=== PATIENT | male | born 1995 | race Caucasian/White ===

== ENCOUNTER 2020-06-20 12:56 | Emergency (ER) | payer OTHER, SELFPAY | END 2020-06-20 13:40 | disposition left against medical advice (07) | PROVIDERS: Emergency Provider Emergency Medicine; PCP Internal Medicine | DX: Z04.9 Encounter for examination and observation for unspecified reason (principal) ==

== ENCOUNTER 2020-06-21 06:55 | Emergency (ER) | payer OTHER, SELFPAY ==
[2020-06-21 07:13] VITALS: BP 142/89; PULSE 89; RESP 18; TEMP 36.7; O2SAT 99; BMI 29.1
--- NOTE | 2020-06-21 08:21 | ED_ITS ---
HPI - Nausea/Vomiting/Diarrhea General Chief complaint: Nausea/Vomiting/Diarrhea Stated complaint: Headache,vomiting Time Seen by Provider: 06/21/20 07:55 Source: patient Mode of arrival: ambulatory Limitations: no limitations History of Present Illness HPI Narrative: patient comes to emergency room complaining of nausea and vomiting for 3 days, no abdominal pain, no diarrhea. Patient states he has had occasional body aches, chills, no fever. Patient was seen yesterday at [facility], [place], labs were ordered but patient was never seen, patient states he was feeling too sick to be sitting on a chair and left home. Patient states he has been vomiting approximately 9 times per day Related Data Home Medications Medication Instructions Recorded Confirmed insulin glargine [Basaglar KwikPen 8 unit SUBCUT QAM 06/21/20 06/21/20 U-100 Insulin] insulin lispro [Admelog SoloStar unit SUBCUT 06/21/20 U-100 Insulin] lisinopril 1 tab PO DAILY 06/21/20 06/21/20 trazodone 1 tab PO BEDTIME PRN 06/21/20 06/21/20 Previous Rx's Medication Instructions Recorded ondansetron HCl [Zofran] 4 mg PO Q8H PRN #14 tab 06/21/20 Allergies Allergy/AdvReac Type Severity Reaction Status Date / Time clonazepam Allergy Unknown agitation Verified 04/25/20 00:00 shrimp [SHRIMP] Allergy Unknown ANAPHYLAXIS Unverified 05/12/20 18:55 sea food Allergy Unknown Uncoded 11/13/19 00:00 shrimp Allergy Unknown Uncoded 04/25/20 00:00 Review of Systems Review of Systems: Constitutional : No Weight loss, No Fever, complaining of chills, malaise ENT/Mouth : No Hearing loss, No Ear Pain, No Nasal Congestion, No Sinus Pain, No Hoarseness, No sore throat, No Rhinorrhea, No Swallowing Difficulty Eyes: No Eye Pain, No Swelling, No Redness, No Foreign Body, No Discharge, No Vision Changes Cardiovascular : No Chest Pain, No SOB, No Dyspnea on Exertion, No Orthopnea, No Edema, No Palpitations Respiratory : No Cough, No Sputum, No Wheezing, No Smoke Exposure, No Dyspnea Gastrointestinal : complaining of vomiting and nausea, No Diarrhea, No Constipation, No abdominal Pain, No Hematochezia, No Melena Genitourinary : no irregular bleeding, No Dysuria, No Urinary Frequency, No Hematuria, No Urinary Incontinence, No Urgency, No Flank Pain, No Urinary Flow Changes, No Hesitancy Musculoskeletal : No joint pain, No Myalgias, No Joint Swelling Skin : No Skin Lesions, No rash Neuro : No Weakness, No Numbness, No Paresthesias, No Loss of Consciousness, No Dizziness, No Headache Psych : No Anxiety/Panic, No Depression, No SI/HI/AH/VH, No Social Issues, Heme/Lymph: No Bruising, No Bleeding,No Lymphadenopathy Endocrine : No Polyuria, No Polydipsia, No Temperature Intolerance Yes all other systems are reviewed and are negative [facility] Past Medical History Medical History Diabetes mellitus type 1 Social History Social History Smoked in Last 30 Days: No Use of substances other than those prescribed or required for medical reasons: No Advance Directives: No Advance Directives Information Provided: No Physical Exam Vital Signs: Vital Signs: Vital Signs Temp Pulse Resp BP Pulse Ox 06/21/20 10:02 98.5 F 89 18 97 06/21/20 09:48 88 16 97 06/21/20 07:13 98.1 F 89 18 142/89 H 99 Body Mass Index 29.1 Appearance: Alert. Oriented X3. No acute distress. Eyes: Pupils equal, round and reactive to light. ENT: Pharynx normal. Neck: Normal inspection. Neck supple. No lymph nodes noted. No crepitus CVS: Normal heart rate and rhythm. Pulses normal. Normal S1 and S2 Respiratory: No respiratory distress. Breath sounds normal. No Wheezing. No rales Abdomen: Soft and nontender. No rigidity. No distention. good BS x4 Skin: Skin warm and dry. Normal skin color. Normal skin turgor. Extremities: No lower extremity edema. No lower extremity edema. No Lacerations . No Rash Neuro: Oriented X 3. No motor deficit. No sensory deficit. Moving all extermities. No slurred speech. Course Course Course Narrative: patient feeling better, no longer vomiting. I discussed the labs with the patient, tested negative for COVID. Likely a viral infection. MDM - Nausea/Vomiting/Diarrhea Lab Data Result diagrams: 06/21/20 08:38 06/21/20 08:38 Labs: Lab Results 06/21/20 06/21/20 06/21/20 Range/Units 08:38 08:38 08:38 WBC 9.4 (4.8-10.8) X10*3/uL RBC 4.52 L (4.60-5.80) X10*6/uL Hgb 13.4 L (14.0-18.0) g/dl Hct 37.8 L (42-52) % MCV 83.6 (80-98) fL MCH 29.6 (27.0-33.0) pg MCHC 35.4 (31.0-36.0) g/dl RDW 11.9 (11.0-16.0) % Plt Count 206 (160-400) X10*3/uL MPV 12.2 (9.4-12.4) fL Immature Gran % (Auto) 0.2 (0.0-0.4) % Neut % (Auto) 73.2 H (45-73) % Lymph % (Auto) 17.0 L (20-40) % [place] % (Auto) 9.2 (2-11) % Eos % (Auto) 0.3 (0-4) % Baso % (Auto) 0.1 (0-2) % Lymph # (Auto) 1.6 (1.2-4.9) X10*3/uL [place] # (Auto) 0.9 (0.1-1.2) X10*3/uL Eos # (Auto) 0.0 (0.0-0.4) X10*3/uL Baso # (Auto) 0.0 (0.0-0.2) X10*3/uL Abs Immat Gran (auto) 0.02 (0.00-0.03) X10*3/uL Absolute Neuts (auto) 6.9 (2.0-8.3) X10*3/uL Absolute Nucleated RBC 0.000 (0.0-0.012) X10*3/uL Nucleated RBC % (auto) 0.0 (0.0-0.2) /100WBC Sodium 134 L (135-145) mmol/L Potassium 4.3 (3.3-5.1) mmol/l Chloride 96 (96-108) mmol/L Carbon Dioxide 28 (22-29) mmol/L Anion Gap 14 (12-20) BUN 22 H (9-16) mg/dL Creatinine 1.00 (0.5-1.4) mg/dL Estim Creat Clear Calc 130.3 Estimated GFR > 60 Random Glucose 305 H (60-115) mg/dL Calcium 8.9 (8.4-10.2) mg/dL Total Bilirubin 1.0 (0.0-1.0) mg/dL Direct Bilirubin 0.3 (0.0-0.5) mg/dL AST 20 (5-37) U/L ALT 15 (0-40) U/L Alkaline Phosphatase 93 (39-117) U/L Total Protein 7.2 (6.5-8.0) g/dL Albumin 4.1 (3.5-5.0) g/dL Lipase Cancelled 9 Urine Color Urine Appearance Urine pH (5.0-8.0) Ur Specific [place] (1.005-1.025) Urine Protein (NEG-TRACE) MG/DL Urine Glucose (UA) (NEG) MG/DL Urine Ketones (NEG) MG/DL Urine Blood (NEG) Urine Nitrite (NEG) Ur Leukocyte Esterase (NEG) Urine RBC (0) /HPF Urine WBC (0-4) /HPF Ur Squamous Epith Cells /LPF Urine Bacteria /LPF Hyaline Casts /LPF Coronavirus (PCR) (Negative) 06/21/20 06/21/20 Range/Units 09:48 10:00 WBC (4.8-10.8) X10*3/uL RBC (4.60-5.80) X10*6/uL Hgb (14.0-18.0) g/dl Hct (42-52) % MCV (80-98) fL MCH (27.0-33.0) pg MCHC (31.0-36.0) g/dl RDW (11.0-16.0) % Plt Count (160-400) X10*3/uL MPV (9.4-12.4) fL Immature Gran % (Auto) (0.0-0.4) % Neut % (Auto) (45-73) % Lymph % (Auto) (20-40) % [place] % (Auto) (2-11) % Eos % (Auto) (0-4) % Baso % (Auto) (0-2) % Lymph # (Auto) (1.2-4.9) X10*3/uL [place] # (Auto) (0.1-1.2) X10*3/uL Eos # (Auto) (0.0-0.4) X10*3/uL Baso # (Auto) (0.0-0.2) X10*3/uL Abs Immat Gran (auto) (0.00-0.03) X10*3/uL Absolute Neuts (auto) (2.0-8.3) X10*3/uL Absolute Nucleated RBC (0.0-0.012) X10*3/uL Nucleated RBC % (auto) (0.0-0.2) /100WBC Sodium (135-145) mmol/L Potassium (3.3-5.1) mmol/l Chloride (96-108) mmol/L Carbon Dioxide (22-29) mmol/L Anion Gap (12-20) BUN (9-16) mg/dL Creatinine (0.5-1.4) mg/dL Estim Creat Clear Calc Estimated GFR Random Glucose (60-115) mg/dL Calcium (8.4-10.2) mg/dL Total Bilirubin (0.0-1.0) mg/dL Direct Bilirubin (0.0-0.5) mg/dL AST (5-37) U/L ALT (0-40) U/L Alkaline Phosphatase (39-117) U/L Total Protein (6.5-8.0) g/dL Albumin (3.5-5.0) g/dL Lipase Urine Color YELLOW Urine Appearance CLEAR Urine pH 6.0 (5.0-8.0) Ur Specific [place] 1.020 (1.005-1.025) Urine Protein 2+ H (NEG-TRACE) MG/DL Urine Glucose (UA) 500 H (NEG) MG/DL Urine Ketones 40 (NEG) MG/DL Urine Blood TRACE (NEG) Urine Nitrite NEG (NEG) Ur Leukocyte Esterase NEG (NEG) Urine RBC 0-2 (0) /HPF Urine WBC 0-2 (0-4) /HPF Ur Squamous Epith Cells NONE /LPF Urine Bacteria NONE /LPF Hyaline Casts 0-2 /LPF Coronavirus (PCR) NEGATIVE (Negative) Discharge Plan Discharge Clinical Impression: Acute viral syndrome, Vomiting, Headache Patient Disposition: Home, Self-Care Instructions: Acute Nausea and Vomiting (ED) Additional Instructions: Please follow-up with your primary care physician tomorrow. If you have any worsening or new symptoms, please return to the emergency room or call 911 Prescriptions: New ondansetron HCl [Zofran] 4 mg tablet 4 mg PO Q8H PRN (Reason: nausea and vomiting) Qty: 14 RF: 0 No Action insulin lispro [Admelog SoloStar U-100 Insulin] 100 unit/mL insulin pen subcut RF: 0 trazodone 50 mg tablet 1 tab PO BEDTIME PRN (Reason: Anxiety) RF: 0 lisinopril 5 mg tablet 1 tab PO DAILY RF: 0 Basaglar KwikPen U-100 Insulin 100 unit/mL (3 mL) insulin pen 8 unit subcut QAM RF: 0
[2020-06-21] MEDS: 0.9 % Sodium Chloride 1,000 ML 999 ML IVCONT (08:43)
[2020-06-21] MEDS: ondansetron HCL 4 MG/2 ML VIAL IVPUSH (08:43)
[2020-06-21 08:56] LABS: MANUAL DIFF FLAG NO
[2020-06-21 09:01] LABS: Basophils Percent Auto 0.1 % (0-2); Eosinophils Percent Auto 0.3 % (0-4); Hematocrit 37.8 % (42-52); Hemoglobin 13.4 g/dl (14.0-18.0); Imm Gran Abs Auto 0.02 X10*3/uL (0.00-0.03); Imm Gran Pct Auto 0.2 % (0.0-0.4); Lymphocytes Absolute Auto 1.6 X10*3/uL (1.2-4.9); Mean Corpuscular HGB Conc 35.4 g/dl (31.0-36.0); Mean Corpuscular Hemoglobin 29.6 pg (27.0-33.0); Mean Corpuscular Volume 83.6 fL (80-98); Mean Platelet Volume 12.2 fL (9.4-12.4); Monocytes Absolute Auto 0.9 X10*3/uL (0.1-1.2); Monocytes Percent Auto 9.2 % (2-11); Neutrophils Absolute Auto 6.9 X10*3/uL (2.0-8.3); Neutrophils Percent Auto 73.2 % (45-73); Platelet Count 206 X10*3/uL (160-400); Red Blood Count 4.52 X10*6/uL (4.60-5.80); Red Cell Distribution Width 11.9 % (11.0-16.0); White Blood Count 9.4 X10*3/uL (4.8-10.8)
[2020-06-21 09:27] LABS: Alanine Aminotransferase 15 U/L (0-40); Albumin Level 4.1 g/dL (3.5-5.0); Alkaline Phosphatase 93 U/L (39-117); Anion Gap 14 (12-20); Aspartate Amino Transferase 20 U/L (5-37); Bilirubin Direct 0.3 mg/dL (0.0-0.5); Blood Urea Nitrogen 22 mg/dL (9-16); Calcium 8.9 mg/dL (8.4-10.2); Carbon Dioxide 28 mmol/L (22-29); Chloride 96 mmol/L (96-108); Creatinine Clr Calc Pharmacy 130.3; Estimated Glomerular Filt Rate > 60; Glucose Random 305 mg/dL (60-115); Lipase 9 U/L (8-78); Potassium 4.3 mmol/l (3.3-5.1); Sodium 134 mmol/L (135-145); Total Protein 7.2 g/dL (6.5-8.0)
[2020-06-21 09:48] VITALS: PULSE 88; RESP 16; O2SAT 97
[2020-06-21 10:02] VITALS: PULSE 89; RESP 18; TEMP 36.9; O2SAT 97
[2020-06-21 10:11] LABS: Glucose Urine UA 500 MG/DL (NEG); Leukocyte Esterase Urine NEG (NEG); Nitrite Urine NEG (NEG); Urine Blood TRACE (NEG); Urine Ketones 40 MG/DL (NEG); Urine Protein 2+ MG/DL (NEG-TRACE)
[2020-06-21 10:12] LABS: Appearance Urine CLEAR; Color Urine YELLOW
[2020-06-21 10:24] LABS: RBC Urine 0-2 /HPF (0); WBC Urine 0-2 /HPF (0-4)
[2020-06-21 10:25] LABS: Hyaline Casts Urine 0-2 /LPF
[2020-06-21 11:19] LABS: SARS COV2 PCR INHOUSE NEGATIVE (Negative)
[2020-06-21] MEDS: Insulin Regular, Human 100 UNIT/ML 3 ML VIAL IVPUSH (12:39)
[2020-06-21] MEDS: Acetaminophen 325 MG TABLET 650 MG PO (12:40)
[2020-06-21 12:44] VITALS: BP 149/80; PULSE 96; RESP 18; TEMP 36.7; O2SAT 99
== END 2020-06-21 12:58 | disposition home or self-care (01) ==
PROVIDERS: Emergency Provider Emergency Medicine; PCP Internal Medicine
DX: R51.9 Headache, unspecified (principal); B34.9 Viral infection, unspecified; R11.10 Vomiting, unspecified; Z79.4 Long term (current) use of insulin; Z79.899 Other long term (current) drug therapy; Z20.828 Contact with and (suspected) exposure to other viral communicable diseases
CPT/HCPCS: 36415; 80048; 80076; 81001; 83690; 85025; 87635; 96361; 96374; 96375; 99284; J2405

== ENCOUNTER 2020-06-22 09:59 | Outpatient (REF) | payer OTHER, SELFPAY ==
--- NOTE | 2020-06-22 10:10 | US_ITS ---
EXAMINATION: US RETROPERITONEAL LIMITED (RENAL ONLY) CLINICAL INFORMATION: Hypertension. Proteinuria. COMPARISON: CT abdomen and pelvis 01/19/2018, KUB 01/18/2018 TECHNIQUE: Real-time imaging of the kidneys. FINDINGS: RIGHT KIDNEY: 12.0 x 6.2 x 6.7 cm (SAG x AP x TRV). The kidney is normal in size, contour, and echogenicity. Renal cortical thickness is normal. No calculi or focal parenchymal lesions. No hydronephrosis. LEFT KIDNEY: 12.0 x 7.8 x 4.9 cm (SAG x AP x TRV). The kidney is normal in size, contour, and echogenicity. Renal cortical thickness is normal. No renal calculi or hydronephrosis. There is an anechoic cyst midpole measuring 7.8 x 7.7 x 8.5 cm. US/US renal BI IMPRESSION: Small cyst midpole left kidney measuring 8.5 cm. Unremarkable right kidney.
== END 2020-06-22 10:00 | disposition home or self-care (01) ==
LOC: HO.US 09:59
PROVIDERS: Visit Provider Internal Medicine Hypertension Specialist
DX: E10.9 Type 1 diabetes mellitus without complications (principal); I10 Essential (primary) hypertension; R80.9 Proteinuria, unspecified
CPT/HCPCS: 76775

== ENCOUNTER → 2020-07-08 08:54 | Outpatient (BNVA) | payer OTHER, SELFPAY | PROVIDERS: PCP Internal Medicine; Referring Provider Internal Medicine; Visit Provider Internal Medicine Endocrinology, Diabetes & Metabolism | DX: Z76.89 Persons encountering health services in other specified circumstances (principal) ==

== ENCOUNTER 2020-11-03 04:31 | Emergency (ER) | payer OTHER, SELFPAY ==
[2020-11-03 04:46] VITALS: BP 143/93; PULSE 84; RESP 16; TEMP 36.7; O2SAT 100; BMI 29.9
--- NOTE | 2020-11-03 05:27 | ED.HA ---
HPI - Headache General Chief Complaint: Headache Stated Complaint: HEAD PAIN NO INJURY Time Seen by Provider: 11/03/20 05:26 Source: patient Mode of arrival: ambulatory History of Present Illness HPI Narrative: This is a 25-year-old male with history of hypertension and type 1 diabetes who presents with 1 week of left base of skull, sharp, pinpoint pain that worsens with head movement. He denies any associated fevers, chills, nausea, vomiting, decrease in appetite, abdominal discomfort. In addition, he states his sugar levels have remained consistent and under control. He has inconsistently tried [id number] Tylenol and ibuprofen and denies any photosensitivity or visual disturbances. Related Data Home Medications Medication Instructions Recorded Confirmed trazodone 1 tab PO BEDTIME PRN 06/21/20 10/04/20 Previous Rx's Medication Instructions Recorded ondansetron HCl [Zofran] 4 mg PO Q8H PRN #14 tab 06/21/20 lancets 33 gauge #200 ea 06/24/20 cholecalciferol (vitamin D3) 125 125 mcg PO DAILY 30 Days #30 cap 07/08/20 mcg (5,000 unit) capsule flash glucose scanning reader #1 ea 07/08/20 flash glucose sensor #2 ea 07/08/20 insulin glargine 100 unit/mL (3 8 unit SUBCUT QAM 30 Days #15 ml 07/08/20 mL) subcutaneous pen insulin lispro 100 unit/mL See Rx Instructions SUBCUT .5 07/08/20 subcutaneous pen times a day 30 Days #15 ml lisinopril 5 mg tablet 5 mg PO DAILY 30 Days #30 tab 07/08/20 pen needle, diabetic 32 gauge x #150 ea 07/08/20 Allergies Allergy/AdvReac Type Severity Reaction Status Date / Time clonazepam Allergy Unknown agitation Verified 10/04/20 15:39 shrimp [SHRIMP] Allergy Unknown ANAPHYLAXIS Verified 10/04/20 15:39 Review of Systems Review of Systems: Pertinent positives and negatives as stated in HPI 10 point review systems is otherwise negative. PMFSH Past Medical History Source: nursing notes reviewed Medical History Anxiety Asthma Diabetes mellitus type 1 Diabetes type 1, uncontrolled Diabetic nephropathy associated with type 1 diabetes mellitus Diabetic polyneuropathy associated with type 1 diabetes mellitus Non-proliferative diabetic retinopathy, mild, both eyes Overweight (BMI 25.0-29.9) Vitamin D deficiency Surgical History History of surgery Family History Family History Father No problems noted. Mother Hypertension Maternal Grandmother Hypertension Diabetes Maternal Uncle Chronic mental illness Social History Social History Smoking Status: Former smoker Tobacco Type: Cigarette Advance Directives: No Advance Directives Information Provided: No Physical Exam Vital Signs: Vital Signs: Last Vital Signs Temp 98.4 F 11/03/20 05:53 Pulse 84 11/03/20 05:53 Resp 16 11/03/20 05:53 BP 120/70 11/03/20 05:53 Pulse Ox 99 11/03/20 05:53 Body Mass Index 29.9 VITAL SIGNS: Reviewed. GENERAL: Well developed, well nourished, in no acute distress. HEAD: Normocephalic/atraumatic, pinpoint pain located at the insertion site of trapezius into left skull base, no erythema/induration/swelling noted EYES: PERRLA, EOMI intact without pain, no nystagmus EARS: Ext canals without abnormality, TMs non-bulging and non-erythematous NOSE: Nares patent bilateral OROPHARYNX: no oral lesions noted, posterior pharynx clear NECK: Supple, no adenopathy LUNGS: Normal breath sounds. No adventitious sounds or accessory muscle use. SpO2<100> CARDIOVASCULAR: Regular rate and rhythm without noted murmurs ABDOMEN: Soft, non-tender, non-distended with bowel sounds. NEUROLOGIC: Alert and oriented x 4. Strength and sensation to light touch were grossly intact x 4. Course Course Course Narrative: This is a 25-year-old male with history and clinical presentation most consistent with mild strain (patient states he has been sitting at his computer for long hours playing video games) of the trapezius insertion into left skull base. Low clinical suspicion for a meningitis, neurologic deficit or diabetes so she ate etiology. Patient was provided with combination analgesics and will be reassessed. [id number]: On re-evaluation patient has had complete resolution of his symptoms and is feeling much better. He is stable for discharge to home. Discharge Plan Discharge Clinical Impression: Muscle strain Patient Disposition: Home, Self-Care Instructions: Muscle Strain (ED) Additional Instructions: 1. Tylenol 1000 mg, orally, every 6 hours as needed for pain control. Do not exceed 4000 mg within 24 hours. 2. Ibuprofen 400 mg, orally with milk or food, every 6 hours as needed for pain control. Take this medication with Tylenol for increased symptom control. 3. Please follow-up with your primary care provider for re-evaluation and further outpatient management. Do not hesitate to return to this emergency department should you develop any worsening of your symptoms. Prescriptions: No Action (DME) lancets [TRUEplus Lancets] 33 gauge misc See Rx Instructions .ROUTE .MEDSUPPLY Qty: 200 RF: 1 trazodone 50 mg tablet 1 tab PO BEDTIME PRN (Reason: Anxiety) RF: 0 ondansetron HCl [Zofran] 4 mg tablet 4 mg PO Q8H PRN (Reason: nausea and vomiting) Qty: 14 RF: 0 Basaglar KwikPen U-100 Insulin 100 unit/mL (3 mL) insulin pen 8 unit subcut QAM 30 Days Qty: 15 RF: 4 insulin lispro [Admelog SoloStar U-100 Insulin] 100 unit/mL insulin pen See Rx Instructions subcut .5 times a day 30 Days Qty: 15 RF: 4 (DME) pen needle, diabetic [BD Yi 2nd Gen Pen Needle] 32 gauge x 5/32 needle See Rx Instructions .MEDSUPPLY Qty: 150 RF: 5 (DME) FreeStyle Shelli 2 [place] Misc See Rx Instructions .ROUTE .MEDSUPPLY Qty: 1 RF: 0 (DME) FreeStyle Shelli 2 Sensor Kit See Rx Instructions .ROUTE .MEDSUPPLY Qty: 2 RF: 11 cholecalciferol (vitamin D3) 125 mcg (5,000 unit) capsule 125 mcg PO DAILY 30 Days Qty: 30 RF: 6 lisinopril 5 mg tablet 5 mg PO DAILY 30 Days Qty: 30 RF: 5 Referrals: Tiffani Carson MD [Primary Care Provider] - 2 days (Re-evaluation and further outpatient management for left trapezius muscle strain.)
[2020-11-03 05:53] VITALS: BP 120/70; PULSE 84; RESP 16; TEMP 36.9; O2SAT 99
[2020-11-03] MEDS: Ketorolac Tromethamine 15 MG/ML VIAL IM (06:08)
[2020-11-03] MEDS: Acetaminophen 325 MG TABLET 975 MG PO (06:08)
== END 2020-11-03 07:04 | disposition home or self-care (01) ==
PROVIDERS: Emergency Provider Student in an Organized Health Care Education/Training Program; PCP Internal Medicine
DX: S16.1XXA Strain of muscle, fascia and tendon at neck level, initial encounter (principal); X50.1XXA Overexertion from prolonged static or awkward postures, initial encounter; E10.9 Type 1 diabetes mellitus without complications; I10 Essential (primary) hypertension; Y93.C1 Activity, computer keyboarding; Y92.019 Unspecified place in single-family (private) house as the place of occurrence of the external cause; Y99.8 Other external cause status; Z79.4 Long term (current) use of insulin
CPT/HCPCS: 96372; 99283; 99284; J1885

== ENCOUNTER 2020-11-10 16:37 | Outpatient (REF) | payer OTHER, SELFPAY | END 2020-11-10 16:38 | disposition home or self-care (01) | LOC: HO.LNP 16:37 | PROVIDERS: Visit Provider Physician Assistant | DX: J01.90 Acute sinusitis, unspecified (principal); Z20.822 Contact with and (suspected) exposure to COVID-19 | CPT/HCPCS: U0003; U0005 ==

== ENCOUNTER → 2020-11-11 13:00 | Outpatient (BNVA) | payer OTHER, SELFPAY | PROVIDERS: PCP Internal Medicine; Visit Provider Internal Medicine Endocrinology, Diabetes & Metabolism ==

== ENCOUNTER 2020-12-12 13:52 | Inpatient (IN) | payer OTHER, SELFPAY ==
--- NOTE | ~2020-12-12 | CT_ITS ---
EXAMINATION: CT ABDOMEN AND PELVIS WITH CONTRAST CLINICAL INFORMATION: Right lower quadrant pain. COMPARISON: CT 01/19/2018. TECHNIQUE: Multidetector volumetric images were obtained from the superior aspect of the liver through the pubic symphysis following administration 85 mL of Omnipaque 350 intravenous contrast. Sagittal and coronal reformatted images were obtained on the technologist's workstation. Oral Contrast: No. This CT examination was performed using dose optimization techniques as appropriate, variously including the following: *Automated exposure control. *Adjustment of mA and/or kV according to patient size (this includes techniques or standardized protocols for targeted exams where dose is matched to indication/reason for exam; i.e. extremities or head). *Use of iterative reconstruction technique. DLP: 638 mGy-cm FINDINGS: LUNG BASES: The visualized lung bases are unremarkable. LIVER, GALLBLADDER, AND BILIARY TREE: No focal liver lesion. No biliary duct dilatation. The gallbladder is unremarkable with no evidence of radiopaque gallstones, gallbladder wall thickening, or obvious pericholecystic inflammatory changes. PANCREAS: Unremarkable. SPLEEN: Unremarkable. ADRENAL GLANDS: Unremarkable. KIDNEYS AND URETERS: A 8.2 cm cyst in the upper pole of the left kidney, similar to previous. No suspicious lesions. No calculi. No hydronephrosis. BLADDER: Unremarkable. GASTROINTESTINAL TRACT: The appendix is thickened measuring 1 cm in diameter, with intraluminal high density material possibly appendicoliths, and air. Associated surrounding inflammatory changes. Findings are highly suspicious for acute appendicitis. There are multiple prominent mesenteric lymph nodes in the right lower quadrant. Stomach is partially distended. No dilated small bowel loops. There is mild wall prominence of the large colon, probably related to lack of distention. ABDOMINAL WALL: Small fat-containing inguinal hernia. LYMPH NODES: Multiple prominent retroperitoneal lymph nodes. This includes a 1.4 cm para-aortic lymph node image 5:33. Mildly prominent mesenteric lymph nodes. VASCULAR: Normal caliber aorta. PELVIC VISCERA: Within normal limits. 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 CT/CT abdomen pelvis w con IMPRESSION: 1. Thickened appendix, with intraluminal high density material probable phleboliths, periappendiceal inflammatory changes. Findings are highly suspicious for acute appendicitis. There are multiple prominent mesenteric lymph nodes in the right lower quadrant. 2. Prominent retroperitoneal lymph nodes, larger measuring 1.4 cm. 3. Additional findings and details as above. This critical result was discussed with Dr. Vinson at 10:55 PM on 12/12/2020 and it was ascertained that the content and urgency of the report was understood at the time of direct communication.
[2020-12-12 13:54] VITALS: BP 142/91; PULSE 84; RESP 18; TEMP 36.6; O2SAT 99; BMI 30.4
[2020-12-12 16:33] LABS: MANUAL DIFF FLAG NO
[2020-12-12 16:37] LABS: Basophils Percent Auto 0.1 % (0-2); Eosinophils Absolute Auto 0.1 X10*3/uL (0.0-0.4); Hematocrit 38.4 % (42-52); Hemoglobin 13.3 g/dl (14.0-18.0); Imm Gran Abs Auto 0.04 X10*3/uL (0.00-0.03); Imm Gran Pct Auto 0.4 % (0.0-0.4); Lymphocytes Absolute Auto 1.8 X10*3/uL (1.2-4.9); Lymphocytes Percent Auto 19.1 % (20-40); Mean Corpuscular HGB Conc 34.6 g/dl (31.0-36.0); Mean Corpuscular Volume 83.8 fL (80-98); Mean Platelet Volume 11.9 fL (9.4-12.4); Monocytes Absolute Auto 0.9 X10*3/uL (0.1-1.2); Monocytes Percent Auto 9.5 % (2-11); Neutrophils Absolute Auto 6.5 X10*3/uL (2.0-8.3); Neutrophils Percent Auto 69.9 % (45-73); Platelet Count 194 X10*3/uL (160-400); Red Blood Count 4.58 X10*6/uL (4.60-5.80); Red Cell Distribution Width 12.3 % (11.0-16.0); White Blood Count 9.3 X10*3/uL (4.8-10.8)
[2020-12-12 17:03] LABS: Anion Gap 11 (12-20); Blood Urea Nitrogen 11 mg/dL (9-16); Calcium 8.8 mg/dL (8.4-10.2); Carbon Dioxide 28 mmol/L (22-29); Chloride 105 mmol/L (96-108); Creatinine Clr Calc Pharmacy 162.2; Estimated Glomerular Filt Rate > 60; Glucose Random 103 mg/dL (60-115); Potassium 4.1 mmol/L (3.3-5.1); Sodium 140 mmol/L (135-145)
--- NOTE | 2020-12-12 17:43 | ED_ITS ---
HPI - Abdominal Pain General Chief Complaint: Abdominal Pain Stated Complaint: rt lower abd pain Time Seen by Provider: 12/12/20 17:34 Source: patient Mode of arrival: ambulatory Limitations: no limitations History of Present Illness HPI narrative: 25 yo male with IDDM here with RLQ pain started today associated diarrhea yesterday and lack of appetite, no prior episodes of this in the past MD elicited complaint: abdominal pain Pertinent past history: none Onset (ago): day(s) (today this AM on waking) Pain Consistency: constant Location: RLQ Severity: moderate Quality: cramping and aching Radiation: none Migration to: no migration Exacerbating factors: movement Relieving factors: nothing Associated symptoms: diarrhea Related Data Home Medications Medication Instructions Recorded Confirmed trazodone 1 tab PO BEDTIME PRN 06/21/20 12/12/20 blood sugar diagnostic #10 ea 11/11/20 12/12/20 Previous Rx's Medication Instructions Recorded ondansetron HCl [Zofran] 4 mg PO Q8H PRN #14 tab 06/21/20 lancets 33 gauge #200 ea 06/24/20 flash glucose scanning reader #1 ea 07/08/20 amoxicillin 875 mg-potassium 1 tab PO Q12H #14 tab 11/10/20 clavulanate 125 mg tablet levocetirizine 5 mg tablet 5 mg PO DAILY #30 tab 11/10/20 Humalog KwikPen Insulin 100 See Rx Instructions SUBCUT .5 11/11/20 unit/mL subcutaneous times a day 30 Days #15 ml NS Lantus Solostar U-100 Insulin 100 8 unit SUBCUT QAM 30 Days #15 ml NS 11/11/20 unit/mL (3 mL) subcutaneous pen cholecalciferol (vitamin D3) 125 125 mcg PO DAILY 30 Days #30 cap 11/11/20 mcg (5,000 unit) capsule flash glucose sensor #2 ea 11/11/20 lisinopril 5 mg tablet 5 mg PO DAILY 30 Days #30 tab 11/11/20 pen needle, diabetic 32 gauge x #150 ea 11/11/20 Allergies Allergy/AdvReac Type Severity Reaction Status Date / Time clonazepam Allergy Unknown agitation Verified 12/12/20 13:08 shrimp [SHRIMP] Allergy Unknown ANAPHYLAXIS Verified 12/12/20 13:08 Review of Systems Review of Systems Constitutional : No Weight loss, No Fever, No Chills ENT/Mouth : No sore throat, No Rhinorrhea Eyes: No Swelling, No Redness Cardiovascular : No Chest Pain, No SOB, NoEdema Respiratory : No Cough, No Sputum, No Wheezing Gastrointestinal : no Nausea, no Vomiting, positive Diarrhea, positive abdominal Pain, No Hematochezia, No Melena Genitourinary : No Dysuria, No Urinary Frequency, No Hematuria, No Urgency Musculoskeletal : No joint pain, No Myalgias, No Joint Swelling Skin : No Skin Lesions, No rash Neuro : No Weakness, No Numbness, No Dizziness, No Headache Psych : No Anxiety/Panic, No Depression Heme/Lymph: No Bruising, No Lymphadenopathy Endocrine : No Polyuria, No Polydipsia All other systems reviewed and are negative. Physical Exam Vital Signs: Vital Signs: Last Vital Signs Temp 98.2 F 12/12/20 21:57 Pulse 84 12/12/20 21:57 Resp 18 12/12/20 21:57 BP 151/98 H 12/12/20 21:57 Pulse Ox 99 12/12/20 21:57 Body Mass Index 30.4 Appearance: Alert. Oriented X3. No acute distress. Eyes: Pupils equal, round and reactive to light. ENT: Pharynx normal. Neck: Normal inspection. Neck supple. CVS: Normal heart rate and rhythm. Pulses normal. Respiratory: No respiratory distress. Breath sounds normal. Abdomen: Soft and moderate RLQ pain with mild vol guarding but no rebound Skin: Skin warm and dry. Normal skin color. Normal skin turgor. Extremities: No lower extremity edema. No calf ttp Neuro: Oriented X 3. No motor deficit. No sensory deficit. Course Course Course Narrative: significant delay in CT read called 1056pm by Radiology + appendicitis, will start larisa Dobson aware 11pm will admit MDM - Abdominal Pain MDM Narrative Medical decision making narrative: 25 yo male with IDDM here with diarrhea yesterday now with RLQ pain at this time will need labs, CT scan for appendicitis, IV morphine for pain Lab Data Result diagrams: 12/12/20 16:21 12/12/20 16:21 Labs: Lab Results 12/12/20 12/12/20 12/12/20 Range/Units 16:21 16:21 16:21 WBC 9.3 (4.8-10.8) X10*3/uL RBC 4.58 L (4.60-5.80) X10*6/uL Hgb 13.3 L (14.0-18.0) g/dl Hct 38.4 L (42-52) % MCV 83.8 (80-98) fL MCH 29.0 (27.0-33.0) pg MCHC 34.6 (31.0-36.0) g/dl RDW 12.3 (11.0-16.0) % Plt Count 194 (160-400) X10*3/uL MPV 11.9 (9.4-12.4) fL Immature Gran % (Auto) 0.4 (0.0-0.4) % Neut % (Auto) 69.9 (45-73) % Lymph % (Auto) 19.1 L (20-40) % [place] % (Auto) 9.5 (2-11) % Eos % (Auto) 1.0 (0-4) % Baso % (Auto) 0.1 (0-2) % Lymph # (Auto) 1.8 (1.2-4.9) X10*3/uL [place] # (Auto) 0.9 (0.1-1.2) X10*3/uL Eos # (Auto) 0.1 (0.0-0.4) X10*3/uL Baso # (Auto) 0.0 (0.0-0.2) X10*3/uL Abs Immat Gran (auto) 0.04 H (0.00-0.03) X10*3/uL Absolute Neuts (auto) 6.5 (2.0-8.3) X10*3/uL Absolute Nucleated RBC 0.000 (0.0-0.012) X10*3/uL Nucleated RBC % (auto) 0.0 (0.0-0.2) /100WBC Hold Blue Top SEE NOTE Sodium 140 (135-145) mmol/L Potassium 4.1 (3.3-5.1) mmol/L Chloride 105 (96-108) mmol/L Carbon Dioxide 28 (22-29) mmol/L Anion Gap 11 L (12-20) BUN 11 (9-16) mg/dL Creatinine 0.82 (0.5-1.4) mg/dL Estim Creat Clear Calc 162.2 Estimated GFR > 60 Random Glucose 103 D (60-115) mg/dL Calcium 8.8 (8.4-10.2) mg/dL Urine Color Urine Appearance Urine pH (5.0-8.0) Ur Specific [place] (1.005-1.025) Urine Protein (NEG-TRACE) MG/DL Urine Glucose (UA) (NEG) MG/DL Urine Ketones (NEG) MG/DL Urine Blood (NEG) Urine Nitrite (NEG) Ur Leukocyte Esterase (NEG) Urine RBC (0) /HPF Urine WBC (0-4) /HPF Ur Squamous Epith Cells /LPF Urine Bacteria /LPF COVID-19 (HAL) (Negative) COVID-19 Clin Com 12/12/20 12/12/20 Range/Units 18:09 22:00 WBC (4.8-10.8) X10*3/uL RBC (4.60-5.80) X10*6/uL Hgb (14.0-18.0) g/dl Hct (42-52) % MCV (80-98) fL MCH (27.0-33.0) pg MCHC (31.0-36.0) g/dl RDW (11.0-16.0) % Plt Count (160-400) X10*3/uL MPV (9.4-12.4) fL Immature Gran % (Auto) (0.0-0.4) % Neut % (Auto) (45-73) % Lymph % (Auto) (20-40) % [place] % (Auto) (2-11) % Eos % (Auto) (0-4) % Baso % (Auto) (0-2) % Lymph # (Auto) (1.2-4.9) X10*3/uL [place] # (Auto) (0.1-1.2) X10*3/uL Eos # (Auto) (0.0-0.4) X10*3/uL Baso # (Auto) (0.0-0.2) X10*3/uL Abs Immat Gran (auto) (0.00-0.03) X10*3/uL Absolute Neuts (auto) (2.0-8.3) X10*3/uL Absolute Nucleated RBC (0.0-0.012) X10*3/uL Nucleated RBC % (auto) (0.0-0.2) /100WBC Hold Blue Top Sodium (135-145) mmol/L Potassium (3.3-5.1) mmol/L Chloride (96-108) mmol/L Carbon Dioxide (22-29) mmol/L Anion Gap (12-20) BUN (9-16) mg/dL Creatinine (0.5-1.4) mg/dL Estim Creat Clear Calc Estimated GFR Random Glucose (60-115) mg/dL Calcium (8.4-10.2) mg/dL Urine Color YELLOW Urine Appearance CLEAR Urine pH 6.0 (5.0-8.0) Ur Specific [place] >= 1.030 H (1.005-1.025) Urine Protein 2+ H (NEG-TRACE) MG/DL Urine Glucose (UA) NEG (NEG) MG/DL Urine Ketones 5 (NEG) MG/DL Urine Blood 1+ H (NEG) Urine Nitrite NEG (NEG) Ur Leukocyte Esterase NEG (NEG) Urine RBC 5-9 H (0) /HPF Urine WBC 0 (0-4) /HPF Ur Squamous Epith Cells NONE /LPF Urine Bacteria NONE /LPF COVID-19 (HAL) Negative (Negative) COVID-19 Clin Com See Note Discharge Plan Discharge Clinical Impression: Abdominal pain, Acute appendicitis Prescriptions: No Action (DME) lancets [TRUEplus Lancets] 33 gauge misc See Rx Instructions .ROUTE .MEDSUPPLY Qty: 200 RF: 1 Lantus Solostar U-100 Insulin 100 unit/mL (3 mL) insulin pen 8 unit subcut QAM 30 Days Qty: 15 RF: 4 insulin lispro [Humalog KwikPen Insulin] 100 unit/mL insulin pen See Rx Instructions subcut .5 times a day 30 Days Qty: 15 RF: 4 trazodone 50 mg tablet 1 tab PO BEDTIME PRN (Reason: Anxiety) RF: 0 ondansetron HCl [Zofran] 4 mg tablet 4 mg PO Q8H PRN (Reason: nausea and vomiting) Qty: 14 RF: 0 levocetirizine [Xyzal] 5 mg tablet 5 mg PO DAILY Qty: 30 RF: 0 amoxicillin-pot clavulanate [Augmentin] 875-125 mg tablet 1 tab PO Q12H Qty: 14 RF: 0 (DME) FreeStyle Lite Strips Strip See Rx Instructions ea Not Applicable .MEDSUPPLY Qty: 10 RF: 0 (DME) FreeStyle [place] 2 Sensor Kit See Rx Instructions .ROUTE .MEDSUPPLY Qty: 2 RF: 11 lisinopril 5 mg tablet 5 mg PO DAILY 30 Days Qty: 30 RF: 5 (DME) pen needle, diabetic [BD Yi 2nd Gen Pen Needle] 32 gauge x 5/32 needle See Rx Instructions .MEDSUPPLY Qty: 150 RF: 5 cholecalciferol (vitamin D3) 125 mcg (5,000 unit) capsule 125 mcg PO DAILY 30 Days Qty: 30 RF: 1 (DME) FreeStyle [place] 2 [place] Misc See Rx Instructions .ROUTE .MEDSUPPLY Qty: 1 RF: 0 PMFSH Past Medical History Attestation statement: The following information was validated with the patient. Medical History Anxiety Asthma Diabetes mellitus type 1 Diabetes type 1, uncontrolled Diabetic nephropathy associated with type 1 diabetes mellitus Diabetic polyneuropathy associated with type 1 diabetes mellitus Non-proliferative diabetic retinopathy, mild, both eyes Overweight (BMI 25.0-29.9) Vitamin D deficiency Surgical History History of surgery Family History Family History Father No problems noted. Mother Hypertension Maternal Grandmother Hypertension Diabetes Maternal Uncle Chronic mental illness Social History Social History Alcohol intake: never Smoking Status: Former smoker Tobacco Type: Cigarette Smoked in Last 30 Days: No Use of substances other than those prescribed or required for medical reasons: No Advance Directives: No Advance Directives Information Provided: No
[2020-12-12 17:47] VITALS: BP 142/88; PULSE 80; RESP 16; TEMP 36.6; O2SAT 99
[2020-12-12 18:05] VITALS: RESP 18
[2020-12-12] MEDS: Morphine Sulfate 4 MG/ML CARTRIDGE IVPUSH (18:05)
[2020-12-12] MEDS: 0.9 % Sodium Chloride 1,000 ML 999 ML IVCONT (18:05)
[2020-12-12 18:41] LABS: COVID-19 Test Negative (Negative); IDNOW Serial# 08D9AD1C
[2020-12-12 19:21] VITALS: BP 135/93; PULSE 78; RESP 18; TEMP 36.6; O2SAT 98
[2020-12-12] MEDS: iohexoL 350 MG/ML 100 ML INFUS..BTL IV (20:59)
[2020-12-12 21:57] VITALS: BP 151/98; PULSE 84; RESP 18; TEMP 36.8; O2SAT 99
[2020-12-12 22:07] LABS: Glucose Urine UA NEG (NEG); Leukocyte Esterase Urine NEG (NEG); Nitrite Urine NEG (NEG); Specific Gravity - Urine >= 1.030 (1.005-1.025); Urine Blood 1+ (NEG); Urine Ketones 5 MG/DL (NEG); Urine Protein 2+ MG/DL (NEG-TRACE)
[2020-12-12 22:10] LABS: Appearance Urine CLEAR; Color Urine YELLOW
[2020-12-12 22:16] LABS: WBC Urine 0 /HPF (0-4)
[2020-12-12] MEDS: Piperacillin Sodium/Tazobactam 3.375 GM in 0.9 % Sodium Chloride 50 ML IV (23:32)
[2020-12-12 23:51] VITALS: BP 161/92; PULSE 91; RESP 18; TEMP 36.7; O2SAT 100
[2020-12-13] VITALS (15 sets, daily range): BP systolic 109–154; BP diastolic 67–101; PULSE 79–87; RESP 15–20; TEMP 36.1–37.2; O2SAT 94–100
--- NOTE | 2020-12-13 02:48 | PC.NURSE ---
Patient is resting comfortably in bed was able to tolerate po intake is now npo vitals are stable completed first dose of iv atbs aware of plan of care to be admitted for appendicitis no c/o pain at this time
[2020-12-13 03:38] LABS: Glucose, Whole Blood 206 mg/dL (60-115)
[2020-12-13] MEDS: Lactated Ringers 1,000 ML 100 ML IV (03:56)
[2020-12-13] MEDS: Piperacillin Sodium/Tazobactam 3.375 GM in 0.9 % Sodium Chloride 50 ML IV ×3 (06:28→17:09)
--- NOTE | 2020-12-13 07:03 | PM.HPGS ---
History of Present Illness History of Present Illness Date of Service: 12/13/20 Chief complaint: Acute appendicitis Narrative: Riley Rodriguez is a 25 year old male who presented to the emergency department late yesterday for evaluation of right lower quadrant abdominal pain. The pain began around mid day and was persistent and aggravated by movement. It was not associated with fever, chills, nausea or vomiting. He had no history of similar pain in the past. The pain has improved significantly through the night. In the emergency room, workup revealed a normal white blood count. CT scan of the abdomen and pelvis was consistent with acute appendicitis, and demonstrated a somewhat enlarged appearing appendix with periappendiceal inflammation. Review of Systems Constitutional: Constitutional: Denies chills and Denies fever(s) Eyes: Eyes: Reports no additional eye complaints Cardiovascular: Cardiovascular: Denies chest pain, Denies palpitations and Denies dyspnea Respiratory: Respiratory: Denies cough and Denies dyspnea Gastrointestinal: Gastrointestinal: Reports as per HPI Genitourinary: Genitourinary: Reports no additional male genitourinary complaints Musculoskeletal: Musculoskeletal: Reports no additional musculoskeletal complaints Integumentary/Breasts: Skin/Breast: Denies rash Endocrine: Endocrine: Denies palpitations Hematologic/Lymphatic: Hematologic/Lymphatic: Denies easy bruising PMFSH Past Medical History Medical History Anxiety Asthma Diabetes mellitus type 1 Diabetes type 1, uncontrolled Diabetic nephropathy associated with type 1 diabetes mellitus Diabetic polyneuropathy associated with type 1 diabetes mellitus Non-proliferative diabetic retinopathy, mild, both eyes Overweight (BMI 25.0-29.9) Vitamin D deficiency Family History Family History Father No problems noted. Mother Hypertension Maternal Grandmother Hypertension Diabetes Maternal Uncle Chronic mental illness Surgical History Surgical History History of surgery Social History Social History Alcohol intake: never Smoking Status: Former smoker Tobacco Type: Cigarette Smoked in Last 30 Days: No Use of substances other than those prescribed or required for medical reasons: No Advance Directives: No Advance Directives Information Provided: No Meds Allergies Allergy/AdvReac Type Severity Reaction Status Date / Time clonazepam Allergy Unknown agitation Verified 12/12/20 13:08 shrimp [SHRIMP] Allergy Unknown ANAPHYLAXIS Verified 12/12/20 13:08 Active Medications: Current Medications Generic Name Dose Route Start Last Admin Trade Name Freq PRN Reason Stop Dose Admin Lactated Ringer's 1,000 mls @ 100 mls/hr 12/13/20 03:10 12/13/20 03:56 Lr IV 12/13/20 13:09 100 mls/hr .Q10H ENEDINA Administration Piperacillin Sod/Tazobactam 50 mls @ 100 mls/hr 12/13/20 06:00 12/13/20 06:28 Sod 3.375 gm/ Sodium Chloride IV 100 mls/hr Q6H ENEDINA Administration Insulin Human Lispro 0 unit 12/13/20 03:10 12/13/20 03:47 Insulin Lispro 100 Unit/Ml 3 Ml Vial SUBCUT Not Given Q6H ENEDINA Protocol Morphine Sulfate 4 mg 12/13/20 03:10 Morphine Sulfate 4 Mg/Ml Cartridge IVPUSH Q3H PRN pain, severe Ondansetron HCl 4 mg 12/13/20 03:10 Ondansetron Hcl 4 Mg/2 Ml Vial IVPUSH Q8H PRN nausea Pharmacy Consult 1 each 12/12/20 23:04 Consult Rx Perform Med Rec MISCELLANE ONCE PRN Consult order Home Medications Medication Instructions Recorded Confirmed Last Taken Type trazodone 1 tab PO BEDTIME PRN 06/21/20 12/12/20 Unknown History blood sugar diagnostic #10 ea 11/11/20 12/12/20 Unknown History insulin degludec [Tresiba U-100 10 unit SUBCUT BEDTIME 12/12/20 12/12/20 12/11/20 20:00 History Insulin] cholecalciferol (vitamin D3) 1 cap PO DAILY 12/13/20 Unknown History levocetirizine 1 tab PO DAILY 12/13/20 Unknown History Physical Exam Vital Signs: Vital Signs: Last Vital Signs Temp 98.0 F 12/13/20 04:01 Pulse 80 12/13/20 04:01 Resp 18 12/13/20 04:01 BP 134/87 12/13/20 04:01 Pulse Ox 100 12/13/20 04:01 Body Mass Index 30.4 Const: General: cooperative, healthy appearing and no acute distress HENMT: Head: Yes normocephalic and Yes atraumatic Eyes: Sclerae: sclerae normal EOM: EOMs intact bilaterally Resp: Auscultation: clear to auscultation bilaterally Percussion: percussion normal Cardio: Rate: regular rate Rhythm: regular rhythm GI: Other: Round, soft, no palpable masses, no obvious organomegaly. Moderate right lower quadrant tenderness with mild rebound. No guarding. Skin: Other: Normal color, warm and dry Extrem: General: Yes normal to inspection Psych: Affect: normal affect Thought process: Normal thought process present Insight: Good insight present (Psych) Results Results Labs: Short CBC 12/12/20 Range/Units 16:21 WBC 9.3 (4.8-10.8) X10*3/uL Hgb 13.3 L (14.0-18.0) g/dl Hct 38.4 L (42-52) % Plt Count 194 (160-400) X10*3/uL BMP 12/12/20 16:21 Sodium 140 Potassium 4.1 Chloride 105 Carbon Dioxide 28 BUN 11 Creatinine 0.82 Calcium 8.8 Urine 12/12/20 Range/Units 22:00 Urine Color YELLOW Urine Appearance CLEAR Urine pH 6.0 (5.0-8.0) Ur Specific [place] >= 1.030 H (1.005-1.025) Urine Protein 2+ H (NEG-TRACE) MG/DL Urine Glucose (UA) NEG (NEG) MG/DL Assessment and Plan (1) Acute appendicitis: Qualifiers: Acute appendicitis type: with localized peritonitis Appendicitis abscess presence: without abscess Appendicitis gangrene presence: without gangrene Appendicitis perforation presence: without perforation Qualified Code(s): K35.30 - Acute appendicitis with localized peritonitis, without perforation or gangrene Status: Acute This is a 25-year-old male presenting with history, exam and imaging findings consistent with acute appendicitis. His symptoms have improved somewhat during the night. We discussed treatment options including antibiotic therapy and surgical treatment with laparoscopic appendectomy and potential need to convert to open. We discussed the potential risks and benefits to both approaches. He has elected to proceed with surgery. We discussed the anticipated course of recovery and risks including but not limited to infection, bleeding, error in diagnosis, DVT and PE, and appendiceal stump leak. Surgery is planned for later today. He is aware that I will not be performing the surgery. (2) Diabetes type 1, uncontrolled: Qualifiers: Glycemic state: with hyperglycemia Qualified Code(s): E10.65 - Type 1 diabetes mellitus with hyperglycemia Status: Acute Type 1 diabetes mellitus. He is followed by Dr. Gandhi. He reports that his blood sugars have improved since he began treatment with her but says that his sugars typically run in the 150-200 range. Currently on sliding scale. Depending upon postoperative course, consultation with hospitalist may be needed for assistance with management.
--- NOTE | 2020-12-13 07:26 | PM.EVENT ---
Event Note Date of Service: 12/13/20 Event Note: 25M with DM,, with RLQ starting yesterday morning abd soft, some tenderness on RLQ CT reviewed - thickened appendix, with inflammatory changes cw acute appendicitis explained to pt technique of lap,sonya, poss. open reviewed risks, including but not limited to bleeding, infections, injury to bowel, urinary tract staple line leak, abscesses, as well as the benefits and alternatives he has given consent lap appy planned for today as add on r
--- NOTE | 2020-12-13 08:06 | PC.NURSE ---
report to pre-op area for surgery, pt is aox3. denies abd pain. states last ate last night before midnight. no nausea/vomiting. pt undressed, pre-op okay to leave sugar sensor to left upper arm.
[2020-12-13 08:25] LABS: Glucose, Whole Blood 334 mg/dL (60-115)
--- NOTE | 2020-12-13 08:33 | P.CONAN_ITS ---
[facility] Active Problems Active Problems: All Active Problems (Updated 12/12/20 @ 23:06 by Loyda garrison DO) Abdominal pain (Acute) Acute appendicitis (Acute) Intermittent right lower quadrant abdominal pain (Acute) Sinusitis, acute (Acute) Non-proliferative diabetic retinopathy, mild, both eyes (Acute) Anxiety (Acute) Asthma (Acute) Overweight (BMI 25.0-29.9) (Acute) Diabetic polyneuropathy associated with type 1 diabetes mellitus (Acute) Diabetic nephropathy associated with type 1 diabetes mellitus (Acute) Vitamin D deficiency (Acute) Diabetes type 1, uncontrolled (Acute) Past Medical History Medical History Anxiety Asthma Diabetes mellitus type 1 Diabetes type 1, uncontrolled Diabetic nephropathy associated with type 1 diabetes mellitus Diabetic polyneuropathy associated with type 1 diabetes mellitus Non-proliferative diabetic retinopathy, mild, both eyes Overweight (BMI 25.0-29.9) Vitamin D deficiency Family History Family History Father No problems noted. Mother Hypertension Maternal Grandmother Hypertension Diabetes Maternal Uncle Chronic mental illness Surgical History Surgical History History of surgery Social History Social History Alcohol intake: never Smoking Status: Former smoker Tobacco Type: Cigarette Meds Allergies Allergy/AdvReac Type Severity Reaction Status Date / Time clonazepam Allergy Unknown agitation Verified 12/12/20 13:08 shrimp [SHRIMP] Allergy Unknown ANAPHYLAXIS Verified 12/12/20 13:08 Active Medications: Current Medications Generic Name Dose Route Start Last Admin Trade Name Freq PRN Reason Stop Dose Admin Lactated Ringer's 1,000 mls @ 100 mls/hr 12/13/20 03:10 12/13/20 03:56 Lr IV 12/13/20 13:09 100 mls/hr .Q10H ENEDINA Administration Piperacillin Sod/Tazobactam 50 mls @ 100 mls/hr 12/13/20 06:00 12/13/20 06:28 Sod 3.375 gm/ Sodium Chloride IV 100 mls/hr Q6H ENEDINA Administration Lactated Ringer's 1,000 mls @ 50 mls/hr 12/13/20 08:30 Lr IV .Q20H [facility] Insulin Human Lispro 0 unit 12/13/20 03:10 12/13/20 03:47 Insulin Lispro 100 Unit/Ml 3 Ml Vial SUBCUT Not Given Q6H [facility] Protocol Lisinopril 5 mg 12/13/20 09:00 Lisinopril 5 Mg Tablet PO DAILY [facility] Protocol Morphine Sulfate 4 mg 12/13/20 03:10 Morphine Sulfate 4 Mg/Ml Cartridge IVPUSH Q3H PRN pain, severe Ondansetron HCl 4 mg 12/13/20 03:10 Ondansetron Hcl 4 Mg/2 Ml Vial IVPUSH Q8H PRN nausea Pharmacy Consult 1 each 12/12/20 23:04 Consult Rx Perform Med Rec MISCELLANE ONCE PRN Consult order Home Medications Medication Instructions Recorded Confirmed Last Taken Type trazodone 1 tab PO BEDTIME PRN 06/21/20 12/12/20 Unknown History blood sugar diagnostic #10 ea 11/11/20 12/12/20 Unknown History insulin degludec [Tresiba U-100 10 unit SUBCUT BEDTIME 12/12/20 12/12/20 12/11/20 20:00 History Insulin] cholecalciferol (vitamin D3) 1 cap PO DAILY 12/13/20 Unknown History levocetirizine 1 tab PO DAILY 12/13/20 Unknown History Exam Exam Date and Time: December 13, 2020 0833 Height,Weight and Vital Signs: Height 5 ft 11 in Weight 99 kg Last Vital Signs Temp 98.0 F 12/13/20 04:01 Pulse 80 12/13/20 04:01 Resp 18 12/13/20 04:01 BP 134/87 12/13/20 04:01 Pulse Ox 100 12/13/20 04:01 Pertinent Lab Results Pertinent Lab Results: Laboratory Tests 12/12/20 12/12/20 12/12/20 16:21 16:21 16:21 WBC 9.3 RBC 4.58 L Hgb 13.3 L Hct 38.4 L MCV 83.8 MCH 29.0 MCHC 34.6 RDW 12.3 Plt Count 194 MPV 11.9 Immature Gran % (Auto) 0.4 Neut % (Auto) 69.9 Lymph % (Auto) 19.1 L [place] % (Auto) 9.5 Eos % (Auto) 1.0 Baso % (Auto) 0.1 Lymph # (Auto) 1.8 [place] # (Auto) 0.9 Eos # (Auto) 0.1 Baso # (Auto) 0.0 Abs Immat Gran (auto) 0.04 H Absolute Neuts (auto) 6.5 Absolute Nucleated RBC 0.000 Nucleated RBC % (auto) 0.0 Hold Blue Top SEE NOTE Sodium 140 Potassium 4.1 Chloride 105 Carbon Dioxide 28 Anion Gap 11 L BUN 11 Creatinine 0.82 Estim Creat Clear Calc 162.2 Estimated GFR > 60 POC Glucose Random Glucose 103 D Calcium 8.8 Urine Color Urine Appearance Urine pH Ur Specific [place] Urine Protein Urine Glucose (UA) Urine Ketones Urine Blood Urine Nitrite Ur Leukocyte Esterase Urine RBC Urine WBC Ur Squamous Epith Cells Urine Bacteria COVID-19 (HAL) COVID-Pharmaca 12/12/20 12/12/20 12/13/20 18:09 22:00 03:33 WBC RBC Hgb Hct MCV MCH MCHC RDW Plt Count MPV Immature Gran % (Auto) Neut % (Auto) Lymph % (Auto) [place] % (Auto) Eos % (Auto) Baso % (Auto) Lymph # (Auto) [place] # (Auto) Eos # (Auto) Baso # (Auto) Abs Immat Gran (auto) Absolute Neuts (auto) Absolute Nucleated RBC Nucleated RBC % (auto) Hold Blue Top Sodium Potassium Chloride Carbon Dioxide Anion Gap BUN Creatinine Estim Creat Clear Calc Estimated GFR POC Glucose 206 H Random Glucose Calcium Urine Color YELLOW Urine Appearance CLEAR Urine pH 6.0 Ur Specific [place] >= 1.030 H Urine Protein 2+ H Urine Glucose (UA) NEG Urine Ketones 5 Urine Blood 1+ H Urine Nitrite NEG Ur Leukocyte Esterase NEG Urine RBC 5-9 H Urine WBC 0 Ur Squamous Epith Cells NONE Urine Bacteria NONE COVID-19 (HAL) Negative COVID-Pharmaca See Note 12/13/20 08:21 WBC RBC Hgb Hct MCV MCH MCHC RDW Plt Count MPV Immature Gran % (Auto) Neut % (Auto) Lymph % (Auto) [place] % (Auto) Eos % (Auto) Baso % (Auto) Lymph # (Auto) [place] # (Auto) Eos # (Auto) Baso # (Auto) Abs Immat Gran (auto) Absolute Neuts (auto) Absolute Nucleated RBC Nucleated RBC % (auto) Hold Blue Top Sodium Potassium Chloride Carbon Dioxide Anion Gap BUN Creatinine Estim Creat Clear Calc Estimated GFR POC Glucose 334 H Random Glucose Calcium Urine Color Urine Appearance Urine pH Ur Specific [place] Urine Protein Urine Glucose (UA) Urine Ketones Urine Blood Urine Nitrite Ur Leukocyte Esterase Urine RBC Urine WBC Ur Squamous Epith Cells Urine Bacteria COVID-19 (HAL) COVID-19 Clin Com Airway Mallampati Class: I TM Dist: >3cm Neck ROM: Full Loose/Missing/Broken Teeth: No Heart: RRR Lungs: NL Assessment and Plan Assessment Anesthesia Assessment: Anesthesia Plan Discussed and Chart Reviewed Final Anesthetic Review NPO: Yes ASA Class: III and Emergency Final Preanesthetic Review: No Changes in Pt Med Stat, Meds/Allgs Chart Reviewed, Consent Obtained/Reviewed and Anes Risks/Benef Reviewed Patient Risk: Intermediate Procedure Risk: Low Anesthetic Plan Anesthetic Plan: GA Disposition: Standard PACU
--- NOTE | 2020-12-13 08:33 | MHC.CM.PN ---
Attempted to meet with patient in regards to discharge planning. Patient was already taken to the OR. Will attempt to meet again. Continue to monitor for d/c needs.
--- NOTE | 2020-12-13 08:40 | MHC.SHP ---
Pre-Procedural Eval Section B Chief Complaint: Acute appendicitis Allergies: Allergies Allergy/AdvReac Type Severity Reaction Status Date / Time clonazepam Allergy Unknown agitation Verified 12/13/20 08:35 shrimp [SHRIMP] Allergy Unknown ANAPHYLAXIS Verified 12/13/20 08:35 Plan I have reviewed the history and physical and performed a pertinent physical examination on my patient. No changes have occurred unless specified.
[2020-12-13] MEDS: Lactated Ringers 1,000 ML 50 ML IV (08:53)
[2020-12-13] MEDS: Insulin Lispro 100 UNIT/ML 3 ML VIAL 8 UNIT SUBCUT (08:54)
--- NOTE | 2020-12-13 10:12 | P.OP_ITS ---
Operative Note Operative Note Date of Service: 12/13/20 Narrative: Preop diagnosis: Acute appendicitis Postop diagnosis: Acute appendicitis Procedure: Laparoscopic appendectomy Surgeon: Herman Conner MD Employment Training Specialist: None The patient is a 25-year-old male who came to the emergency room last night because of right lower quadrant pain and tenderness. His CAT scan was consistent with acute appendicitis and the images have been reviewed with the radiologist. He understood the technique of laparoscopic appendectomy with possible conversion to open. He was aware of the risks, benefits, and alternatives. He was brought to the operating room and placed supine on the table under general anesthesia via endotracheal tube. The abdomen was prepped and draped in the usual sterile fashion. A Benson catheter was inserted. A surgical time-out was done. The patient had received Cefotan 2 g IV preoperatively A short infraumbilical incision was made using blade 15. And this was carried down through the full-thickness of the skin and subcutaneous fat down to the fascia.. The fascia was incised. The peritoneum was entered. Through this incision a Goran port was introduced. Pneumoperitoneum was introduced to a pressure of 15 mm hg and from here on the rest of the procedure as was done under vision with the laparoscope. With laparoscopic visualization, I proceeded to insert a 5/12 mm port through a small incision in the left lower quadrant. A 5 mm port was introduced through a small incision in the suprapubic margin. Graspers were applied 0 these working ports. The patient was placed in head-down and [id number] position. We used a grasper to reflect the small bowel loops away from the right lower quadrant. The cecum was seen and the appendix was immediately noted. The appendix was markedly inflamed, edematous and erythematous. I applied a grasper at the mid part of the appendix gently and this was used to retract the appendix anteriorly towards abdominal wall. By doing so I was putting the appendix on stretch. I was able to visualize the base clearly. I proceeded to gently dissect the base by stripping off some of the peritoneal and fatty areolar tissue that was attached. By doing so we were able to clearly define the base. I created a mesenteric window with blunt dissection using the [place] dissector.. I used an Endo-MADHU 30 mm stapler and the appendix was transected at the bas.e using this. I completed the separation of the appendix from the rest of the cecum by dividing the at mesentery using the LigaSure. The appendix was then retrieved through an endobag through the umbilical incision. I reinserted all ports and insufflated. I examined all 4 quadrants. There was no other pathology. There was no evidence of any bowel injury. I examined the area of dissection. The staple line was intact. There was no signs of any bleeding or bowel injury. I then proceeded to desufflate thorough the port sites. I removed all ports under vision with laparoscope and the umbilical port was removed last. The fascia of the umbilical incision was closed with [id number] Dexon 0 stitch. Skin closure was achieved on all incisions using Dexon 4-0 subcuticular running sutures. Steri-Strips and dressings were applied All incisions were infiltrated with Marcaine 0.5% for postop analgesia. The procedures was then completed The patient tolerated the procedure well. There were no complicationsnoted. Initial and final counts of sponge and instruments were correct Estimated blood loss about 20 cc The patient was extubated without difficulty and transferred to the recovery with stable vital signs.
--- NOTE | 2020-12-13 10:17 | PM.OP ---
Brief Operative Note Date of Service: 12/13/20 Pre-op diagnosis: Acute appendicitis Post-op diagnosis: same Procedure: Laparoscopic appendectomy Surgeon: Herman Conner MD Anesthesia: GETA Estimated blood loss (mL): 20 Pathology: other (Appendix) Condition: stable Disposition: PACU
[2020-12-13 10:27] LABS: Glucose, Whole Blood 292 mg/dL (60-115)
[2020-12-13] MEDS: Insulin Lispro 100 UNIT/ML 3 ML VIAL SUBCUT ×3 (10:38→21:31)
[2020-12-13] MEDS: oxyCODONE HCl Immed Release 5 MG TABLET PO (10:46)
[2020-12-13] MEDS: ondansetron HCL 4 MG/2 ML VIAL IVPUSH ×2 (10:47→17:04)
[2020-12-13] MEDS: Morphine Sulfate 4 MG/ML CARTRIDGE IVPUSH ×2 (12:31→17:03)
--- NOTE | 2020-12-13 13:38 | PC.NURSE ---
pt got off of the stretcher and went into bed, he began vomiting. He was given Zofran twenty minutes before he came to the floor in PACU. Unable to given him more. Pt stated he felt better.
--- NOTE | 2020-12-13 16:13 | PM.EVENT ---
Event Note Date of Service: 12/13/20 Event Note: seen postop underwent uneventful lap appy earlier comfortable looks well good pain control stable VS abd soft doing well plan dc home tomorrow
[2020-12-13 16:23] LABS: Glucose, Whole Blood 252 mg/dL (60-115)
--- NOTE | 2020-12-13 17:37 | PM.IMCN ---
History of Present Illness Data of Consult Service Date: 12/13/20 Primary Care Provider: Tiffani Arzate MD HPI Reason for consult: management of blood glucose This is a 25-year-old male with a past medical history type 1 diabetes insulin who is admitted under the surgical services and is now post-op from lap appendectomy. Medical services are consulted to help manage his insulin and blood glucose. Patient himself denies any current issues. He had his dinner and so far has tolerated it. Has some minimal abd pain. Review of Systems Review of Systems: General - denies fevers or chills, denies weakness or fatigue HEENT -denies blurred vision, denies headache, denies sore throat Cardiovascular - denies chest pain or palpitations, denies edema Respiratory - denies shortness of breath, coughing, wheezing Gastrointestinal - +abd. pain, minimal - denies flank pain, denies dysuria, denies frequency or urgency Musculoskeletal - denies back pain, denies hip pain, denies knee pain, denies shoulder pain Neurological - denies any focal weakness or numbness Skin, denies any bruising or redness Psychiatric - denies any suicidal ideation, hallucinations, homicidal ideation Endocrinology - denies intolerance to hot / cold temperatures [facility] Medical History Anxiety Asthma Diabetes mellitus type 1 Diabetes type 1, uncontrolled Diabetic nephropathy associated with type 1 diabetes mellitus Diabetic polyneuropathy associated with type 1 diabetes mellitus Non-proliferative diabetic retinopathy, mild, both eyes Overweight (BMI 25.0-29.9) Vitamin D deficiency Family History Father No problems noted. Mother Hypertension Maternal Grandmother Hypertension Diabetes Maternal Uncle Chronic mental illness Surgical History History of surgery Social History Alcohol intake: never Smoking Status: Former smoker Tobacco Type: Cigarette Meds Allergies Allergy/AdvReac Type Severity Reaction Status Date / Time clonazepam Allergy Unknown agitation Verified 12/13/20 08:35 shrimp [SHRIMP] Allergy Unknown ANAPHYLAXIS Verified 12/13/20 08:35 Active Medications: Current Medications Generic Name Dose Route Start Last Admin Trade Name Freq PRN Reason Stop Dose Admin Hydromorphone HCl 0.25 mg 12/13/20 08:34 Hydromorphone Hcl 0.5 Mg/0.5 Ml Syringe IVPUSH Q5M PRN Pain, Severe (Pain Scale 7-10) Lactated Ringer's 1,000 mls @ 60 mls/hr 12/13/20 03:10 12/13/20 14:29 Lr IV 12/13/20 19:49 Infused .[id number] ENEDINA Infusion Piperacillin Sod/Tazobactam 50 mls @ 100 mls/hr 12/13/20 06:00 12/13/20 17:09 Sod 3.375 gm/ Sodium Chloride IV 100 mls/hr Q6H ENEDINA Administration Promethazine HCl 12.5 mg/ 50.5 mls @ 202 mls/hr 12/13/20 08:34 Sodium Chloride IV ONCE PRN Nausea and Vomiting Insulin Glargine 7 unit 12/13/20 21:00 Insulin Glargine,Hum.Rec.Anlog 100 Unit/Ml 10 Ml Vial SUBCUT BEDTIME [facility] Insulin Human Lispro 0 unit 12/13/20 03:10 12/13/20 16:09 Insulin Lispro 100 Unit/Ml 3 Ml Vial SUBCUT 6 unit Q6H [facility] Administration Protocol Lisinopril 5 mg 12/13/20 09:00 12/13/20 12:05 Lisinopril 5 Mg Tablet PO Not Given DAILY [facility] Protocol Morphine Sulfate 4 mg 12/13/20 03:10 12/13/20 17:03 Morphine Sulfate 4 Mg/Ml Cartridge IVPUSH 4 mg Q3H PRN Administration pain, severe Ondansetron HCl 4 mg 12/13/20 03:10 12/13/20 17:04 Ondansetron Hcl 4 Mg/2 Ml Vial IVPUSH 4 mg Q8H PRN Administration nausea Ondansetron HCl 4 mg 12/13/20 08:34 Ondansetron Hcl 4 Mg/2 Ml Vial IVPUSH ONCE PRN Nausea and Vomiting Pharmacy Consult 1 each 12/12/20 23:04 Consult Rx Perform Med Rec MISCELLANE ONCE PRN Consult order Home Medications Medication Instructions Recorded Confirmed Last Taken Type blood sugar diagnostic #10 ea 11/11/20 12/12/20 Unknown History insulin degludec [Tresiba U-100 10 unit SUBCUT BEDTIME 12/12/20 12/12/20 12/11/20 20:00 History Insulin] cholecalciferol (vitamin D3) 1 cap PO DAILY 12/13/20 12/13/20 Unknown History levocetirizine 1 tab PO DAILY 12/13/20 12/13/20 Unknown History Physical Exam Vital Signs and Narrative: Vital Signs: Last Vital Signs Temp 97.2 F 12/13/20 15:25 Pulse 82 12/13/20 15:25 Resp 15 12/13/20 15:25 BP 109/67 12/13/20 15:25 Pulse Ox 95 12/13/20 15:25 Body Mass Index 30.4 Const: Other: Constitutional - Awake and Alert, No apparent distress Eyes - PERRLA, EOMI Cardiovascular - S1S2, RRR, No edema Respiratory - Normal lung expansion, Normal respiratory effort, No respiratory distress, CTA bilaterally Gastrointestinal - mild tenderness, no rebound - No CVA tenderness Extremities - no calf tenderness bilaterally, no swelling Musculoskeletal - Normal inspection, normal ROM Skin - Warm/Dry Neurological - Alert & oriented x3, No focal deficit Psychological - Appropriate affect Results Labs CBC and Chem 7: 12/12/20 16:21 12/12/20 16:21 Labs: Laboratory Results - last 24 hr 12/12/20 12/12/20 12/13/20 18:09 22:00 03:33 POC Glucose 206 H Urine Color YELLOW Urine Appearance CLEAR Urine pH 6.0 Ur Specific [place] >= 1.030 H Urine Protein 2+ H Urine Glucose (UA) NEG Urine Ketones 5 Urine Blood 1+ H Urine Nitrite NEG Ur Leukocyte Esterase NEG Urine RBC 5-9 H Urine WBC 0 Ur Squamous Epith Cells NONE Urine Bacteria NONE COVID-19 (HAL) Negative COVID-19 Clin Com See Note 12/13/20 12/13/20 12/13/20 08:21 10:21 16:01 POC Glucose 334 H 292 H 252 H Urine Color Urine Appearance Urine pH Ur Specific [place] Urine Protein Urine Glucose (UA) Urine Ketones Urine Blood Urine Nitrite Ur Leukocyte Esterase Urine RBC Urine WBC Ur Squamous Epith Cells Urine Bacteria COVID-19 (HAL) COVID-19 Clin Com Imaging Radiologist's Impressions: Impressions Abdomen/Pelvis CT 12/12/20 17:43 IMPRESSION: 1. Thickened appendix, with intraluminal high density material probable phleboliths, periappendiceal inflammatory changes. Findings are highly suspicious for acute appendicitis. There are multiple prominent mesenteric lymph nodes in the right lower quadrant. 2. Prominent retroperitoneal lymph nodes, larger measuring 1.4 cm. 3. Additional findings and details as above. This critical result was discussed with Dr. Vinson at 10:55 PM on 12/12/2020 and it was ascertained that the content and urgency of the report was understood at the time of direct communication. Assessment and Plan (1) Type 1 diabetes: Status: Acute This is a 25 yo M admitted under surgical services for appendicitis. He is s/p lap akua. Medical services consulted to help manage his DM 1. DM, reportedly type 1 continue sliding scale + lantus POC QIDAC will uptitrate insulin as needed 2. S/P appendecomty mgmt per surgical services will follow with you
[2020-12-13 20:33] LABS: Glucose, Whole Blood 177 mg/dL (60-115)
[2020-12-13] MEDS: Insulin Glargine,Hum.rec.anlog 100 UNIT/ML 10 ML VIAL 7 UNIT SUBCUT (21:16)
[2020-12-14] MEDS: Piperacillin Sodium/Tazobactam 3.375 GM in 0.9 % Sodium Chloride 50 ML IV ×2 (01:41→06:33)
[2020-12-14 03:44] VITALS: BP 144/82; PULSE 79; RESP 18; TEMP 37.3; O2SAT 97
[2020-12-14 03:55] LABS: Glucose, Whole Blood 137 mg/dL (60-115)
[2020-12-14 07:28] VITALS: BP 153/84; PULSE 85; RESP 16; TEMP 36.1; O2SAT 96
[2020-12-14 07:42] LABS: Glucose, Whole Blood 167 mg/dL (60-115)
[2020-12-14] MEDS: Insulin Lispro 100 UNIT/ML 3 ML VIAL SUBCUT (08:04)
[2020-12-14 08:05] VITALS: BP 153/84; PULSE 85
[2020-12-14] MEDS: lisinopriL 5 MG TABLET PO (08:05)
--- NOTE | 2020-12-14 08:22 | PM.PNGS ---
Subjective Subjective Date of Service: 12/14/20 Interval history: feels better good pain control tolerating diet says he has been ambulating Physical Exam Vital Signs: Vital Signs: Last Vital Signs Temp 97.0 F 12/14/20 07:28 Pulse 85 12/14/20 08:05 Resp 16 12/14/20 07:28 BP 153/84 H 12/14/20 08:05 Pulse Ox 96 12/14/20 07:28 Body Mass Index 30.4 Laboratory Results - last 24 hr 12/13/20 12/13/20 12/13/20 08:21 10:21 16:01 POC Glucose 334 H 292 H 252 H 12/13/20 12/14/20 12/14/20 20:11 03:49 07:30 POC Glucose 177 H 137 H 167 H Const: General: comfortable and no acute distress Resp: Effort & Inspection: normal respiratory effort Cardio: Rhythm: regular rhythm GI: Other: soft, nondistended, no guarding or rebound, dressings with some staining, Progress Note: A&P Assessment and plan (1) Acute appendicitis: Problem details: s/p lap appy doing well good GI function blood sugars good he says he is ready to go home dc isntructions given same meds- dw Hospitalist ffup in office Status: Acute Fall Risk Details Current Medications: Current Medications Generic Name Dose Route Start Last Admin Trade Name Freq PRN Reason Stop Dose Admin Hydromorphone HCl 0.25 mg 12/13/20 08:34 Hydromorphone Hcl 0.5 Mg/0.5 Ml Syringe IVPUSH Q5M PRN Pain, Severe (Pain Scale 7-10) Piperacillin Sod/Tazobactam 50 mls @ 100 mls/hr 12/13/20 06:00 12/14/20 07:15 Sod 3.375 gm/ Sodium Chloride IV Infused Q6H ENEDINA Infusion Promethazine HCl 12.5 mg/ 50.5 mls @ 202 mls/hr 12/13/20 08:34 Sodium Chloride IV ONCE PRN Nausea and Vomiting Insulin Glargine 7 unit 12/13/20 21:00 12/13/20 21:16 Insulin Glargine,Hum.Rec.Anlog 100 Unit/Ml 10 Ml Vial SUBCUT 7 unit BEDTIME ENEDINA Administration Insulin Human Lispro 0 unit 12/13/20 03:10 12/14/20 08:04 Insulin Lispro 100 Unit/Ml 3 Ml Vial SUBCUT 2 unit Q6H ENEDINA Administration Protocol Lisinopril 5 mg 12/13/20 09:00 12/14/20 08:05 Lisinopril 5 Mg Tablet PO 5 mg DAILY ENEDINA Administration Protocol Morphine Sulfate 4 mg 12/13/20 03:10 12/13/20 17:03 Morphine Sulfate 4 Mg/Ml Cartridge IVPUSH 4 mg Q3H PRN Administration pain, severe Ondansetron HCl 4 mg 12/13/20 03:10 12/13/20 17:04 Ondansetron Hcl 4 Mg/2 Ml Vial IVPUSH 4 mg Q8H PRN Administration nausea Ondansetron HCl 4 mg 12/13/20 08:34 Ondansetron Hcl 4 Mg/2 Ml Vial IVPUSH ONCE PRN Nausea and Vomiting Pharmacy Consult 1 each 12/12/20 23:04 Consult Rx Perform Med Rec MISCELLANE ONCE PRN Consult order Time Spent With Patient Time: Total time spent is greater than 50% in coordination of care (as documented) at patient's floor/unit and/or counseling patient: Time with patient: 15 - 24 minutes
[2020-12-14 08:34] VITALS: O2SAT 97
--- NOTE | 2020-12-14 08:35 | MHC.CM.PN ---
PATIENT IS FULLY INDEPENDENT WITH HER ADLS. PLAN IS HOME TODAY WITH NO SERVICES. RN AWARE.
--- NOTE | 2020-12-14 08:36 | MHC.CM.PN ---
PATIENT IS DISCHARGED HOME WITH NO NEED FOR SERVICES. FULLY INDEPENDENT WITH ADLS. NO DME OR [facility] SERVICES. RN AWARE OF PLAN.
--- NOTE | 2020-12-19 08:42 | PM.DS ---
DS: Providers Provider Date of Service: 12/19/20 Date of admission: 12/12/20 23:26 Primary care physician: Tiffani Arzate MD Consults: 12/13/20 16:12 Consult to Hospitalist Routine Consulting Provider: Hospitalist Reason For Exam: diabetes, s/p lap appy DS: Diagnosis Discharge Diagnosis (1) Acute appendicitis: Status: Acute Problem details: 25-year-old male who came to the emergency room on the night of December 12, 2020 because of right lower quadrant pain. His CAT scan was consistent with acute appendicitis. He therefore underwent laparoscopic appendectomy on 12/13/2020. He tolerated procedure well. His appendix was indurated and erythematous. He did not have any significant perioperative limbs. He was started on regular diet postoperatively. He continued to do well and was discharged on postop day 1. At that time of his discharge, he was tolerating regular diet and did not have any fever. DS: Medications Discharge Medications Home Medications: Home Medications Medication Instructions Recorded Confirmed blood sugar diagnostic #10 ea 11/11/20 12/12/20 Tresiba U-100 Insulin 10 unit SUBCUT BEDTIME 12/12/20 12/12/20 cholecalciferol (vitamin D3) 1 cap PO DAILY 12/13/20 12/13/20 levocetirizine 1 tab PO DAILY 12/13/20 12/13/20 Previous Rx's Medication Instructions Recorded lancets 33 gauge #200 ea 06/24/20 flash glucose scanning reader #1 ea 07/08/20 Humalog KwikPen Insulin 100 See Rx Instructions SUBCUT .5 11/11/20 unit/mL subcutaneous times a day 30 Days #15 ml NS flash glucose sensor #2 ea 11/11/20 lisinopril 5 mg tablet 5 mg PO DAILY 30 Days #30 tab 11/11/20 pen needle, diabetic 32 gauge x #150 ea 11/11/20 ibuprofen 600 mg PO Q6H PRN #30 tab 12/13/20 oxycodone-acetaminophen [Percocet] 1 - 2 tab PO Q4-6H PRN #30 tab 12/13/20 DS: Summary Time Spent with Patient Time attestation: Total time spent providing and/or coordinating discharge services: Discharge coordination time: Less than 30 minutes Physical Exam Vital Signs: Vital Signs: Last Vital Signs Temp 97.0 F 12/14/20 07:28 Pulse 85 12/14/20 08:05 Resp 16 12/14/20 07:28 BP 153/84 H 12/14/20 08:05 Pulse Ox 97 12/14/20 08:34 Body Mass Index 30.4 Const: General: comfortable and no acute distress Orientation/consciousness: patient oriented x3 Neck: Neck: Yes no lymphadenopathy Resp: Auscultation: clear to auscultation bilaterally Cardio: Rhythm: regular rhythm GI: Other: Incisions all clean and dry and not infected Palpation (GI): Soft to palpation, nontender and no guarding Neuro: General: patient oriented x3 DS: Data Data Completed and Pending Completed studies during hospitalization [Text1]: Pending at discharge 12/13/20 09:44 Surgical [PTH] Routine Procedures Resection of Appendix, Percutaneous Endoscopic Approach (12/12/20) Discharge Plan Discharge Patient Disposition: Home, Self-Care Discharge Diagnosis: acute appendicitis Referrals: Herman Conner MD [Physician] - 2 Weeks Tiffani Carson MD [Primary Care Provider] - 1 Week Discharge Medications: New oxycodone-acetaminophen [Percocet] 5-325 mg tablet 1 - 2 tab PO Q4-6H PRN (Reason: pain) Qty: 30 RF: 0 ibuprofen 600 mg tablet 600 mg PO Q6H PRN (Reason: pain) Qty: 30 RF: 0 Continued (DME) lancets [TRUEplus Lancets] 33 gauge misc See Rx Instructions .ROUTE .MEDSUPPLY Qty: 200 RF: 1 insulin lispro [Humalog KwikPen Insulin] 100 unit/mL insulin pen See Rx Instructions subcut .5 times a day 30 Days Qty: 15 RF: 4 Tresiba U-100 Insulin 100 unit/mL Solution 10 unit SUBCUT BEDTIME RF: 0 cholecalciferol (vitamin D3) 125 mcg (5,000 unit) capsule 1 cap PO DAILY RF: 0 levocetirizine 5 mg tablet 1 tab PO DAILY RF: 0 (DME) blood sugar diagnostic Strip See Rx Instructions ea Not Applicable .MEDSUPPLY Qty: 10 RF: 0 (DME) FreeStyle Shelli 2 Sensor Kit See Rx Instructions .ROUTE .MEDSUPPLY Qty: 2 RF: 11 lisinopril 5 mg tablet 5 mg PO DAILY 30 Days Qty: 30 RF: 5 (DME) pen needle, diabetic [BD Yi 2nd Gen Pen Needle] 32 gauge x 5/32 needle See Rx Instructions .MEDSUPPLY Qty: 150 RF: 5 (DME) FreeStyle Shelli 2 [facility] [place] See Rx Instructions .ROUTE .MEDSUPPLY Qty: 1 RF: 0 Discharge Orders: Discharge Order (Routine); Ordered 12/14/20 Ordered By: Herman Conner Activity on Discharge: No heavy lifting Stand Alone Forms: Patient Portal Discharge page Activity Restrictions/Additional Instructions: If the incision area is tender, you may apply an ice pack for short intervals (No more than 20 minutes on, followed by at least 20 minutes off). Do not apply heat. Do not use creams, lotions, or topical antibiotics unless instructed to do so by your surgeon. These can cause infection or allergic reaction. Keep dressings on for at least 24 hours. You have Steri-Strips that will fall off on their own. Ok to shower after 24 hours. No lifting more than 20 lb Call the office for follow-up in 2-3 weeks Call Your Doctor If: -Your temperature exceeds 101.5? F -You experience excessive pain or swelling -You have an unexpected reaction to medication -You have excessive bleeding -You experience continued vomiting/nausea -Your incision begins to separate -Your incision shows signs of infection such as increased redness, swelling, excessive pain, drainage (light blood or clear fluid is normal) or heat Care Plan Goals: Good blood sugar control Pain control postop Health Concerns: Blood sugar control because of diabetes Plan of Treatment: Control blood sugar Pain management Follow-up in the office Assessment: Acute appendicitis, doing well status post laparoscopic appendectomy Discharge Date/Time: 12/14/20 10:00
== END 2020-12-14 10:00 | disposition home or self-care (01) | DRG 234 ==
LOC: HO.ED 17:34 → HO.EDOVER 23:35 → HO.S3 12-13 08:41 → HO.EDOVER 12-13 08:51 → HO.S3 12-13 11:04
PROVIDERS: Surgery; Admitting Provider Surgery; Emergency Provider Emergency Medicine; PCP Internal Medicine; Visit Provider Surgery
PROC: 0DTJ4ZZ Resection of Appendix, Percutaneous Endoscopic Approach (ICD-10-PCS; CPT 44970; principal; 2020-12-13 09:00)
DX: K35.30 Acute appendicitis with localized peritonitis, without perforation or gangrene (principal); E10.42 Type 1 diabetes mellitus with diabetic polyneuropathy; E10.65 Type 1 diabetes mellitus with hyperglycemia; Z20.822 Contact with and (suspected) exposure to COVID-19; Z87.891 Personal history of nicotine dependence; Z79.1 Long term (current) use of non-steroidal anti-inflammatories (NSAID); Z79.899 Other long term (current) drug therapy
CPT/HCPCS: 44970; 36415; 74177; 80048; 81001; 82947; 85025; 87635; 88304; 96365; 96375; 99024; 99285; J0131; J1100; J1170; J1885; J2250; J2270; J2405; J2543; J3010; Q9967

== ENCOUNTER 2020-12-30 12:59 | Emergency (ER) | payer OTHER, SELFPAY ==
--- NOTE | ~2020-12-30 | CT_ITS ---
EXAMINATION: CT HEAD WITHOUT CONTRAST CLINICAL INFORMATION: Headache, hypertension and vision changes COMPARISON: Previous head CT June 2018 TECHNIQUE: Contiguous axial imaging was performed from the skull base to vertex without intravenous administration of contrast. This CT examination was performed using dose optimization techniques as appropriate, variously including the following: *Automated exposure control *Adjustment of mA and/or kV according to patient size (this includes techniques or standardized protocols for targeted exams where dose is matched to indication/reason for exam; i.e. extremities or head) *Use of iterative reconstruction technique DLP: 763 mGy-cm FINDINGS: There is no evidence of acute intracranial hemorrhage or territorial infarction. No abnormal mass effect or midline shift is seen. Nuñez to white matter differentiation is well preserved. No extra-axial fluid collections are identified. The ventricles are normal in size. There is no abnormal attenuation within the brain parenchyma. The osseous structures and soft tissues are normal. The mastoid air cells and visualized portions of the paranasal sinuses are well aerated. CT/CT head/brain wo con IMPRESSION: Unremarkable exam.
--- NOTE | ~2020-12-30 | XR_ITS ---
EXAMINATION: XR CHEST CLINICAL INFORMATION: High blood pressure, vision changes. COMPARISON: Chest radiographs 09/09/2019, 08/21/2019 TECHNIQUE: 2 views of the chest were obtained. FINDINGS: The lungs are clear. The vascularity is normal. There is no airspace consolidation, vascular congestion, or effusion. The heart is normal in size. The hilar and mediastinal contours are unremarkable. No acute bony abnormality. XR/XR chest 2V IMPRESSION: Unremarkable examination.
[2020-12-30 13:12] VITALS: BP 153/83; PULSE 87; RESP 18; TEMP 36.8; O2SAT 98; BMI 29.7
[2020-12-30 13:30] LABS: Glucose, Whole Blood 212 mg/dL (60-115)
--- NOTE | 2020-12-30 13:37 | ECG_ITS ---
Test Reason : HYPERTENSION Blood Pressure : / mmHG Vent. Rate : 074 BPM Atrial Rate : 074 BPM P-R Int : 148 ms QRS Dur : 094 ms QT Int : 372 ms P-R-T Axes : 058 061 002 degrees QTc Int : 412 ms Normal sinus rhythm Nonspecific ST and T wave abnormality Abnormal ECG When compared with ECG of 21-APR-2020 02:25, No significant change was found Referred By: Mackenzie Villaseñor Electronically Signed By:LAUREN MCKEON
--- NOTE | 2020-12-30 13:57 | ED.HA ---
HPI - Headache General Chief Complaint: Eye Problems Stated Complaint: lt eye problem, hbp, headache Time Seen by Provider: 12/30/20 13:23 Source: patient Mode of arrival: ambulatory Limitations: language barrier History of Present Illness MD elicited complaint: headache Pertinent past history: other (History of insulin-dependent diabetes) Related Data Home Medications Medication Instructions Recorded Confirmed blood sugar diagnostic #10 ea 11/11/20 12/30/20 Tresiba U-100 Insulin 10 unit SUBCUT BEDTIME 12/12/20 12/30/20 cholecalciferol (vitamin D3) 1 cap PO DAILY 12/13/20 12/30/20 levocetirizine 1 tab PO DAILY 12/13/20 12/30/20 insulin glargine 100 unit/mL (3 8 unit SUBCUT QAM 12/30/20 12/30/20 mL) subcutaneous pen Previous Rx's Medication Instructions Recorded lancets 33 gauge #200 ea 06/24/20 flash glucose scanning reader #1 ea 07/08/20 Humalog KwikPen Insulin 100 See Rx Instructions SUBCUT .5 11/11/20 unit/mL subcutaneous times a day 30 Days #15 ml NS flash glucose sensor #2 ea 11/11/20 lisinopril 5 mg tablet 5 mg PO DAILY 30 Days #30 tab 11/11/20 pen needle, diabetic 32 gauge x #150 ea 11/11/20 ibuprofen 600 mg PO Q6H PRN #30 tab 12/13/20 oxycodone-acetaminophen [Percocet] 1 - 2 tab PO Q4-6H PRN #30 tab 12/13/20 Allergies Allergy/AdvReac Type Severity Reaction Status Date / Time clonazepam Allergy Unknown agitation Verified 12/30/20 12:34 shrimp [SHRIMP] Allergy Unknown ANAPHYLAXIS Verified 12/30/20 12:34 [facility] Past Medical History Medical History Anxiety Asthma Diabetes mellitus type 1 Diabetes type 1, uncontrolled Diabetic nephropathy associated with type 1 diabetes mellitus Diabetic polyneuropathy associated with type 1 diabetes mellitus Non-proliferative diabetic retinopathy, mild, both eyes Overweight (BMI 25.0-29.9) Vitamin D deficiency Surgical History History of surgery Family History Family History Father No problems noted. Mother Hypertension Maternal Grandmother Hypertension Diabetes Maternal Uncle Chronic mental illness Social History Social History Alcohol intake: never Smoking Status: Former smoker Tobacco Type: Cigarette Advance Directives: No Advance Directives Information Provided: Yes service: No Physical Exam Vital Signs: Vital Signs: Last Vital Signs Temp 98.2 F 12/30/20 13:12 Pulse 87 12/30/20 13:12 Resp 18 12/30/20 13:12 BP 153/83 H 12/30/20 13:12 Pulse Ox 98 12/30/20 13:12 Body Mass Index 29.7 MDM - Headache Lab Data Labs: Lab Results 12/30/20 Range/Units 13:25 POC Glucose 212 H (60-115) mg/dL Discharge Plan Discharge Prescriptions: No Action (DME) lancets [TRUEplus Lancets] 33 gauge misc See Rx Instructions .ROUTE .MEDSUPPLY Qty: 200 RF: 1 insulin lispro [Humalog KwikPen Insulin] 100 unit/mL insulin pen See Rx Instructions subcut .5 times a day 30 Days Qty: 15 RF: 4 Tresiba U-100 Insulin 100 unit/mL Solution 10 unit SUBCUT BEDTIME RF: 0 cholecalciferol (vitamin D3) 125 mcg (5,000 unit) capsule 1 cap PO DAILY RF: 0 levocetirizine 5 mg tablet 1 tab PO DAILY RF: 0 oxycodone-acetaminophen [Percocet] 5-325 mg tablet 1 - 2 tab PO Q4-6H PRN (Reason: pain) Qty: 30 RF: 0 ibuprofen 600 mg tablet 600 mg PO Q6H PRN (Reason: pain) Qty: 30 RF: 0 Lantus Solostar U-100 Insulin 100 unit/mL (3 mL) insulin pen 8 unit subcut QAM RF: 0 (DME) blood sugar diagnostic Strip See Rx Instructions ea Not Applicable .MEDSUPPLY Qty: 10 RF: 0 (DME) FreeStyle Shelli 2 Sensor Kit See Rx Instructions .ROUTE .MEDSUPPLY Qty: 2 RF: 11 lisinopril 5 mg tablet 5 mg PO DAILY 30 Days Qty: 30 RF: 5 (DME) pen needle, diabetic [BD Yi 2nd Gen Pen Needle] 32 gauge x 5/32 needle See Rx Instructions .MEDSUPPLY Qty: 150 RF: 5 (DME) [employer] Shelli 2 [facility] [place] [facility] [place] Rx Instructions .ROUTE .MEDSUSkeleton TechnologiesLY Qty: 1 RF: 0
[2020-12-30 14:10] LABS: MANUAL DIFF FLAG NO
[2020-12-30 14:12] LABS: Basophils Percent Auto 0.2 % (0-2); Eosinophils Absolute Auto 0.1 X10*3/uL (0.0-0.4); Eosinophils Percent Auto 1.5 % (0-4); Hematocrit 38.5 % (42-52); Imm Gran Abs Auto 0.01 X10*3/uL (0.00-0.03); Imm Gran Pct Auto 0.2 % (0.0-0.4); Lymphocytes Absolute Auto 1.6 X10*3/uL (1.2-4.9); Lymphocytes Percent Auto 28.3 % (20-40); Mean Corpuscular HGB Conc 33.8 g/dl (31.0-36.0); Mean Corpuscular Hemoglobin 28.6 pg (27.0-33.0); Mean Corpuscular Volume 84.8 fL (80-98); Mean Platelet Volume 11.8 fL (9.4-12.4); Monocytes Absolute Auto 0.6 X10*3/uL (0.1-1.2); Monocytes Percent Auto 10.2 % (2-11); Neutrophils Absolute Auto 3.3 X10*3/uL (2.0-8.3); Neutrophils Percent Auto 59.6 % (45-73); Platelet Count 213 X10*3/uL (160-400); Red Blood Count 4.54 X10*6/uL (4.60-5.80); Red Cell Distribution Width 12.2 % (11.0-16.0); White Blood Count 5.5 X10*3/uL (4.8-10.8)
[2020-12-30 14:19] LABS: Prothrombin Time 11.7 SEC (10.8-13.0)
[2020-12-30 14:22] LABS: Partial Thromboplastin Time 39.3 SEC (24.1-38.0)
[2020-12-30 14:29] VITALS: BP 159/92; PULSE 76; RESP 18; TEMP 36.7; O2SAT 98
[2020-12-30 14:33] LABS: C Reactive Protein 0.18 mg/dL (< or = 0.50)
[2020-12-30 14:34] LABS: Magnesium 1.9 mg/dL (1.6-2.6)
[2020-12-30 14:35] LABS: Alanine Aminotransferase 17 U/L (0-40); Albumin Level 3.6 g/dL (3.5-5.0); Alkaline Phosphatase 110 U/L (39-117); Anion Gap 12 (12-20); Aspartate Amino Transferase 17 U/L (5-37); Bilirubin Total 0.3 mg/dL (0.0-1.0); Blood Urea Nitrogen 17 mg/dL (9-16); Carbon Dioxide 28 mmol/L (22-29); Chloride 101 mmol/L (96-108); Creatinine Clr Calc Pharmacy 147.8; Estimated Glomerular Filt Rate > 60; Glucose Random 228 mg/dL (60-115); Potassium 4.6 mmol/L (3.3-5.1); Sodium 136 mmol/L (135-145); Total Protein 6.3 g/dL (6.5-8.0)
[2020-12-30 14:57] LABS: Influenza A PCR NEGATIVE (Negative); Influenza B PCR NEGATIVE (Negative); Resp Syncy Virus RNA Qual PCR NEGATIVE (Negative); SARS COV2 PCR INHOUSE NEGATIVE (Negative)
[2020-12-30 15:15] LABS: Erythrocyte Sedimentation Rate 28 MM/HR (0-15)
--- NOTE | 2020-12-30 15:16 | ED_ITS ---
HPI - Eye Problem General Chief complaint: Eye Problems Stated complaint: lt eye problem, hbp, headache Time Seen by Provider: 12/30/20 13:23 Source: patient Mode of arrival: ambulatory Limitations: language barrier (Bruneian-speaking) History of Present Illness HPI Narrative: 25-year-old male with a past medical history of type 1 insulin- dependent diabetes, diabetic retinopathy, asthma and anxiety disorder presenting to the ED with complaints of a headache to the bilateral temporal aspects over the past 3 days with associated left eye blurry vision where he feels like there is a tree or curtain covering the superior aspect of his left eye. He reports this started after he was in a verbal argument with his [id number]. He denies any actual trauma. Denies being on any blood thinners. chief complaint: vision change Onset (ago): day(s) (3 days ) Onset description: gradual Duration: constant Location: left eye Eye Symptoms: decreased vision and blurry vision Place: home Mechanism: none Severity: moderate Associated symptoms: headache Treatments Prior to Arrival: none Related Data Home Medications Medication Instructions Recorded Confirmed blood sugar diagnostic #10 ea 11/11/20 12/30/20 Tresiba U-100 Insulin 10 unit SUBCUT BEDTIME 12/12/20 12/30/20 cholecalciferol (vitamin D3) 1 cap PO DAILY 12/13/20 12/30/20 levocetirizine 1 tab PO DAILY 12/13/20 12/30/20 insulin glargine 100 unit/mL (3 8 unit SUBCUT QAM 12/30/20 12/30/20 mL) subcutaneous pen Previous Rx's Medication Instructions Recorded lancets 33 gauge #200 ea 06/24/20 flash glucose scanning reader #1 ea 07/08/20 Humalog KwikPen Insulin 100 See Rx Instructions SUBCUT .5 11/11/20 unit/mL subcutaneous times a day 30 Days #15 ml NS flash glucose sensor #2 ea 11/11/20 lisinopril 5 mg tablet 5 mg PO DAILY 30 Days #30 tab 11/11/20 pen needle, diabetic 32 gauge x #150 ea 11/11/20 ibuprofen 600 mg PO Q6H PRN #30 tab 12/13/20 oxycodone-acetaminophen [Percocet] 1 - 2 tab PO Q4-6H PRN #30 tab 12/13/20 Allergies Allergy/AdvReac Type Severity Reaction Status Date / Time clonazepam Allergy Unknown agitation Verified 12/30/20 12:34 shrimp [SHRIMP] Allergy Unknown ANAPHYLAXIS Verified 12/30/20 12:34 Review of Systems Review of Systems: Constitutional : No fevers, no chills, No changes in activity, No lethargy, No recent prior head injury, No agitation, No increased fussiness ENT/Mouth : No Ear Pain, No Nasal discharge/drainage Eyes: Positive Vision changes/blurry/decreased vision, No Eye Pain, No Sw elling, No Redness, No Foreign Body, No Photophobia, no discharge, no drainage, no itching, no eyelid edema, no contact lens uses, no recent welding, no bleeding Cardiovascular : No Chest Pain, No SOB Respiratory : No Cough Gastrointestinal : No Nausea, No Vomiting, No abdominal Pain Genitourinary : No Dysuria, No Urinary Frequency, No Urinary Incontinence, No Urgency, No Flank Pain Musculoskeletal : No joint pain, No neck stiffness, No back pain/injury Skin : No lacerations Neuro : Positive headache, No unsteady gait, No Paresthesias, No Loss of Consciousness, No altered mental status, No dizziness Denies past medical history of HIV, recent trauma, coagulopathy, recent spinal/ epidural procedure, new medication, URI symptoms, close contacts with similar symptoms, tick bite, or known CO2 exposure. Yes all other systems are reviewed and are negative [facility] Past Medical History Attestation statement: The following information was validated with the patient. Medical History Anxiety Asthma Diabetes mellitus type 1 Diabetes type 1, uncontrolled Diabetic nephropathy associated with type 1 diabetes mellitus Diabetic polyneuropathy associated with type 1 diabetes mellitus Non-proliferative diabetic retinopathy, mild, both eyes Overweight (BMI 25.0-29.9) Vitamin D deficiency Surgical History History of surgery Family History Family History Father No problems noted. Mother Hypertension Maternal Grandmother Hypertension Diabetes Maternal Uncle Chronic mental illness Social History Social History Alcohol intake: never Smoking Status: Former smoker Tobacco Type: Cigarette Advance Directives: No Advance Directives Information Provided: Yes service: No Physical Exam Vital Signs: Vital Signs: Last Vital Signs Temp 98.1 F 12/30/20 14:29 Pulse 76 12/30/20 14:29 Resp 18 12/30/20 14:29 BP 159/92 H 12/30/20 14:29 Pulse Ox 98 12/30/20 14:29 Body Mass Index 29.7 vital signs have been reviewed as normal and appeared to be correct. Blood pressure hypertensive at 153/83. Heart rate normal. Respiration rate normal. Temperature normal. Oxygen saturation normal. Appearance: Alert. Oriented X3. No acute distress. Head: Normal external exam. Normocephalic. Atraumatic. Able to rotate head bilaterally. Eyes: PERRLA. EOMI. Conjunctiva are normal. Cornea are normal. Funduscopic exam to right eye within normal limits. On funduscopic exam to left eye at the superior/lateral aspect questioning retinal detachment or floaters although intermittently. Sclera normal. Eyelids normal. No papilledema noted. Anterior chamber normal. No photophobia noted. Pressure to right eye is 15. Pressure to left eye is 15. Visual acuity to right eye 20/20. Visual acuity to left eye 20/200. ENT: EAC normal. TM's Normal. Hearing normal. Pharynx normal. Uvula midline. tongue midline. Moist mucous membranes. No trismus noted. No drooling noted. No muffled voice noted. Neck: Normal inspection. Neck supple. FROM. No adenopathy. Thyroid Normal. No meningeal signs. No neck mass noted. CVS: Normal heart rate and rhythm. Heart sound normal. No murmurs noted. Pulses normal throughout. Respiratory: No respiratory distress. Painless inspiration. Breath sounds normal. No wheezes/rales/rhonchi noted. Chest nontender. No accessory muscle usage noted or decreased air movement noted. Back: Full range of motion noted. Skin: Skin warm and dry. Normal skin color. Normal skin turgor. No rashes/lesions/lacerations noted. Extremities: Extremities exhibit normal range of motion. Extremities nontender. Able to shrug shoulders bilaterally and keep up against resistance. Neuro: Oriented X 3. No motor deficit. No sensory deficit. Reflexes normal. Moving all extremities. No focal motor deficits. Cranial nerves II-XI intact bilaterally. Facial strength normal. Normal cognition. Speech normal. Gait normal. Strength 5/5 throughout. No pronator drift. No tremor noted. No fasciculations noted. Muscle tone normal throughout. No asterixis noted. Course Course Course Narrative: A 25-year-old male with a past medical history of diabetes type 1 insulin-dependent and diabetic retinopathy presenting to the ED with complaints of changes in vision over the past 3 days after an argument verbally with his [id number] with associated headache. - on funduscopic exam and to the left eye questioning floaters versus retinal detachment. Ultrasound obtained questioning vitreous hemorrhage. Pressures to bilateral eyes 15. Visual acuity to left eye 2200. Visual acuity to right eye 2020. - labs obtained and mild elevation in ESR at 28. BUN 17. Glucose 228. Otherwise all other labs are within normal limits. CT scan of brain within normal limits no acute processes are noted. Chest x-ray within normal limits no acute processes are noted. EKG is normal sinus rhythm with ventricular rate of [address] and T-wave abnormalities no acute ischemic changes are noted. - I consulted with Dr. Youssef and he reported to discharge the patient he would see the patient in the office prior to 330 therefore patient was discharged and medially sent there. Patient understands return if any new or worsening symptoms and to follow up with primary care provider. MDM - Eye Problem Medical Records Attestation: I reviewed the patient's medical records. Lab Data Attestation: I reviewed the patient's lab results. Result diagrams: 12/30/20 14:03 12/30/20 14:03 Labs: Lab Results 12/30/20 12/30/20 12/30/20 Range/Units 13:25 14:03 14:03 WBC 5.5 (4.8-10.8) X10*3/uL RBC 4.54 L (4.60-5.80) X10*6/uL Hgb 13.0 L (14.0-18.0) g/dl Hct 38.5 L (42-52) % MCV 84.8 (80-98) fL MCH 28.6 (27.0-33.0) pg MCHC 33.8 (31.0-36.0) g/dl RDW 12.2 (11.0-16.0) % Plt Count 213 (160-400) X10*3/uL MPV 11.8 (9.4-12.4) fL Immature Gran % (Auto) 0.2 (0.0-0.4) % Neut % (Auto) 59.6 (45-73) % Lymph % (Auto) 28.3 (20-40) % [place] % (Auto) 10.2 (2-11) % Eos % (Auto) 1.5 (0-4) % Baso % (Auto) 0.2 (0-2) % Lymph # (Auto) 1.6 (1.2-4.9) X10*3/uL [place] # (Auto) 0.6 (0.1-1.2) X10*3/uL Eos # (Auto) 0.1 (0.0-0.4) X10*3/uL Baso # (Auto) 0.0 (0.0-0.2) X10*3/uL Abs Immat Gran (auto) 0.01 (0.00-0.03) X10*3/uL Absolute Neuts (auto) 3.3 (2.0-8.3) X10*3/uL Absolute Nucleated RBC 0.000 (0.0-0.012) X10*3/uL Nucleated RBC % (auto) 0.0 (0.0-0.2) /100WBC ESR (0-15) MM/HR Hold Purple Top PT 11.7 (10.8-13.0) SEC INR 1.0 (0.9-1.1) APTT (24.1-38.0) SEC Sodium (135-145) mmol/L Potassium (3.3-5.1) mmol/L Chloride (96-108) mmol/L Carbon Dioxide (22-29) mmol/L Anion Gap (12-20) BUN (9-16) mg/dL Creatinine (0.5-1.4) mg/dL Estim Creat Clear Calc Estimated GFR POC Glucose 212 H (60-115) mg/dL Random Glucose (60-115) mg/dL Calcium (8.4-10.2) mg/dL Magnesium (1.6-2.6) mg/dL Total Bilirubin (0.0-1.0) mg/dL AST (5-37) U/L ALT (0-40) U/L Alkaline Phosphatase (39-117) U/L C-Reactive Protein (< or = 0.50) mg/dL Total Protein (6.5-8.0) g/dL Albumin (3.5-5.0) g/dL Coronavirus (PCR) (Negative) Influenza Type A (PCR) (Negative) Influenza Type B (PCR) (Negative) RSV RNA Qual (PCR) (Negative) 12/30/20 12/30/20 12/30/20 Range/Units 14:03 14:03 14:03 WBC (4.8-10.8) X10*3/uL RBC (4.60-5.80) X10*6/uL Hgb (14.0-18.0) g/dl Hct (42-52) % MCV (80-98) fL MCH (27.0-33.0) pg MCHC (31.0-36.0) g/dl RDW (11.0-16.0) % Plt Count (160-400) X10*3/uL MPV (9.4-12.4) fL Immature Gran % (Auto) (0.0-0.4) % Neut % (Auto) (45-73) % Lymph % (Auto) (20-40) % [place] % (Auto) (2-11) % Eos % (Auto) (0-4) % Baso % (Auto) (0-2) % Lymph # (Auto) (1.2-4.9) X10*3/uL [place] # (Auto) (0.1-1.2) X10*3/uL Eos # (Auto) (0.0-0.4) X10*3/uL Baso # (Auto) (0.0-0.2) X10*3/uL Abs Immat Gran (auto) (0.00-0.03) X10*3/uL Absolute Neuts (auto) (2.0-8.3) X10*3/uL Absolute Nucleated RBC (0.0-0.012) X10*3/uL Nucleated RBC % (auto) (0.0-0.2) /100WBC ESR (0-15) MM/HR Hold Purple Top SEE NOTE PT (10.8-13.0) SEC INR (0.9-1.1) APTT 39.3 H (24.1-38.0) SEC Sodium 136 (135-145) mmol/L Potassium 4.6 (3.3-5.1) mmol/L Chloride 101 (96-108) mmol/L Carbon Dioxide 28 (22-29) mmol/L Anion Gap 12 (12-20) BUN 17 H D (9-16) mg/dL Creatinine 0.89 (0.5-1.4) mg/dL Estim Creat Clear Calc 147.8 Estimated GFR > 60 POC Glucose (60-115) mg/dL Random Glucose 228 H D (60-115) mg/dL Calcium 9.0 (8.4-10.2) mg/dL Magnesium (1.6-2.6) mg/dL Total Bilirubin 0.3 (0.0-1.0) mg/dL AST 17 (5-37) U/L ALT 17 (0-40) U/L Alkaline Phosphatase 110 (39-117) U/L C-Reactive Protein (< or = 0.50) mg/dL Total Protein 6.3 L (6.5-8.0) g/dL Albumin 3.6 (3.5-5.0) g/dL Coronavirus (PCR) (Negative) Influenza Type A (PCR) (Negative) Influenza Type B (PCR) (Negative) RSV RNA Qual (PCR) (Negative) 12/30/20 12/30/20 12/30/20 Range/Units 14:03 14:03 14:03 WBC (4.8-10.8) X10*3/uL RBC (4.60-5.80) X10*6/uL Hgb (14.0-18.0) g/dl Hct (42-52) % MCV (80-98) fL MCH (27.0-33.0) pg MCHC (31.0-36.0) g/dl RDW (11.0-16.0) % Plt Count (160-400) X10*3/uL MPV (9.4-12.4) fL Immature Gran % (Auto) (0.0-0.4) % Neut % (Auto) (45-73) % Lymph % (Auto) (20-40) % [place] % (Auto) (2-11) % Eos % (Auto) (0-4) % Baso % (Auto) (0-2) % Lymph # (Auto) (1.2-4.9) X10*3/uL [place] # (Auto) (0.1-1.2) X10*3/uL Eos # (Auto) (0.0-0.4) X10*3/uL Baso # (Auto) (0.0-0.2) X10*3/uL Abs Immat Gran (auto) (0.00-0.03) X10*3/uL Absolute Neuts (auto) (2.0-8.3) X10*3/uL Absolute Nucleated RBC (0.0-0.012) X10*3/uL Nucleated RBC % (auto) (0.0-0.2) /100WBC ESR 28 H (0-15) MM/HR Hold Purple Top PT (10.8-13.0) SEC INR (0.9-1.1) APTT (24.1-38.0) SEC Sodium (135-145) mmol/L Potassium (3.3-5.1) mmol/L Chloride (96-108) mmol/L Carbon Dioxide (22-29) mmol/L Anion Gap (12-20) BUN (9-16) mg/dL Creatinine (0.5-1.4) mg/dL Estim Creat Clear Calc Estimated GFR POC Glucose (60-115) mg/dL Random Glucose (60-115) mg/dL Calcium (8.4-10.2) mg/dL Magnesium (1.6-2.6) mg/dL Total Bilirubin (0.0-1.0) mg/dL AST (5-37) U/L ALT (0-40) U/L Alkaline Phosphatase (39-117) U/L C-Reactive Protein 0.18 (< or = 0.50) mg/dL Total Protein (6.5-8.0) g/dL Albumin (3.5-5.0) g/dL Coronavirus (PCR) NEGATIVE (Negative) Influenza Type A (PCR) NEGATIVE (Negative) Influenza Type B (PCR) NEGATIVE (Negative) RSV RNA Qual (PCR) NEGATIVE (Negative) 12/30/20 Range/Units 14:04 WBC (4.8-10.8) X10*3/uL RBC (4.60-5.80) X10*6/uL Hgb (14.0-18.0) g/dl Hct (42-52) % MCV (80-98) fL MCH (27.0-33.0) pg MCHC (31.0-36.0) g/dl RDW (11.0-16.0) % Plt Count (160-400) X10*3/uL MPV (9.4-12.4) fL Immature Gran % (Auto) (0.0-0.4) % Neut % (Auto) (45-73) % Lymph % (Auto) (20-40) % [place] % (Auto) (2-11) % Eos % (Auto) (0-4) % Baso % (Auto) (0-2) % Lymph # (Auto) (1.2-4.9) X10*3/uL [place] # (Auto) (0.1-1.2) X10*3/uL Eos # (Auto) (0.0-0.4) X10*3/uL Baso # (Auto) (0.0-0.2) X10*3/uL Abs Immat Gran (auto) (0.00-0.03) X10*3/uL Absolute Neuts (auto) (2.0-8.3) X10*3/uL Absolute Nucleated RBC (0.0-0.012) X10*3/uL Nucleated RBC % (auto) (0.0-0.2) /100WBC ESR (0-15) MM/HR Hold Purple Top PT (10.8-13.0) SEC INR (0.9-1.1) APTT (24.1-38.0) SEC Sodium (135-145) mmol/L Potassium (3.3-5.1) mmol/L Chloride (96-108) mmol/L Carbon Dioxide (22-29) mmol/L Anion Gap (12-20) BUN (9-16) mg/dL Creatinine (0.5-1.4) mg/dL Estim Creat Clear Calc Estimated GFR POC Glucose (60-115) mg/dL Random Glucose (60-115) mg/dL Calcium (8.4-10.2) mg/dL Magnesium 1.9 (1.6-2.6) mg/dL Total Bilirubin (0.0-1.0) mg/dL AST (5-37) U/L ALT (0-40) U/L Alkaline Phosphatase (39-117) U/L C-Reactive Protein (< or = 0.50) mg/dL Total Protein (6.5-8.0) g/dL Albumin (3.5-5.0) g/dL Coronavirus (PCR) (Negative) Influenza Type A (PCR) (Negative) Influenza Type B (PCR) (Negative) RSV RNA Qual (PCR) (Negative) Imaging Data Chest x-ray: Attestation: I personally reviewed and interpreted this imaging study as follows: Radiologist's impression: FINDINGS: The lungs are clear. The vascularity is normal. There is no airspace consolidation, vascular congestion, or effusion. The heart is normal in size. The hilar and mediastinal contours are unremarkable. No acute bony abnormality. XR/XR chest 2V IMPRESSION: Unremarkable examination. CT scan of brain without contrast: Attestation: I personally reviewed and interpreted this imaging study as follows: Radiologist's impression: FINDINGS: There is no evidence of acute intracranial hemorrhage or territorial infarction. No abnormal mass effect or midline shift is seen. Nuñez to white matter differentiation is well preserved. No extra-axial fluid collections are identified. The ventricles are normal in size. There is no abnormal attenuation within the brain parenchyma. The osseous structures and soft tissues are normal. The mastoid air cells and visualized portions of the paranasal sinuses are well aerated. CT/CT head/brain wo con IMPRESSION: Unremarkable exam. ECG Data Attestation: I personally reviewed and interpreted this ECG as follows: ECG interpretation date: 12/30/20 ECG interpretation time: 14:18 Interpretation: Normal sinus rhythm intricate a [address] and T- wave abnormalities no acute ischemic changes are noted. Similar when compared to prior EKG 04/21/2020. Critical Care Time Critical Care Time Critical Care Time: Yes Total Critical Care Time: 60 Attestation: I personally attest to this time spent taking care of the patient Discharge Plan Discharge Clinical Impression: Vitreous hemorrhage Patient Disposition: Home, Self-Care Instructions: Visual Floaters (ED) Prescriptions: No Action (DME) lancets [TRUEplus Lancets] 33 gauge misc See Rx Instructions .ROUTE .MEDSUPPLY Qty: 200 RF: 1 insulin lispro [Humalog KwikPen Insulin] 100 unit/mL insulin pen See Rx Instructions subcut .5 times a day 30 Days Qty: 15 RF: 4 Tresiba U-100 Insulin 100 unit/mL Solution 10 unit SUBCUT BEDTIME RF: 0 cholecalciferol (vitamin D3) 125 mcg (5,000 unit) capsule 1 cap PO DAILY RF: 0 levocetirizine 5 mg tablet 1 tab PO DAILY RF: 0 oxycodone-acetaminophen [Percocet] 5-325 mg tablet 1 - 2 tab PO Q4-6H PRN (Reason: pain) Qty: 30 RF: 0 ibuprofen 600 mg tablet 600 mg PO Q6H PRN (Reason: pain) Qty: 30 RF: 0 Lantus Solostar U-100 Insulin 100 unit/mL (3 mL) insulin pen 8 unit subcut QAM RF: 0 (DME) blood sugar diagnostic Strip See Rx Instructions ea Not Applicable .MEDSUPPLY Qty: 10 RF: 0 (DME) FreeStyle Shelli 2 Sensor Kit See Rx Instructions .ROUTE .MEDSUPPLY Qty: 2 RF: 11 lisinopril 5 mg tablet 5 mg PO DAILY 30 Days Qty: 30 RF: 5 (DME) pen needle, diabetic [BD Yi 2nd Gen Pen Needle] 32 gauge x 5/32 needle See Rx Instructions .MEDSUPPLY Qty: 150 RF: 5 (DME) FreeStyle Shelli 2 Gerald Misc See Rx Instructions .ROUTE .MEDSUPPLY Qty: 1 RF: 0 Referrals: Manas Youssef [Physician] - 12/30/20 (Go there right now) Discharge Date/Time: 12/30/20 15:20 Print Language: Bruneian
== END 2020-12-30 15:20 | disposition home or self-care (01) ==
PROVIDERS: Physician Assistant Medical; Emergency Provider Emergency Medicine; PCP Internal Medicine
DX: H43.12 Vitreous hemorrhage, left eye (principal); R51.9 Headache, unspecified; E10.9 Type 1 diabetes mellitus without complications; R03.0 Elevated blood-pressure reading, without diagnosis of hypertension; Z20.822 Contact with and (suspected) exposure to COVID-19; Z79.4 Long term (current) use of insulin; Z79.899 Other long term (current) drug therapy; Z87.891 Personal history of nicotine dependence
CPT/HCPCS: 0241U; 36415; 70450; 71046; 80053; 82947; 83735; 85025; 85610; 85652; 85730; 86140; 93005; 99284

== ENCOUNTER → 2021-01-24 09:39 | Outpatient (BNVA) | payer OTHER, SELFPAY | PROVIDERS: PCP Internal Medicine; Visit Provider Urology | DX: Z13.89 Encounter for screening for other disorder (principal) | CPT/HCPCS: 99202 ==

== ENCOUNTER → 2021-02-17 12:54 | Outpatient (BNVA) | payer OTHER, SELFPAY | PROVIDERS: PCP Internal Medicine; Visit Provider Internal Medicine Endocrinology, Diabetes & Metabolism ==

== ENCOUNTER 2021-03-26 11:37 | Emergency (ER) | payer OTHER, SELFPAY | END 2021-03-26 12:17 | disposition left against medical advice (07) | PROVIDERS: Emergency Provider Emergency Medicine; PCP Internal Medicine | DX: I10 Essential (primary) hypertension (principal); R11.2 Nausea with vomiting, unspecified | CPT/HCPCS: 99281 ==

== ENCOUNTER → 2021-06-15 13:40 | Outpatient (BNVA) | payer OTHER, SELFPAY | PROVIDERS: PCP Internal Medicine; Visit Provider Nurse Practitioner Gerontology | DX: E10.65 Type 1 diabetes mellitus with hyperglycemia (principal); E10.42 Type 1 diabetes mellitus with diabetic polyneuropathy; E10.21 Type 1 diabetes mellitus with diabetic nephropathy; E10.3592 Type 1 diabetes mellitus with proliferative diabetic retinopathy without macular edema, left eye; E10.3291 Type 1 diabetes mellitus with mild nonproliferative diabetic retinopathy without macular edema, right eye; E55.9 Vitamin D deficiency, unspecified; E66.09 Other obesity due to excess calories; Z68.31 Body mass index [BMI] 31.0-31.9, adult; Z88.8 Allergy status to other drugs, medicaments and biological substances; Z91.013 Allergy to seafood; Z79.4 Long term (current) use of insulin; Z79.899 Other long term (current) drug therapy | CPT/HCPCS: 82947; 83036; 99212 ==

== ENCOUNTER → 2021-09-04 08:06 | Outpatient (BNVA) | payer OTHER, SELFPAY | PROVIDERS: PCP Internal Medicine; Visit Provider Nurse Practitioner Gerontology | DX: E10.65 Type 1 diabetes mellitus with hyperglycemia (principal); E10.21 Type 1 diabetes mellitus with diabetic nephropathy; E10.42 Type 1 diabetes mellitus with diabetic polyneuropathy; E11.3293 Type 2 diabetes mellitus with mild nonproliferative diabetic retinopathy without macular edema, bilateral; E66.09 Other obesity due to excess calories; E55.9 Vitamin D deficiency, unspecified; I10 Essential (primary) hypertension; Z68.30 Body mass index [BMI] 30.0-30.9, adult | CPT/HCPCS: 82947; 83036; 99212 ==

== ENCOUNTER → 2021-09-06 10:48 | Outpatient (BNVA) | payer OTHER, SELFPAY | PROVIDERS: PCP Internal Medicine; Visit Provider Dietitian, Registered | DX: E10.65 Type 1 diabetes mellitus with hyperglycemia (principal) | CPT/HCPCS: 97802 ==

== ENCOUNTER 2021-10-29 10:13 | Emergency (ER) | payer OTHER, SELFPAY ==
[2021-10-29 10:17] VITALS: BP 145/89; PULSE 86; RESP 18; TEMP 36.6; O2SAT 99; BMI 31.4
--- NOTE | 2021-10-29 10:26 | ED_ITS ---
HPI - General Adult General Chief complaint: Allergic Reaction Stated complaint: diff breathing swelling in throat Time Seen by Provider: 10/29/21 10:25 Source: patient Mode of arrival: ambulatory Limitations: no limitations History of Present Illness HPI narrative: This is a 26 years old patient presented to the emergency room with a chief complaint of Uvula swelling, he states that he woke up about 1 h ago with this problem, he denies any rashes, hives. He does take lisinopril for hypertension Onset (ago): hour(s) (1) Location: mouth Radiation: non-radiation Severity: moderate Quality: aching Pain Consistency: constant Exacerbating factors: none Associated symptoms: denies other symptoms Related Data Home Medications Medication Instructions Recorded Confirmed atropine 1 % eye drops 1 drp OPHTHALMIC (EYE) BID 02/17/21 10/11/21 Previous Rx's Medication Instructions Recorded lancets 33 gauge (TRUEplus Lancets) #200 ea 06/24/20 flash glucose scanning reader #1 ea 07/08/20 (FreeStyle Shelli 2 [place]) ibuprofen 600 mg tablet 600 mg PO Q6H PRN #30 tab 12/13/20 Lantus Solostar U-100 Insulin 100 10 unit (0.1 mL) SUBCUT QAM 30 06/15/21 unit/mL (3 mL) subcutaneous pen Days #15 ml NS (insulin glargine) blood sugar diagnostic (FreeStyle #300 ea 06/15/21 Lite Strips) blood-glucose meter (FreeStyle #1 ea 06/15/21 Lite Meter) flash glucose sensor (FreeStyle #2 ea 06/15/21 Shelli 2 Sensor) insulin lispro 100 unit/mL See Rx Instructions SUBCUT .5 06/15/21 subcutaneous pen (Humalog KwikPen times a day #30 ml (U-100) Insulin) lancets 28 gauge (FreeStyle #300 ea 06/15/21 Lancets) cholecalciferol (vitamin D3) 125 125 mcg PO DAILY #30 cap 07/26/21 mcg (5,000 unit) capsule pen needle, diabetic 32 gauge x #150 ea 10/02/21 (BD Yi 2nd Gen Pen Needle) amlodipine 10 mg tablet 10 mg PO DAILY #30 tab 10/11/21 lisinopril 30 mg tablet 30 mg PO DAILY #30 tab 10/11/21 trazodone 50 mg tablet 50 mg PO BEDTIME PRN 90 Days #90 10/12/21 tab Allergies Allergy/AdvReac Type Severity Reaction Status Date / Time clonazepam Allergy Intermediate agitation Verified 10/29/21 10:21 shrimp [SHRIMP] Allergy Intermediate ANAPHYLAXIS Verified 10/29/21 10:21 Review of Systems Review of Systems: Yes all other systems are reviewed and are negative Constitutional: Constitutional: Reports no additional constitutional complaints ENT: Reports other (throat pain) Cardiovascular: Cardiovascular: Reports no additional cardiovascular complaints Respiratory: Respiratory: Reports no additional respiratory complaints Gastrointestinal: Gastrointestinal: Reports no additional gastrointestinal complaints [facility] Past Medical History Medical History Anxiety Asthma Diabetes mellitus type 1 Diabetes type 1, uncontrolled Diabetic nephropathy associated with type 1 diabetes mellitus Diabetic polyneuropathy associated with type 1 diabetes mellitus Insomnia Non-proliferative diabetic retinopathy, mild, both eyes Obesity due to excess calories Obesity, Class I, BMI 30-34.9 Overweight (BMI 25.0-29.9) Pre-op evaluation Vitamin D deficiency Surgical History History of surgery Hx of appendectomy Family History Family History Father No problems noted. 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 Current occupational exposures/hazards: No Physical Exam ED Vital Signs: Vital Signs - 24 hr 10/29/21 10:17 10/29/21 12:33 10/29/21 13:08 Temperature 98 F Pulse Rate 86 77 101 H Respiratory Rate 18 12 18 Blood Pressure 145/89 H 144/95 H Pulse Oximetry 99 97 95 10/29/21 15:04 Temperature Pulse Rate 90 Respiratory Rate 16 Blood Pressure 133/80 Pulse Oximetry 97 BMI result Body Mass Index 31.4 Const General: cooperative and comfortable Nutritional Appearance: well nourished Orientation/consciousness: oriented to person and patient oriented x3 HENMT Head: Yes normal to inspection Face and sinus: Yes normal facial exam Mouth: no drooling and Abnormal oral and palatal mucosa present Throat: Yes uvular edema Neck Neck: Yes normal visual inspection and Yes full ROM Lymphatic: no lymphadenopathy noted Chest Chest palpation & inspection: normal inspection of the chest Resp Effort & Inspection: normal respiratory effort and able to speak in complete sentences Auscultation: clear to auscultation bilaterally Cardio Jugular venous distension: no JVD Rate: regular rate Rhythm: regular rhythm GI Inspection: Yes normal to inspection Palpation (GI): Soft to palpation, not firm, nontender, no guarding and not rigid Percussion: Yes normal to percussion Auscultation: normal bowel sounds General: Yes no CVA tenderness Back/Spine/Pelvis Back: no CVA tenderness Skin General skin exam: no rashes or lesions noted, elasticity normal and turgor normal Lesions: no lesions Rashes: no rashes Neuro General: oriented to person and patient oriented x3 Cranial nerves: Yes CN's II-XII intact bilaterally Course Reevaluation(s) Reevaluation #1: I feel much better swelling of uvula down. I adviced the pt to stop lisinopril,I will d/c pt on prednisone Time: 15:11 Medical Decision Making Lab Data Result diagrams: 10/29/21 10:35 10/29/21 11:01 Labs: Lab Results 10/29/21 10/29/21 10/29/21 Range/Units 10:35 10:54 11:01 WBC 5.8 (4.8-10.8) X10*3/uL RBC 4.12 L (4.60-5.80) X10*6/uL Hgb 11.8 L (14.0-18.0) g/dl Hct 34.5 L (42.0-52.0) % MCV 83.7 (80.0-98.0) fL MCH 28.6 (27.0-33.0) pg MCHC 34.2 (31.0-36.0) g/dl RDW 12.3 (11.0-16.0) % Plt Count 207 (160-400) X10*3/uL MPV 11.6 (9.4-12.4) fL Immature Gran % (Auto) 0.2 (0.0-0.4) % Neut % (Auto) 59.2 (45-73) % Lymph % (Auto) 26.5 (20-40) % Divide % (Auto) 12.2 H (2-11) % Eos % (Auto) 1.7 (0-4) % Baso % (Auto) 0.2 (0-2) % Lymph # (Auto) 1.6 (1.2-4.9) X10*3/uL Divide # (Auto) 0.7 (0.1-1.2) X10*3/uL Eos # (Auto) 0.1 (0.0-0.4) X10*3/uL Baso # (Auto) 0.0 (0.0-0.2) X10*3/uL Abs Immat Gran (auto) 0.01 (0.00-0.03) X10*3/uL Absolute Neuts (auto) 3.5 (2.0-8.3) x10*3/uL Absolute Nucleated RBC 0.000 (0.0-0.012) X10*3/uL Nucleated RBC % (auto) 0.0 (0.0-0.2) /100WBC Sodium 139 (135-145) mmol/L Potassium 4.4 (3.3-5.1) mmol/L Chloride 105 (96-108) mmol/L Carbon Dioxide 29 (22-29) mmol/L Anion Gap 9 L (12-20) BUN 22 H (9-16) mg/dL Creatinine 1.01 (0.5-1.4) mg/dL Estim Creat Clear Calc 132.4 Estimated GFR > 60 POC Glucose 98 (60-115) mg/dL Random Glucose 103 D (60-115) mg/dL Calcium 9.6 D (8.4-10.2) mg/dL Total Bilirubin 0.4 (0.0-1.0) mg/dL AST 21 (5-37) U/L ALT 16 (0-40) U/L Alkaline Phosphatase 91 (39-117) U/L Total Protein 6.2 L (6.5-8.0) g/dL Albumin 3.6 (3.5-5.0) g/dL 10/29/21 Range/Units 13:19 WBC (4.8-10.8) X10*3/uL RBC (4.60-5.80) X10*6/uL Hgb (14.0-18.0) g/dl Hct (42.0-52.0) % MCV (80.0-98.0) fL MCH (27.0-33.0) pg MCHC (31.0-36.0) g/dl RDW (11.0-16.0) % Plt Count (160-400) X10*3/uL MPV (9.4-12.4) fL Immature Gran % (Auto) (0.0-0.4) % Neut % (Auto) (45-73) % Lymph % (Auto) (20-40) % Divide % (Auto) (2-11) % Eos % (Auto) (0-4) % Baso % (Auto) (0-2) % Lymph # (Auto) (1.2-4.9) X10*3/uL Divide # (Auto) (0.1-1.2) X10*3/uL Eos # (Auto) (0.0-0.4) X10*3/uL Baso # (Auto) (0.0-0.2) X10*3/uL Abs Immat Gran (auto) (0.00-0.03) X10*3/uL Absolute Neuts (auto) (2.0-8.3) x10*3/uL Absolute Nucleated RBC (0.0-0.012) X10*3/uL Nucleated RBC % (auto) (0.0-0.2) /100WBC Sodium (135-145) mmol/L Potassium (3.3-5.1) mmol/L Chloride (96-108) mmol/L Carbon Dioxide (22-29) mmol/L Anion Gap (12-20) BUN (9-16) mg/dL Creatinine (0.5-1.4) mg/dL Estim Creat Clear Calc Estimated GFR POC Glucose 153 H (60-115) mg/dL Random Glucose (60-115) mg/dL Calcium (8.4-10.2) mg/dL Total Bilirubin (0.0-1.0) mg/dL AST (5-37) U/L ALT (0-40) U/L Alkaline Phosphatase (39-117) U/L Total Protein (6.5-8.0) g/dL Albumin (3.5-5.0) g/dL Discharge Plan Discharge Clinical Impression: Uvulitis Instructions: Uvulitis (ED) Prescriptions: No Action (DME) lancets [TRUEplus Lancets] 33 gauge misc See Rx Instructions .ROUTE .MEDSUPPLY Qty: 200 1RF Rx Instructions: 6 times a day cholecalciferol (vitamin D3) 125 mcg (5,000 unit) capsule 125 mcg PO DAILY Qty: 30 1RF trazodone 50 mg tablet 50 mg PO BEDTIME PRN (Reason: sleep) 90 Days Qty: 90 1RF ibuprofen 600 mg tablet 600 mg PO Q6H PRN (Reason: pain) Qty: 30 0RF amlodipine 10 mg tablet 10 mg PO DAILY Qty: 30 0RF lisinopril 30 mg tablet 30 mg PO DAILY Qty: 30 0RF (DME) FreeStyle Shelli 2 [place] Misc See Rx Instructions .ROUTE .MEDSUPPLY Qty: 1 0RF Rx Instructions: As directed atropine 1 % drops 1 drp ophthalmic (eye) BID 0RF insulin lispro [Humalog KwikPen Insulin] 100 unit/mL insulin pen See Rx Instructions subcut .5 times a day Qty: 30 5RF Rx Instructions: 2 to 12 units before meals and snacks subcut .5 times a day; (DME) FreeStyle Shelli 2 Sensor Kit See Rx Instructions .ROUTE .MEDSUPPLY Qty: 2 11RF Rx Instructions: Every 14 days (DME) FreeStyle Lite Strips Strip See Rx Instructions .ROUTE .MEDSUPPLY Qty: 300 11RF Rx Instructions: six times a day (DME) blood-glucose meter [FreeStyle Lite Meter] Kit See Rx Instructions .ROUTE .MEDSUPPLY Qty: 1 0RF Rx Instructions: 6 x/day (DME) lancets [FreeStyle Lancets] 28 gauge misc See Rx Instructions .ROUTE .MEDSUPPLY Qty: 300 11RF Rx Instructions: six times a day Lantus Solostar U-100 Insulin 100 unit/mL (3 mL) insulin pen 10 unit subcut QAM 30 Days Qty: 15 6RF (DME) pen needle, diabetic [BD Yi 2nd Gen Pen Needle] 32 gauge x 5/32 needle See Rx Instructions .MEDSUPPLY Qty: 150 5RF Rx Instructions: 5 times a day
[2021-10-29 10:39] LABS: Basophils Percent Auto 0.2 % (0-2); Eosinophils Absolute Auto 0.1 X10*3/uL (0.0-0.4); Eosinophils Percent Auto 1.7 % (0-4); Hematocrit 34.5 % (42.0-52.0); Hemoglobin 11.8 g/dl (14.0-18.0); Imm Gran Abs Auto 0.01 X10*3/uL (0.00-0.03); Imm Gran Pct Auto 0.2 % (0.0-0.4); Lymphocytes Absolute Auto 1.6 X10*3/uL (1.2-4.9); Lymphocytes Percent Auto 26.5 % (20-40); MANUAL DIFF FLAG NO; Mean Corpuscular HGB Conc 34.2 g/dl (31.0-36.0); Mean Corpuscular Hemoglobin 28.6 pg (27.0-33.0); Mean Corpuscular Volume 83.7 fL (80.0-98.0); Mean Platelet Volume 11.6 fL (9.4-12.4); Monocytes Absolute Auto 0.7 X10*3/uL (0.1-1.2); Monocytes Percent Auto 12.2 % (2-11); Neutrophils Absolute Auto 3.5 x10*3/uL (2.0-8.3); Neutrophils Percent Auto 59.2 % (45-73); Platelet Count 207 X10*3/uL (160-400); Red Blood Count 4.12 X10*6/uL (4.60-5.80); Red Cell Distribution Width 12.3 % (11.0-16.0); White Blood Count 5.8 X10*3/uL (4.8-10.8)
[2021-10-29] MEDS: 0.9 % Sodium Chloride 1,000 ML 999 ML IVCONT (10:50)
[2021-10-29] MEDS: dexAMETHasone sod phosphate 10 MG/ML VIAL IVPUSH (10:50)
[2021-10-29 10:57] LABS: Glucose, Whole Blood 98 mg/dL (60-115)
--- NOTE | 2021-10-29 11:05 | PC.NURSE ---
Pt received: Pt AOX4 and offers back of throat swelling to uvula, hoarse voice noted Heart sounds normal and lungs clear. Pt abd soft and non-tender
[2021-10-29 11:33] LABS: Alanine Aminotransferase 16 U/L (0-40); Albumin Level 3.6 g/dL (3.5-5.0); Alkaline Phosphatase 91 U/L (39-117); Anion Gap 9 (12-20); Aspartate Amino Transferase 21 U/L (5-37); Bilirubin Total 0.4 mg/dL (0.0-1.0); Blood Urea Nitrogen 22 mg/dL (9-16); Calcium 9.6 mg/dL (8.4-10.2); Carbon Dioxide 29 mmol/L (22-29); Chloride 105 mmol/L (96-108); Creatinine Clr Calc Pharmacy 132.4; Estimated Glomerular Filt Rate > 60; Glucose Random 103 mg/dL (60-115); Potassium 4.4 mmol/L (3.3-5.1); Sodium 139 mmol/L (135-145); Total Protein 6.2 g/dL (6.5-8.0)
[2021-10-29] MEDS: EPINEPHrine 1 MG/ML VIAL 0.3 MG IM (12:29)
[2021-10-29] MEDS: Famotidine/PF 20 MG/2 ML VIAL IVPUSH (12:29)
[2021-10-29 12:33] VITALS: BP 144/95; PULSE 77; RESP 12; O2SAT 97
[2021-10-29 13:08] VITALS: PULSE 101; RESP 18; O2SAT 95
[2021-10-29 13:23] LABS: Glucose, Whole Blood 153 mg/dL (60-115)
[2021-10-29 15:04] VITALS: BP 133/80; PULSE 90; RESP 16; O2SAT 97
== END 2021-10-29 15:44 | disposition home or self-care (01) ==
PROVIDERS: Emergency Provider Emergency Medicine; PCP Internal Medicine
DX: K12.2 Cellulitis and abscess of mouth (principal); R06.02 Shortness of breath; Z79.899 Other long term (current) drug therapy
CPT/HCPCS: 36415; 80053; 82947; 85025; 96360; 96361; 96372; 99283; 99284; J0171; J1100; J1200

== ENCOUNTER 2022-01-04 14:01 | Outpatient (REF) | payer OTHER, SELFPAY ==
[2022-01-04 14:56] LABS: Influenza A PCR NEGATIVE (Negative); Influenza B PCR NEGATIVE (Negative); Resp Syncy Virus RNA Qual PCR NEGATIVE (Negative); SARS COV2 PCR INHOUSE NEGATIVE (Negative)
== END 2022-01-04 14:02 | disposition home or self-care (01) ==
LOC: HO.LNP 14:01
PROVIDERS: Visit Provider Internal Medicine
DX: Z20.822 Contact with and (suspected) exposure to COVID-19 (principal); R23.2 Flushing; R51.9 Headache, unspecified; R53.83 Other fatigue; R68.89 Other general symptoms and signs
CPT/HCPCS: 0241U

== ENCOUNTER 2022-01-10 15:22 | Emergency (ER) | payer OTHER, SELFPAY ==
--- NOTE | ~2022-01-10 | XR_ITS ---
Indication: Fracture, pain EXAMINATION: Right wrist. Comparison previous study from 12/23/2018. 4 views There is a mild step-off involving the navicular. Overall the appearance is comparable to study of 12/02/2018 however the appearance is appears new from 05/04/2016. Correlation recommended here. Otherwise there is old fracture injury involving the proximal phalanx of the fifth digit and also fifth metacarpal. There is a bony density along the distal carpal row. I suspect a fracture here dorsally. This may be occurring off the hamate. XR/XR hand wrist RT IMPRESSION: Abnormal appearing wrist. Bony density is seen dorsally along the distal carpal row. Findings suggest an acute fracture. This may be coming off the dorsal aspect of the hamate Otherwise old fracture injury involving the fifth finger Step-off involving the navicular may indicate sequela of previous injury. Acute fracture here cannot be excluded. Recommend point palpation.
[2022-01-10 15:24] VITALS: BP 129/90; PULSE 100; RESP 18; TEMP 35.8; O2SAT 100; BMI 31.4
--- NOTE | 2022-01-10 17:32 | ED_ITS ---
HPI - Extremity Problem General Chief complaint: Extremity Injury, Upper Stated complaint: hand INJ Time Seen by Provider: 01/10/22 16:38 Source: patient Mode of arrival: ambulatory Limitations: no limitations History of Present Illness HPI Narrative: 26-year-old male presents for right hand pain after punching a wall earlier in the day MD Complaint: extremity pain Onset (ago): hour(s) (4) Pain Consistency: constant Severity scale (1-10): 6 Quality: aching Radiation: none Relieving factors: nothing Exacerbating factors: range of motion Associated symptoms: denies other symptoms Related Data Home Medications Medication Instructions Recorded Confirmed atropine 1 % eye drops 1 drp OPHTHALMIC (EYE) BID 02/17/21 01/04/22 Previous Rx's Medication Instructions Recorded lancets 33 gauge (TRUEplus Lancets) #200 ea 06/24/20 flash glucose scanning reader #1 ea 07/08/20 (FreeStyle Shelli 2 [place]) ibuprofen 600 mg tablet 600 mg PO Q6H PRN #30 tab 12/13/20 Lantus Solostar U-100 Insulin 100 10 unit (0.1 mL) SUBCUT QAM 30 06/15/21 unit/mL (3 mL) subcutaneous pen Days #15 ml NS (insulin glargine) blood sugar diagnostic (FreeStyle #300 ea 06/15/21 Lite Strips) blood-glucose meter (FreeStyle #1 ea 06/15/21 Lite Meter) flash glucose sensor (FreeStyle #2 ea 06/15/21 Shelli 2 Sensor) insulin lispro 100 unit/mL See Rx Instructions SUBCUT .5 06/15/21 subcutaneous pen (Humalog KwikPen times a day #30 ml (U-100) Insulin) lancets 28 gauge (FreeStyle #300 ea 06/15/21 Lancets) cholecalciferol (vitamin D3) 125 125 mcg PO DAILY #30 cap 07/26/21 mcg (5,000 unit) capsule pen needle, diabetic 32 gauge x #150 ea 10/02/21 (BD Yi 2nd Gen Pen Needle) trazodone 50 mg tablet 50 mg PO BEDTIME PRN 90 Days #90 10/12/21 tab loratadine 10 mg tablet (Claritin) 10 mg PO DAILY #7 tab 10/29/21 prednisone 20 mg tablet 60 mg PO DAILY #12 tab 10/29/21 lisinopril 30 mg tablet 30 mg PO DAILY #30 tab 10/31/21 amlodipine 10 mg tablet 10 mg PO DAILY #30 tab 12/28/21 Allergies Allergy/AdvReac Type Severity Reaction Status Date / Time clonazepam Allergy Intermediate agitation Verified 01/04/22 12:44 shrimp [SHRIMP] Allergy Intermediate ANAPHYLAXIS Verified 01/04/22 12:44 Review of Systems Constitutional: Constitutional: Denies body ache(s), Denies chills, Denies fatigue, Denies fever(s), Denies headache(s), Denies malaise and Denies weakness Eyes: Eyes: Denies diplopia ENT: Denies vertigo, Denies dizziness, Denies headache(s) and Denies throat swelling Cardiovascular: Cardiovascular: Denies chest pain, Denies syncope, Denies leg edema, Denies lightheadedness, Denies Loss of Consciousness, Denies palpitations and Denies dyspnea Respiratory: Respiratory: Denies chest congestion, Denies cough and Denies dyspnea Musculoskeletal: Musculoskeletal: Denies deformity, Denies muscle weakness, Denies numbness and Denies tingling Comments: Right hand pain Neurologic: Denies confusion, Denies vertigo, Denies dizziness, Denies syncope, Denies headache(s), Denies numbness, Denies tingling and Denies weakness Psychiatric: Psychiatric: Denies anxiety, Denies confusion and Denies depression Endocrine: Endocrine: Denies fatigue and Denies palpitations Allergic/Immunologic: Allergic/Immunologic: Denies throat swelling PMFSH Past Medical History Medical History Anxiety Asthma Diabetes mellitus type 1 Diabetes type 1, uncontrolled Diabetic nephropathy associated with type 1 diabetes mellitus Diabetic polyneuropathy associated with type 1 diabetes mellitus Insomnia Non-proliferative diabetic retinopathy, mild, both eyes Obesity due to excess calories Obesity, Class I, BMI 30-34.9 Overweight (BMI 25.0-29.9) Pre-op evaluation Vitamin D deficiency Surgical History History of surgery Hx of appendectomy Family History Family History Father No problems noted. 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 Current occupational exposures/hazards: No Physical Exam Vital Signs: Vital Signs: Last Vital Signs Temp 96.5 F L 01/10/22 15:24 Pulse 100 01/10/22 15:24 Resp 18 01/10/22 15:24 BP 129/90 H 01/10/22 15:24 Pulse Ox 100 01/10/22 15:24 BMI result Body Mass Index 31.4 Const: General: comfortable, no acute distress, alert and awake; No confusion Nutritional Appearance: well nourished Orientation/consciousness: patient oriented x3 and No confusion Limitations: no limitations Eyes: Conjunctivae: conjunctivae normal Pupils: Equal, round and reactive pupils present EOM: EOMs intact bilaterally Neck: Neck: Yes full ROM, Yes no lymphadenopathy and Yes supple Resp: Effort & Inspection: normal respiratory effort and able to speak in complete sentences Auscultation: clear to auscultation bilaterally, no crackles, no rales, no rhonchi and no wheezes Cardio: Rate: regular rate Rhythm: regular rhythm Heart sounds: S1 normal heart sound present and S2 normal heart sound present Skin: General skin exam: no rashes or lesions noted Neuro: General: patient oriented x3 and No confusion Cranial nerves: Yes Equal, round and reactive pupils present Extrem: Right upper extremity: normal capillary refill, no joint enlargement and Extremity exam: right hand Details: normal capillary refill, neuromotor exam normal, neurosensory exam normal, tenderness Location: of the dorsal hand Location: proximally and normal ROM of fingers; No no cyanosis and no edema Psych: Appearance: grossly normal Affect: normal affect Attitude: cooperative Thought process: Normal thought process present Course Course Course Narrative: Patient has intact right upper extremity pulses, sensation, range of motion, reduced recovery auditor strength of fingers X-ray shows acute fracture of dorsal aspect of hamate, patient is point tender there Splinted patient in ulnar gutter splint, discussed correct type of splint with PAcal Cruz Patient cannot take NSAIDs, counseled keep up with Tylenol, 1000 mg every 8 hours, not to exceed 3 g in 24 hours, counseled rest, elevation, keep splint on until seen by Orthopedics Referred patient to Orthopedics XR/XR hand wrist RT IMPRESSION: Abnormal appearing wrist. Bony density is seen dorsally along the distal carpal row. Findings suggest an acute fracture. This may be coming off the dorsal aspect of the hamate ? Otherwise old fracture injury involving the fifth finger ? Step-off involving the navicular may indicate sequela of previous injury. Acute fracture here cannot be excluded. Recommend point palpation. Discharge Plan Discharge Clinical Impression: Fracture of hand, Closed hamate fracture Patient Disposition: Home, Self-Care Additional Instructions: Rest, ice, elevate, keep splint on until you are seen by orthopedics, take Tylenol for pain Prescriptions: No Action (DME) lancets [TRUEplus Lancets] 33 gauge misc See Rx Instructions .ROUTE .MEDSUPPLY Qty: 200 1RF Rx Instructions: 6 times a day cholecalciferol (vitamin D3) 125 mcg (5,000 unit) capsule 125 mcg PO DAILY Qty: 30 1RF trazodone 50 mg tablet 50 mg PO BEDTIME PRN (Reason: sleep) 90 Days Qty: 90 1RF lisinopril 30 mg tablet 30 mg PO DAILY Qty: 30 6RF amlodipine 10 mg tablet 10 mg PO DAILY Qty: 30 0RF ibuprofen 600 mg tablet 600 mg PO Q6H PRN (Reason: pain) Qty: 30 0RF prednisone 20 mg tablet 60 mg PO DAILY Qty: 12 0RF loratadine [Claritin] 10 mg tablet 10 mg PO DAILY Qty: 7 0RF (DME) FreeStyle [place]lli 2 [place] Misc See Rx Instructions .ROUTE .MEDSUPPLY Qty: 1 0RF Rx Instructions: As directed atropine 1 % drops 1 drp ophthalmic (eye) BID 0RF insulin lispro [Humalog KwikPen Insulin] 100 unit/mL insulin pen See Rx Instructions subcut .5 times a day Qty: 30 5RF Rx Instructions: 2 to 12 units before meals and snacks subcut .5 times a day; (DME) FreeStyle [place] 2 Sensor Kit See Rx Instructions .ROUTE .MEDSUPPLY Qty: 2 11RF Rx Instructions: Every 14 days (DME) FreeStyle Lite Strips Strip See Rx Instructions .ROUTE .MEDSUPPLY Qty: 300 11RF Rx Instructions: six times a day (DME) blood-glucose meter [FreeStyle Lite Meter] Kit See Rx Instructions .ROUTE .MEDSUPPLY Qty: 1 0RF Rx Instructions: 6 x/day (DME) lancets [FreeStyle Lancets] 28 gauge misc See Rx Instructions .ROUTE .MEDSUPPLY Qty: 300 11RF Rx Instructions: six times a day Lantus Solostar U-100 Insulin 100 unit/mL (3 mL) insulin pen 10 unit subcut QAM 30 Days Qty: 15 6RF (DME) pen needle, diabetic [BD Yi 2nd Gen Pen Needle] 32 gauge x 5/32 needle See Rx Instructions .MEDSUPPLY Qty: 150 5RF Rx Instructions: 5 times a day Referrals: Laura Tavarez MD [Physician] - Interventions: ED Discharge Assessment Last Done: 01/10/22 18:29 Discharge Date/Time: 01/10/22 18:34
--- NOTE | 2022-01-10 18:27 | PC.NURSE ---
ulnar gutter splint in place on right hand well tolerated by pt
== END 2022-01-10 18:34 | disposition home or self-care (01) ==
PROVIDERS: Emergency Provider Internal Medicine; PCP Internal Medicine
DX: S62.144A Nondisplaced fracture of body of hamate [unciform] bone, right wrist, initial encounter for closed fracture (principal); W22.09XA Striking against other stationary object, initial encounter; Y93.9 Activity, unspecified; Y92.9 Unspecified place or not applicable; Y99.9 Unspecified external cause status
CPT/HCPCS: 29125; 73110; 73130; 99283

== ENCOUNTER 2022-01-16 09:15 | Outpatient (REF) | payer OTHER, SELFPAY ==
--- NOTE | ~2022-01-16 | XR_ITS ---
EXAMINATION: XR WRIST, RIGHT WITH SCAPHOID CLINICAL INFORMATION: Right wrist pain. COMPARISON: Most recent right hand and wrist radiographs dated 01/10/2022. TECHNIQUE: AP, oblique, lateral, and scaphoid views of the right wrist. FINDINGS: Redemonstration of a mildly displaced posterosuperior hamate fracture with a resultant fracture fragment measuring up to 1.0 cm. Anatomic alignment is unchanged when compared to the prior radiographs. No additional fracture or dislocation. Evaluation of the scaphoid is somewhat limited due to positioning. Remote, healed fracture of the 5th metacarpal and proximal phalanx, unchanged. No osseous erosion. No abnormal soft tissue calcification. XR/XR wrist RT w scaphoid IMPRESSION: Posterosuperior hamate fracture in unchanged anatomic alignment. Additional chronic findings are unchanged.
== END 2022-01-16 09:16 | disposition home or self-care (01) ==
LOC: HO.HOSX 09:15
PROVIDERS: Visit Provider Orthopaedic Surgery
DX: S62.141A Displaced fracture of body of hamate [unciform] bone, right wrist, initial encounter for closed fracture (principal)
CPT/HCPCS: 73110; 99202

== ENCOUNTER 2022-01-23 08:49 | Outpatient (REF) | payer OTHER, SELFPAY ==
--- NOTE | ~2022-01-23 | XR_ITS ---
EXAMINATION: XR HAND, RIGHT CLINICAL INFORMATION: Right hand pain. COMPARISON: 01/10/2022 and 12/23/2018. TECHNIQUE: PA, lateral, and oblique views of the right hand. FINDINGS: Old healed fracture is seen involving the head of the 5th metacarpal and 5th proximal phalangeal head. No acute fracture or dislocation of the right hand is seen. There is a bony density about the ulnar aspect of the hamate which may represent a fracture. There is some soft tissue edema about the 5th metacarpal and distal wrist in this location. No wrist dislocation is appreciated. XR/XR hand RT min 3V IMPRESSION: No acute fracture or dislocation of the right hand identified. Old healed fractures involving the 5th metacarpal head and 5th proximal phalangeal head. Question acute/nonunion fracture about the hamate.
== END 2022-01-23 08:50 | disposition home or self-care (01) ==
LOC: HO.HOSX 08:49
PROVIDERS: PCP Internal Medicine; Visit Provider Orthopaedic Surgery
DX: S62.141A Displaced fracture of body of hamate [unciform] bone, right wrist, initial encounter for closed fracture (principal)
CPT/HCPCS: 73130; 73200; 99212

== ENCOUNTER 2022-01-23 13:21 | Outpatient (REF) | payer OTHER, SELFPAY ==
--- NOTE | ~2022-01-23 | CT_ITS ---
EXAMINATION: CT WRIST WITHOUT CONTRAST, RIGHT CLINICAL INFORMATION: Pain. COMPARISON: Right hand radiographs done earlier the same day and right wrist radiographs dated 01/16/2022. TECHNIQUE: Contiguous axial CT images of the right wrist were obtained without contrast. Multiplanar reformats were provided and reviewed. This CT examination was performed using dose optimization techniques as appropriate, variously including the following: *Automated exposure control *Adjustment of mA and/or kV according to patient size (this includes techniques or standardized protocols for targeted exams where dose is matched to indication/reason for exam; i.e. extremities or head) *Use of iterative reconstruction technique DLP: 91 mGy-cm FINDINGS: There is a comminuted, displaced fracture through the distal/posterior aspect of the hamate with a dominant posterosuperior fracture fragment measuring up to 1.7 cm in ML dimension. There are multiple small fracture fragments adjacent to the dominant fracture line. The fracture contacts the 4th and 5th carpometacarpal articular surfaces with the fracture gap measuring up to 0.8 cm in AP dimension. There is approximately 0.3 cm of cortical step-off. Additionally, there are thin cortical fracture fragments which are slightly displaced along the anterior and radial aspect of the 4th metacarpal base. The largest fracture fragment measures up to 0.6 cm. Radiocarpal joint space narrowing with subchondral cystic change and small marginal osteophytes. No concerning lytic or blastic osseous lesion. The visualized flexor and extensor tendons are grossly intact. No abnormal soft tissue mass or fluid collection. CT/CT wrist RT wo con IMPRESSION: 1. Comminuted, displaced fracture through the distal/posterior aspect of the hamate with a dominant oblique fracture line and a resultant fracture fragment measuring up to 1.7 cm in ML dimension. Multiple adjacent tiny fracture fragments. The fracture gap contacting the 4th and 5th carpometacarpal articular surfaces measures up to 0.8 cm. 2. Additional, thin comminuted fracture fragments along the anterior and radial aspect of the 4th metacarpal base. 3. [id number] radiocarpal osteoarthritis.
== END 2022-01-23 13:22 | disposition home or self-care (01) ==
LOC: HO.CT 13:21
PROVIDERS: Visit Provider Orthopaedic Surgery
DX: Z13.89 Encounter for screening for other disorder (principal)
CPT/HCPCS: 73200

== ENCOUNTER → 2022-02-06 15:34 | Outpatient (BNVA) | payer OTHER, SELFPAY | PROVIDERS: PCP Internal Medicine; Visit Provider Orthopaedic Surgery | DX: S62.141A Displaced fracture of body of hamate [unciform] bone, right wrist, initial encounter for closed fracture (principal) | CPT/HCPCS: 99212 ==

== ENCOUNTER 2022-03-06 10:53 | Outpatient (REF) | payer OTHER, SELFPAY | END 2022-03-06 10:54 | disposition home or self-care (01) | LOC: HO.HOSX 10:53 | PROVIDERS: Visit Provider Orthopaedic Surgery | DX: Z13.89 Encounter for screening for other disorder (principal) ==

== ENCOUNTER 2022-03-09 22:57 | Emergency (ER) | payer OTHER, SELFPAY ==
--- NOTE | 2022-03-09 | ECG_ITS ---
Test Reason : chest pain Blood Pressure : / mmHG Vent. Rate : 084 BPM Atrial Rate : 084 BPM P-R Int : 128 ms QRS Dur : 086 ms QT Int : 364 ms P-R-T Axes : 066 065 027 degrees QTc Int : 430 ms Normal sinus rhythm Nonspecific T wave abnormality Abnormal ECG When compared with ECG of 30-DEC-2020 14:18, No significant change was found Referred By: Generic ED Physician Electronically Signed By:MARINA CAMPBELL MD
--- NOTE | ~2022-03-09 | XR_ITS ---
EXAMINATION: XR CHEST CLINICAL INFORMATION: Cough COMPARISON: 12/30/2020 TECHNIQUE: Frontal view of the chest was obtained. FINDINGS: The lungs are clear with no focal consolidation. No evidence of pneumothorax, pulmonary edema, or pleural effusions. The cardiomediastinal silhouette is unremarkable. No acute osseous findings. XR/XR chest 1V IMPRESSION: No acute cardiopulmonary findings.
[2022-03-09 23:01] VITALS: BP 172/87; PULSE 83; RESP 18; TEMP 36.8; O2SAT 98; BMI 30.9
[2022-03-10 00:37] LABS: Strep A Nucleic Acid Negative (Negative)
[2022-03-10 00:55] LABS: COVID-19 Test Negative (Negative); IDNOW Serial# 16C4AD1C; Influenza A Negative (Negative); Influenza B2 Negative (Negative)
--- NOTE | 2022-03-10 02:31 | ED_ITS ---
HPI - URI/Sore Throat General Chief Complaint: Upper Respiratory Symptoms Stated Complaint: fever, sob, chest pain Time Seen by Provider: 03/10/22 02:26 Source: patient Mode of arrival: ambulatory Limitations: no limitations History of Present Illness HPI Narrative: Patient comes to the emergency room complaining of subjective fever, cough, generalized malaise for 3 days. 8 hours ago, patient took 1 dose of Tylenol. Related Data Home Medications Medication Instructions Recorded Confirmed atropine 1 % eye drops 1 drp ophthalmic (eye) BID 02/17/21 01/04/22 Previous Rx's Medication Instructions Recorded lancets 33 gauge (TRUEplus Lancets) #200 ea 06/24/20 flash glucose scanning reader #1 ea 07/08/20 (FreeStyle Shelli 2 [place]) ibuprofen 600 mg tablet 600 mg PO Q6H PRN pain #30 tabs 12/13/20 Lantus Solostar U-100 Insulin 100 10 unit (0.1 mL) subcut QAM 30 06/15/21 unit/mL (3 mL) subcutaneous pen days #15 mL (insulin glargine) blood sugar diagnostic (FreeStyle #300 ea 06/15/21 Lite Strips) blood-glucose meter (FreeStyle #1 ea 06/15/21 Lite Meter) flash glucose sensor (FreeStyle #2 ea 06/15/21 Shelli 2 Sensor) insulin lispro 100 unit/mL See Rx Instructions subcut .5 06/15/21 subcutaneous pen (Humalog KwikPen times a day #30 mL (U-100) Insulin) lancets 28 gauge (FreeStyle #300 ea 06/15/21 Lancets) cholecalciferol (vitamin D3) 125 125 mcg PO DAILY #30 caps 07/26/21 mcg (5,000 unit) capsule pen needle, diabetic 32 gauge x #150 ea 10/02/2132 (BD Yi 2nd Gen Pen Needle) trazodone 50 mg tablet 50 mg PO BEDTIME PRN sleep 90 days 10/12/21 #90 tabs loratadine 10 mg tablet (Claritin) 10 mg PO DAILY #7 tabs 10/29/21 prednisone 20 mg tablet 60 mg PO DAILY #12 tabs 10/29/21 lisinopril 30 mg tablet 30 mg PO DAILY #30 tabs 10/31/21 hydrocodone 5 mg-acetaminophen 325 1 tab PO Q4-6H PRN pain #7 tabs 01/16/22 mg tablet amlodipine 10 mg tablet 10 mg PO DAILY #90 tabs 02/06/22 acetaminophen 500 mg capsule 500 mg PO Q6H PRN fever or pain 03/10/22 #20 caps Allergies Allergy/AdvReac Type Severity Reaction Status Date / Time clonazepam Allergy Intermediate agitation Verified 02/06/22 16:12 shrimp [SHRIMP] Allergy Intermediate ANAPHYLAXIS Verified 02/06/22 16:12 Review of Systems Review of Systems: Constitutional : No Weight loss, complaining of subjective fever, No Chills, No Night Sweats, No Fatigue, No Malaise ENT/Mouth : No Hearing loss, No Ear Pain, No Nasal Congestion, No Sinus Pain, No Hoarseness, No sore throat, No Rhinorrhea, No Swallowing Difficulty Eyes: No Eye Pain, No Swelling, No Redness, No Foreign Body, No Discharge, No Vision Changes Cardiovascular : No Chest Pain, No SOB, No Dyspnea on Exertion, No Orthopnea, No Edema, No Palpitations Respiratory : Complaining of occasional dry Cough, No Sputum, No Wheezing, No Smoke Exposure, No Dyspnea Gastrointestinal : No Nausea, No Vomiting, No Diarrhea, No Constipation, No abdominal Pain, No Hematochezia, No Melena Genitourinary : no irregular bleeding, No Dysuria, No Urinary Frequency, No Hematuria, No Urinary Incontinence, No Urgency, No Flank Pain, No Urinary Flow Changes, No Hesitancy Musculoskeletal : No joint pain, No Myalgias, No Joint Swelling Skin : No Skin Lesions, No rash Neuro : No Weakness, No Numbness, No Paresthesias, No Loss of Consciousness, No Dizziness, No Headache Psych : No Anxiety/Panic, No Depression, No SI/HI/AH/VH, No Social Issues, Heme/Lymph: No Bruising, No Bleeding,No Lymphadenopathy Endocrine : No Polyuria, No Polydipsia, No Temperature Intolerance PMFSH Past Medical History Medical History Anxiety Asthma Diabetes mellitus type 1 Diabetes type 1, uncontrolled Diabetic nephropathy associated with type 1 diabetes mellitus Diabetic polyneuropathy associated with type 1 diabetes mellitus Insomnia Non-proliferative diabetic retinopathy, mild, both eyes Obesity due to excess calories Obesity, Class I, BMI 30-34.9 Overweight (BMI 25.0-29.9) Pre-op evaluation Vitamin D deficiency Surgical History History of surgery Hx of appendectomy Family History Family History Father No problems noted. 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 Oriented X3. No acute distress. Eyes: Pupils equal, round and reactive to light. ENT: Pharynx normal. Neck: Normal inspection. Neck supple. No lymph nodes noted. No crepitus CVS: Normal heart rate and rhythm. Pulses normal. Normal S1 and S2 Respiratory: No respiratory distress. Breath sounds normal. No Wheezing. No rales Abdomen: Soft and nontender. No rigidity. No distention. Skin: Skin warm and dry. Normal skin color. Normal skin turgor. Extremities: No lower extremity edema. No Lacerations. No Rash Neuro: Oriented X 3. No motor deficit. No sensory deficit. Moving all extremities. No slurred speech. CN 2 through 12 grossly intact Psych: calm, cooperative, normal affect Course Course Course Narrative: Patient tested negative for COVID, influenza, chest x-ray negative. Patient likely has a viral infection MDM - URI/Sore Throat Lab Data Labs: Lab Results 07/16/22 07/16/22 07/16/22 Range/Units 00:02 00:02 00:02 COVID-19 (HAL) Negative (Negative) COVID-19 Clin Com See Note Influenza Type A (SIRENA) Negative (Negative) Influenza Type B (SIRENA) Negative (Negative) Influenza A & B Note See Note S. pyogenes GrpA SIRENA Negative (Negative) Imaging Data Chest x-ray: Radiologist's impression: FINDINGS: The lungs are clear with no focal consolidation. No evidence of pneumothorax, pulmonary edema, or pleural effusions. The cardiomediastinal silhouette is unremarkable. No acute osseous findings. XR/XR chest 1V IMPRESSION: No acute cardiopulmonary findings. Discharge Plan Discharge Clinical Impression: Acute viral syndrome Patient Disposition: Home, Self-Care Instructions: Viral Syndrome (ED) Additional Instructions: Please follow-up with your primary care physician tomorrow. If you have any worsening or new symptoms, please return to the emergency room or call 911 Prescriptions: New acetaminophen 500 mg capsule 500 mg PO Q6H PRN (Reason: fever or pain) Qty: 20 0RF No Action (DME) lancets [TRUEplus Lancets] 33 gauge misc See Rx Instructions .ROUTE .MEDSUPPLY Qty: 200 1RF Rx Instructions: 6 times a day cholecalciferol (vitamin D3) 125 mcg (5,000 unit) capsule 125 mcg PO DAILY Qty: 30 1RF trazodone 50 mg tablet 50 mg PO BEDTIME PRN (Reason: sleep) 90 Days Qty: 90 1RF lisinopril 30 mg tablet 30 mg PO DAILY Qty: 30 6RF amlodipine 10 mg tablet 10 mg PO DAILY Qty: 90 1RF ibuprofen 600 mg tablet 600 mg PO Q6H PRN (Reason: pain) Qty: 30 0RF prednisone 20 mg tablet 60 mg PO DAILY Qty: 12 0RF loratadine [Claritin] 10 mg tablet 10 mg PO DAILY Qty: 7 0RF (DME) FreeStyle Shelli 2 [place] Misc See Rx Instructions .ROUTE .MEDSUPPLY Qty: 1 0RF Rx Instructions: As directed atropine 1 % drops 1 drp ophthalmic (eye) BID insulin lispro [Humalog KwikPen Insulin] 100 unit/mL insulin pen See Rx Instructions subcut .5 times a day Qty: 30 5RF Rx Instructions: 2 to 12 units before meals and snacks subcut .5 times a day; (DME) FreeStyle Shelli 2 Sensor Kit See Rx Instructions .ROUTE .MEDSUPPLY Qty: 2 11RF Rx Instructions: Every 14 days (DME) FreeStyle Lite Strips Strip See Rx Instructions .ROUTE .MEDSUPPLY Qty: 300 11RF Rx Instructions: six times a day (DME) blood-glucose meter [FreeStyle Lite Meter] Kit See Rx Instructions .ROUTE .MEDSUPPLY Qty: 1 0RF Rx Instructions: 6 x/day (DME) lancets [FreeStyle Lancets] 28 gauge misc See Rx Instructions .ROUTE .MEDSUPPLY Qty: 300 11RF Rx Instructions: six times a day Lantus Solostar U-100 Insulin 100 unit/mL (3 mL) insulin pen 10 unit subcut QAM 30 Days Qty: 15 6RF (DME) pen needle, diabetic [BD Yi 2nd Gen Pen Needle] 32 gauge x 5/32 needle See Rx Instructions .MEDSUPPLY Qty: 150 5RF Rx Instructions: 5 times a day hydrocodone-acetaminophen 5-325 mg tablet 1 tab PO Q4-6H PRN (Reason: pain) Qty: 7 0RF
[2022-03-10] MEDS: Acetaminophen 325 MG TABLET 975 MG PO (02:41)
== END 2022-03-10 02:59 | disposition home or self-care (01) ==
PROVIDERS: Emergency Provider Emergency Medicine; PCP Internal Medicine
DX: B34.9 Viral infection, unspecified (principal); Z20.822 Contact with and (suspected) exposure to COVID-19; R53.81 Other malaise; E10.9 Type 1 diabetes mellitus without complications; E66.9 Obesity, unspecified; Z68.30 Body mass index [BMI] 30.0-30.9, adult; Z79.4 Long term (current) use of insulin; Z79.899 Other long term (current) drug therapy
CPT/HCPCS: 71045; 87502; 87635; 87651; 93005; 99283

== ENCOUNTER 2022-04-17 12:51 | Outpatient (REF) | payer OTHER, SELFPAY | END 2022-04-17 12:52 | disposition home or self-care (01) | LOC: HO.HOSX 12:51 | PROVIDERS: Visit Provider Orthopaedic Surgery | DX: Z13.89 Encounter for screening for other disorder (principal) ==

== ENCOUNTER 2022-05-25 09:47 | Emergency (ER) | payer OTHER, SELFPAY ==
[2022-05-25 09:49] VITALS: BP 158/97; PULSE 78; RESP 16; TEMP 36.6; O2SAT 100; BMI 29.9
[2022-05-25 10:20] VITALS: BP 155/96; PULSE 76; RESP 16; O2SAT 99
--- NOTE | 2022-05-25 10:26 | ED_ITS ---
HPI - General Adult General Chief complaint: General Medical Stated complaint: HBP Time Seen by Provider: 05/25/22 10:09 Source: patient Mode of arrival: ambulatory Limitations: no limitations History of Present Illness HPI narrative: 27 yo male with history of HTN on lisinopril, DM on insulin presents to the ER for evaluation of elevated blood pressure. Patient reports his blood pressure was elevated at 05:00 this morning when he woke up, 160/100. He had a headache which is why he took it. He usually does not take his blood pressure very often. He took his prescribed lisinopril and went back to sleep. Few hours later he woke up and hit a still had a headache and his blood pressure was 180/106. He took another dose of lisinopril and came to the ER for further evaluation. He reports since taking the 2nd dose of lisinopril his headache is improved. He denies any chest pain or vision changes. He does not know his baseline blood pressure but states it is usually a little bit high. He has been compliant with his medications. He denies any significant salt intake or waking. No significant caffeine intake. He does admit to increased stress at home. MD complaint: Elevated blood pressure and headache Onset (ago): hour(s) Location: head Radiation: non-radiation Severity: mild Quality: aching and dull Pain Consistency: now resolved Relieving factors: none Exacerbating factors: none Associated symptoms: denies other symptoms Treatments prior to arrival: none Related Data Home Medications Medication Instructions Recorded Confirmed atropine 1 % eye drops 1 drp ophthalmic (eye) BID 02/17/21 01/04/22 Previous Rx's Medication Instructions Recorded lancets 33 gauge (TRUEplus Lancets) #200 ea 06/24/20 flash glucose scanning reader #1 ea 07/08/20 (FreeStyle Shelli 2 [place]) ibuprofen 600 mg tablet 600 mg PO Q6H PRN pain #30 tabs 12/13/20 Lantus Solostar U-100 Insulin 100 10 unit (0.1 mL) subcut QAM 30 06/15/21 unit/mL (3 mL) subcutaneous pen days #15 mL (insulin glargine) blood sugar diagnostic (FreeStyle #300 ea 06/15/21 Lite Strips) blood-glucose meter (FreeStyle #1 ea 06/15/21 Lite Meter kit) flash glucose sensor (FreeStyle #2 ea 06/15/21 Shelli 2 Sensor kit) lancets 28 gauge (FreeStyle #300 ea 06/15/21 Lancets) cholecalciferol (vitamin D3) 125 125 mcg PO DAILY #30 caps 07/26/21 mcg (5,000 unit) capsule pen needle, diabetic 32 gauge x #150 ea 10/02/21 (BD Yi 2nd Gen Pen Needle) trazodone 50 mg tablet 50 mg PO BEDTIME PRN sleep 90 days 10/12/21 #90 tabs loratadine 10 mg tablet (Claritin) 10 mg PO DAILY #7 tabs 10/29/21 prednisone 20 mg tablet 60 mg PO DAILY #12 tabs 10/29/21 hydrocodone 5 mg-acetaminophen 325 1 tab PO Q4-6H PRN pain #7 tabs 01/16/22 mg tablet amlodipine 10 mg tablet 10 mg PO DAILY #90 tabs 02/06/22 acetaminophen 500 mg capsule 500 mg PO Q6H PRN fever or pain 03/10/22 #20 caps insulin lispro 100 unit/mL See Rx Instructions subcut .5 03/13/22 subcutaneous pen (Humalog KwikPen times a day #30 mL (U-100) Insulin) lisinopril 30 mg tablet 30 mg PO DAILY #30 tabs 04/29/22 Allergies Allergy/AdvReac Type Severity Reaction Status Date / Time clonazepam Allergy Intermediate agitation Verified 05/04/22 10:59 shrimp [SHRIMP] Allergy Intermediate ANAPHYLAXIS Verified 05/04/22 10:59 Review of Systems Review of Systems: Constitutional: No Fever, No Chills ENT/Mouth: No sore throat Eyes: No vision changes Cardiovascular: No Chest Pain, No SOB, No Orthopnea, No Edema Respiratory: No Cough, No Sputum Gastrointestinal: No Nausea, No Vomiting, No Diarrhea, No abdominal Pain Musculoskeletal: No joint pain, No Myalgias Skin: No Skin Lesions, No rash Neuro: No Weakness, No Numbness, No Dizziness, + Headache Psych: + Anxiety/Panic, No Depression Heme/Lymph: No Bruising, No Lymphadenopathy Endocrine: No Polyuria, No Polydipsia PMFSH Past Medical History Medical History Anxiety Asthma Diabetes mellitus type 1 Diabetes type 1, uncontrolled Diabetic nephropathy associated with type 1 diabetes mellitus Diabetic polyneuropathy associated with type 1 diabetes mellitus Insomnia Non-proliferative diabetic retinopathy, mild, both eyes Obesity due to excess calories Obesity, Class I, BMI 30-34.9 Overweight (BMI 25.0-29.9) Pre-op evaluation Vitamin D deficiency Surgical History History of surgery Hx of appendectomy Family History Family History Father No problems noted. 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 Oriented X3. No acute distress. Eyes: Pupils equal, round and reactive to light. ENT: Pharynx normal. Neck: Normal inspection. Neck supple. CVS: Normal heart rate and rhythm. Pulses normal. Respiratory: No respiratory distress. Breath sounds normal. Abdomen: Soft and nontender. +BS x4 Skin: Skin warm and dry. Normal skin color. Normal skin turgor. No rashes. Extremities: No lower extremity edema. Neuro: Oriented X 3. No motor deficit. No sensory deficit. Course Course Course Narrative: 27-year-old diabetic male with history of hypertension on lisinopril presents to the ER for evaluation of elevated blood pressure 180/106 at home associated with a throbbing headache. He arrived to the emergency room department today with blood pressure 155/196 and improvement of his headache. He appears well. His urinalysis reveals chronic proteinuria. He is management and a Arzola who has been seen in the last couple of months. Will monitor in the emergency department. No evidence of hypertensive emergency at this time Reevaluation(s) Reevaluation #1: BP stable 150/90. We discussed management of hypertension and diabetes. He will follow-up with Dr. Calle. He is stable for discharge home. Medical Decision Making Lab Data Labs: Lab Results 05/25/22 05/25/22 Range/Units 10:25 10:40 POC Glucose 179 H (60-115) mg/dL Urine Color Yellow Urine Appearance Clear Urine pH 5.5 (5.0-9.0) Ur Specific [place] 1.010 (1.005-1.025) Urine Protein 300 (3+) H (Neg-Trace) mg/dL Urine Glucose (UA) 250 H (Negative) mg/dL Urine Ketones Negative (Negative) mg/dL Urine Blood Trace H (Negative) Urine Nitrite Negative (Negative) Ur Leukocyte Esterase Negative (Negative) Urine RBC 0-2 (0-2) /HPF Urine WBC 0-5 (0-5) /HPF Ur Squamous Epith Cells 0-2 (0-2) /HPF Urine Bacteria None Seen (None Seen) Hyaline Casts 0-2 (0-2) /LPF Critical Care Time Critical Care Time Critical Care Time: No Discharge Plan Discharge Clinical Impression: Hypertension Patient Disposition: Home, Self-Care Instructions: Low-Sodium Diet (ED), Hypertension and Diabetes (ED) Additional Instructions: No medication changes need to be made today. Your blood pressure was stable in the 150s/90s. Follow-up with your doctor next week. Recommend taking her blood pressure 1 to 2 times per day, at least 2 hours after you take lisinopril. Keep a record for your doctor. Recommend decreasing your salt intake, increase aerobic activity and limit carbo hydrates. If you develop new or worsening symptoms call 911 or come back to the ER for further evaluation. Prescriptions: No Action (DME) lancets [TRUEplus Lancets] 33 gauge misc See Rx Instructions .ROUTE .MEDSUPPLY Qty: 200 1RF Rx Instructions: 6 times a day cholecalciferol (vitamin D3) 125 mcg (5,000 unit) capsule 125 mcg PO DAILY Qty: 30 1RF trazodone 50 mg tablet 50 mg PO BEDTIME PRN (Reason: sleep) 90 Days Qty: 90 1RF amlodipine 10 mg tablet 10 mg PO DAILY Qty: 90 1RF insulin lispro [Humalog KwikPen Insulin] 100 unit/mL insulin pen See Rx Instructions subcut .5 times a day Qty: 30 5RF Rx Instructions: 2 to 12 units before meals and snacks subcut .5 times a day; lisinopril 30 mg tablet 30 mg PO DAILY Qty: 30 6RF ibuprofen 600 mg tablet 600 mg PO Q6H PRN (Reason: pain) Qty: 30 0RF prednisone 20 mg tablet 60 mg PO DAILY Qty: 12 0RF loratadine [Claritin] 10 mg tablet 10 mg PO DAILY Qty: 7 0RF acetaminophen 500 mg capsule 500 mg PO Q6H PRN (Reason: fever or pain) Qty: 20 0RF (DME) FreeStyle Shelli 2 [place] Misc See Rx Instructions .ROUTE .MEDSUPPLY Qty: 1 0RF Rx Instructions: As directed atropine 1 % drops 1 drp ophthalmic (eye) BID (DME) FreeStyle Shelli 2 Sensor Kit See Rx Instructions .ROUTE .MEDSUPPLY Qty: 2 11RF Rx Instructions: Every 14 days (DME) FreeStyle Lite Strips Strip See Rx Instructions .ROUTE .MEDSUPPLY Qty: 300 11RF Rx Instructions: six times a day (DME) blood-glucose meter [FreeStyle Lite Meter] Kit See Rx Instructions .ROUTE .MEDSUPPLY Qty: 1 0RF Rx Instructions: 6 x/day (DME) lancets [FreeStyle Lancets] 28 gauge misc See Rx Instructions .ROUTE .MEDSUPPLY Qty: 300 11RF Rx Instructions: six times a day Lantus Solostar U-100 Insulin 100 unit/mL (3 mL) insulin pen 10 unit subcut QAM 30 Days Qty: 15 6RF (DME) pen needle, diabetic [BD Yi 2nd Gen Pen Needle] 32 gauge x 5/32 n [place]le See Rx Instructions .MEDSUPPLY Qty: 150 5RF Rx Instructions: 5 times a day hydrocodone-acetaminophen 5-325 mg tablet 1 tab PO Q4-6H PRN (Reason: pain) Qty: 7 0RF Referrals: Tiffani Carson MD [Primary Care Provider] - Stand Alone Forms: Work/School Release
[2022-05-25 10:31] LABS: Glucose, Whole Blood 179 mg/dL (60-115)
[2022-05-25] MEDS: Acetaminophen 325 MG TABLET 975 MG PO (10:38)
[2022-05-25 10:52] LABS: Appearance Urine Clear; Color Urine Yellow; Glucose Urine UA 250 mg/dL (Negative); Leukocyte Esterase Urine Negative (Negative); Nitrite Urine Negative (Negative); PH 5.5 (5.0-9.0); UMIC TRIGGER UACC YES; Urine Blood Trace (Negative); Urine Ketones Negative (Negative); Urine Protein 300 (3+) mg/dL (Neg-Trace)
[2022-05-25 10:57] LABS: Bacteria Urine None Seen (None Seen); Hyaline Casts Urine 0-2 /LPF (0-2); RBC Urine 0-2 /HPF (0-2); Squamous Epithelial Cell Urine 0-2 /HPF (0-2); WBC Urine 0-5 /HPF (0-5)
[2022-05-25 11:33] VITALS: BP 155/92
== END 2022-05-25 11:55 | disposition home or self-care (01) ==
PROVIDERS: Physician Assistant; Emergency Provider Emergency Medicine; PCP Internal Medicine
DX: I10 Essential (primary) hypertension (principal); E11.9 Type 2 diabetes mellitus without complications; Z79.4 Long term (current) use of insulin; Z79.899 Other long term (current) drug therapy
CPT/HCPCS: 81001; 82947; 99283; 99284

== ENCOUNTER 2022-06-23 04:44 | Emergency (ER) | payer OTHER, SELFPAY ==
[2022-06-23 04:50] VITALS: PULSE 93; RESP 16; TEMP 36.9; O2SAT 99; BMI 31.2
[2022-06-23 05:10] LABS: Strep A Nucleic Acid Negative (Negative)
[2022-06-23 05:16] LABS: COVID-19 Test Negative (Negative)
[2022-06-23 05:27] VITALS: O2SAT 97
== END 2022-06-23 07:40 | disposition left against medical advice (07) ==
PROVIDERS: Emergency Provider Emergency Medicine; PCP Internal Medicine
DX: J02.9 Acute pharyngitis, unspecified (principal); Z20.822 Contact with and (suspected) exposure to COVID-19
CPT/HCPCS: 87635; 87651; 99283; 99284

== ENCOUNTER 2022-09-29 20:44 | Emergency (ER) | payer OTHER, SELFPAY ==
[2022-09-29 21:04] VITALS: BP 123/82; PULSE 90; RESP 16; TEMP 36.2; O2SAT 99; BMI 30.7
[2022-09-29 21:30] LABS: IDNOW Serial# 08D9AD1C; Strep A Nucleic Acid Negative (Negative)
--- NOTE | 2022-09-29 22:09 | ED.GENADULT ---
HPI - General Adult General Chief complaint: General Medical Stated complaint: neck pain, throat hurts to swallow. Multi Comp. Time Seen by Provider: 09/29/22 21:51 Source: patient Mode of arrival: ambulatory History of Present Illness HPI narrative: 27-year-old male, diabetic, comes in complaining of left-sided throat discomfort without associated fever, chills, difficulty breathing or swallowing. He also denies any ear pain. Related Data Home Medications Medication Instructions Recorded Confirmed atropine 1 % eye drops 1 drp ophthalmic (eye) BID 02/17/21 08/05/22 Previous Rx's Medication Instructions Recorded flash glucose scanning reader #1 ea 07/08/20 (FreeStyle Shelli 2 Tracy) ibuprofen 600 mg tablet 600 mg PO Q6H PRN pain #30 tabs 12/13/20 lancets 28 gauge (FreeStyle #300 ea 06/15/21 Lancets) cholecalciferol (vitamin D3) 125 125 mcg PO DAILY #30 caps 07/26/21 mcg (5,000 unit) capsule trazodone 50 mg tablet 50 mg PO BEDTIME PRN sleep 90 days 10/12/21 #90 tabs loratadine 10 mg tablet (Claritin) 10 mg PO DAILY #7 tabs 10/29/21 hydrocodone 5 mg-acetaminophen 325 1 tab PO Q4-6H PRN pain #7 tabs 01/16/22 mg tablet insulin lispro 100 unit/mL See Rx Instructions subcut .5 03/13/22 subcutaneous pen (Humalog KwikPen times a day #30 mL (U-100) Insulin) Lantus Solostar U-100 Insulin 100 10 unit (0.1 mL) subcut QAM 30 06/18/22 unit/mL (3 mL) subcutaneous pen days #15 mL (insulin glargine) flash glucose sensor (FreeStyle #2 ea 06/18/22 Shelli 2 Sensor kit) pen needle, diabetic 32 gauge x #150 ea 06/18/22 (BD Yi 2nd Gen Pen Needle) lancets 33 gauge (TRUEplus Lancets) #200 ea 06/21/22 blood pressure test kit-medium #1 ea 06/29/22 blood sugar diagnostic (FreeStyle #300 ea 08/01/22 Lite Strips) blood-glucose meter (FreeStyle #1 ea 08/01/22 Lite Meter kit) lisinopril 20 mg tablet 20 mg PO DAILY 90 days #90 tabs 08/01/22 Allergies Allergy/AdvReac Type Severity Reaction Status Date / Time clonazepam Allergy Intermediate agitation Verified 08/05/22 18:53 shrimp [SHRIMP] Allergy Intermediate ANAPHYLAXIS Verified 08/05/22 18:53 Review of Systems Review of Systems: Pertinent positives and negatives as stated in [facility] Past Medical History Source: nursing notes reviewed Medical History Anxiety Asthma Diabetes mellitus type 1 Diabetes type 1, uncontrolled Diabetic nephropathy associated with type 1 diabetes mellitus Diabetic polyneuropathy associated with type 1 diabetes mellitus Diabetic retinopathy Essential hypertension Insomnia Non-proliferative diabetic retinopathy, mild, both eyes Obesity (BMI 30-39.9) Obesity due to excess calories Obesity, Class I, BMI 30-34.9 Overweight (BMI 25.0-29.9) Pre-op evaluation Vitamin D deficiency Surgical History History of surgery Hx of appendectomy Family History Family History Father No problems noted. 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 GENERAL: Well developed, well nourished, in no acute distress. HEAD: Normocephalic/atraumatic EYES: PERRLA, EOMI EARS: Ext canals without abnormality, TMs non-bulging and non-erythematous NOSE: Nares patent bilateral OROPHARYNX: no oral lesions noted, posterior pharynx clear and non-erythematous without noted tonsillar enlargement/erythema/exudates NECK: Supple, no adenopathy, no masses LUNGS: Normal breath sounds. No adventitious sounds or accessory muscle use. SpO2<99> CARDIOVASCULAR: Regular rate and rhythm without noted murmurs, no JVD but there is nonpitting edema to bilateral lower extremities and hands ABDOMEN: Soft, non-tender, non-distended with bowel sounds. MUSCULOSKELETAL: No tenderness, deformities, or effusions noted on gross inspection. EXTREMITIES: No cyanosis, clubbing or edema. SKIN: Inspection of the skin reveals no rashes NEUROLOGIC: Alert and oriented x 4. Strength and sensation to light touch were grossly intact x 4. Medical Decision Making Medical Decision Making MDM Narrative: 27-year-old male with likely viral pharyngitis as the strep pharyngitis testing is negative and there is no evidence of ear infection. There is no angioedema, patient does have some mild bilateral hand edema as well as lower extremity edema and on review of his medications patient is noted be on Norvasc which is known to cause these symptoms and in conjunction with patient's history of the development of this swelling after starting the Norvasc this appears to be consistent. Patient is also taking 20 mg of lisinopril and denies any difficulties with facial/lip/tongue swelling although on review of his prior visits he was seen here October 2021 for apparent angioedema and at that time was instructed to stop taking lisinopril. Patient states that it was determined he was not allergic to lisinopril and he was restarted on the medication. Patient states that he was on hydrochlorothiazide for a little while but he does not want to be restarted on this medication as it makes him ?pee too much?. At this time will instruct the patient to stop taking the amlodipine (Norvasc) and increase his lisinopril to 40 mg a day. Patient was strictly instructed to follow-up with his primary care provider on Saturday morning. Differential Diagnosis Differential Diagnoses: The differential diagnosis associated with the presentation includes Please see the discussion above Lab Data [facility] Lab Attestation statement: I reviewed the patient's lab results. Please see the discussion above Labs: Lab Results 09/29/22 Range/Units 21:16 S. pyogenes GrpA SIRENA Negative (Negative) External Record Review External record reviewed: Outpatient record and Prior outpatient labs Chronic Conditions Patient?s care impacted by: Diabetes Discharge Plan Discharge Clinical Impression: Pharyngitis, Hypertension Patient Disposition: Home, Self-Care Instructions: Pharyngitis (ED), DASH Eating Plan (ED), Hypertension (ED) Additional Instructions: 1. You can consider doing saline gargles for suspected viral pharyngitis. 2. Stop taking the amlodipine. 3. Increase the amount of lisinopril to 40 mg, daily (2 tablets of 20 mg) 4. Follow-up with your primary care provider on Saturday morning. Prescriptions: Discontinued amlodipine 10 mg tablet 10 mg PO DAILY 90 Days Qty: 90 1RF No Action cholecalciferol (vitamin D3) 125 mcg (5,000 unit) capsule 125 mcg PO DAILY Qty: 30 1RF trazodone 50 mg tablet 50 mg PO BEDTIME PRN (Reason: sleep) 90 Days Qty: 90 1RF insulin lispro [Humalog KwikPen Insulin] 100 unit/mL insulin pen See Rx Instructions subcut .5 times a day Qty: 30 5RF Rx Instructions: 2 to 12 units before meals and snacks subcut .5 times a day; (DME) FreeStyle Shelli 2 Sensor Kit See Rx Instructions .ROUTE .MEDSUPPLY Qty: 2 11RF Rx Instructions: Every 14 days Lantus Solostar U-100 Insulin 100 unit/mL (3 mL) insulin pen 10 unit subcut QAM 30 Days Qty: 15 0RF (DME) pen needle, diabetic [BD Yi 2nd Gen Pen Needle] 32 gauge x 5/32 needle See Rx Instructions .MEDSUPPLY Qty: 150 5RF Rx Instructions: 5 times a day (DME) lancets [TRUEplus Lancets] 33 gauge misc See Rx Instructions .ROUTE .MEDSUPPLY Qty: 200 1RF Rx Instructions: 6 times a day ibuprofen 600 mg tablet 600 mg PO Q6H PRN (Reason: pain) Qty: 30 0RF loratadine [Claritin] 10 mg tablet 10 mg PO DAILY Qty: 7 0RF (DME) blood pressure test kit-medium Kit See Rx Instructions miscellaneous .MEDSUPPLY Qty: 1 0RF Rx Instructions: As directed lisinopril 20 mg tablet 20 mg PO DAILY 90 Days Qty: 90 1RF (DME) FreeStyle Lite Strips Strip See Rx Instructions .ROUTE .MEDSUPPLY Qty: 300 11RF Rx Instructions: six times a day (DME) blood-glucose meter [FreeStyle Lite Meter] Kit See Rx Instructions .ROUTE .MEDSUPPLY Qty: 1 0RF Rx Instructions: 6 x/day (DME) FreeStyle Shelli 2 Tracy Misc See Rx Instructions .ROUTE .MEDSUPPLY Qty: 1 0RF Rx Instructions: As directed atropine 1 % drops 1 drp ophthalmic (eye) BID (DME) lancets [FreeStyle Lancets] 28 gauge misc See Rx Instructions .ROUTE .MEDSUPPLY Qty: 300 11RF Rx Instructions: six times a day hydrocodone-acetaminophen 5-325 mg tablet 1 tab PO Q4-6H PRN (Reason: pain) Qty: 7 0RF Referrals: Tiffani Carson MD [Primary Care Provider] - (Patient complaining peripheral edema, suspect that this is secondary to the Norvasc which I stopped. In the short interim patient was instructed to increase his lisinopril from 20 mg to 40 mg daily until re-evaluated by you. He was not interested in being restarted on hydrochlorothiazide.)
--- NOTE | 2022-09-29 23:31 | PC.NURSE ---
Discharge instructions reviewed with pt. Pt verbalizes understanding.
== END 2022-09-29 23:33 | disposition home or self-care (01) ==
PROVIDERS: Emergency Provider Student in an Organized Health Care Education/Training Program; PCP Internal Medicine
DX: J02.9 Acute pharyngitis, unspecified (principal); I10 Essential (primary) hypertension; E10.8 Type 1 diabetes mellitus with unspecified complications; Z79.4 Long term (current) use of insulin; Z79.899 Other long term (current) drug therapy
CPT/HCPCS: 36415; 87651; 99283

== ENCOUNTER 2022-11-06 13:35 | Outpatient (REF) | payer OTHER, SELFPAY ==
[2022-11-06 17:06] LABS: Influenza A PCR NEGATIVE (Negative); Influenza B PCR NEGATIVE (Negative); Resp Syncy Virus RNA Qual PCR NEGATIVE (Negative); SARS COV2 PCR INHOUSE NEGATIVE (Negative)
== END 2022-11-06 13:36 | disposition home or self-care (01) ==
LOC: HO.LAB 13:35
PROVIDERS: Visit Provider Internal Medicine
DX: Z20.822 Contact with and (suspected) exposure to COVID-19 (principal); R43.9 Unspecified disturbances of smell and taste
CPT/HCPCS: 0241U

== ENCOUNTER 2023-03-18 12:59 | Outpatient (AMB) | payer OTHER, SELFPAY ==
--- NOTE | 2023-03-18 14:26 | MHC.OFFWIV ---
Intake Vital Signs 03/18/23 14:29 BP 120/70 Blood Pressure Location Lt brachial Position Sitting Pulse 84 Pulse Source Pulse Oximeter Temp 98.2 F Temp Source Oral Pulse Oximetry (%) 98 Oxygen Delivery Method Room Air Intake Visit Reasons: EST/left leg rash not getting [id number] Intake Note: Pt is here today Lt leg rash no improvement after taking abx Patient Tobacco Use Status: Never used Tobacco Allergies clonazepam Allergy (Intermediate, Verified 03/18/23 14:31) agitation shrimp [SHRIMP] Allergy (Intermediate, Verified 03/18/23 14:31) ANAPHYLAXIS Do you need a note to return to daycare/school/sports/work: Yes HPI HPI Comments History of Present Illness Details 27-year-old male type 1 diabetic, presents with recurrent right lower extremity cellulitis. He was evaluated by his primary care physician on 02/04/2023, took the antibiotics that were given, states that it got a little bit better but never went away. He did not report any fevers or chills. [facility] Medical History Anxiety Asthma Diabetes mellitus type 1 Diabetes type 1, uncontrolled Diabetic nephropathy associated with type 1 diabetes mellitus Diabetic polyneuropathy associated with type 1 diabetes mellitus Diabetic retinopathy Essential hypertension Insomnia Non-proliferative diabetic retinopathy, mild, both eyes Obesity (BMI 30-39.9) Obesity due to excess calories Obesity, Class I, BMI 30-34.9 Overweight (BMI 25.0-29.9) Pre-op evaluation Vitamin D deficiency Surgical History History of surgery Hx of appendectomy Family History Father No problems noted. 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 Current occupational exposures/hazards: No Cognitive needs: No Hearing needs: No Vision needs: No Review of Systems Const Details: Constitutional: No Fever, No Chills Respiratory: No Cough, No Dyspnea Musculoskeletal: no joint pain, No Myalgias, No Joint Swelling Skin: Wound to the left lower extremity, No Skin lacerations, No rash Neuro: No Weakness, No Dizziness, No Headache Heme/Lymph: no easy bruising, no Lymphadenopathy Endocrine: No Polyuria, No Polydipsia All systems reviewed & are unremarkable except as noted in HPI and below Physical Exam Vital Signs: Last Vital Signs Temp 98.2 F 03/18/23 14:29 Pulse 84 03/18/23 14:29 BP 120/70 03/18/23 14:29 Pulse Ox 98 03/18/23 14:29 Oxygen Delivery Method Room Air 03/18/23 14:29 Appearance: Alert. Oriented X3. No acute distress. Eyes: Pupils equal, round and reactive to light. Neck: Normal inspection. Neck supple. CVS: Normal heart rate and rhythm. Pulses normal. Respiratory: No respiratory distress. Breath sounds normal. Skin: 4 cm x 3 cm area of erythema consistent with cellulitis to the anterior lower left extremity. Extremities: No lower extremity edema. Gait well balanced well coordinated. Decreased sensation secondary to diabetic polyneuropathy. Neuro: No motor deficit. No sensory deficit. Cranial nerves 2-12 intact. Assessment & Plan Assessment & Plan (1) Wound cellulitis: Code(s): L03.90 - Cellulitis, unspecified Plan 27-year-old male with past medical history of type 1 diabetes, diabetic polyneuropathy, hypertension, and asthma presents with cellulitis to the anterior left lower extremity. Was treated on 02/04/2023 with a course of doxycycline, patient states that medication made the wound a little bit better, but it never went away. Patient states that the wound is bigger, he can not really feel it because he does have diabetic neuropathy. The wound is erythematous, consistent with cellulitis, no areas of fluctuance, low likelihood of abscess at this time. Patient is afebrile, nontoxic. Plan of care is to treat with Bactrim to cover for MRSA, and cefuroxime, as patient was just on doxycycline. Patient does understand that if the wound worsens, that he should present for evaluation.Patient verbalized understanding of discharge instructions. Verbalized understandings of signs and symptoms indicating need for emergent intervention. Medications: New sulfamethoxazole-trimethoprim 800-160 mg (Bactrim DS) 1 tab PO Q12H 10 days 20 tabs 0RF cefuroxime axetil 500 mg PO Q12H 10 days 20 tabs 0RF Patient Instructions: You were evaluated for a wound cellulitis to the left lower extremity. Take Bactrim DS every 12 hours for the next 10 days. Take cefuroxime 500 mg every 12 hours for the next 10 days. Thank you for choosing this urgent care for evaluation. Please follow-up with primary care physician as needed. Return to the emergency department for any new, concerning, or worsening symptoms. Coding Level of Care Code Est Pt Level 3 (50963) Diagnoses Wound cellulitis L03.90
[2023-03-18 14:29] VITALS: BP 120/70; PULSE 84; TEMP 36.8; O2SAT 98
== END 2023-03-18 15:11 | disposition home or self-care (01) ==
PROVIDERS: PCP Internal Medicine; Visit Provider Nurse Practitioner Family
DX: L03.90 Cellulitis, unspecified (principal)
CPT/HCPCS: 99213

== ENCOUNTER 2023-03-19 14:44 | Outpatient (REF) | payer OTHER, SELFPAY ==
--- NOTE | ~2023-03-19 | XR_ITS ---
EXAMINATION: XR KNEE, RIGHT CLINICAL INFORMATION: Pain. COMPARISON: None available. TECHNIQUE: AP and lateral views of the right knee. FINDINGS: No fracture or dislocation. There is a small joint effusion. Alignment is anatomic. Joint spaces are maintained. No abnormal soft tissue calcification. XR/XR knee RT 2V IMPRESSION: 1. No fracture, dislocation or unusual degenerative change is seen. 2. There is a small left knee joint effusion.
== END 2023-03-19 14:45 | disposition home or self-care (01) ==
LOC: HO.XRAY 14:44
PROVIDERS: PCP Internal Medicine; Visit Provider Internal Medicine
DX: M25.561 Pain in right knee (principal)
CPT/HCPCS: 73560

== ENCOUNTER 2023-03-23 16:08 | Emergency (ER) | payer OTHER, SELFPAY ==
--- NOTE | ~2023-03-23 | XR_ITS ---
EXAMINATION: XR CHEST CLINICAL INFORMATION: Reason for Exam chest pain COMPARISON: Chest radiograph 03/09/2022 TECHNIQUE: 2 views of the chest FINDINGS: Lines and tubes: EKG leads overlie the patient. Clear lungs. No pleural effusion. No pneumothorax. Normal cardiomediastinal silhouette. XR/XR chest 2V IMPRESSION: * Clear lungs.
--- NOTE | 2023-03-23 16:09 | ECG_ITS ---
Test Reason : Chest pain Blood Pressure : / mmHG Vent. Rate : 086 BPM Atrial Rate : 086 BPM P-R Int : 136 ms QRS Dur : 090 ms QT Int : 338 ms P-R-T Axes : 053 045 056 degrees QTc Int : 404 ms Normal sinus rhythm Nonspecific T wave abnormality Abnormal ECG When compared with ECG of 09-MAR-2022 22:54, No significant change was found Referred By: Sarahi Rendon Electronically Signed By:MARINA CAMPBELL MD
[2023-03-23 16:11] VITALS: BP 134/64; PULSE 85; RESP 18; TEMP 36.1; O2SAT 97; BMI 30.7
--- NOTE | 2023-03-23 16:11 | ED_ITS ---
HPI - General Adult General Chief complaint: Chest Pain Stated complaint: Burning in chest Time Seen by Provider: 03/23/23 17:19 Source: patient Mode of arrival: ambulatory Limitations: no limitations History of Present Illness HPI narrative: This is a 27-year-old male with a history of type 1 diabetes, hypertension who is here with complaints of chest pain which he describes as burning which occurred 1 hour prior to arrival while he was sitting down watching TV. Patient reports this was not associated with any vomiting, shortness of breath, diaphoresis. At around 15:00 he had pork and rice to eat. He denies any associated abdominal pain, diarrhea, fevers, chills. No recent travel, recent surgery or sick contact. No history or family history of DVT or PE. Related Data Previous Rx's Medication Instructions Recorded flash glucose scanning reader #1 ea 07/08/20 (FreeStyle Shelli 2 [place]) ibuprofen 600 mg tablet 600 mg PO Q6H PRN pain #30 tabs 12/13/20 trazodone 50 mg tablet 50 mg PO BEDTIME PRN sleep 90 days 10/12/21 #90 tabs pen needle, diabetic 32 gauge x #150 ea 06/18/22 (BD Yi 2nd Gen Pen Needle) lancets 33 gauge (TRUEplus Lancets) #200 ea 06/21/22 blood pressure test kit-medium #1 ea 06/29/22 albuterol sulfate 90 mcg/actuation 1 inh inhalation QID PRN shortness 11/06/22 aerosol inhaler (Ventolin HFA) of breath or wheezing #8.5 grams flash glucose sensor (FreeStyle #2 ea 01/07/23 Shelli 2 Sensor kit) insulin lispro 100 unit/mL See Rx Instructions subcut .5 01/07/23 subcutaneous pen (Humalog KwikPen times a day #30 mL (U-100) Insulin) lancets 28 gauge (FreeStyle #300 ea 01/07/23 Lancets) Lantus Solostar U-100 Insulin 100 15 unit (0.15 mL) subcut QAM 30 02/04/23 unit/mL (3 mL) subcutaneous pen days #4.5 mL (insulin glargine) chlorthalidone 25 mg tablet 25 mg PO DAILY 90 days #90 tabs 02/04/23 cyclobenzaprine 5 mg tablet 5 mg PO BEDTIME PRN muscle spasm 02/04/23 30 days #14 tabs lisinopril 40 mg tablet 40 mg PO DAILY 90 days #90 tabs 02/04/23 cefuroxime axetil 500 mg tablet 500 mg PO Q12H 10 days #20 tabs 03/18/23 sulfamethoxazole 800 1 tab PO Q12H 10 days #20 tabs 03/18/23 mg-trimethoprim 160 mg tablet (Bactrim DS) hydrocortisone 2.5 % topical cream 1 appl topical TID PRN itching #30 03/23/23 grams Allergies Allergy/AdvReac Type Severity Reaction Status Date / Time clonazepam Allergy Intermediate agitation Verified 03/23/23 16:15 shrimp [SHRIMP] Allergy Intermediate ANAPHYLAXIS Verified 03/23/23 16:15 Review of Systems Review of Systems: Yes all other systems are reviewed and are negative Constitutional: Constitutional: Reports no additional constitutional complaints, Denies body ache(s), Denies chills, Denies fever(s), Denies headache(s) and Denies weakness Eyes: Eyes: Reports no additional eye complaints and Denies change in vision ENT: Reports system reviewed and no additional complaints, except as documented, Denies dizziness, Denies headache(s), Denies nasal congestion, Denies nasal discharge and Denies neck pain Cardiovascular: Cardiovascular: Reports no additional cardiovascular complaints, Reports chest pain, Denies leg edema and Denies dyspnea Respiratory: Respiratory: Reports no additional respiratory complaints, Denies cough and Denies dyspnea Gastrointestinal: Gastrointestinal: Reports no additional gastrointestinal complaints, Denies abdominal pain, Denies diarrhea, Denies nausea and Denies vomiting Genitourinary: Genitourinary: Denies urinary incontinence Musculoskeletal: Musculoskeletal: Reports no additional musculoskeletal complaints, Denies back pain, Denies arthralgias, Denies joint swelling, Denies neck pain, Denies numbness and Denies tingling Integumentary/Breasts: Skin/Breast: Reports system reviewed and no additional complaints, except as docu and Denies rash Neurologic: Reports system reviewed and no additional complaints, except as documented, Denies dizziness, Denies headache(s), Denies numbness, Denies tingling and Denies weakness PMF Past Medical History Attestation statement: The following information was validated with the patient. Source: old records reviewed and nursing notes reviewed Medical History Anxiety Asthma Diabetes mellitus type 1 Diabetes type 1, uncontrolled Diabetic nephropathy associated with type 1 diabetes mellitus Diabetic polyneuropathy associated with type 1 diabetes mellitus Diabetic retinopathy Essential hypertension Insomnia Non-proliferative diabetic retinopathy, mild, both eyes Obesity (BMI 30-39.9) Obesity due to excess calories Obesity, Class I, BMI 30-34.9 Overweight (BMI 25.0-29.9) Pre-op evaluation Vitamin D deficiency Surgical History History of surgery Hx of appendectomy Family History Family History Father No problems noted. Mother Hypertension Maternal Grandmother Hypertension Diabetes Maternal Uncle Chronic mental illness Family/Other Substance use disorder Social History Social History Household Members: Significant Other Housing: Apartment Alcohol intake: never Patient Tobacco Use Status: Never used Tobacco Smoked in Last 30 Days: No e-Cigarette/Vaping Use: Never Used Second Hand Smoke Exposure: No Use of substances other than those prescribed or required for medical reasons: No Substance Use Type: Former Substance User and Marijuana Advance Directives: No Advance Directives Information Provided: No service: No Current occupational status: unemployed 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 Current occupational exposures/hazards: No Cognitive needs: No Hearing needs: No Vision needs: No Physical Exam ED Vital Signs: Vital Signs - 24 hr 03/23/23 16:11 03/23/23 16:51 03/23/23 17:25 Temperature 96.9 F 98.4 F Pulse Rate 85 75 73 Respiratory Rate 18 16 16 Blood Pressure 134/64 122/76 132/89 Pulse Oximetry 97 98 100 Oxygen Delivery Method Room Air Room Air Room Air 03/23/23 19:47 Temperature 97.6 F Pulse Rate 74 Respiratory Rate 12 Blood Pressure 137/86 Pulse Oximetry 98 Oxygen Delivery Method Room Air BMI result Body Mass Index 30.7 Const General: cooperative, healthy appearing, comfortable and no acute distress Orientation/consciousness: patient oriented x3 Limitations: no limitations HENMT Head: Yes normal to inspection Ears: hearing grossly normal bilaterally Eyes General: appearance normal, both eyes and all related structures Pupils: Equal, round and reactive pupils present Neck Neck: Yes normal visual inspection and Yes full ROM Chest Chest palpation & inspection: normal inspection of the chest Resp Effort & Inspection: normal respiratory effort Auscultation: clear to auscultation bilaterally Cardio Rate: regular rate Rhythm: regular rhythm Peripheral pulses: Peripheral pulses 2+ throughout GI Inspection: Yes normal to inspection Palpation (GI): Soft to palpation and nontender General: Yes no CVA tenderness Back/Spine/Pelvis Back: no CVA tenderness Thoracic/Lumbar Spine: thoracic and lumbar spine normal to inspection Skin General skin exam: no rashes or lesions noted Neuro General: patient oriented x3 and moves all extremities Cranial nerves: Yes Equal, round and reactive pupils present Cognition (Neuro): normal cognition Gait exam (Neuro): Normal gait present Extrem General: Yes normal to inspection, Yes no pedal edema and Yes no calf tenderness Course Course Course Narrative: This is a rapid medical exam: Additional HPI, ROS, PE not included below will be deferred to primary provider. Patient is a 27-year-old male presenting to the emergency department with complaint of burning sensation to left anterior chest for the past hour. Also complains of palpitation sensation to his upper back. Was watching a movie when the pain began. States symptoms began around 1 hour after eating rice and sausage, states was not spicy. Plan: EKG, labs, CXR Reevaluation(s) Reevaluation #1: 1740- patient's labs show creatinine of 2.04 and a BUN of 28. His previous labs from 10/29/2021 show a creatinine of 1.01 and a BUN of 22. Add on CPK, UA patient is on lisinopril for hypertension The patient reports his blood sugars are normally well controlled. He was been on Bactrim on March 18 for left lower extremity cellulitis, as well as cefuroxime ALEXIA may be multifactorial or may be chronic will give 2 L IV fluids and reassess Reevaluation #2: 2130- UA shows 250 of glucose otherwise unremarkable. Repeat kidney function shows 2.03 and a BUN of 30. This may be chronic. CPK is negative. I did discuss the patient with the hospitalist. We discussed that this may be chronically elevated. Shared decision making to speak to the patient's primary care doctor and see if we can get him close follow-up outpatient. Patient's PCP is Dr. Chisholm. I spoke to the on-call Dr. Jerez. we discussed the patient's case. we will have the patient hold the Bactrim as well as his lisinopril tomorrow and Saturday and have him follow-up with Dr. Luc Arzate on Saturday for repeat labs. I discussed this with the patient. He is comfortable with this plan of care. His chest burning resolved with Maalox. I doubt ACS as the patient has had serial troponins which are negative a normal EKG and atyp ical story for ACS. I did review worrisome signs and symptoms with the patient and when to return to the emergency room. He is comfortable plan for discharge home. Medications Administered Discontinued Medications Generic Name Dose Route Start Last Admin Trade Name Freq PRN Reason Stop Dose Admin Al Hydroxide/Mg Hydroxide 30 ml 03/23/23 17:35 03/23/23 18:15 Magnesium Hydrox/Alum Hydrox 30 Ml Oral.Susp PO 03/23/23 17:36 30 ml ONCE ONE Administration Sodium Chloride 2,000 mls @ 999 mls/hr 03/23/23 17:22 03/23/23 20:49 Ns IV 03/23/23 19:22 Infused .Q2H1M STA Infusion Lidocaine HCl 15 ml 03/23/23 17:35 03/23/23 18:16 Lidocaine Hcl Viscous 2 % 15 Ml Solution MUCOUS MEM 03/23/23 17:36 Not Given ONCE ONE Medical Decision Making Medical Decision Making [facility] Narrative: Twenty- 7-year-old male with history of diabetes and hypertension presents to the ER with complaints of 1 hour of chest burning which occurred at rest with no other associated symptoms. On arrival patient is alert oriented. His vitals are stable. His lungs are clear. His abdomen is soft nontender. Will check labs, EKG, chest x-ray, give GI cocktail Differential Diagnosis Differential Diagnoses: The differential diagnosis associated with the presentation includes GERD, ACS low concern for PE or aortic dissection Consult Healthcare Provider Management of the patient was discussed with: Hospitalist and Kindergarten Instructional Assistant I spoke to Dr Gonzalez and Dr Jerez (see discussion in course) Lab Data MDM Lab Attestation statement: I reviewed the patient's lab results. I reviewed the labs which show an ALEXIA, additionally unremarkable 03/23/23 16:27 03/23/23 16:26 Labs: Lab Results 03/23/23 03/23/23 03/23/23 Range/Units 16:26 16:27 16:27 WBC 6.4 (4.8-10.8) X10*3/uL RBC 3.88 L (4.60-5.80) X10*6/uL Hgb 11.2 L (14.0-18.0) g/dl Hct 33.5 L (42.0-52.0) % MCV 86.3 (80.0-98.0) fL MCH 28.9 (27.0-33.0) pg MCHC 33.4 (31.0-36.0) g/dl RDW 12.2 (11.0-16.0) % Plt Count 225 (160-400) X10*3/uL MPV 11.5 (9.4-12.4) fL Immature Gran % (Auto) 0.2 (0.0-0.4) % Neut % (Auto) 53.7 (45-73) % Lymph % (Auto) 31.1 (20-40) % [place] % (Auto) 11.7 H (2-11) % Eos % (Auto) 3.1 (0-4) % Baso % (Auto) 0.2 (0-2) % Lymph # (Auto) 2.0 (1.2-4.9) X10*3/uL [place] # (Auto) 0.8 (0.1-1.2) X10*3/uL Eos # (Auto) 0.2 (0.0-0.4) X10*3/uL Baso # (Auto) 0.0 (0.0-0.2) X10*3/uL Abs Immat Gran (auto) 0.01 (0.00-0.03) X10*3/uL Absolute Neuts (auto) 3.4 (2.0-8.3) x10*3/uL Absolute Nucleated RBC 0.000 (0.0-0.012) X10*3/uL Nucleated RBC % (auto) 0.0 (0.0-0.2) /100WBC Sodium 136 (135-145) mmol/L Potassium 4.5 (3.3-5.1) mmol/L Chloride 104 (96-108) mmol/L Carbon Dioxide 21 L (22-29) mmol/L Anion Gap 16 (12-20) BUN 28 H (9-16) mg/dL Creatinine 2.04 H (0.5-1.4) mg/dL Estim Creat Clear Calc 64.3 Estimated GFR 39 Random Glucose 116 H (60-115) mg/dL Calcium 9.2 (8.4-10.2) mg/dL Total Bilirubin 0.3 (0.0-1.0) mg/dL AST 24 (5-37) U/L ALT 19 (0-40) U/L Alkaline Phosphatase 89 (39-117) U/L Total Creatine Kinase 343 H (38-174) U/L Troponin I High Sens < 2.7 (<3.5-35.0) ng/L Total Protein 6.9 (6.5-8.0) g/dL Albumin 3.9 (3.5-5.0) g/dL Urine Color Urine Appearance Urine pH (5.0-9.0) Ur Specific [place] (1.005-1.025) Urine Protein (Neg-Trace) mg/dL Urine Glucose (UA) (Negative) mg/dL Urine Ketones (Negative) mg/dL Urine Blood (Negative) Urine Nitrite (Negative) Ur Leukocyte Esterase (Negative) 03/23/23 03/23/23 03/23/23 Range/Units 19:37 19:37 21:13 WBC (4.8-10.8) X10*3/uL RBC (4.60-5.80) X10*6/uL Hgb (14.0-18.0) g/dl Hct (42.0-52.0) % MCV (80.0-98.0) fL MCH (27.0-33.0) pg MCHC (31.0-36.0) g/dl RDW (11.0-16.0) % Plt Count (160-400) X10*3/uL MPV (9.4-12.4) fL Immature Gran % (Auto) (0.0-0.4) % Neut % (Auto) (45-73) % Lymph % (Auto) (20-40) % [place] % (Auto) (2-11) % Eos % (Auto) (0-4) % Baso % (Auto) (0-2) % Lymph # (Auto) (1.2-4.9) X10*3/uL [place] # (Auto) (0.1-1.2) X10*3/uL Eos # (Auto) (0.0-0.4) X10*3/uL Baso # (Auto) (0.0-0.2) X10*3/uL Abs Immat Gran (auto) (0.00-0.03) X10*3/uL Absolute Neuts (auto) (2.0-8.3) x10*3/uL Absolute Nucleated RBC (0.0-0.012) X10*3/uL Nucleated RBC % (auto) (0.0-0.2) /100WBC Sodium 133 L (135-145) mmol/L Potassium 4.5 (3.3-5.1) mmol/L Chloride 107 (96-108) mmol/L Carbon Dioxide 19 L (22-29) mmol/L Anion Gap 12 (12-20) BUN 30 H (9-16) mg/dL Creatinine 2.03 H (0.5-1.4) mg/dL Estim Creat Clear Calc 64.6 Estimated GFR 39 Random Glucose 160 H (60-115) mg/dL Calcium 8.1 L D (8.4-10.2) mg/dL Total Bilirubin (0.0-1.0) mg/dL AST (5-37) U/L ALT (0-40) U/L Alkaline Phosphatase (39-117) U/L Total Creatine Kinase (38-174) U/L Troponin I High Sens < 2.7 (<3.5-35.0) ng/L Total Protein (6.5-8.0) g/dL Albumin (3.5-5.0) g/dL Urine Color Yellow Urine Appearance Clear Urine pH 5.5 (5.0-9.0) Ur Specific [place] 1.010 (1.005-1.025) Urine Protein Negative (Neg-Trace) mg/dL Urine Glucose (UA) 250 H (Negative) mg/dL Urine Ketones Negative (Negative) mg/dL Urine Blood Negative (Negative) Urine Nitrite Negative (Negative) Ur Leukocyte Esterase Negative (Negative) Independent Interpretation I performed an independent interpretation of an: EKG and Plain X-Ray Interpretation: I independently reviewed the EKG which shows normal sinus rhythm with a rate 86, normal MN, normal QRS, normal QT I reviewed the chest x-ray and agree with radiologist's report Radiology Impression Discussion of test interpretation with radiology: I have reviewed the radiologist's reading. Radiologist Impression: [id number] [place] [id number] XRay Report Signed Patient: Riley Higgins MR#: [id number] : 1995 Acct:[id number] Age/Sex: 27 / M ADM Date: 03/23/23 Loc: .ED Attending Dr: Ordering Physician: Sarahi Rendon NP Date of Service: 03/23/23 Procedure(s): XR chest 2V Accession Number(s): [id number] cc: Sarahi Rendon NP~ EXAMINATION: XR CHEST CLINICAL INFORMATION: Reason for Exam chest pain COMPARISON: Chest radiograph? 03/09/2022 TECHNIQUE: 2 views of the chest FINDINGS: Lines and tubes: EKG leads overlie the patient. Clear lungs. No pleural effusion. No pneumothorax. Normal cardiomediastinal silhouette. XR/XR chest 2V IMPRESSION: ? *? Clear lungs. ? Critical Care Time Critical Care Time Critical Care Time: Yes Total Critical Care Time: 60 Attestation: re-evaluations for chest pain, discussion with the medicine team, discussion with outpatient primary care for follow-up. Discharge Plan Discharge Clinical Impression: Chest pain Patient Disposition: Home, Self-Care Instructions: Chest Pain (ED) Additional Instructions: your labs show elevated kidney function. We are unsure if this is your normal kidney function as the previous labs we have were from over a year ago. Please stop taking the antibiotic that you were prescribed. Hold your lisinopril which is your blood pressure medication tomorrow. We spoke to your primary care doctor. They will see you on Saturday and repeat your kidney function then. Please call them Saturday morning to make this appointment. Your additional lab work, EKG and chest x-ray are normal please return for any worsening symptoms Prescriptions: New hydrocortisone 2.5 % cream 1 appl topical TID PRN (Reason: itching) Qty: 30 0RF No Action trazodone 50 mg tablet 50 mg PO BEDTIME PRN (Reason: sleep) 90 Days Qty: 90 1RF (DME) pen needle, diabetic [BD Yi 2nd Gen Pen Needle] 32 gauge x 5/32 needle See Rx Instructions .MEDSUPPLY Qty: 150 5RF Rx Instructions: 5 times a day (DME) lancets [TRUEplus Lancets] 33 gauge misc See Rx Instructions .ROUTE .MEDSUPPLY Qty: 200 1RF Rx Instructions: 6 times a day insulin lispro [Humalog KwikPen Insulin] 100 unit/mL insulin pen See Rx Instructions subcut .5 times a day Qty: 30 5RF Rx Instructions: 2 to 12 units before meals and snacks subcut .5 times a day; (DME) FreeStyle Shelli 2 Sensor Kit See Rx Instructions .ROUTE .MEDSUPPLY Qty: 2 11RF Rx Instructions: Every 14 days (DME) lancets [FreeStyle Lancets] 28 gauge misc See Rx Instructions .ROUTE .MEDSUPPLY Qty: 300 11RF Rx Instructions: six times a day ibuprofen 600 mg tablet 600 mg PO Q6H PRN (Reason: pain) Qty: 30 0RF Lantus Solostar U-100 Insulin 100 unit/mL (3 mL) insulin pen 15 unit subcut QAM 30 Days Qty: 4.5 0RF cyclobenzaprine 5 mg tablet 5 mg PO BEDTIME PRN (Reason: muscle spasm) 30 Days Qty: 14 0RF chlorthalidone 25 mg tablet 25 mg PO DAILY 90 Days Qty: 90 0RF lisinopril 40 mg tablet 40 mg PO DAILY 90 Days Qty: 90 1RF sulfamethoxazole-trimethoprim [Bactrim DS] 800-160 mg tablet 1 tab PO Q12H 10 Days Qty: 20 0RF cefuroxime axetil 500 mg tablet 500 mg PO Q12H 10 Days Qty: 20 0RF (DME) blood pressure test kit-medium Kit See Rx Instructions miscellaneous .MEDSUPPLY Qty: 1 0RF Rx Instructions: As directed albuterol sulfate [Ventolin HFA] 90 mcg/actuation HFA aerosol inhaler 1 inh inhalation QID PRN (Reason: shortness of breath or wheezing) Qty: 8.5 1RF (DME) FreeStyle Shelli 2 [place] Misc See Rx Instructions .ROUTE .MEDSUPPLY Qty: 1 0RF Rx Instructions: As directed Referrals: Tiffani Carson MD [Primary Care Provider] - 2 days (call saturday) Interventions: ED Discharge Assessment Last Done: 03/23/23 21:42 Discharge Date/Time: 03/23/23 21:42
[2023-03-23 16:31] LABS: MANUAL DIFF FLAG NO
[2023-03-23 16:51] VITALS: BP 122/76; PULSE 75; RESP 16; TEMP 36.9; O2SAT 98
[2023-03-23 16:52] LABS: Basophils Percent Auto 0.2 % (0-2); Eosinophils Absolute Auto 0.2 X10*3/uL (0.0-0.4); Eosinophils Percent Auto 3.1 % (0-4); Hematocrit 33.5 % (42.0-52.0); Hemoglobin 11.2 g/dl (14.0-18.0); Imm Gran Abs Auto 0.01 X10*3/uL (0.00-0.03); Imm Gran Pct Auto 0.2 % (0.0-0.4); Lymphocytes Percent Auto 31.1 % (20-40); Mean Corpuscular HGB Conc 33.4 g/dl (31.0-36.0); Mean Corpuscular Hemoglobin 28.9 pg (27.0-33.0); Mean Corpuscular Volume 86.3 fL (80.0-98.0); Mean Platelet Volume 11.5 fL (9.4-12.4); Monocytes Absolute Auto 0.8 X10*3/uL (0.1-1.2); Monocytes Percent Auto 11.7 % (2-11); Neutrophils Absolute Auto 3.4 x10*3/uL (2.0-8.3); Neutrophils Percent Auto 53.7 % (45-73); Platelet Count 225 X10*3/uL (160-400); Red Blood Count 3.88 X10*6/uL (4.60-5.80); Red Cell Distribution Width 12.2 % (11.0-16.0); White Blood Count 6.4 X10*3/uL (4.8-10.8)
[2023-03-23 16:55] LABS: Alanine Aminotransferase 19 U/L (0-40); Albumin Level 3.9 g/dL (3.5-5.0); Alkaline Phosphatase 89 U/L (39-117); Anion Gap 16 (12-20); Aspartate Amino Transferase 24 U/L (5-37); Bilirubin Total 0.3 mg/dL (0.0-1.0); Blood Urea Nitrogen 28 mg/dL (9-16); Calcium 9.2 mg/dL (8.4-10.2); Carbon Dioxide 21 mmol/L (22-29); Chloride 104 mmol/L (96-108); Creatinine Clr Calc Pharmacy 64.3; Estimated Glomerular Filt Rate 39; Glucose Random 116 mg/dL (60-115); Potassium 4.5 mmol/L (3.3-5.1); Sodium 136 mmol/L (135-145); Total Protein 6.9 g/dL (6.5-8.0)
[2023-03-23 17:17] LABS: Troponin-I High Sensitivity < 2.7 ng/L (<3.5-35.0)
[2023-03-23 17:25] VITALS: BP 132/89; PULSE 73; RESP 16; O2SAT 100
--- NOTE | 2023-03-23 17:29 | PC.NURSE ---
pt a&ox3, vss, nsr on the monitoring manager, pt comes in d/t having a burning sensation in the left chest that radiates towards the LUE, pt denies n/v/shortness of breath. pt verbalizes that he has 0/10 pain but states that it is more of a burning sensation. pt states that he took 2 advil prior to coming in - verbalizes that it did provide any relief. pt verbalizes that he wanted to come in d/t being nervous since having a hx of DM type 1. provider bedside performing assessment.
[2023-03-23] MEDS: 0.9 % Sodium Chloride 2,000 ML 999 ML IV (18:05)
[2023-03-23] MEDS: Magnesium Hydrox/Alum Hydrox 30 ML ORAL.SUSP PO (18:15)
--- NOTE | 2023-03-23 18:16 | PC.NURSE ---
pt a&ox3, vss, 20gIV placed in the right hand, IVF and medications administered per provider order. lidocaine solution not given and documented d/t medication being on back order. pt resting comfortably with the call vuong placed within reach.
[2023-03-23 19:47] VITALS: BP 137/86; PULSE 74; RESP 12; TEMP 36.4; O2SAT 98
--- NOTE | 2023-03-23 19:54 | PC.NURSE ---
Assumed care of pt. pt lying on stretcher, no acute complaints at this time. pending repeat labs for dispo.
[2023-03-23 20:07] LABS: Anion Gap 12 (12-20); Blood Urea Nitrogen 30 mg/dL (9-16); Calcium 8.1 mg/dL (8.4-10.2); Carbon Dioxide 19 mmol/L (22-29); Chloride 107 mmol/L (96-108); Creatinine Clr Calc Pharmacy 64.6; Estimated Glomerular Filt Rate 39; Glucose Random 160 mg/dL (60-115); Potassium 4.5 mmol/L (3.3-5.1); Sodium 133 mmol/L (135-145)
[2023-03-23 20:39] LABS: Troponin-I High Sensitivity < 2.7 ng/L (<3.5-35.0)
[2023-03-23 21:21] LABS: Appearance Urine Clear; Color Urine Yellow; Glucose Urine UA 250 mg/dL (Negative); Leukocyte Esterase Urine Negative (Negative); Nitrite Urine Negative (Negative); PH 5.5 (5.0-9.0); Urine Blood Negative (Negative); Urine Ketones Negative (Negative); Urine Protein Negative (Neg-Trace)
== END 2023-03-23 21:42 | disposition home or self-care (01) ==
PROVIDERS: Nurse Practitioner Family; Registered Nurse Emergency; Emergency Provider Student in an Organized Health Care Education/Training Program; PCP Internal Medicine
DX: R07.9 Chest pain, unspecified (principal); E10.9 Type 1 diabetes mellitus without complications; I10 Essential (primary) hypertension; Z79.4 Long term (current) use of insulin; Z79.899 Other long term (current) drug therapy
CPT/HCPCS: 36415; 71046; 80048; 80053; 81003; 82550; 84484; 85025; 93005; 96360; 96361; 99284; 99285

== ENCOUNTER → 2023-03-23 16:09 | Outpatient (BNV) | payer OTHER, SELFPAY | PROVIDERS: Emergency Provider Student in an Organized Health Care Education/Training Program; PCP Internal Medicine; Visit Provider Internal Medicine Cardiovascular Disease | DX: R94.31 Abnormal electrocardiogram [ECG] [EKG] (principal) | CPT/HCPCS: 93010 ==

== ENCOUNTER 2023-05-27 06:04 | Emergency (ER) | payer OTHER, SELFPAY ==
[2023-05-27 06:15] VITALS: BP 157/92; PULSE 76; RESP 16; TEMP 36.4; O2SAT 98; BMI 31.9
[2023-05-27 06:39] VITALS: BP 152/94; RESP 16; O2SAT 98
--- NOTE | 2023-05-27 06:43 | PC.NURSE ---
pt change into hospital attire, repeat blood pressure, call vuong given, pt resting in bed.
[2023-05-27 06:57] VITALS: BP 136/88; PULSE 68; RESP 18
[2023-05-27 07:15] LABS: COVID-19 Test Negative (Negative); IDNOW Serial# 6674DD1D
--- NOTE | 2023-05-27 07:38 | ED_ITS ---
HPI - General Adult General Chief complaint: General Medical Stated complaint: Uvula swelling/ high blood pressure Time Seen by Provider: 05/27/23 07:02 Source: patient Mode of arrival: ambulatory Limitations: no limitations History of Present Illness HPI narrative: sore throat since last night and blood pressure is running jared Related Data Previous Rx's Medication Instructions Recorded flash glucose scanning reader #1 ea 07/08/20 (FreeStyle Shelli 2 [place]) ibuprofen 600 mg tablet 600 mg PO Q6H PRN pain #30 tabs 12/13/20 trazodone 50 mg tablet 50 mg PO BEDTIME PRN sleep 90 days 10/12/21 #90 tabs pen needle, diabetic 32 gauge x #150 ea 06/18/22 (BD Yi 2nd Gen Pen Needle) lancets 33 gauge (TRUEplus Lancets) #200 ea 06/21/22 blood pressure test kit-medium #1 ea 06/29/22 albuterol sulfate 90 mcg/actuation 1 inh inhalation QID PRN shortness 11/06/22 aerosol inhaler (Ventolin HFA) of breath or wheezing #8.5 grams flash glucose sensor (FreeStyle #2 ea 01/07/23 Shelli 2 Sensor kit) insulin lispro 100 unit/mL See Rx Instructions subcut .5 01/07/23 subcutaneous pen (Humalog KwikPen times a day #30 mL (U-100) Insulin) lancets 28 gauge (FreeStyle #300 ea 01/07/23 Lancets) Lantus Solostar U-100 Insulin 100 15 unit (0.15 mL) subcut QAM 30 02/04/23 unit/mL (3 mL) subcutaneous pen days #4.5 mL (insulin glargine) cyclobenzaprine 5 mg tablet 5 mg PO BEDTIME PRN muscle spasm 02/04/23 30 days #14 tabs lisinopril 40 mg tablet 40 mg PO DAILY 90 days #90 tabs 02/04/23 cefuroxime axetil 500 mg tablet 500 mg PO Q12H 10 days #20 tabs 03/18/23 sulfamethoxazole 800 1 tab PO Q12H 10 days #20 tabs 03/18/23 mg-trimethoprim 160 mg tablet (Bactrim DS) hydrocortisone 2.5 % topical cream 1 appl topical TID PRN itching #30 03/23/23 grams chlorthalidone 25 mg tablet 25 mg PO DAILY 90 days #90 tabs 05/21/23 omeprazole 20 mg capsule,delayed 20 mg PO DAILY PRN heartburn 90 05/21/23 release days #90 caps metoprolol succinate 100 mg 100 mg PO DAILY #30 ea 05/27/23 capsule sprinkle, ext. release 24 hr Allergies Allergy/AdvReac Type Severity Reaction Status Date / Time clonazepam Allergy Intermediate agitation Verified 03/23/23 16:15 shrimp [SHRIMP] Allergy Intermediate ANAPHYLAXIS Verified 03/23/23 16:15 Review of Systems 2 Review of Systems: Yes all other systems are reviewed and are negative Neurologic: Denies Sensory deficit (Neuro) [facility] Past Medical History Medical History Obesity (BMI 30-39.9) Diabetic retinopathy Essential hypertension Obesity due to excess calories Insomnia Obesity, Class I, BMI 30-34.9 Pre-op evaluation Non-proliferative diabetic retinopathy, mild, both eyes Anxiety Asthma Overweight (BMI 25.0-29.9) Diabetic polyneuropathy associated with type 1 diabetes mellitus Diabetic nephropathy associated with type 1 diabetes mellitus Vitamin D deficiency Diabetes type 1, uncontrolled Diabetes mellitus type 1 Surgical History Hx of appendectomy History of surgery Family History Family History Father No problems noted. Mother Hypertension Maternal Grandmother Hypertension Diabetes Maternal Uncle Chronic mental illness Family/Other Substance use disorder Social History Social History Household Members: Significant Other Housing: Apartment Alcohol intake: never Patient Tobacco Use Status: Never used Tobacco Smoked in Last 30 Days: No e-Cigarette/Vaping Use: Never Used Second Hand Smoke Exposure: No Use of substances other than those prescribed or required for medical reasons: No Substance Use Type: Former Substance User and Marijuana Advance Directives: No Advance Directives Information Provided: No service: No Current occupational status: unemployed 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 Current occupational exposures/hazards: No Cognitive needs: No Hearing needs: No Vision needs: No Physical Exam ED Vital Signs: Vital Signs - 24 hr 05/27/23 06:15 05/27/23 06:39 05/27/23 06:57 Temperature 97.6 F Pulse Rate 76 68 Respiratory Rate 16 16 18 Blood Pressure 157/92 H 152/94 H 136/88 Pulse Oximetry 98 98 Oxygen Delivery Method Room Air Room Air BMI result Body Mass Index 31.9 Const General: healthy appearing Nutritional Appearance: average body habitus Orientation/consciousness: oriented to person and patient oriented x3 Limitations: no limitations HENMT Other: uvula with edema Head: Yes normal to inspection Ears: external ears normal General nose exam: Normal external nose present Throat: Yes posterior oropharynx normal Eyes General: appearance normal, both eyes and all related structures Neck Neck: Yes normal visual inspection Chest Chest palpation & inspection: normal inspection of the chest Resp Auscultation: clear to auscultation bilaterally Cardio Jugular venous distension: no JVD Rate: regular rate Rhythm: regular rhythm Heart sounds: S1 normal heart sound present and S2 normal heart sound present GI Inspection: Yes normal to inspection Palpation (GI): Soft to palpation, nontender and No hepatosplenomegaly present Auscultation: normal bowel sounds General: Yes no CVA tenderness Back/Spine/Pelvis Back: no CVA tenderness Skin General skin exam: no rashes or lesions noted Neuro General: oriented to person and patient oriented x3 Cranial nerves: Yes CN's II-XII intact bilaterally Motor exam (neuro): 5/5 motor strength present throughout Sensory Exam: No Sensory deficit (Neuro) Extrem General: Yes normal to inspection Psych Appearance: grossly normal Course Reevaluation(s) Reevaluation #1: Patient with likely angioedema will take him off of lisinopril and start metoprolol and continue chlorthalidone. Uvula has improved. Time: 10:23 Medications Administered Discontinued Medications Generic Name Dose Route Start Last Admin Trade Name Freq PRN Reason Stop Dose Admin Diphenhydramine HCl 50 mg 05/27/23 07:47 05/27/23 07:58 Diphenhydramine Hcl 50 Mg/Ml Vial IVPUSH 05/27/23 07:48 50 mg ONCE ONE Administration Hydrochlorothiazide 25 mg 05/27/23 07:42 05/27/23 07:58 Hydrochlorothiazide 25 Mg Tablet PO 05/27/23 07:43 25 mg ONCE ONE Administration Protocol Metoprolol Succinate 100 mg 05/27/23 07:47 05/27/23 07:58 Metoprolol Succinate Er 100 Mg Tab.Er.24h PO 05/27/23 07:48 100 mg ONCE ONE Administration Protocol Medical Decision Making Differential Diagnosis Differential Diagnoses: The differential diagnosis associated with the presentation includes (angioedema, allergic reaction, viral pharyngitis and hypertension were all considered) Admission/Observation Consideration of admission/observation: Escalation of care including admission/observation considered (upon arrival patient was considered for admission) Patient was observed to make sure the uvula improved Lab Data 05/27/23 08:28 05/27/23 08:28 Labs: Lab Results 05/27/23 05/27/23 Range/Units 06:57 08:28 Sodium 138 (135-145) mmol/L Potassium 4.6 (3.3-5.1) mmol/L Chloride 106 (96-108) mmol/L Carbon Dioxide 23 (22-29) mmol/L Anion Gap 14 (12-20) BUN 13 (9-16) mg/dL Creatinine 1.00 (0.5-1.4) mg/dL Estim Creat Clear Calc 132.3 Estimated GFR > 60 Random Glucose 110 (60-115) mg/dL Calcium 9.5 D (8.4-10.2) mg/dL COVID-19 (HAL) Negative (Negative) COVID-19 Clin Com See Note External Record Review External record reviewed: Outpatient record Prescription Management I considered prescription management with: Antibiotic (no evidence of bacterial pharyngitis) Chronic Conditions Patient?s care impacted by: Diabetes and Hypertension Social Determinants Patient?s care significantly limited by Social Determinants of Health including: Low income Discharge Plan Discharge Clinical Impression: Angio-edema Qualifiers: Encounter type: initial encounter Qualified Code(s): T78.3XXA - Angioneurotic edema, initial encounter Patient Disposition: Home, Self-Care Instructions: Angioedema (ED) Additional Instructions: stop lisinopril, start metoprolol and continue chlorthalidone Prescriptions: New metoprolol succinate 100 mg capsule,sprinkle,ER 24hr 100 mg PO DAILY Qty: 30 0RF No Action trazodone 50 mg tablet 50 mg PO BEDTIME PRN (Reason: sleep) 90 Days Qty: 90 1RF (DME) pen needle, diabetic [BD Yi 2nd Gen Pen Needle] 32 gauge x 5/32 needle See Rx Instructions .MEDSUPPLY Qty: 150 5RF Rx Instructions: 5 times a day (DME) lancets [TRUEplus Lancets] 33 gauge misc See Rx Instructions .ROUTE .MEDSUPPLY Qty: 200 1RF Rx Instructions: 6 times a day insulin lispro [Humalog KwikPen Insulin] 100 unit/mL insulin pen See Rx Instructions subcut .5 times a day Qty: 30 5RF Rx Instructions: 2 to 12 units before meals and snacks subcut .5 times a day; (DME) FreeStyle Shelli 2 Sensor Kit See Rx Instructions .ROUTE .MEDSUPPLY Qty: 2 11RF Rx Instructions: Every 14 days (DME) lancets [FreeStyle Lancets] 28 gauge misc See Rx Instructions .ROUTE .MEDSUPPLY Qty: 300 11RF Rx Instructions: six times a day chlorthalidone 25 mg tablet 25 mg PO DAILY 90 Days Qty: 90 0RF omeprazole 20 mg capsule,delayed release(DR/EC) 20 mg PO DAILY PRN (Reason: heartburn) 90 Days Qty: 90 0RF ibuprofen 600 mg tablet 600 mg PO Q6H PRN (Reason: pain) Qty: 30 0RF hydrocortisone 2.5 % cream 1 appl topical TID PRN (Reason: itching) Qty: 30 0RF Lantus Solostar U-100 Insulin 100 unit/mL (3 mL) insulin pen 15 unit subcut QAM 30 Days Qty: 4.5 0RF cyclobenzaprine 5 mg tablet 5 mg PO BEDTIME PRN (Reason: muscle spasm) 30 Days Qty: 14 0RF lisinopril 40 mg tablet 40 mg PO DAILY 90 Days Qty: 90 1RF sulfamethoxazole-trimethoprim [Bactrim DS] 800-160 mg tablet 1 tab PO Q12H 10 Days Qty: 20 0RF cefuroxime axetil 500 mg tablet 500 mg PO Q12H 10 Days Qty: 20 0RF (DME) blood pressure test kit-medium Kit See Rx Instructions miscellaneous .MEDSUPPLY Qty: 1 0RF Rx Instructions: As directed albuterol sulfate [Ventolin HFA] 90 mcg/actuation HFA aerosol inhaler 1 inh inhalation QID PRN (Reason: shortness of breath or wheezing) Qty: 8.5 1RF (DME) FreeStyle Shelli 2 [place] Misc See Rx Instructions .ROUTE .MEDSUPPLY Qty: 1 0RF Rx Instructions: As directed
[2023-05-27] MEDS: Metoprolol Succinate ER 100 MG TAB.ER.24H PO (07:58)
[2023-05-27] MEDS: hydroCHLOROthiazide 25 MG TABLET PO (07:58)
[2023-05-27] MEDS: diphenhydrAMINE HCL 50 MG/ML VIAL IVPUSH (07:58)
[2023-05-27 08:59] LABS: Anion Gap 14 (12-20); Blood Urea Nitrogen 13 mg/dL (9-16); Calcium 9.5 mg/dL (8.4-10.2); Carbon Dioxide 23 mmol/L (22-29); Chloride 106 mmol/L (96-108); Creatinine Clr Calc Pharmacy 132.3; Estimated Glomerular Filt Rate > 60; Glucose Random 110 mg/dL (60-115); Potassium 4.6 mmol/L (3.3-5.1); Sodium 138 mmol/L (135-145)
--- NOTE | 2023-05-27 10:37 | PC.NURSE ---
Discharge plan reviewed with patient who verbalized understanding
== END 2023-05-27 10:44 | disposition home or self-care (01) ==
PROVIDERS: Emergency Provider Emergency Medicine; PCP Internal Medicine
DX: T78.3XXA Angioneurotic edema, initial encounter (principal); Z20.822 Contact with and (suspected) exposure to COVID-19; Z20.828 Contact with and (suspected) exposure to other viral communicable diseases; Z79.899 Other long term (current) drug therapy
CPT/HCPCS: 36415; 80048; 87635; 96374; 99284; J1200

== ENCOUNTER 2023-06-11 13:40 | Outpatient (AMB) | payer OTHER, SELFPAY ==
--- NOTE | 2023-06-11 13:43 | MHC.PC.OV ---
Vital Signs 06/11/23 13:47 Height 5 ft 11 in Weight 226 lb BMI 31.5 BP 132/80 Blood Pressure Location Lt brachial Position Sitting Pulse 71 Pulse Source Pulse Oximeter Pulse Oximetry (%) 98 Oxygen Delivery Method Room Air Intake Visit Reasons: Right Knee Pain, Xray results Intake Note: Patient here for right knee pain Supervisor Melt House Required: No Accompanied by: Self / Same As Patient Allergies lisinopril Allergy (Severe, Verified 06/11/23 14:18) Angioedema clonazepam Allergy (Intermediate, Verified 06/11/23 13:59) agitation shrimp [SHRIMP] Allergy (Intermediate, Verified 06/11/23 13:59) ANAPHYLAXIS Medication List - Last Reconciled 06/11/23 by Tiffani Arzate MD albuterol sulfate 90 mcg/actuation (Ventolin HFA) 1 inh inhalation QID PRN blood pressure test kit-medium As directed chlorthalidone 25 mg PO DAILY 90 days cyclobenzaprine 5 mg PO BEDTIME PRN 30 days flash glucose scanning reader ([employer] Shelli 2 [place]) As directed flash glucose sensor (FreeStyle Shelli 2 Sensor kit) Every 14 days hydrocortisone 2.5% 1 appl topical TID PRN ibuprofen 600 mg PO Q6H PRN insulin lispro (Humalog KwikPen (U-100) Insulin) 2 to 12 units before meals and snacks subcut .5 times a day; lancets (FreeStyle Lancets) six times a day lancets (TRUEplus Lancets) 6 times a day Lantus Solostar U-100 Insulin (insulin glargine) 15 units (0.15 mL) subcut QAM 30 days NS metoprolol succinate ER 100 mg PO DAILY metoprolol succinate ER 100 mg PO DAILY omeprazole 20 mg PO DAILY PRN 90 days pen needle, diabetic (BD Yi 2nd Gen Pen Needle) 5 times a day trazodone 50 mg PO BEDTIME PRN 90 days Tobacco use date assessed: 10/08/22 Dental Screening Dental Screen Date: 06/11/23 Did you have a dental visit in the last 12 months?: No Did you have a dental problem in the last 6 months where you did not have access to dental care?: No Was dental information given to patient?: Patient has dentist HPI HPI Comments History of Present Illness Details This is a 28-year-old male with diabetes mellitus type 1, hypertension and moderate recurrent major depression that complains of right knee pain that has been present for few months. The knee pain is present when abduction and adduction. Also has been trying to run but not able due to knee pain. X-ray was done showing small joint effusion. X-ray will be repeated and he will be sent to physical therapy. Also will be referred to Ortho. A1c is still elevated at 7.7% and I will increase Lantus from 15 units to 18 units. Will be referred to endocrinology because at the moment he does not have one. Blood pressure stable. Depression well control with trazodone. [facility] Medical History Obesity (BMI 30-39.9) Diabetic retinopathy Essential hypertension Obesity due to excess calories Insomnia Obesity, Class I, BMI 30-34.9 Pre-op evaluation Non-proliferative diabetic retinopathy, mild, both eyes Anxiety Asthma Overweight (BMI 25.0-29.9) Diabetic polyneuropathy associated with type 1 diabetes mellitus Diabetic nephropathy associated with type 1 diabetes mellitus Vitamin D deficiency Diabetes type 1, uncontrolled Diabetes mellitus type 1 Surgical History Hx of appendectomy History of surgery Family History Father No problems noted. 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 Giorgi White, Janette Wheatley, Steve Ortega and colleagues, with an educational aldair from [employer]. Review of Systems Const All systems reviewed & are unremarkable except as noted in HPI and below Eyes Reports no additional complaints, Denies change in vision and Denies other visual disturbances Card Denies chest pain at rest, Denies chest pain with activity, Denies edema, Denies irregular heart rhythm, Denies claudication, Denies dyspnea, Denies dyspnea on exertion, Denies orthopnea, Denies paroxysmal nocturnal dyspnea and Denies slow heart rate Resp Denies cough, Denies dyspnea and Denies dyspnea on exertion GI Denies abdominal pain, Denies change in bowel habits, Denies excessive flatus, Denies nausea and Denies vomiting Denies urinary hesitancy, Denies urinary incontinence and Denies urinary urgency Musc Denies abnormal gait, Denies atrophy, Denies deformity, Reports arthralgias and Denies limited range of motion Skin/Breast Denies bleeding lesions, Denies changing lesions and Denies rash Neuro Denies abnormal gait and Denies lack of coordination Physical exam (Primary Care) Vital Signs: Last Vital Signs Pulse 71 06/11/23 13:47 BP 132/80 06/11/23 13:47 Pulse Ox 98 06/11/23 13:47 Oxygen Delivery Method Room Air 06/11/23 13:47 BMI result Body Mass Index 31.5 Tobacco/Smoking Status: Tobacco use Status Tobacco use date assessed 10/08/22 06/11/23 13:45 Patient Tobacco Use Status Never used Tobacco 06/11/23 13:45 Tobacco use type 08/01/22 14:50 e-Cigarette/Vaping Use Never Used 06/11/23 13:45 Thrive Assessment: Date of Thrive Assessment Date Thrive assessed 10/08/22 06/11/23 13:45 Eyes General: appearance normal, both eyes and all related structures Eyelids: Yes eyelids normal Conjunctivae: conjunctivae normal Neck Neck: Yes normal visual inspection and Yes supple Resp Effort & Inspection: normal respiratory effort Auscultation: clear to auscultation bilaterally Cardio Jugular venous distension: no JVD Rate: regular rate Rhythm: regular rhythm Heart sounds: S1 normal heart sound present and S2 normal heart sound present Extrem General: Yes full ROM Right lower extremity: knee Details: abnormal ROM Details: pain with active ROM during (abduction and adduction) Office Procedures Flu Questionnaire Does the patient have a severe egg allergy?: No Results AMB Hemoglobin A1c AMB Hemoglobin A1c 7.7 % Last Edit by Riri Martinezillo, RMA on 06/11/23 13:55 Immunizations flu vacc [id number] 6mos up(PF) 60 mcg(15 mcgx4)/0.5 mL IM syringe Performing Provider: Tiffani Arzate MD [facility] [place] Documented (not given) by: TiffaniSAM Malin on 06/11/23 13:54 Reason Not Given: Patient Refused Results Reviewed Results Reviewed: Laboratory Last Values Hgb A1c (Clinic) 7.7 % (4.0-6.0) H 06/11/23 13:54 Assessment and Plan Assessment & Plan (1) Right knee pain: Code(s): M25.561 - Pain in right knee Plan: X-ray ordered. Start physical therapy. Referred to Ortho. (2) Type 1 diabetes: Code(s): E10.9 - Type 1 diabetes mellitus without complications Qualifiers: Diabetes mellitus complication status: with hyperglycemia Qualified Code(s): E10.65 - Type 1 diabetes mellitus with hyperglycemia Plan: Continue short-acting insulin. Increase Lantus from 15 units to 18 units. Referred to endocrinology. A1c goal is equal or less than 7%. (3) HTN (hypertension): Code(s): I10 - Essential (primary) hypertension Qualifiers: Hypertension type: essential hypertension Qualified Code(s): I10 - Essential (primary) hypertension Plan: Continue chlorthalidone. Blood pressure goal is equal or less than 130/80. (4) MDD (major depressive disorder), recurrent episode, moderate: Code(s): F33.1 - Major depressive disorder, recurrent, moderate Plan: Continue trazodone. Orders: Orders AMB Hemoglobin A1c Today E10.9 - Type 1 diabetes mellitus without complications XR knee RT 2V Today M25.561 - Pain in right knee PT Evaluation and Treatment Today M25.561 - Pain in right knee Microalbumin, Random (w Creat) Today E11.9 - Type 2 diabetes mellitus without complications Comprehensive [place]. Panel Fast Today E10.21 - Type 1 diabetes mellitus with diabetic nephropathy Influenza [id number] Immunization Today Z23 - Encounter for immunization Vitamin D 25-OH Total Today E55.9 - Vitamin D deficiency, unspecified Lipid Panel Today E78.5 - Hyperlipidemia, unspecified Referrals Endocrinology Referral E10.9 - Type 1 diabetes mellitus without complications Orthopedics Referral M25.561 - Pain in right knee Coding Level of Care Code Est Pt Level 4 (85447) Diagnoses Right knee pain M25.561 Type 1 diabetes mellitus with hyperglycemia E10.65 Diabetes mellitus complication status: with hyperglycemia Essential hypertension I10 Hypertension type: essential hypertension MDD (major depressive disorder), recurrent episode, moderate F33.1 Time Spent (min) 22
[2023-06-11 13:47] VITALS: BP 132/80; PULSE 71; O2SAT 98; BMI 31.5
== END 2023-06-11 14:13 | disposition home or self-care (01) ==
PROVIDERS: PCP Internal Medicine; Visit Provider Internal Medicine
DX: E10.65 Type 1 diabetes mellitus with hyperglycemia (principal); F33.1 Major depressive disorder, recurrent, moderate; E10.9 Type 1 diabetes mellitus without complications; M25.561 Pain in right knee; I10 Essential (primary) hypertension
CPT/HCPCS: 83036; 99214

== ENCOUNTER 2023-06-24 08:21 | Emergency (ER) | payer OTHER, SELFPAY ==
--- NOTE | 2023-06-24 08:32 | ED.GENADULT ---
HPI - General Adult General Chief complaint: Nausea/Vomiting/Diarrhea Stated complaint: Diarrhea/Vomiting Time Seen by Provider: 06/24/23 08:29 Source: patient, RN notes reviewed and old records reviewed Mode of arrival: ambulatory History of Present Illness HPI narrative: 28-year-old male with a past medical history of diabetes, HTN, depression, anxiety, asthma, presenting to the ED complaining of abdominal cramping, watery/loose diarrhea and nausea x 3 days. Reports about 6 episodes of diarrhea daily. Admits diarrhea is dark/black. Denies fever/chills, hematuria/dysuria, recent travel, suspicious food intake, sick contacts. Denies recent change in medications or antibiotic use. Related Data Home Medications Medication Instructions Recorded Confirmed metoprolol succinate 100 mg 100 mg PO DAILY 06/11/23 06/11/23 tablet,extended release 24 hr Previous Rx's Medication Instructions Recorded flash glucose scanning reader #1 ea 07/08/20 (FreeStyle Shelli 2 [employer]) ibuprofen 600 mg tablet 600 mg PO Q6H PRN pain #30 tabs 12/13/20 trazodone 50 mg tablet 50 mg PO BEDTIME PRN sleep 90 days 10/12/21 #90 tabs pen needle, diabetic 32 gauge x #150 ea 06/18/2232 (BD Yi 2nd Gen Pen Needle) lancets 33 gauge (TRUEplus Lancets) #200 ea 06/21/22 blood pressure test kit-medium #1 ea 06/29/22 albuterol sulfate 90 mcg/actuation 1 inh inhalation QID PRN shortness 11/06/22 aerosol inhaler (Ventolin HFA) of breath or wheezing #8.5 grams flash glucose sensor (FreeStyle #2 ea 01/07/23 Shelli 2 Sensor kit) insulin lispro 100 unit/mL See Rx Instructions subcut .5 01/07/23 subcutaneous pen (Humalog KwikPen times a day #30 mL (U-100) Insulin) lancets 28 gauge (FreeStyle #300 ea 01/07/23 Lancets) cyclobenzaprine 5 mg tablet 5 mg PO BEDTIME PRN muscle spasm 02/04/23 30 days #14 tabs hydrocortisone 2.5 % topical cream 1 appl topical TID PRN itching #30 03/23/23 grams chlorthalidone 25 mg tablet 25 mg PO DAILY 90 days #90 tabs 05/21/23 omeprazole 20 mg capsule,delayed 20 mg PO DAILY PRN heartburn 90 05/21/23 release days #90 caps metoprolol succinate 100 mg 100 mg PO DAILY #30 ea 05/27/23 capsule sprinkle, ext. release 24 hr Lantus Solostar U-100 Insulin 100 18 unit (0.18 mL) subcut QAM 30 06/11/23 unit/mL (3 mL) subcutaneous pen days #5.4 mL (insulin glargine) ondansetron 4 mg disintegrating 4 mg PO Q8H PRN nausea and 06/24/23 tablet vomiting #10 tabs Allergies Allergy/AdvReac Type Severity Reaction Status Date / Time lisinopril Allergy Severe Angioedema Verified 06/24/23 09:03 clonazepam Allergy Intermediate agitation Verified 06/24/23 09:03 shrimp [SHRIMP] Allergy Intermediate ANAPHYLAXIS Verified 06/24/23 09:03 Review of Systems Review of Systems: Constitutional: No Fever, No Chills, No Fatigue, No Malaise ENT/Mouth: No Ear Pain, No Nasal Congestion, No sore throat, No Rhinorrhea, No Swallowing Difficulty Eyes: No Eye Pain, No Swelling, No Redness, No Vision Changes Cardiovascular: No Chest Pain, No SOB, No Edema, No Palpitations Respiratory: No Cough, No Sputum, No Dyspnea Gastrointestinal: + Nausea, No Vomiting, + Diarrhea, No Constipation, + Abdominal pain, No Hematochezia, + Melena Genitourinary: No Dysuria, No Hematuria, No Urinary Incontinence/retention, No Urgency, No Flank Pain Musculoskeletal: No joint pain, No Myalgias, No Joint Swelling Skin: No Skin Lesions, No rash Neuro: No Weakness, No Dizziness, No Headache Yes all other systems are reviewed and are negative Constitutional: Constitutional: Reports as per [facility] Past Medical History Attestation statement: The following information was validated with the patient. Source: old records reviewed Medical History Obesity (BMI 30-39.9) Diabetic retinopathy Essential hypertension Obesity due to excess calories Insomnia Obesity, Class I, BMI 30-34.9 Pre-op evaluation Non-proliferative diabetic retinopathy, mild, both eyes Anxiety Asthma Overweight (BMI 25.0-29.9) Diabetic polyneuropathy associated with type 1 diabetes mellitus Diabetic nephropathy associated with type 1 diabetes mellitus Vitamin D deficiency Diabetes type 1, uncontrolled Diabetes mellitus type 1 Surgical History Hx of appendectomy History of surgery Family History Family History Father No problems noted. 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 Current occupational exposures/hazards: No Cognitive needs: No Hearing needs: No Vision needs: No Physical Exam ED Vital Signs: Vital Signs - 24 hr 06/24/23 10:09 Temperature 97.7 F Pulse Rate 66 Respiratory Rate 16 Blood Pressure 143/74 H Pulse Oximetry 100 Oxygen Delivery Method Room Air BMI result Body Mass Index 31.7 Const General: cooperative, healthy appearing and no acute distress Orientation/consciousness: patient oriented x3 Limitations: no limitations HENMT Head: Yes normal to inspection and Yes atraumatic Ears: hearing grossly normal bilaterally General nose exam: Normal external nose present Face and sinus: Yes normal facial exam Eyes General: appearance normal, both eyes and all related structures EOM: EOMs intact bilaterally Neck Neck: Yes normal visual inspection and Yes no meningeal signs Resp Effort & Inspection: normal respiratory effort and no respiratory distress Cardio Rate: regular rate GI Inspection: Yes normal to inspection Palpation (GI): Soft to palpation, nontender, no guarding and not rigid General: Yes no CVA tenderness Back/Spine/Pelvis Back: no CVA tenderness Skin Rashes: no rashes Wounds: no wounds Neuro General: patient oriented x3, tone normal and no meningeal signs Cranial nerves: Yes CN's II-XII intact bilaterally Gait exam (Neuro): Normal gait present Extrem General: Yes normal to inspection Course Course Course Narrative: -0956--no leukocytosis. H&H stable. Labs otherwise reassuring. COVID and influenza negative -1027--occult stool negative. Patient unable to provide stool sample, recommended follow-up with PCP for stool studies. > patient is tolerating p.o. in the ED without difficulty. Plan for discharge home with PCP follow-up Results discussed with patient including worrisome signs and symptoms and strict return precautions, and when to return to the emergency department. They verbalized understanding and feel safe for discharge at this time. Medications Administered Discontinued Medications Generic Name Dose Route Start Last Admin Trade Name Guilleq PRN Reason Stop Dose Admin Al Hydroxide/Mg Hydroxide 30 ml 06/24/23 08:42 06/24/23 09:08 Magnesium Hydrox/Alum Hydrox 30 Ml Oral.Susp PO 06/24/23 08:43 30 ml ONCE ONE Administration Famotidine 20 mg 06/24/23 08:42 06/24/23 09:08 Famotidine/Pf 20 Mg/2 Ml Vial IVPUSH 06/24/23 08:43 20 mg ONCE ONE Administration Sodium Chloride 1,000 mls @ 999 mls/hr 06/24/23 08:45 06/24/23 09:08 Ns IV 06/24/23 09:45 999 mls/hr .Q1H1M ENEDINA Administration Ondansetron HCl 4 mg 06/24/23 08:42 06/24/23 09:08 Ondansetron Hcl 4 Mg/2 Ml Vial IVPUSH 06/24/23 08:43 4 mg ONCE ONE Administration Medical Decision Making Medical Decision Making MDM Narrative: 28-year-old male with a past medical history of diabetes, HTN, depression, anxiety, asthma, presenting to the ED complaining of abdominal cramping, watery/loose diarrhea and nausea x 3 days. On exam vital signs stable, NAD, nontoxic appearing, abdomen soft/nontender, no CVAT. Concern for gastroenteritis vs infectious diarrhea vs UBIG. Low suspicion for appendicitis/diverticulitis, renal stone/pyelo or testicular torsion without tenderness on exam. Unlikely ischemic bowel Plan: Labs, UA, viral testing, stool studies, occult stool, IVF, GI cocktail, re-evaluate Please refer to course for remaining clinical decision making, interpretation of labs/imaging results, and discussions with consultants and/or family members. Differential Diagnosis Differential Diagnoses: The differential diagnosis associated with the presentation includes As above Admission/Observation Consideration of admission/observation: Escalation of care including admission/observation considered Lab Data MDM Lab Attestation statement: I reviewed the patient's lab results. 06/24/23 09:05 06/24/23 09:05 Labs: Lab Results 06/24/23 06/24/23 06/24/23 Range/Units 08:57 09:05 09:52 WBC 6.9 (4.8-10.8) X10*3/uL RBC 4.26 L (4.60-5.80) X10*6/uL Hgb 12.3 L (14.0-18.0) g/dl Hct 36.1 L (42.0-52.0) % MCV 84.7 (80.0-98.0) fL MCH 28.9 (27.0-33.0) pg MCHC 34.1 (31.0-36.0) g/dl RDW 12.6 (11.0-16.0) % Plt Count 217 (160-400) X10*3/uL MPV 11.5 (9.4-12.4) fL Immature Gran % (Auto) 0.3 (0.0-0.4) % Neut % (Auto) 54.9 (45-73) % Lymph % (Auto) 28.0 (20-40) % Hart % (Auto) 12.0 H (2-11) % Eos % (Auto) 4.5 H (0-4) % Baso % (Auto) 0.3 (0-2) % Lymph # (Auto) 1.9 (1.2-4.9) X10*3/uL Hart # (Auto) 0.8 (0.1-1.2) X10*3/uL Eos # (Auto) 0.3 (0.0-0.4) X10*3/uL Baso # (Auto) 0.0 (0.0-0.2) X10*3/uL Abs Immat Gran (auto) 0.02 (0.00-0.03) X10*3/uL Absolute Neuts (auto) 3.8 (2.0-8.3) x10*3/uL Absolute Nucleated RBC 0.000 (0.0-0.012) X10*3/uL Nucleated RBC % (auto) 0.0 (0.0-0.2) /100WBC Sodium 138 (135-145) mmol/L Potassium 4.9 (3.3-5.1) mmol/L Chloride 106 (96-108) mmol/L Carbon Dioxide 25 (22-29) mmol/L Anion Gap 12 (12-20) BUN 18 H (9-16) mg/dL Creatinine 1.27 (0.5-1.4) mg/dL Estim Creat Clear Calc 103.9 Estimated GFR > 60 Random Glucose 125 H (60-115) mg/dL Calcium 9.3 (8.4-10.2) mg/dL Magnesium 1.9 (1.6-2.6) mg/dL Total Bilirubin 0.5 (0.0-1.0) mg/dL Direct Bilirubin 0.1 (0.0-0.5) mg/dL AST 27 (5-37) U/L ALT 20 (0-40) U/L Alkaline Phosphatase 89 (39-117) U/L Total Protein 7.4 (6.5-8.0) g/dL Albumin 4.0 (3.5-5.0) g/dL Lipase 14 (8-78) U/L Urine Color Yellow Urine Appearance Clear Urine pH 5.5 (5.0-9.0) Ur Specific [place] 1.010 (1.005-1.025) Urine Protein 100 (2+) H (Neg-Trace) mg/dL Urine Glucose (UA) Negative (Negative) mg/dL Urine Ketones Negative (Negative) mg/dL Urine Blood Trace H (Negative) Urine Nitrite Negative (Negative) Ur Leukocyte Esterase Negative (Negative) Urine RBC 0-2 (0-2) /HPF Urine WBC 0-5 (0-5) /HPF Ur Squamous Epith Cells 0-2 (0-2) /HPF Urine Bacteria None Seen (None Seen) Hyaline Casts 0-2 (0-2) /LPF Stool Occult Blood (NEGATIVE) COVID-19 (HAL) Negative (Negative) COVID-19 Clin Com See Note Influenza Type A (SIRENA) Negative (Negative) Influenza Type B (SIRENA) Negative (Negative) Influenza A & B Note See Note 06/24/23 Range/Units 10:00 WBC (4.8-10.8) X10*3/uL RBC (4.60-5.80) X10*6/uL Hgb (14.0-18.0) g/dl Hct (42.0-52.0) % MCV (80.0-98.0) fL MCH (27.0-33.0) pg MCHC (31.0-36.0) g/dl RDW (11.0-16.0) % Plt Count (160-400) X10*3/uL MPV (9.4-12.4) fL Immature Gran % (Auto) (0.0-0.4) % Neut % (Auto) (45-73) % Lymph % (Auto) (20-40) % Hart % (Auto) (2-11) % Eos % (Auto) (0-4) % Baso % (Auto) (0-2) % Lymph # (Auto) (1.2-4.9) X10*3/uL Hart # (Auto) (0.1-1.2) X10*3/uL Eos # (Auto) (0.0-0.4) X10*3/uL Baso # (Auto) (0.0-0.2) X10*3/uL Abs Immat Gran (auto) (0.00-0.03) X10*3/uL Absolute Neuts (auto) (2.0-8.3) x10*3/uL Absolute Nucleated RBC (0.0-0.012) X10*3/uL Nucleated RBC % (auto) (0.0-0.2) /100WBC Sodium (135-145) mmol/L Potassium (3.3-5.1) mmol/L Chloride (96-108) mmol/L Carbon Dioxide (22-29) mmol/L Anion Gap (12-20) BUN (9-16) mg/dL Creatinine (0.5-1.4) mg/dL Estim Creat Clear Calc Estimated GFR Random Glucose (60-115) mg/dL Calcium (8.4-10.2) mg/dL Magnesium (1.6-2.6) mg/dL Total Bilirubin (0.0-1.0) mg/dL Direct Bilirubin (0.0-0.5) mg/dL AST (5-37) U/L ALT (0-40) U/L Alkaline Phosphatase (39-117) U/L Total Protein (6.5-8.0) g/dL Albumin (3.5-5.0) g/dL Lipase (8-78) U/L Urine Color Urine Appearance Urine pH (5.0-9.0) Ur Specific [place] (1.005-1.025) Urine Protein (Neg-Trace) mg/dL Urine Glucose (UA) (Negative) mg/dL Urine Ketones (Negative) mg/dL Urine Blood (Negative) Urine Nitrite (Negative) Ur Leukocyte Esterase (Negative) Urine RBC (0-2) /HPF Urine WBC (0-5) /HPF Ur Squamous Epith Cells (0-2) /HPF Urine Bacteria (None Seen) Hyaline Casts (0-2) /LPF Stool Occult Blood NEGATIVE (NEGATIVE) COVID-19 (HAL) (Negative) COVID-19 Clin Com Influenza Type A (SIRENA) (Negative) Influenza Type B (SIRENA) (Negative) Influenza A & B Note Radiology Impression Discussion of test interpretation with radiology: I have reviewed the radiologist's reading. External Record Review External record reviewed: Inpatient record, Office record, Outpatient record, Prior outpatient labs, Prior outpatient radiology, Primary care record and Outside ED record Tests considered The following testing was considered but not selected: As above Prescription Management I considered prescription management with: Pain Medication, Antiviral and Antibiotic Chronic Conditions Patient?s care impacted by: Diabetes and Hypertension Discharge Plan Discharge Clinical Impression: Gastroenteritis Patient Disposition: Home, Self-Care Instructions: Gastroenteritis (DC) Additional Instructions: Your blood work and urine were reassuring. your stool was negative for blood Zofran as antinausea medication please take as needed Drink plenty of fluids Practice a bland diet, avoid spicy foods, sweets, caffeine and chocolate if youre unable to eat or drink persistent worsening nausea/vomiting or diarrhea return to the ED Follow-up with your doctor Prescriptions: New ondansetron 4 mg tablet,disintegrating 4 mg PO Q8H PRN (Reason: nausea and vomiting) Qty: 10 0RF No Action trazodone 50 mg tablet 50 mg PO BEDTIME PRN (Reason: sleep) 90 Days Qty: 90 1RF (DME) pen needle, diabetic [BD Yi 2nd Gen Pen Needle] 32 gauge x 5/32 needle See Rx Instructions .MEDSUPPLY Qty: 150 5RF Rx Instructions: 5 times a day (DME) lancets [TRUEplus Lancets] 33 gauge misc See Rx Instructions .ROUTE .MEDSUPPLY Qty: 200 1RF Rx Instructions: 6 times a day insulin lispro [Humalog KwikPen Insulin] 100 unit/mL insulin pen See Rx Instructions subcut .5 times a day Qty: 30 5RF Rx Instructions: 2 to 12 units before meals and snacks subcut .5 times a day; (DME) FreeStyle Shelli 2 Sensor Kit See Rx Instructions .ROUTE .MEDSUPPLY Qty: 2 11RF Rx Instructions: Every 14 days (DME) lancets [FreeStyle Lancets] 28 gauge misc See Rx Instructions .ROUTE .MEDSUPPLY Qty: 300 11RF Rx Instructions: six times a day chlorthalidone 25 mg tablet 25 mg PO DAILY 90 Days Qty: 90 0RF omeprazole 20 mg capsule,delayed release(DR/EC) 20 mg PO DAILY PRN (Reason: heartburn) 90 Days Qty: 90 0RF ibuprofen 600 mg tablet 600 mg PO Q6H PRN (Reason: pain) Qty: 30 0RF metoprolol succinate 100 mg capsule,sprinkle,ER 24hr 100 mg PO DAILY Qty: 30 0RF hydrocortisone 2.5 % cream 1 appl topical TID PRN (Reason: itching) Qty: 30 0RF cyclobenzaprine 5 mg tablet 5 mg PO BEDTIME PRN (Reason: muscle spasm) 30 Days Qty: 14 0RF (DME) blood pressure test kit-medium Kit See Rx Instructions miscellaneous .MEDSUPPLY Qty: 1 0RF Rx Instructions: As directed albuterol sulfate [Ventolin HFA] 90 mcg/actuation HFA aerosol inhaler 1 inh inhalation QID PRN (Reason: shortness of breath or wheezing) Qty: 8.5 1RF metoprolol succinate 100 mg tablet extended release 24 hr 100 mg PO DAILY Lantus Solostar U-100 Insulin 100 unit/mL (3 mL) insulin pen 18 unit subcut QAM 30 Days Qty: 5.4 0RF (DME) FreeStyle Shelli 2 [employer] Misc See Rx Instructions .ROUTE .MEDSUPPLY Qty: 1 0RF Rx Instructions: As directed Referrals: Tiffani Carson MD [Primary Care Provider] - 3 days Stand Alone Forms: Work/School Release Interventions: ED Discharge Assessment Last Done: 06/24/23 10:38 Discharge Date/Time: 06/24/23 10:38
[2023-06-24 09:03] VITALS: BMI 31.7
[2023-06-24 09:08] LABS: MANUAL DIFF FLAG NO
[2023-06-24] MEDS: 0.9 % Sodium Chloride 1,000 ML 999 ML IV (09:08)
[2023-06-24] MEDS: Famotidine/PF 20 MG/2 ML VIAL IVPUSH (09:08)
[2023-06-24] MEDS: ondansetron HCL 4 MG/2 ML VIAL IVPUSH (09:08)
[2023-06-24] MEDS: Magnesium Hydrox/Alum Hydrox 30 ML ORAL.SUSP PO (09:08)
[2023-06-24 09:10] LABS: Basophils Percent Auto 0.3 % (0-2); Eosinophils Absolute Auto 0.3 X10*3/uL (0.0-0.4); Eosinophils Percent Auto 4.5 % (0-4); Hematocrit 36.1 % (42.0-52.0); Hemoglobin 12.3 g/dl (14.0-18.0); Imm Gran Abs Auto 0.02 X10*3/uL (0.00-0.03); Imm Gran Pct Auto 0.3 % (0.0-0.4); Lymphocytes Absolute Auto 1.9 X10*3/uL (1.2-4.9); Mean Corpuscular HGB Conc 34.1 g/dl (31.0-36.0); Mean Corpuscular Hemoglobin 28.9 pg (27.0-33.0); Mean Corpuscular Volume 84.7 fL (80.0-98.0); Mean Platelet Volume 11.5 fL (9.4-12.4); Monocytes Absolute Auto 0.8 X10*3/uL (0.1-1.2); Neutrophils Absolute Auto 3.8 x10*3/uL (2.0-8.3); Neutrophils Percent Auto 54.9 % (45-73); Platelet Count 217 X10*3/uL (160-400); Red Blood Count 4.26 X10*6/uL (4.60-5.80); Red Cell Distribution Width 12.6 % (11.0-16.0); White Blood Count 6.9 X10*3/uL (4.8-10.8)
--- NOTE | 2023-06-24 09:15 | PC.NURSE ---
20gIV placed in the right AC w/o complications. labs drawn and sent to lab. IV fluids and medications administered per provider order. pt resting comfortably w/ the lights dimmed in no apparent distress at this time. respirations even and unlabored. call vuong within reach.
[2023-06-24 09:16] LABS: COVID-19 Test Negative (Negative); IDNOW Serial# 08D9AD1C
[2023-06-24 09:20] LABS: IDNOW Serial# BCCEAD1C; Influenza A Negative (Negative); Influenza B2 Negative (Negative)
[2023-06-24 09:43] LABS: Alanine Aminotransferase 20 U/L (0-40); Alkaline Phosphatase 89 U/L (39-117); Anion Gap 12 (12-20); Aspartate Amino Transferase 27 U/L (5-37); Bilirubin Direct 0.1 mg/dL (0.0-0.5); Bilirubin Total 0.5 mg/dL (0.0-1.0); Blood Urea Nitrogen 18 mg/dL (9-16); Calcium 9.3 mg/dL (8.4-10.2); Carbon Dioxide 25 mmol/L (22-29); Chloride 106 mmol/L (96-108); Creatinine Clr Calc Pharmacy 103.9; Estimated Glomerular Filt Rate > 60; Glucose Random 125 mg/dL (60-115); Lipase 14 U/L (8-78); Magnesium 1.9 mg/dL (1.6-2.6); Potassium 4.9 mmol/L (3.3-5.1); Sodium 138 mmol/L (135-145); Total Protein 7.4 g/dL (6.5-8.0)
--- NOTE | 2023-06-24 09:59 | PC.NURSE ---
tech obtained/sent urine to lab. ED provider performing rectal exam at this time. still awaiting stool sample.
[2023-06-24 10:00] LABS: Appearance Urine Clear; Color Urine Yellow; Glucose Urine UA Negative (Negative); Leukocyte Esterase Urine Negative (Negative); Nitrite Urine Negative (Negative); PH 5.5 (5.0-9.0); UMIC TRIGGER UACC YES; Urine Blood Trace (Negative); Urine Ketones Negative (Negative); Urine Protein 100 (2+) mg/dL (Neg-Trace)
[2023-06-24 10:02] LABS: Bacteria Urine None Seen (None Seen); Hyaline Casts Urine 0-2 /LPF (0-2); RBC Urine 0-2 /HPF (0-2); Squamous Epithelial Cell Urine 0-2 /HPF (0-2); WBC Urine 0-5 /HPF (0-5)
[2023-06-24 10:07] LABS: OBS Int Ctl Valid YES; OBS1 NEGATIVE (NEGATIVE)
[2023-06-24 10:09] VITALS: BP 143/74; PULSE 66; RESP 16; TEMP 36.5; O2SAT 100
== END 2023-06-24 10:38 | disposition home or self-care (01) ==
PROVIDERS: Physician Assistant; Emergency Provider Student in an Organized Health Care Education/Training Program; PCP Internal Medicine
DX: K52.9 Noninfective gastroenteritis and colitis, unspecified (principal); R11.2 Nausea with vomiting, unspecified; Z11.52 Encounter for screening for COVID-19; Z20.822 Contact with and (suspected) exposure to COVID-19; Z79.899 Other long term (current) drug therapy
CPT/HCPCS: 80048; 80076; 81001; 81003; 82272; 83690; 83735; 85025; 87502; 87635; 96374; 96375; 99284; J2405

== ENCOUNTER 2023-06-27 12:16 | Outpatient (AMB) | payer OTHER, SELFPAY ==
--- NOTE | 2023-06-27 12:22 | A.OFFVIS_ITS ---
Intake Intake Visit Reasons: new Prob- Pain in right knee Intake Note: This is a 28 year old male who presents for right knee pain and giving way. Patient states that he injured his knee approximately 6 months ago while playing basketball. He twisted his knee and had acute onset of pain. He has done physical therapy for 12 weeks over the last 6 months which aggravated his pain. He has had injections in the past which gave him minimal relief. He has also tried Tylenol and anti-inflammatory medicines which gave him minimal relief. He states that his right knee will give out several times per day. He has not been able to jog or play basketball because of his pain. Allergies clonazepam Allergy (Intermediate, Verified 06/27/23 12:31) agitation shrimp [SHRIMP] Allergy (Intermediate, Verified 06/27/23 12:31) ANAPHYLAXIS lisinopril Allergy (Mild, Verified 06/27/23 12:31) Angioedema Medication List - Last Reconciled 06/27/23 by Mary Jarrett, RN albuterol sulfate 90 mcg/actuation (Ventolin HFA) 1 inh inhalation QID PRN blood pressure test kit-medium As directed chlorthalidone 25 mg PO DAILY 90 days cyclobenzaprine 5 mg PO BEDTIME PRN 30 days flash glucose scanning reader ([employer] Shelli 2 [employer]) As directed flash glucose sensor (FreeStyle Shelli 2 Sensor kit) Every 14 days hydrocortisone 2.5% 1 appl topical TID PRN ibuprofen 600 mg PO Q6H PRN insulin lispro (Humalog KwikPen (U-100) Insulin) 2 to 12 units before meals and snacks subcut .5 times a day; lancets (FreeStyle Lancets) six times a day lancets (TRUEplus Lancets) 6 times a day Lantus Solostar U-100 Insulin (insulin glargine) 18 units (0.18 mL) subcut QAM 30 days NS metoprolol succinate ER 100 mg PO DAILY metoprolol succinate ER 100 mg PO DAILY omeprazole 20 mg PO DAILY PRN 90 days ondansetron 4 mg PO Q8H PRN pen needle, diabetic (BD Yi 2nd Gen Pen Needle) 5 times a day trazodone 50 mg PO BEDTIME PRN 90 days COUNT INCLUDES THE [facility] Medical History Obesity (BMI 30-39.9) Diabetic retinopathy Essential hypertension Obesity due to excess calories Insomnia Obesity, Class I, BMI 30-34.9 Pre-op evaluation Non-proliferative diabetic retinopathy, mild, both eyes Anxiety Asthma Overweight (BMI 25.0-29.9) Diabetic polyneuropathy associated with type 1 diabetes mellitus Diabetic nephropathy associated with type 1 diabetes mellitus Vitamin D deficiency Diabetes type 1, uncontrolled Diabetes mellitus type 1 Surgical History Hx of appendectomy History of surgery Family History Father No problems noted. 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 Current occupational exposures/hazards: No Cognitive needs: No Hearing needs: No Vision needs: No Physical Exam Const Other: Well-nourished well-developed very friendly male awake alert and oriented x3 in no acute distress Extrem Other: Bilateral lower extremity examination shows good capillary refill, no skin lesions noted, normal sensation light touch Right knee examination shows a minimal effusion, minimal crepitus with range of motion, tenderness along his medial joint line, positive Jeannine's test, no instability Results Reviewed Results Reviewed: X-rays of the patient's right knee show minimal joint space narrowing, no acute bony abnormalities Assessment & Plan Assessment & Plan (1) Right knee pain: Code(s): M25.561 - Pain in right knee Plan Mr. Amarjit Rodriguez presents with progressively worsening right knee pain and mechanical symptoms most likely due to tearing of his medial meniscus. Thus, I will send the patient for an MRI of his right knee for further evaluation. I will see him back once the MRI is completed to discuss the findings and treatment options. Feel free to call me at any time should questions regarding his orthopedic management arise. Thank you very much for asking me to see this very friendly gentleman. I spent 22 minutes in reviewing the patient's records and imaging studies, seeing the patient and documenting in the medical record. Orders: Orders MR knee RT wo con Today M25.561 - Pain in right knee Coding Level of Care Code New Pt Level 2 (71890) Diagnoses Right knee pain M25.561
== END 2023-06-27 12:41 | disposition home or self-care (01) ==
PROVIDERS: PCP Internal Medicine; Visit Provider Orthopaedic Surgery
DX: M25.561 Pain in right knee (principal)
CPT/HCPCS: 99202

== ENCOUNTER → 2023-06-27 12:16 | Outpatient (BNVA) | payer OTHER, SELFPAY | PROVIDERS: PCP Internal Medicine; Visit Provider Orthopaedic Surgery | DX: M25.561 Pain in right knee (principal) | CPT/HCPCS: 99202 ==

== ENCOUNTER 2023-07-26 09:49 | Outpatient (RCR) | payer OTHER, SELFPAY ==
--- NOTE | 2023-07-26 13:36 | MHC.PT.EP ---
[facility] [place] Office [place] Office [place] Office [address] [phone] F: [phone] F: [phone] F: [phone] F: [phone] Physical Therapy Plan of Care Date of Evaluation: 07/26/23 Date of Surgery: Diagnosis: RIGHT KNEE PAIN Assessment: 28 YO MALE REF TO PT WITH H/O Rt MEDIAL KNEE AND Rt INFRAPATELLAR SXS - HE WORKS FULL-TIME A [employer]. HE HAS Rt KNEE EXTEN DEFICITS, DECR HIP FLEXIB, WEAK LUMBOPELVIC AND PROX LEs , AND (+) PATELLAR / LATERAL RETINACULAR SOFT TISSUE RESTRICTION. FUNCTIONALLY, THE Pt IS LIMITED WITH JOGGING, RUNNING, STAIR NAVIGATION, AND QUICK CHANGE DIRECTIONS-> HE NOTES SHARP PAIN IN HIS Rt MED KNEE Jt LINE/ PES ANSERINE AND LATERAL Rt PATELLAR DRIFT-> HE DENIES Rt KNEE INSTABILITY/ BUCKLING AT THE CURRENT TIME. HE IS MOTIVATED FOR PT, IS SCHED AN MRI TO R/O MENISCAL INVOLVEMENT. Frequency and Duration: The patient will be seen 2 x WK x 5 WKS Short Term Goals: *DECR Rt KNEE PAIN TO 2-3/10 *Pt DEMON Rt KNEE EXT -> 0* *IMPROVE HIP FLEXIBILITY *INITIATE HEP Group Home Goals: *Pt WILL IMPROVE LUMBOPELVIC/ PROXIMAL LE STRENGTH BY 1 GRADE *Pt RESUME AT PLOF (GYM WORKOUTS, PROGR RETURN TO JOGGING) EVIDENT W IMPROVED LEFI SCORE (AT EVAL 51/80 ) *Pt INDEP W PROGR HEP AND SELF-SX MGMT TECHN *Pt DEMON EFFICIENT GIT MECH ON LEVEL AND STAIRS , WFL FUNCT SQUAT Treatment Plan: Modalities to reduce pain, spasms and effusion. Manual therapy to restore motion and function. Therapeutic exercise to improve strength and flexibility. Neuromuscular re-education for posture and balance. Therapeutic activities to return to functional activities of daily living. Electronically signed by: EUGENIA MASTERSON,PT Please sign and return to therapist. Thank you for your referral.
--- NOTE | 2023-08-13 14:59 | MHC.PT.DC ---
[facility] [place] Office [place] Office [place] Office [address] Maria Teresa Rodriguez 140 [facility] [phone] F: [phone] F: [phone] F: [phone] F: [phone] Physical Therapy Discharge Report Diagnosis: RIGHT KNEE PAIN Date of Surgery: Date of Evaluation: 07/26/23 Date of Discharge: 08/13/23 Treatments to Date: 1 Cancellations to Date: 1 No Shows to Date: 3 Discharge Status: Patient Elected to Stop Visit Non-compliance Discharge Summary: THE Pt ATTENDED HIS PT EVAL,HOWEVER, HE DID NOT ATTEND ANY ADDITIONAL SCHEDULED PT APPTS, AND, THEREFORE , HE DID NOT BENEFIT FROM PT OR MEET HIS PT GOALS. Electronically signed by: EUGENIA MASTERSON, PT Please sign and return to therapist. Thank you for your referral.
== END 2023-08-13 15:00 | disposition home or self-care (01) ==
LOC: HO.PT 09:49
PROVIDERS: PCP Internal Medicine; Visit Provider Internal Medicine
DX: M25.561 Pain in right knee (principal)
CPT/HCPCS: 97110; 97162

== ENCOUNTER 2023-09-27 13:19 | Outpatient (AMB) | payer OTHER, SELFPAY ==
[2023-09-27 13:23] VITALS: BP 118/72; PULSE 79; TEMP 36.2; O2SAT 97; BMI 31.5
--- NOTE | 2023-09-27 13:23 | AM.OFFWIN_ITS ---
Intake Vital Signs 09/27/23 13:23 Height 5 ft 11 in Weight 226 lb BMI 31.5 BP 118/72 Blood Pressure Location Lt brachial Position Sitting Pulse 79 Pulse Source Pulse Oximeter Temp 97.2 F Temp Source Temporal Artery Scan Pulse Oximetry (%) 97 Oxygen Delivery Method Room Air Intake Visit Reasons: EST/leg redness (lobby) Intake Note: pt is here today for leg redness started 2 months Patient Tobacco Use Status: Never used Tobacco Allergies clonazepam Allergy (Intermediate, Verified 09/27/23 13:24) agitation shrimp [SHRIMP] Allergy (Intermediate, Verified 09/27/23 13:24) ANAPHYLAXIS lisinopril Allergy (Mild, Verified 09/27/23 13:24) Angioedema Do you need a note to return to daycare/school/sports/work: No HPI HPI Comments History of Present Illness Details 28 y/o male patient presents to walk in clinic with c/o recurrent skin redness on lower extremities. He has been seen few times and received Abx for Cellulitis. He is T1DM currently on Insulin. Reports Uncontrolled BG values. [facility] Medical History Obesity (BMI 30-39.9) Diabetic retinopathy Essential hypertension Obesity due to excess calories Insomnia Obesity, Class I, BMI 30-34.9 Pre-op evaluation Non-proliferative diabetic retinopathy, mild, both eyes Anxiety Asthma Overweight (BMI 25.0-29.9) Diabetic polyneuropathy associated with type 1 diabetes mellitus Diabetic nephropathy associated with type 1 diabetes mellitus Vitamin D deficiency Diabetes type 1, uncontrolled Diabetes mellitus type 1 Surgical History Hx of appendectomy History of surgery Family History Father No problems noted. 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 Current occupational exposures/hazards: No Cognitive needs: No Hearing needs: No Vision needs: No Review of Systems Const All systems reviewed & are unremarkable except as noted in HPI and below Physical Exam Vital Signs: Last Vital Signs Temp 97.2 F 09/27/23 13:23 Pulse 79 09/27/23 13:23 BP 118/72 09/27/23 13:23 Pulse Ox 97 09/27/23 13:23 Oxygen Delivery Method Room Air 09/27/23 13:23 BMI result Body Mass Index 31.5 Skin General skin exam: erythema (Bilateral lower extremities) Rashes: rashes noted (bilateral lower legs) Hair: general thinning Extrem Other: Bilateral lower legs with erythema, scaling, pruritus, and lichenification and crusting. Right lower extremity: lower leg Details: erythema Assessment & Plan Assessment & Plan (1) Venous stasis dermatitis: Code(s): I87.2 - Venous insufficiency (chronic) (peripheral) Plan: - Control DM - Would benefit seeing Derm - Rec referral to Endocrinology Coding Level of Care Code Est Pt Level 3 (75009) Diagnoses Venous stasis dermatitis I87.2 Time Spent (min) 15
== END 2023-09-27 16:09 | disposition home or self-care (01) ==
PROVIDERS: PCP Internal Medicine; Visit Provider Nurse Practitioner Family
DX: I87.2 Venous insufficiency (chronic) (peripheral) (principal)
CPT/HCPCS: 99213

== ENCOUNTER 2023-11-20 11:54 | Emergency (ER) | payer OTHER, SELFPAY ==
[2023-11-20 12:41] VITALS: BP 150/99; PULSE 69; RESP 18; TEMP 36.6; O2SAT 99; BMI 30.7
--- NOTE | 2023-11-20 12:41 | ED_ITS ---
HPI - Eye Problem General Chief complaint: Eye Problems Stated complaint: L Eye Facial Pain Time Seen by Provider: 11/20/23 12:49 Source: patient Mode of arrival: ambulatory Limitations: no limitations History of Present Illness HPI Narrative: 28-year-old male past medical history significant for asthma diabetes hypertension who presents emergency department complaining of left eye pain that started this morning when he woke up. He denies ever having this problem in the past has any falls or injuries denies chest pain cough fever patient has had some associated nausea was seen in triage and they measured his pressure in his left eye to be 76. Patient states he did have surgery to that left eye 1 year ago at [place] after trauma he states he noted he had blood in the either hand surgery he has not had any issues until today. 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 When he got home he went to his room and started having worsening pain. MD chief complaint: eye pain, eye redness and vision change Related Data Previous Rx's Medication Instructions Recorded flash glucose scanning reader #1 ea 07/08/20 (FreeStyle Shelli 2 [place]) ibuprofen 600 mg tablet 600 mg PO Q6H PRN pain #30 tabs 12/13/20 pen needle, diabetic 32 gauge x #150 ea 06/18/22 5/32 (BD Yi 2nd Gen Pen Needle) lancets 33 gauge (TRUEplus Lancets) #200 ea 06/21/22 blood pressure test kit-medium #1 ea 06/29/22 albuterol sulfate 90 mcg/actuation 1 inh inhalation QID PRN shortness 11/06/22 aerosol inhaler (Ventolin HFA) of breath or wheezing #8.5 grams flash glucose sensor (FreeStyle #2 ea 01/07/23 Shelli 2 Sensor kit) lancets 28 gauge (FreeStyle #300 ea 01/07/23 Lancets) Lantus Solostar U-100 Insulin 100 18 unit (0.18 mL) subcut QAM 30 06/11/23 unit/mL (3 mL) subcutaneous pen days #5.4 mL (insulin glargine) metoprolol succinate 100 mg 100 mg PO DAILY #90 tabs 07/04/23 tablet,extended release 24 hr chlorthalidone 25 mg tablet 25 mg PO DAILY 90 days #90 tabs 08/18/23 insulin lispro 100 unit/mL See Rx Instructions subcut .5 10/03/23 subcutaneous pen (Humalog KwikPen times a day #30 mL (U-100) Insulin) Allergies Allergy/AdvReac Type Severity Reaction Status Date / Time clonazepam Allergy Intermediate agitation Verified 09/27/23 13:24 shrimp [SHRIMP] Allergy Intermediate ANAPHYLAXIS Verified 09/27/23 13:24 lisinopril Allergy Mild Angioedema Verified 09/27/23 13:24 Review of Systems Review of Systems: Review of systems: General: Patient denies any fever chills recent illness or falls Musculoskeletal: Denies back pain or body aches or other injuries HEENT: Left eye pain headache decreased vision to left eye, runny nose, ear pain Respiratory: denies shortness of breath, cough Cardiovascular: no chest pain or palpitations : denies dysuria, frequency Abdomen: no nausea vomiting denies abdominal pain Extremities: no swelling, no pain Skin: no diaphoresis Yes all other systems are reviewed and are negative PMFSH Past Medical History Medical History Obesity (BMI 30-39.9) Diabetic retinopathy Essential hypertension Obesity due to excess calories Insomnia Obesity, Class I, BMI 30-34.9 Pre-op evaluation Non-proliferative diabetic retinopathy, mild, both eyes Anxiety Asthma Overweight (BMI 25.0-29.9) Diabetic polyneuropathy associated with type 1 diabetes mellitus Diabetic nephropathy associated with type 1 diabetes mellitus Vitamin D deficiency Diabetes type 1, uncontrolled Diabetes mellitus type 1 Surgical History Hx of appendectomy History of surgery Family History Family History Father No problems noted. 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 Patient is alert and oriented to person place and time. Patient has no dysphagia or dysarthia, denies good vision in all four vision montanez no nystagmus on exam, good strength to upper and lower extremities with normal reflexes to brachioradialis, wrist, patella and achilles. Negative romberg, good finger to nose and heel to newman. General: Well-appearing well-nourished in no signs of distress HEENT: Normocephalic atraumatic left eye is firm dilated Neck: No signs of JVD, no masses no tenderness or lymphadenopathy Cardiovascular: Regular rate and rhythm Respiratory: Clear to auscultation bilaterally Abdomen: Soft nontender no masses Extremities: Normal pedal pulses no signs of edema Skin: Dry warm no rashes Back: No tenderness full ROM Course Course Course Narrative: This is an RME: Additional HPI, ROS, PE not included below will be deferred to primary provider. This is a 62-[id number]-male, with a hx of diabtes, htn, depression, anxiety, asthma, presenting to the ER with complaints of left eye pain since 6:00AM. Patient states that he was working all night and suddenly developed eye pain in the left eye. He states that he had some blurred vision. States that his symptoms started to improve but then suddenly worsened. He states that he has decreased vision, reporting blurred vision left eye with eye pain. On examination he has very minimal pupillary reflex in the left, with conjunctiva injected, intra-ocular pressure was obtained, revealing pressure of 78 in the left eye, right eye pressure is 15. Patient immediately brought back to the emergency room for further evaluation. Discussed case with Dr. Guerrero. Medications Administered Discontinued Medications Generic Name Dose Route Start Last Admin Trade Name Freq PRN Reason Stop Dose Admin Morphine Sulfate 4 mg 11/20/23 13:14 11/20/23 13:24 Morphine Sulfate 4 Mg/Ml Cartridge IVPUSH 11/20/23 13:15 4 mg ONCE ONE Administration Protocol Medical Decision Making Medical Decision Making [facility] Narrative: I will check labs and due a alpha katey drop, beta katey drope acetazolamide, mannitol, Iv and prednisolone and pilocarpine drops I call Opthalmology immediately on arrival and spoke with pharmacy about correct medications Differential Diagnosis Differential Diagnoses: The differential diagnosis associated with the presentation includes Acute angle closure glaucoma migraine Admission/Observation Consideration of admission/observation: Escalation of care including admission/observation considered Consult Healthcare Provider Management of the patient was discussed with: Recycle Driver I paged the dispute resolution specialist immediate upon arrival I spoke with Dr. Youssef who stated to send over to the office no medications need to be given. Lab Data [facility] Lab Attestation statement: I reviewed the patient's lab results. Chronic Conditions Patient?s care impacted by: Diabetes and Hypertension Patient states that 1 year ago he had a procedure to the left eye he states he had blood in the eye he had a procedure done in [place] he does not know the name of the surgeon Social Determinants none Core Measures AMI core measures followed: Yes Critical Care Time Critical Care Time Critical Care Time: Yes Total Critical Care Time: 35 Attestation: Patient with concerns for acute angle closure glaucoma I did speak with pharmacy as well as Ophthalmology about medications arranged for transport for care of the patient I did give the patient some morphine I saw the patient immediately on arrival to the emergency department Discharge Plan Discharge Clinical Impression: Closed angle glaucoma, Glaucoma of left eye Patient Disposition: [facility] Instructions: Glaucoma (ED) Additional Instructions: Please drive directly to the office please do not stop please do not eat if you have any other concerns please return to the emergency department. Prescriptions: No Action (DME) pen needle, diabetic [BD Yi 2nd Gen Pen Needle] 32 gauge x 5/32 needle See Rx Instructions .MEDSUPPLY Qty: 150 5RF Rx Instructions: 5 times a day (DME) lancets [TRUEplus Lancets] 33 gauge misc See Rx Instructions .ROUTE .MEDSUPPLY Qty: 200 1RF Rx Instructions: 6 times a day (DME) FreeStyle Shelli 2 Sensor Kit See Rx Instructions .ROUTE .MEDSUPPLY Qty: 2 11RF Rx Instructions: Every 14 days (DME) lancets [FreeStyle Lancets] 28 gauge misc See Rx Instructions .ROUTE .MEDSUPPLY Qty: 300 11RF Rx Instructions: six times a day metoprolol succinate 100 mg tablet extended release 24 hr 100 mg PO DAILY Qty: 90 1RF chlorthalidone 25 mg tablet 25 mg PO DAILY 90 Days Qty: 90 0RF insulin lispro [Humalog KwikPen Insulin] 100 unit/mL insulin pen See Rx Instructions subcut .5 times a day Qty: 30 5RF Rx Instructions: 2 to 12 units before meals and snacks subcut .5 times a day; ibuprofen 600 mg tablet 600 mg PO Q6H PRN (Reason: pain) Qty: 30 0RF (DME) blood pressure test kit-medium Kit See Rx Instructions miscellaneous .MEDSUPPLY Qty: 1 0RF Rx Instructions: As directed albuterol sulfate [Ventolin HFA] 90 mcg/actuation HFA aerosol inhaler 1 inh inhalation QID PRN (Reason: shortness of breath or wheezing) Qty: 8.5 1RF Lantus Solostar U-100 Insulin 100 unit/mL (3 mL) insulin pen 18 unit subcut QAM 30 Days Qty: 5.4 0RF (DME) FreeStyle Shelli 2 [place] Misc See Rx Instructions .ROUTE .MEDSUPPLY Qty: 1 0RF Rx Instructions: As directed Referrals: Manas Youssef [Physician] - (Please drive directly to the office if you have any other concerns please return to emergency department)
[2023-11-20 13:24] VITALS: RESP 16
[2023-11-20] MEDS: Morphine Sulfate 4 MG/ML CARTRIDGE IVPUSH (13:24)
[2023-11-20 13:34] LABS: MANUAL DIFF FLAG NO
[2023-11-20 13:39] LABS: Basophils Percent Auto 0.2 % (0-2); Eosinophils Absolute Auto 0.1 X10*3/uL (0.0-0.4); Eosinophils Percent Auto 1.1 % (0-4); Hematocrit 38.5 % (42.0-52.0); Hemoglobin 13.5 g/dl (14.0-18.0); Imm Gran Abs Auto 0.02 X10*3/uL (0.00-0.03); Imm Gran Pct Auto 0.2 % (0.0-0.4); Lymphocytes Absolute Auto 1.7 X10*3/uL (1.2-4.9); Lymphocytes Percent Auto 18.4 % (20-40); Mean Corpuscular HGB Conc 35.1 g/dl (31.0-36.0); Mean Corpuscular Hemoglobin 29.1 pg (27.0-33.0); Mean Platelet Volume 11.3 fL (9.4-12.4); Monocytes Absolute Auto 0.8 X10*3/uL (0.1-1.2); Monocytes Percent Auto 8.5 % (2-11); Neutrophils Absolute Auto 6.7 x10*3/uL (2.0-8.3); Neutrophils Percent Auto 71.6 % (45-73); Platelet Count 253 X10*3/uL (160-400); Red Blood Count 4.64 X10*6/uL (4.60-5.80); Red Cell Distribution Width 12.2 % (11.0-16.0); White Blood Count 9.4 X10*3/uL (4.8-10.8)
--- NOTE | 2023-11-20 13:46 | PC.NURSE ---
Provider notified RN when placing IV that patient was to be brought over to Eye office right now.Pt given IV morphine, IV removed and pt brought over by nursing staff in w/c
[2023-11-20 13:47] LABS: INTERNATIONAL NORM RATIO 0.9 (0.9-1.1); Prothrombin Time 10.9 SEC (11.1-13.3)
[2023-11-20 13:49] VITALS: BP 150/99; PULSE 69; RESP 18; TEMP 36.6; O2SAT 99
[2023-11-20 13:59] LABS: Anion Gap 11 (12-20); Blood Urea Nitrogen 21 mg/dL (9-16); C Reactive Protein 0.25 mg/dL (< or = 0.50); Calcium 9.2 mg/dL (8.4-10.2); Carbon Dioxide 29 mmol/L (22-29); Chloride 101 mmol/L (96-108); Creatinine Clr Calc Pharmacy 94.2; Estimated Glomerular Filt Rate > 60; Glucose Random 101 mg/dL (60-115); Potassium 4.3 mmol/L (3.3-5.1); Sodium 137 mmol/L (135-145)
[2023-11-20 14:21] LABS: Erythrocyte Sedimentation Rate 21 MM/HR (0-15)
== END 2023-11-20 13:50 | disposition home or self-care (01) ==
PROVIDERS: Emergency Provider Student in an Organized Health Care Education/Training Program; PCP Internal Medicine
DX: H40.20X0 Unspecified primary angle-closure glaucoma, stage unspecified (principal); H57.12 Ocular pain, left eye; I10 Essential (primary) hypertension; E10.8 Type 1 diabetes mellitus with unspecified complications; Z79.4 Long term (current) use of insulin
CPT/HCPCS: 36415; 80048; 85025; 85610; 85652; 85730; 86140; 96374; 99284; J2270

== ENCOUNTER 2023-12-03 19:51 | Emergency (ER) | payer OTHER, SELFPAY ==
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
[2023-12-03 20:32] VITALS: BP 142/93; PULSE 76; RESP 20; TEMP 36.8; O2SAT 98; BMI 30.7
[2023-12-03] MEDS: Acetaminophen 325 MG TABLET 975 MG PO (20:39)
[2023-12-04 07:34] VITALS: BP 141/93; PULSE 66; RESP 16; TEMP 36.4; O2SAT 97
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
[2023-12-04 08:15] LABS: MANUAL DIFF FLAG NO
[2023-12-04 08:27] LABS: Basophils Percent Auto 0.2 % (0-2); Eosinophils Absolute Auto 0.2 X10*3/uL (0.0-0.4); Eosinophils Percent Auto 1.8 % (0-4); Hematocrit 40.5 % (42.0-52.0); Hemoglobin 13.7 g/dl (14.0-18.0); Imm Gran Abs Auto 0.02 X10*3/uL (0.00-0.03); Imm Gran Pct Auto 0.2 % (0.0-0.4); Lymphocytes Absolute Auto 2.3 X10*3/uL (1.2-4.9); Lymphocytes Percent Auto 27.2 % (20-40); Mean Corpuscular HGB Conc 33.8 g/dl (31.0-36.0); Mean Corpuscular Hemoglobin 28.8 pg (27.0-33.0); Mean Corpuscular Volume 85.1 fL (80.0-98.0); Mean Platelet Volume 11.4 fL (9.4-12.4); Monocytes Absolute Auto 0.8 X10*3/uL (0.1-1.2); Monocytes Percent Auto 9.4 % (2-11); Neutrophils Absolute Auto 5.1 x10*3/uL (2.0-8.3); Neutrophils Percent Auto 61.2 % (45-73); Platelet Count 244 X10*3/uL (160-400); Red Blood Count 4.76 X10*6/uL (4.60-5.80); Red Cell Distribution Width 12.9 % (11.0-16.0); White Blood Count 8.4 X10*3/uL (4.8-10.8)
[2023-12-04 08:28] LABS: INTERNATIONAL NORM RATIO 0.9 (0.9-1.1); Prothrombin Time 10.6 SEC (11.1-13.3)
[2023-12-04 08:31] LABS: Alanine Aminotransferase 26 U/L (0-40); Albumin Level 3.6 g/dL (3.5-5.0); Alkaline Phosphatase 150 U/L (39-117); Anion Gap 13 (12-20); Aspartate Amino Transferase 23 U/L (5-37); Bilirubin Total 0.5 mg/dL (0.0-1.0); Blood Urea Nitrogen 18 mg/dL (9-16); Calcium 9.2 mg/dL (8.4-10.2); Carbon Dioxide 28 mmol/L (22-29); Chloride 102 mmol/L (96-108); Creatinine Clr Calc Pharmacy 94.8; Estimated Glomerular Filt Rate > 60; Glucose Random 327 mg/dL (60-115); Partial Thromboplastin Time 28.4 SEC (26.0-36.8); Potassium 4.6 mmol/L (3.3-5.1); Sodium 138 mmol/L (135-145)
[2023-12-04] MEDS: fentaNYL citrate/PF 100 MCG/2 ML VIAL 50 MCG IVPUSH (09:14)
[2023-12-04 09:17] VITALS: BP 161/99; PULSE 74; RESP 18; O2SAT 98
--- NOTE | 2023-12-04 09:28 | PC.NURSE ---
medicated as ordered, skin wpd, alert, speech clear, aware of care plan and transfer to BS. called x 3 to [facility] at [phone] and spoke with someone that transferred me but nobody answered, also called [phone] and no answer, Ems report given and I informed ems that I was unable to give report and that [facility] can call at their convenience
[2023-12-04 11:50] VITALS: BP 161/99; PULSE 74; RESP 18; TEMP 36.6; O2SAT 98
--- NOTE | 2023-12-04 11:54 | PC.NURSE ---
call x 3 to bs, no answer, report not given, pt alert, speech clear, skin wpd, report to ems, left ed about 0930
== END 2023-12-04 09:30 | disposition short-term general hospital (02) ==
PROVIDERS: Physician Assistant Medical; Emergency Provider Student in an Organized Health Care Education/Training Program
DX: S02.612A Fracture of condylar process of left mandible, initial encounter for closed fracture (principal); Y04.0XXA Assault by unarmed brawl or fight, initial encounter; Y93.89 Activity, other specified; Y92.9 Unspecified place or not applicable; Y99.9 Unspecified external cause status; E10.9 Type 1 diabetes mellitus without complications; I10 Essential (primary) hypertension; R68.84 Jaw pain
CPT/HCPCS: 36415; 70450; 70486; 80053; 85025; 85610; 85730; 86850; 86900; 86901; 96374; 99285; J3010

== ENCOUNTER 2024-01-22 04:14 | Emergency (ER) | payer OTHER, SELFPAY ==
[2024-01-22 04:41] VITALS: BP 141/91; PULSE 74; RESP 18; TEMP 37.3; O2SAT 99; BMI 30.9
[2024-01-22 04:49] LABS: Appearance Urine Clear; Color Urine Yellow; Glucose Urine UA >=1000 mg/dL (Negative); Leukocyte Esterase Urine Negative (Negative); Nitrite Urine Negative (Negative); PH 5.5 (5.0-9.0); Specific Gravity - Urine 1.025 (1.005-1.025); UMIC TRIGGER UACC YES; Urine Blood Small (1+) (Negative); Urine Ketones Negative (Negative); Urine Protein 300 (3+) mg/dL (Neg-Trace)
[2024-01-22 04:56] LABS: Bacteria Urine None Seen (None Seen); RBC Urine 0-2 /HPF (0-2); Squamous Epithelial Cell Urine 0-2 /HPF (0-2); WBC Urine 0-5 /HPF (0-5)
[2024-01-22 06:17] LABS: CT PCR NOT DETECTED (Not Detect.); NG PCR NOT DETECTED (Not Detect.)
[2024-01-22 07:00] VITALS: BP 139/74; PULSE 82; RESP 16; TEMP 36.7; O2SAT 97
--- NOTE | 2024-01-22 07:01 | PC.NURSE ---
Pt awaiting ED provider assessment. Denies urinary sx states penile pressure without any urinary complaints. States pain is constant. NAD, speaking full sentences. VSS
--- NOTE | 2024-01-22 07:06 | ED.MALEGU ---
HPI - Male Genitourinary General Chief complaint: Urogenital-Male Stated complaint: Uro Gen Male Time Seen by Provider: 01/22/24 07:01 Source: patient Mode of arrival: ambulatory Limitations: no limitations History of Present Illness ED Provider: CHANI MUHAMMAD Narrative: 28 yo male with PMH Of HTN and DM has one stable sexual partner for several years here with c/o noting some discomfort when he pulls back foreskin but no drainage or urinary symptoms has irritated lesion under foreskin as well. Has never had this before MD Complaint: other (penile lesion) Onset (ago): week(s) (2) Duration: constant Radiation: penis Severity: mild Quality: other (irritating) Relieving factors: none Exacerbating factors: palpation Associated symptoms: Reports denies other symptoms Related Data Previous Rx's ?Medication ?Instructions ?Recorded flash glucose scanning reader #1 ea 07/08/20 (FreeStyle Shelli 2 [place]) ibuprofen 600 mg tablet 600 mg PO Q6H PRN pain #30 tabs 12/13/20 pen needle, diabetic 32 gauge x #150 ea 06/18/22 (BD Yi 2nd Gen Pen Needle) lancets 33 gauge (TRUEplus Lancets) #200 ea 06/21/22 blood pressure test kit-medium #1 ea 06/29/22 albuterol sulfate 90 mcg/actuation 1 inh inhalation QID PRN shortness 11/06/22 aerosol inhaler (Ventolin HFA) of breath or wheezing #8.5 grams flash glucose sensor (FreeStyle #2 ea 01/07/23 Shelli 2 Sensor kit) lancets 28 gauge (FreeStyle #300 ea 01/07/23 Lancets) Lantus Solostar U-100 Insulin 100 18 unit (0.18 mL) subcut QAM 30 06/11/23 unit/mL (3 mL) subcutaneous pen days #5.4 mL (insulin glargine) metoprolol succinate 100 mg 100 mg PO DAILY #90 tabs 07/04/23 tablet,extended release 24 hr insulin lispro 100 unit/mL See Rx Instructions subcut .5 10/03/23 subcutaneous pen (Humalog KwikPen times a day #30 mL (U-100) Insulin) chlorthalidone 25 mg tablet 25 mg PO DAILY 90 days #90 tabs 12/02/23 clotrimazole 1 % topical cream 1 appl topical BID 10 days #15 01/22/24 grams mupirocin 2 % topical ointment 1 appl topical BID 7 days #15 grams 01/22/24 Allergies Allergy/AdvReac Type Severity Reaction Status Date / Time clonazepam Allergy Intermediate agitation Verified 01/22/24 04:47 shrimp [SHRIMP] Allergy Intermediate ANAPHYLAXIS Verified 01/22/24 04:47 lisinopril Allergy Mild Angioedema Verified 12/03/23 20:36 Review of Systems Review of Systems: Constitutional : No Fever, No Chills, No Fatigue ENT/Mouth : No sore throat, No Rhinorrhea Eyes: No Eye Pain, No Swelling, No Redness Cardiovascular : No Chest Pain, No SOB, No Dyspnea on Exertion Respiratory : No Cough, No Sputum Gastrointestinal : No Nausea, No Vomiting, No Diarrhea, No abdominal Pain Genitourinary : No Dysuria, No Urinary Frequency, No Hematuria, Musculoskeletal : No joint pain, No Myalgias, No Joint Swelling Skin : pos Skin Lesions, No rash Neuro : No Weakness, No Numbness, No Dizziness, no Headache All other systems reviewed and are negative [facility] Past Medical History Attestation statement: The following information was validated with the patient. Source: old records reviewed Medical History Obesity (BMI 30-39.9) Diabetic retinopathy Essential hypertension Obesity due to excess calories Insomnia Obesity, Class I, BMI 30-34.9 Pre-op evaluation Non-proliferative diabetic retinopathy, mild, both eyes Anxiety Asthma Overweight (BMI 25.0-29.9) Diabetic polyneuropathy associated with type 1 diabetes mellitus Diabetic nephropathy associated with type 1 diabetes mellitus Vitamin D deficiency Diabetes type 1, uncontrolled Diabetes mellitus type 1 Surgical History Hx of appendectomy History of surgery Family History Family History Father No problems noted. 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 Oriented X3. No acute distress. Eyes: Pupils equal, round and reactive to light. ENT: Pharynx normal. Neck: Normal inspection. Neck supple. CVS: Normal heart rate and rhythm. Pulses normal. Respiratory: No respiratory distress. Breath sounds normal. Abdomen: Soft and nontender. : on edge of glans near shaft there is small reddened area no pustule no fluctuance - no ulcers noted not tender, area near glans slightly erythematous but no drainage noted Skin: Skin warm and dry. Normal skin color. Normal skin turgor. Extremities: No lower extremity edema. No calf ttp Neuro: Oriented X 3. No motor deficit. No sensory deficit. Medical Decision Making Medical Decision Making [facility] Narrative: 28 yo male with PMH of DM, HTN here with penile irritation but no new sexual partners there area is not tender and not consistent with herpes at this time looks more like balanitis but will test for NGCT and send off herpes culture britni start on balanitis topical treatment and give precautions to return Differential Diagnosis Differential Diagnoses: The differential diagnosis associated with the presentation includes STI, balanitis Lab Data [facility] Lab Attestation statement: I reviewed the patient's lab results. Labs: Lab Results 01/22/24 Range/Units 04:39 Urine Color Yellow Urine Appearance Clear Urine pH 5.5 (5.0-9.0) Ur Specific V[place] 1.025 (1.005-1.025) Urine Protein 300 (3+) H (Neg-Trace) mg/dL Urine Glucose (UA) >=1000 H (Negative) mg/dL Urine Ketones Negative (Negative) mg/dL Urine Blood Small (1+) H (Negative) Urine Nitrite Negative (Negative) Ur Leukocyte Esterase Negative (Negative) Urine RBC 0-2 (0-2) /HPF Urine WBC 0-5 (0-5) /HPF Ur Squamous Epith Cells 0-2 (0-2) /HPF Urine Bacteria None Seen (None Seen) Hyaline Casts 3-5 (0-2) /LPF Chlam trachomat DNA PCR NOT DETECTED (Not Detect.) N.gonorrhoeae DNA (PCR) NOT DETECTED (Not Detect.) External Record Review External record reviewed: Office record Prescription Management I considered prescription management with: Antibiotic and Other Chronic Conditions Patient?s care impacted by: Diabetes Discharge Plan Discharge Clinical Impression: Balanitis Patient Disposition: Home, Self-Care Instructions: Mo (ED) Additional Instructions: return for worsening symptoms or concerns negative for gonorrhea and chlamydia herpes test pending we will call you with results until results abstain from sex or practice safe sex Prescriptions: New clotrimazole 1 % cream 1 appl topical BID 10 Days Qty: 15 0RF mupirocin 2 % ointment 1 appl topical BID 7 Days Qty: 15 0RF No Action (DME) pen needle, diabetic [BD Yi 2nd Gen Pen Needle] 32 gauge x 5/32 needle See Rx Instructions .MEDSUPPLY Qty: 150 5RF Rx Instructions: 5 times a day (DME) lancets [TRUEplus Lancets] 33 gauge misc See Rx Instructions .ROUTE .MEDSUPPLY Qty: 200 1RF Rx Instructions: 6 times a day (DME) FreeStyle Shelli 2 Sensor Kit See Rx Instructions .ROUTE .MEDSUPPLY Qty: 2 11RF Rx Instructions: Every 14 days (DME) lancets [FreeStyle Lancets] 28 gauge misc See Rx Instructions .ROUTE .MEDSUPPLY Qty: 300 11RF Rx Instructions: six times a day metoprolol succinate 100 mg tablet extended release 24 hr 100 mg PO DAILY Qty: 90 1RF insulin lispro [Humalog KwikPen Insulin] 100 unit/mL insulin pen See Rx Instructions subcut .5 times a day Qty: 30 5RF Rx Instructions: 2 to 12 units before meals and snacks subcut .5 times a day; chlorthalidone 25 mg tablet 25 mg PO DAILY 90 Days Qty: 90 0RF ibuprofen 600 mg tablet 600 mg PO Q6H PRN (Reason: pain) Qty: 30 0RF (DME) blood pressure test kit-medium Kit See Rx Instructions miscellaneous .MEDSUPPLY Qty: 1 0RF Rx Instructions: As directed albuterol sulfate [Ventolin HFA] 90 mcg/actuation HFA aerosol inhaler 1 inh inhalation QID PRN (Reason: shortness of breath or wheezing) Qty: 8.5 1RF Lantus Solostar U-100 Insulin 100 unit/mL (3 mL) insulin pen 18 unit subcut QAM 30 Days Qty: 5.4 0RF (DME) FreeStyle Shelli 2 [place] Misc See Rx Instructions .ROUTE .MEDSUPPLY Qty: 1 0RF Rx Instructions: As directed Print Language: Ethiopian
[2024-01-22 08:08] VITALS: BP 117/77; PULSE 82; RESP 16; TEMP 36.7; O2SAT 98
== END 2024-01-22 08:09 | disposition home or self-care (01) ==
PROVIDERS: Emergency Provider Emergency Medicine; PCP Internal Medicine
DX: N48.1 Balanitis (principal); E11.9 Type 2 diabetes mellitus without complications; I10 Essential (primary) hypertension; Z79.4 Long term (current) use of insulin; Z79.899 Other long term (current) drug therapy
CPT/HCPCS: 0353U; 81001; 87255; 99283; 99284

== ENCOUNTER 2024-07-24 12:00 | Outpatient (AMB) | payer OTHER, SELFPAY ==
--- NOTE | 2024-07-24 12:07 | AM.OFFWIN_ITS ---
Intake Vital Signs 07/24/24 12:08 Height 5 ft 11 in Weight 220 lb BMI 30.7 BP 110/80 Blood Pressure Location Lt brachial Position Sitting Pulse 70 Pulse Source Pulse Oximeter Pulse Oximetry (%) 97 Oxygen Delivery Method Room Air Intake Visit Reasons: EP Rash on both feet Intake Note: Patient here for rash / liquid filled sacs that he noticed about a few months now. Patient Tobacco Use Status: Never used Tobacco Allergies clonazepam Allergy (Intermediate, Verified 07/24/24 12:17) agitation shrimp [SHRIMP] Allergy (Intermediate, Verified 07/24/24 12:17) ANAPHYLAXIS lisinopril Allergy (Mild, Verified 07/24/24 12:17) Angioedema Medication List - Last Reconciled 07/24/24 by Rubina Smith CNP albuterol sulfate 90 mcg/actuation (Ventolin HFA) 1 inh inhalation QID PRN blood pressure test kit-medium As directed clotrimazole 1% 1 appl topical BID 10 days flash glucose scanning reader ([employer] Shelli 2 [place]) As directed flash glucose sensor (FreeStyle Shelli 2 Sensor kit) Every 14 days ibuprofen 600 mg PO Q6H PRN insulin lispro (Humalog KwikPen (U-100) Insulin) 2 to 12 units before meals and snacks subcut .5 times a day; lancets (FreeStyle Lancets) six times a day lancets (TRUEplus Lancets) 6 times a day Lantus Solostar U-100 Insulin (insulin glargine) 18 units (0.18 mL) subcut QAM 30 days NS metoprolol succinate ER 100 mg PO DAILY mupirocin 2% 1 appl topical BID 7 days pen needle, diabetic (BD Yi 2nd Gen Pen Needle) 5 times a day Do you need a note to return to daycare/school/sports/work: No HPI HPI Comments History of Present Illness Details 29 YO male presents for c/o recurrent ra sh bilateral ankles x 2 months. Previously treated with Abx for Cellulitis. He has T1DM currently on Insulin. Reports Uncontrolled BG values. He denies CP, SOB, fever, chills, abdominal pain, changes in bowels or bladder. [facility] Medical History Obesity (BMI 30-39.9) Diabetic retinopathy Essential hypertension Obesity due to excess calories Insomnia Obesity, Class I, BMI 30-34.9 Pre-op evaluation Non-proliferative diabetic retinopathy, mild, both eyes Anxiety Asthma Overweight (BMI 25.0-29.9) Diabetic polyneuropathy associated with type 1 diabetes mellitus Diabetic nephropathy associated with type 1 diabetes mellitus Vitamin D deficiency Diabetes type 1, uncontrolled Diabetes mellitus type 1 Surgical History Hx of appendectomy History of surgery Family History Father No problems noted. 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 Current occupational exposures/hazards: No Cognitive needs: No Hearing needs: No Vision needs: No Review of Systems Const All systems reviewed & are unremarkable except as noted in HPI and below Physical Exam Vital Signs: Last Vital Signs Pulse 70 07/24/24 12:08 BP 110/80 07/24/24 12:08 Pulse Ox 97 07/24/24 12:08 Oxygen Delivery Method Room Air 07/24/24 12:08 BMI result Body Mass Index 30.7 Skin General skin exam: erythema (Bilateral lower extremities) Rashes: rashes noted (bilateral lower legs) Hair: general thinning Extrem Other: Bilateral lower legs with erythema, scaling, pruritus, and lichenification and crusting. Right lower extremity: lower leg Details: erythema Assessment & Plan Assessment & Plan (1) Bilateral cellulitis of lower leg: Code(s): L03.116 - Cellulitis of left lower limb; L03.115 - Cellulitis of right lower limb Plan: 29 yo male w/ type 1 DM, hypertension and recurrent venous stasis dermatitis w/ cellulitis bilateral lower extremities. -- Will treat with amoxicillin 500 mg po bid, encouraged to take w/ food to reduce GI upset -- Clotrimazole cream to affected rash bid prn -- Small dose of Lasix, 20 mg po every other day x 5 days, encouraged to take 1/2 tablet po, if he does not respond to that may take full 20 mg tab. -- Needs to f/u with PCP (2) Venous stasis dermatitis: Code(s): I87.2 - Venous insufficiency (chronic) (peripheral) Plan: -- Will treat with amoxicillin 500 mg po bid, encouraged to take w/ food to reduce GI upset -- Clotrimazole cream to affected rash bid prn -- Small dose of Lasix, 20 mg po every other day x 5 days, encouraged to take 1/2 tablet po, if he does not respond to that may take full 20 mg tab. -- Needs to f/u with PCP Encouraged to return to walk-in clinic with worsening or re-occurring symptoms Medications: New furosemide 20 mg PO Q OTHER DAY 5 tabs 0RF I87.2 - Venous insufficiency (chronic) (peripheral) amoxicillin 500 mg PO BID 14 caps 0RF 7 days L03.115 - Cellulitis of right lower limb, L03.116 - Cellulitis of left lower limb Refilled clotrimazole 1% 1 appl topical BID 15 grams 0RF 10 days I87.2 - Venous insufficiency (chronic) (peripheral) Coding Level of Care Code Est Pt Level 3 (41084) Diagnoses Bilateral cellulitis of lower leg L03.116; L03.115 Venous stasis dermatitis I87.2
[2024-07-24 12:08] VITALS: BP 110/80; PULSE 70; O2SAT 97; BMI 30.7
== END 2024-07-24 12:44 | disposition home or self-care (01) ==
PROVIDERS: PCP Internal Medicine; Visit Provider Nurse Practitioner Acute Care
DX: L03.116 Cellulitis of left lower limb (principal); L03.115 Cellulitis of right lower limb; I87.2 Venous insufficiency (chronic) (peripheral)

== ENCOUNTER → 2024-07-24 12:00 | Outpatient (BNVA) | payer OTHER, SELFPAY | PROVIDERS: PCP Internal Medicine; Visit Provider Nurse Practitioner Acute Care | DX: L03.116 Cellulitis of left lower limb (principal); L03.115 Cellulitis of right lower limb; I87.2 Venous insufficiency (chronic) (peripheral) | CPT/HCPCS: 99212 ==

== ENCOUNTER 2024-08-20 06:32 | Emergency (ER) | payer OTHER, SELFPAY ==
--- NOTE | ~2024-08-20 | XR_ITS ---
EXAMINATION: XR CHEST 2 VIEW CLINICAL INFORMATION: Chest pain COMPARISON: 03/23/2023 TECHNIQUE: PA and lateral views of the chest obtained. FINDINGS: The lungs are clear. There are no pleural effusions. The cardiomediastinal silhouette is normal. XR/XR chest 2V IMPRESSION: No acute cardiopulmonary disease. Electronically signed by: Shant Alegria MD 08/20/2024 08:05 AM [facility] [place]
--- NOTE | ~2024-08-20 | US_ITS ---
EXAMINATION: US TRIPLEX LOWER EXTREMITY, BILATERAL CLINICAL INFORMATION: Lower extremity redness, swelling, pain COMPARISON: None available. TECHNIQUE: Color-flow triplex imaging with spectral analysis and compression Doppler were performed on the bilateral lower extremities. FINDINGS: Respiratory variation, normal compression and augmented flow are noted throughout the bilateral lower extremities. The visualized common femoral vein, superficial femoral vein, profunda femoral vein, popliteal vein and midcalf peroneal and posterior tibial venous segments show no evidence of deep venous thrombosis bilaterally. There is no Díaz's cyst. US/US venous duplex LE BI IMPRESSION: No evidence of deep venous thrombosis involving the bilateral lower extremities. Electronically signed by: James Huggins DO 08/20/2024 08:57 AM [facility]
--- NOTE | 2024-08-20 06:35 | ECG_ITS ---
Test Reason : CHEST PAIN Blood Pressure : / mmHG Vent. Rate : 070 BPM Atrial Rate : 070 BPM P-R Int : 138 ms QRS Dur : 084 ms QT Int : 378 ms P-R-T Axes : 037 029 056 degrees QTc Int : 408 ms Normal sinus rhythm Minimal voltage criteria for LVH, may be normal variant ( R in aVL ) Nonspecific T wave abnormality Abnormal ECG When compared with ECG of 23-MAR-2023 16:20, No significant change was found Referred By: Generic ED Physician Electronically Signed By:Huey Ogden
[2024-08-20 06:46] VITALS: BP 135/92; PULSE 70; RESP 16; TEMP 37; O2SAT 97; BMI 31.4
[2024-08-20 07:46] LABS: MANUAL DIFF FLAG NO
[2024-08-20 07:57] LABS: Basophils Percent Auto 0.3 % (0-2); Eosinophils Absolute Auto 0.3 X10*3/uL (0.0-0.4); Eosinophils Percent Auto 3.7 % (0-4); Hemoglobin 14.2 g/dl (14.0-18.0); Imm Gran Abs Auto 0.02 X10*3/uL (0.00-0.03); Imm Gran Pct Auto 0.3 % (0.0-0.4); Lymphocytes Percent Auto 39.5 % (20-40); Mean Corpuscular HGB Conc 34.6 g/dl (31.0-36.0); Mean Corpuscular Hemoglobin 29.1 pg (27.0-33.0); Mean Platelet Volume 11.3 fL (9.4-12.4); Monocytes Absolute Auto 0.8 X10*3/uL (0.1-1.2); Neutrophils Absolute Auto 3.4 x10*3/uL (2.0-8.3); Neutrophils Percent Auto 45.2 % (45-73); Platelet Count 213 X10*3/uL (160-400); Red Blood Count 4.88 X10*6/uL (4.60-5.80); Red Cell Distribution Width 12.4 % (11.0-16.0); White Blood Count 7.5 X10*3/uL (4.8-10.8)
[2024-08-20 08:00] LABS: INTERNATIONAL NORM RATIO 0.9 (0.9-1.1); Prothrombin Time 10.5 SEC (10.9-12.4)
[2024-08-20 08:04] LABS: Anion Gap 12 (12-20)
[2024-08-20 08:07] LABS: Alanine Aminotransferase 22 U/L (0-40); Albumin Level 3.7 g/dL (3.5-5.0); Aspartate Amino Transferase 25 U/L (5-37); Bilirubin Direct 0.1 mg/dL (0.0-0.5); Bilirubin Total 0.4 mg/dL (0.0-1.0); Blood Urea Nitrogen 22 mg/dL (9-16); Calcium 9.3 mg/dL (8.4-10.2); Carbon Dioxide 31 mmol/L (22-29); Chloride 100 mmol/L (96-108); Creatinine Clr Calc Pharmacy 108.4; Estimated Glomerular Filt Rate > 60; Glucose Random 166 mg/dL (60-115); Potassium 3.7 mmol/L (3.3-5.1); Sodium 139 mmol/L (135-145)
[2024-08-20 08:11] LABS: Troponin-I High Sensitivity < 2.7 ng/L (<3.5-35.0)
[2024-08-20 08:25] LABS: Influenza A PCR NEGATIVE (Negative); Influenza B PCR NEGATIVE (Negative); Resp Syncy Virus RNA Qual PCR NEGATIVE (Negative); SARS COV2 PCR INHOUSE NEGATIVE (Negative)
--- NOTE | 2024-08-20 08:38 | ED.SKABFB ---
HPI - Skin/Abscess/Foreign Bdy General Chief complaint: Skin/Abscess/Foreign Body Stated complaint: diabetic swollen foot & chest pain Time Seen by Provider: 08/20/24 07:20 Source: patient, RN notes reviewed and old records reviewed Mode of arrival: ambulatory History of Present Illness ED Provider: Isabelle Bassett PA-C HPI narrative: 29-year-old male with a past medical history of HTN, insomnia, anxiety, asthma, diabetes, presenting to the ED complaining of bilateral leg swelling, erythema, and pain x 3 weeks. Admits to similar symptoms in the past in which resolved with antibiotics. Reports his sugar has been elevated at home, reports compliance with insulin, however states was 170 this morning. Admits to long car rides. Denies history of clots, anticoagulation use, CP/SOB, abdominal pain, nausea/vomiting. Related Data Previous Rx's ?Medication ?Instructions ?Recorded flash glucose scanning reader #1 ea 07/08/20 (FreeStyle Shelli 2 [place]) ibuprofen 600 mg tablet 600 mg PO Q6H PRN pain #30 tabs 12/13/20 blood pressure test kit-medium #1 ea 06/29/22 albuterol sulfate 90 mcg/actuation 1 inh inhalation QID PRN shortness 11/06/22 aerosol inhaler (Ventolin HFA) of breath or wheezing #8.5 grams lancets 28 gauge (FreeStyle #300 ea 01/07/23 Lancets) mupirocin 2 % topical ointment 1 appl topical BID 7 days #15 grams 01/22/24 flash glucose sensor (FreeStyle #2 ea 01/28/24 Shelli 2 Sensor kit) pen needle, diabetic 32 gauge x #150 ea 03/18/24 (BD Yi 2nd Gen Pen Needle) metoprolol succinate 100 mg 100 mg PO DAILY #90 tabs 03/30/24 tablet,extended release 24 hr Lantus Solostar U-100 Insulin 100 18 unit (0.18 mL) subcut QAM 30 04/04/24 unit/mL (3 mL) subcutaneous pen days #5.4 mL (insulin glargine) lancets 33 gauge (TRUEplus Lancets) #200 ea 04/04/24 amoxicillin 500 mg capsule 500 mg PO BID 7 days #14 caps 07/24/24 clotrimazole 1 % topical cream 1 appl topical BID 10 days #15 11/29/24 grams furosemide 20 mg tablet 20 mg PO Q OTHER DAY #5 tabs 07/24/24 insulin lispro 100 unit/mL See Rx Instructions subcut .5 08/14/24 subcutaneous pen (Humalog KwikPen times a day #30 mL (U-100) Insulin) cephalexin 500 mg capsule 500 mg PO QID 7 days #28 caps 08/20/24 Allergies Allergy/AdvReac Type Severity Reaction Status Date / Time clonazepam Allergy Intermediate agitation Verified 08/20/24 06:48 shrimp [SHRIMP] Allergy Intermediate ANAPHYLAXIS Verified 08/20/24 06:48 lisinopril Allergy Mild Angioedema Verified 08/20/24 06:48 Review of Systems Review of Systems: Yes all other systems are reviewed and are negative Constitutional: Constitutional: Reports as per [facility] Past Medical History Attestation statement: The following information was validated with the patient. Source: old records reviewed Medical History Obesity (BMI 30-39.9) Diabetic retinopathy Essential hypertension Obesity due to excess calories Insomnia Obesity, Class I, BMI 30-34.9 Pre-op evaluation Non-proliferative diabetic retinopathy, mild, both eyes Anxiety Asthma Overweight (BMI 25.0-29.9) Diabetic polyneuropathy associated with type 1 diabetes mellitus Diabetic nephropathy associated with type 1 diabetes mellitus Vitamin D deficiency Diabetes type 1, uncontrolled Diabetes mellitus type 1 Surgical History Hx of appendectomy History of surgery Family History Family History Father No problems noted. Mother Hypertension Maternal Grandmother Hypertension Diabetes Maternal Uncle Chronic mental illness Family/Other Substance use disorder Social History Social History Household Members: Significant Other Housing: Apartment Alcohol intake: never Patient Tobacco Use Status: Never used Tobacco Smoked in Last 30 Days: No e-Cigarette/Vaping Use: Never Used Second Hand Smoke Exposure: No Use of substances other than those prescribed or required for medical reasons: No Substance Use Type: Former Substance User and Marijuana Advance Directives: No Advance Directives Information Provided: Yes service: No Current occupational status: employed 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 Current occupational exposures/hazards: No Cognitive needs: No Hearing needs: No Vision needs: No Physical Exam Vital Signs: Vital Signs: Last Vital Signs Temp 97.7 F 08/20/24 10:37 Pulse 75 08/20/24 10:37 Resp 18 08/20/24 10:37 BP 115/70 08/20/24 10:37 Pulse Ox 96 08/20/24 10:37 O2 Del Method Room Air 08/20/24 10:37 BMI result Body Mass Index 31.4 Const: General: cooperative, healthy appearing and no acute distress Orientation/consciousness: patient oriented x3 Limitations: no limitations HEENT: Head: Yes normal to inspection and Yes atraumatic Ears: hearing grossly normal bilaterally General nose exam: Normal external nose present Face and sinus: Yes normal facial exam Eyes: General: appearance normal, both eyes and all related structures EOM: EOMs intact bilaterally Neck: Neck: Yes normal visual inspection and Yes no meningeal signs Resp: Effort & Inspection: normal respiratory effort and no respiratory distress Auscultation: clear to auscultation bilaterally Cardio: Rate: regular rate Heart sounds: S1 normal heart sound present and S2 normal heart sound present Skin: Rashes: no rashes Wounds: no wounds Neuro: General: patient oriented x3, tone normal and no meningeal signs Cranial nerves: Yes CN's II-XII intact bilaterally Gait exam (Neuro): Normal gait present Extrem: Other: Please refer to image above. Bilateral LE swelling appreciated with erythema. Neurovascularly intact distally. No crepitus. No warmth. No open wounds. Course Course Course Narrative: -0846--no leukocytosis. BUN chronically elevated. Troponin negative. Labs otherwise reassuring -COVID/flu/RSV negative XR chest 2V IMPRESSION: No acute cardiopulmonary disease. US venous duplex LE BI IMPRESSION: No evidence of deep venous thrombosis involving the bilateral lower extremities. -0946--BNP is a send out and will not come back today per the lab. Pending discharge patient home with p.o. antibiotics and close PCP follow-up Results discussed with patient including worrisome signs and symptoms and strict return precautions, and when to return to the emergency department. They verbalized understanding and feel safe for discharge at this time. Medical Decision Making Medical Decision Making MDM Narrative: 29-year-old male with a past medical history of HTN, insomnia, anxiety, asthma, diabetes, presenting to the ED complaining of bilateral leg swelling, erythema, and pain x 3 weeks. On exam vital signs stable, NAD, nontoxic appearing, physical exam as noted above. Please refer to images. Concern for early cellulitis vs DVT vs venous stasis changes vs hyperglycemia. Low suspicion for septic joint, ACS, pulmonary embolism Plan: Labs, ultrasound, re-evaluate Please refer to course for remaining clinical decision making, interpretation of labs/imaging results, and discussions with consultants and/or family members. Differential Diagnosis Differential Diagnoses: The differential diagnosis associated with the presentation includes As above Admission/Observation Consideration of admission/observation: Escalation of care including admission/observation considered Lab Data MDM Lab Attestation statement: I reviewed the patient's lab results. 08/20/24 07:41 08/20/24 07:41 Labs: Lab Results 08/20/24 08/20/24 Range/Units 07:41 07:50 WBC 7.5 (4.8-10.8) X10*3/uL RBC 4.88 (4.60-5.80) X10*6/uL Hgb 14.2 (14.0-18.0) g/dl Hct 41.0 L (42.0-52.0) % MCV 84.0 (80.0-98.0) fL MCH 29.1 (27.0-33.0) pg MCHC 34.6 (31.0-36.0) g/dl RDW 12.4 (11.0-16.0) % Plt Count 213 (160-400) X10*3/uL MPV 11.3 (9.4-12.4) fL Immature Gran % (Auto) 0.3 (0.0-0.4) % Neut % (Auto) 45.2 (45-73) % Lymph % (Auto) 39.5 (20-40) % [place] % (Auto) 11.0 (2-11) % Eos % (Auto) 3.7 (0-4) % Baso % (Auto) 0.3 (0-2) % Lymph # (Auto) 3.0 (1.2-4.9) X10*3/uL [place] # (Auto) 0.8 (0.1-1.2) X10*3/uL Eos # (Auto) 0.3 (0.0-0.4) X10*3/uL Baso # (Auto) 0.0 (0.0-0.2) X10*3/uL Abs Immat Gran (auto) 0.02 (0.00-0.03) X10*3/uL Absolute Neuts (auto) 3.4 (2.0-8.3) x10*3/uL Absolute Nucleated RBC 0.000 (0.0-0.012) X10*3/uL Nucleated RBC % (auto) 0.0 (0.0-0.2) /100WBC PT 10.5 L (10.9-12.4) SEC INR 0.9 (0.9-1.1) Sodium 139 (135-145) mmol/L Potassium 3.7 (3.3-5.1) mmol/L Chloride 100 (96-108) mmol/L Carbon Dioxide 31 H (22-29) mmol/L Anion Gap 12 (12-20) BUN 22 H (9-16) mg/dL Creatinine 1.20 (0.5-1.4) mg/dL Estim Creat Clear Calc 108.4 Estimated GFR > 60 Random Glucose 166 H (60-115) mg/dL Calcium 9.3 (8.4-10.2) mg/dL Total Bilirubin 0.4 (0.0-1.0) mg/dL Direct Bilirubin 0.1 (0.0-0.5) mg/dL AST 25 (5-37) U/L ALT 22 (0-40) U/L Alkaline Phosphatase 107 (39-117) U/L Troponin I High Sens < 2.7 (<3.5-35.0) ng/L Total Protein 7.0 (6.5-8.0) g/dL Albumin 3.7 (3.5-5.0) g/dL Influenza Type A (PCR) NEGATIVE (Negative) Influenza Type B (PCR) NEGATIVE (Negative) RSV RNA Qual (PCR) NEGATIVE (Negative) SARS-CoV-2 RNA (RT-PCR) NEGATIVE (Negative) Radiology Impression Discussion of test interpretation with radiology: I have reviewed the radiologist's reading. External Record Review External record reviewed: Inpatient record, Office record, Outpatient record, Prior outpatient labs, Prior outpatient radiology, Primary care record and Outside ED record Tests considered The following testing was considered but not selected: As above Discharge Plan Discharge Clinical Impression: Cellulitis, Leg swelling Patient Disposition: Home, Self-Care Instructions: Cellulitis (DC) Additional Instructions: Your blood work, x-ray, and ultrasound are reassuring Keflex as an antibiotic please take as prescribed until completion You should be wearing compression stockings. Elevate your legs Follow-up with her doctor Monitor your sugar closely If your symptoms persist or worsen, legs become increasingly swollen, red, you have fever, shortness of breath return to the ED Prescriptions: New cephalexin 500 mg capsule 500 mg PO QID 7 Days Qty: 28 0RF No Action (DME) lancets [FreeStyle Lancets] 28 gauge misc See Rx Instructions .ROUTE .MEDSUPPLY Qty: 300 11RF Rx Instructions: six times a day (DME) FreeStyle Shelli 2 Sensor Kit See Rx Instructions .ROUTE .MEDSUPPLY Qty: 2 11RF Rx Instructions: Every 14 days (DME) pen needle, diabetic [BD Yi 2nd Gen Pen Needle] 32 gauge x 5/32 needle See Rx Instructions .MEDSUPPLY Qty: 150 5RF Rx Instructions: 5 times a day metoprolol succinate 100 mg tablet extended release 24 hr 100 mg PO DAILY Qty: 90 1RF Lantus Solostar U-100 Insulin 100 unit/mL (3 mL) insulin pen 18 unit subcut QAM 30 Days Qty: 5.4 11RF (DME) lancets [TRUEplus Lancets] 33 gauge misc See Rx Instructions .ROUTE .MEDSUPPLY Qty: 200 11RF Rx Instructions: 6 times a day insulin lispro [Humalog KwikPen Insulin] 100 unit/mL insulin pen See Rx Instructions subcut .5 times a day Qty: 30 5RF Rx Instructions: 2 to 12 units before meals and snacks subcut .5 times a day; ibuprofen 600 mg tablet 600 mg PO Q6H PRN (Reason: pain) Qty: 30 0RF mupirocin 2 % ointment 1 appl topical BID 7 Days Qty: 15 0RF (DME) blood pressure test kit-medium Kit See Rx Instructions miscellaneous .MEDSUPPLY Qty: 1 0RF Rx Instructions: As directed albuterol sulfate [Ventolin HFA] 90 mcg/actuation HFA aerosol inhaler 1 inh inhalation QID PRN (Reason: shortness of breath or wheezing) Qty: 8.5 1RF (DME) FreeStyle Shelli 2 [place] Misc See Rx Instructions .ROUTE .MEDSUPPLY Qty: 1 0RF Rx Instructions: As directed clotrimazole 1 % cream 1 appl topical BID 10 Days Qty: 15 0RF furosemide 20 mg tablet 20 mg PO Q OTHER DAY Qty: 5 0RF amoxicillin 500 mg capsule 500 mg PO BID 7 Days Qty: 14 0RF Referrals: Tiffani Carson MD [Primary Care Provider] - 5 days Interventions: ED Discharge Assessment Last Done: 08/20/24 10:37 Discharge Date/Time: 08/20/24 10:38 Print Language: Mexican
--- NOTE | 2024-08-20 08:43 | PC.NURSE ---
BLE shins are red, shinny, warm to touch. open are on left. no drainagae. Pedal pulses palpable.
[2024-08-20 08:46] LABS: Alkaline Phosphatase 107 U/L (39-117)
[2024-08-20 10:37] VITALS: BP 115/70; PULSE 75; RESP 18; TEMP 36.5; O2SAT 96
[2024-08-20 20:47] LABS: B Type Natriuretic Peptide 13 pg/mL (<100)
[2024-08-24 16:23] LABS: Glucose, Whole Blood 145 mg/dL (60-115)
== END 2024-08-20 10:38 | disposition home or self-care (01) ==
PROVIDERS: Physician Assistant; Emergency Provider Emergency Medicine; PCP Internal Medicine
DX: L03.116 Cellulitis of left lower limb (principal); L03.115 Cellulitis of right lower limb; M79.89 Other specified soft tissue disorders; M79.605 Pain in left leg; M79.604 Pain in right leg; R07.9 Chest pain, unspecified; Z03.818 Encounter for observation for suspected exposure to other biological agents ruled out; E10.9 Type 1 diabetes mellitus without complications; I10 Essential (primary) hypertension; J45.909 Unspecified asthma, uncomplicated; Z79.4 Long term (current) use of insulin
CPT/HCPCS: 0241U; 36415; 71046; 80048; 80076; 82947; 83880; 84484; 85025; 85610; 93005; 93970; 99284

== ENCOUNTER → 2024-08-20 06:35 | Outpatient (BNV) | payer OTHER, SELFPAY | PROVIDERS: Emergency Provider Emergency Medicine; PCP Internal Medicine; Visit Provider Internal Medicine Cardiovascular Disease | DX: R94.31 Abnormal electrocardiogram [ECG] [EKG] (principal) | CPT/HCPCS: 93010 ==

== ENCOUNTER 2024-10-04 01:11 | Emergency (ER) | payer OTHER, SELFPAY ==
[2024-10-04 01:55] VITALS: BP 127/80; PULSE 68; RESP 16; TEMP 36.7; O2SAT 98; BMI 31.5
--- NOTE | 2024-10-04 02:17 | ED_ITS ---
HPI - General Adult General Chief complaint: General Medical Stated complaint: diabetic, cellulitis, rash Time Seen by Provider: 10/04/24 02:17 Source: patient Mode of arrival: ambulatory Limitations: no limitations History of Present Illness ED Provider: HPI narrative: Patient is diabetic with chronic rash on the [place] area for than 2 months was seen here last week and started on cephalexin-did not get better no fever no chills Related Data Previous Rx's ?Medication ?Instructions ?Recorded flash glucose scanning reader #1 ea 07/08/20 (FreeStyle Shelli 2 [place]) ibuprofen 600 mg tablet 600 mg PO Q6H PRN pain #30 tabs 12/13/20 blood pressure test kit-medium #1 ea 06/29/22 albuterol sulfate 90 mcg/actuation 1 inh inhalation QID PRN shortness 11/06/22 aerosol inhaler (Ventolin HFA) of breath or wheezing #8.5 grams lancets 28 gauge (FreeStyle #300 ea 01/07/23 Lancets) mupirocin 2 % topical ointment 1 appl topical BID 7 days #15 grams 01/22/24 flash glucose sensor (FreeStyle #2 ea 01/28/24 Shelli 2 Sensor kit) pen needle, diabetic 32 gauge x #150 ea 03/18/24 (BD Yi 2nd Gen Pen Needle) Lantus Solostar U-100 Insulin 100 18 unit (0.18 mL) subcut QAM 30 04/04/24 unit/mL (3 mL) subcutaneous pen days #5.4 mL (insulin glargine) lancets 33 gauge (TRUEplus Lancets) #200 ea 04/04/24 amoxicillin 500 mg capsule 500 mg PO BID 7 days #14 caps 07/24/24 clotrimazole 1 % topical cream 1 appl topical BID 10 days #15 07/24/24 grams furosemide 20 mg tablet 20 mg PO Q OTHER DAY #5 tabs 07/24/24 cephalexin 500 mg capsule 500 mg PO QID 7 days #28 caps 08/20/24 insulin lispro 100 unit/mL 20 unit (0.2 mL) subcut .5 times a 09/04/24 subcutaneous pen (Humalog KwikPen day 30 days #60 mL (U-100) Insulin) metoprolol succinate 100 mg 100 mg PO DAILY #90 tabs 10/01/24 tablet,extended release 24 hr clobetasol 0.05 % topical cream 1 appl topical BID #30 grams 10/04/24 doxycycline hyclate 100 mg capsule 100 mg PO BID #20 caps 10/04/24 Allergies Allergy/AdvReac Type Severity Reaction Status Date / Time clonazepam Allergy Intermediate agitation Verified 10/04/24 01:55 shrimp [SHRIMP] Allergy Intermediate ANAPHYLAXIS Verified 10/04/24 01:55 lisinopril Allergy Mild Angioedema Verified 10/04/24 01:55 Review of Systems Review of Systems: Yes all other systems are reviewed and are negative [facility] Past Medical History Medical History Obesity (BMI 30-39.9) Diabetic retinopathy Essential hypertension Obesity due to excess calories Insomnia Obesity, Class I, BMI 30-34.9 Pre-op evaluation Non-proliferative diabetic retinopathy, mild, both eyes Anxiety Asthma Overweight (BMI 25.0-29.9) Diabetic polyneuropathy associated with type 1 diabetes mellitus Diabetic nephropathy associated with type 1 diabetes mellitus Vitamin D deficiency Diabetes type 1, uncontrolled Diabetes mellitus type 1 Surgical History Hx of appendectomy History of surgery Family History Family History Father No problems noted. 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 Oriented X3. No acute distress. Eyes: No pallor or icterus ENT: Pharynx normal. Oral Mucosa moist Neck: Normal inspection. Neck supple. CVS: Normal heart rate and rhythm. Pulses normal. Respiratory: No respiratory distress. Equal air entry bilateral, no wheezing/rales/rhonchi Abdomen: Soft and nontender. Bowel sounds are present, no mass palpable, no CVA tenderness Skin: Skin warm and dry. Normal skin color. Normal skin turgor. Extremities: No lower extremity edema. No calf tenderness changes of chronic stasis dermatitis been both lower extremity with slight warmth Neuro: Oriented X 3. No motor deficit. Medications Administered Discontinued Medications Generic Name Dose Route Start Last Admin Trade Name Freq PRN Reason Stop Dose Admin Doxycycline Monohydrate 100 mg 10/04/24 02:42 10/04/24 02:56 Doxycycline Monohydrate 100 Mg Capsule PO 10/04/24 02:43 100 mg ONCE ONE Administration Medical Decision Making Medical Decision Making MDM Narrative: Patient with chronic stasis dermatitis likely the reason for the rash no signs of significant infection noticed will prescribe doxycycline and apply cortisone cream Lab Data Labs: Lab Results 10/04/24 Range/Units 02:20 Lactic Acid 1.1 (0.5-2.0) mmol/L Discharge Plan Discharge Clinical Impression: Venous stasis dermatitis, Cellulitis Patient Disposition: Home, Self-Care Instructions: Cellulitis (ED), Stasis Dermatitis (ED) Additional Instructions: Apply cortisone cream twice daily as advised Take antibiotics as prescribed Follow with your PCP Prescriptions: New clobetasol 0.05 % cream 1 appl topical BID Qty: 30 0RF doxycycline hyclate 100 mg capsule 100 mg PO BID Qty: 20 0RF No Action (DME) lancets [FreeStyle Lancets] 28 gauge misc See Rx Instructions .ROUTE .MEDSUPPLY Qty: 300 11RF Rx Instructions: six times a day (DME) FreeStyle Shelli 2 Sensor Kit See Rx Instructions .ROUTE .MEDSUPPLY Qty: 2 11RF Rx Instructions: Every 14 days (DME) pen needle, diabetic [BD Yi 2nd Gen Pen Needle] 32 gauge x 5/32 needle See Rx Instructions .MEDSUPPLY Qty: 150 5RF Rx Instructions: 5 times a day Lantus Solostar U-100 Insulin 100 unit/mL (3 mL) insulin pen 18 unit subcut QAM 30 Days Qty: 5.4 11RF (DME) lancets [TRUEplus Lancets] 33 gauge misc See Rx Instructions .ROUTE .MEDSUPPLY Qty: 200 11RF Rx Instructions: 6 times a day insulin lispro [Humalog KwikPen Insulin] 100 unit/mL insulin pen 20 unit subcut .5 times a day 30 Days Qty: 60 11RF metoprolol succinate 100 mg tablet extended release 24 hr 100 mg PO DAILY Qty: 90 1RF ibuprofen 600 mg tablet 600 mg PO Q6H PRN (Reason: pain) Qty: 30 0RF mupirocin 2 % ointment 1 appl topical BID 7 Days Qty: 15 0RF cephalexin 500 mg capsule 500 mg PO QID 7 Days Qty: 28 0RF (DME) blood pressure test kit-medium Kit See Rx Instructions miscellaneous .MEDSUPPLY Qty: 1 0RF Rx Instructions: As directed albuterol sulfate [Ventolin HFA] 90 mcg/actuation HFA aerosol inhaler 1 inh inhalation QID PRN (Reason: shortness of breath or wheezing) Qty: 8.5 1RF (DME) FreeStyle Shelli 2 [place] Misc See Rx Instructions .ROUTE .MEDSUPPLY Qty: 1 0RF Rx Instructions: As directed clotrimazole 1 % cream 1 appl topical BID 10 Days Qty: 15 0RF furosemide 20 mg tablet 20 mg PO Q OTHER DAY Qty: 5 0RF amoxicillin 500 mg capsule 500 mg PO BID 7 Days Qty: 14 0RF Print Language: [place] Islander
--- OUTSIDE RECORDS SUMMARY | 2024-10-04 02:29 | XMS_ITS | Encounter Summary ---
Author Organization [facility] Address [address] [place] [address] Care Team Providers Care Hospice Nurse Practitioner Name Role Phone Unavailable Primary Care Provider Unavailabl e Encounter Details Date Type Department Care Team (Latest Contact Info) Description 03/26/2019 Abstract [facility] CONVERSIONS Dental, Provider, DDS Social History Tobacco Use Types Packs/Day Years Used Date Smoking Tobacco: Never Assessed Sex and Gender Information Value Date Recorded Sex Assigned at Male 06/25/2022 10:29 AM EDT Legal Sex Male 10:29 AM EDT Gender Identity Male 06/25/2022 10:29 AM EDT Sexual Orientation Straight 06/25/2022 10 :29 AM EDT documented as of this encounter Plan of Treatment Not on file documented as of this encounter Visit Diagnoses Not on filedocumented in this encounter
[2024-10-04 02:39] LABS: Lactic Acid 1.1 mmol/L (0.5-2.0)
[2024-10-04] MEDS: Doxycycline Monohydrate 100 MG CAPSULE PO (02:56)
[2024-10-04 03:31] VITALS: BP 127/80; PULSE 68; RESP 16; TEMP 36.7; O2SAT 98
[2024-10-04 04:21] LABS: Basophils Percent Auto 0.3 % (0-2); Eosinophils Absolute Auto 0.2 X10*3/uL (0.0-0.4); Eosinophils Percent Auto 3.6 % (0-4); Hematocrit 40.9 % (42.0-52.0); Hemoglobin 14.2 g/dl (14.0-18.0); Imm Gran Abs Auto 0.01 X10*3/uL (0.00-0.03); Imm Gran Pct Auto 0.2 % (0.0-0.4); Lymphocytes Absolute Auto 2.8 X10*3/uL (1.2-4.9); Lymphocytes Percent Auto 43.6 % (20-40); MANUAL DIFF FLAG NO; Mean Corpuscular HGB Conc 34.7 g/dl (31.0-36.0); Mean Corpuscular Hemoglobin 29.1 pg (27.0-33.0); Mean Corpuscular Volume 83.8 fL (80.0-98.0); Mean Platelet Volume 11.4 fL (9.4-12.4); Monocytes Absolute Auto 0.7 X10*3/uL (0.1-1.2); Monocytes Percent Auto 11.5 % (2-11); Neutrophils Absolute Auto 2.6 x10*3/uL (2.0-8.3); Neutrophils Percent Auto 40.8 % (45-73); Platelet Count 224 X10*3/uL (160-400); Red Blood Count 4.88 X10*6/uL (4.60-5.80); Red Cell Distribution Width 12.5 % (11.0-16.0); White Blood Count 6.3 X10*3/uL (4.8-10.8)
[2024-10-04 04:39] LABS: Alanine Aminotransferase 19 U/L (0-40); Albumin Level 3.7 g/dL (3.5-5.0); Alkaline Phosphatase 124 U/L (39-117); Anion Gap 13 (12-20); Aspartate Amino Transferase 24 U/L (5-37); Bilirubin Total 0.4 mg/dL (0.0-1.0); Blood Urea Nitrogen 26 mg/dL (9-16); Calcium 9.4 mg/dL (8.4-10.2); Carbon Dioxide 28 mmol/L (22-29); Chloride 103 mmol/L (96-108); Creatinine Clr Calc Pharmacy 110.5; Estimated Glomerular Filt Rate > 60; Glucose Random 71 mg/dL (60-115); Potassium 3.7 mmol/L (3.3-5.1); Sodium 140 mmol/L (135-145); Total Protein 7.6 g/dL (6.5-8.0)
== END 2024-10-04 03:40 | disposition home or self-care (01) ==
PROVIDERS: Emergency Provider Internal Medicine; PCP Internal Medicine
DX: I87.8 Other specified disorders of veins (principal); L03.116 Cellulitis of left lower limb; L03.115 Cellulitis of right lower limb; E11.9 Type 2 diabetes mellitus without complications; Z79.4 Long term (current) use of insulin; Z79.899 Other long term (current) drug therapy
CPT/HCPCS: 36415; 80053; 83605; 85025; 87040; 99283; 99284

== ENCOUNTER 2024-10-15 13:35 | Emergency (ER) | payer OTHER, SELFPAY ==
[2024-10-15 13:54] VITALS: BP 141/101; PULSE 76; RESP 18; TEMP 36.3; O2SAT 97; BMI 30.2
--- NOTE | 2024-10-15 13:56 | ED.EYEPROB ---
HPI - Eye Problem General Chief complaint: Eye Problems Stated complaint: l eye pressure pain Time Seen by Provider: 10/15/24 16:00 Source: patient, RN notes reviewed and old records reviewed Mode of arrival: ambulatory Limitations: no limitations History of Present Illness ED Provider: Simone HPI Narrative: 29-year-old male past medical history significant for diabetes, asthma, obesity, diabetic retinopathy presents for evaluation of left eye pain. Patient reports pressure behind his left eye that started about an hour prior to arrival He does have a history intra-ocular pressure and has previously been seen by Dr. Youssef The patient denies any blurry vision currently. He states that when he was outside and the lights are bright he does have some blurry vision Denies any headache, trauma to the eye Related Data Previous Rx's ?Medication ?Instructions ?Recorded flash glucose scanning reader #1 ea 07/08/20 (FreeStyle Shelli 2 [place]) ibuprofen 600 mg tablet 600 mg PO Q6H PRN pain #30 tabs 12/13/20 blood pressure test kit-medium #1 ea 06/29/22 albuterol sulfate 90 mcg/actuation 1 inh inhalation QID PRN shortness 11/06/22 aerosol inhaler (Ventolin HFA) of breath or wheezing #8.5 grams lancets 28 gauge (FreeStyle #300 ea 01/07/23 Lancets) mupirocin 2 % topical ointment 1 appl topical BID 7 days #15 grams 01/22/24 flash glucose sensor (FreeStyle #2 ea 01/28/24 Shelli 2 Sensor kit) pen needle, diabetic 32 gauge x #150 ea 03/18/24 5/32 (BD Yi 2nd Gen Pen Needle) Lantus Solostar U-100 Insulin 100 18 unit (0.18 mL) subcut QAM 30 04/04/24 unit/mL (3 mL) subcutaneous pen days #5.4 mL (insulin glargine) lancets 33 gauge (TRUEplus Lancets) #200 ea 04/04/24 amoxicillin 500 mg capsule 500 mg PO BID 7 days #14 caps 07/24/24 clotrimazole 1 % topical cream 1 appl topical BID 10 days #15 07/24/24 grams furosemide 20 mg tablet 20 mg PO Q OTHER DAY #5 tabs 07/24/24 cephalexin 500 mg capsule 500 mg PO QID 7 days #28 caps 12/26/24 insulin lispro 100 unit/mL 20 unit (0.2 mL) subcut .5 times a 09/04/24 subcutaneous pen (Humalog KwikPen day 30 days #60 mL (U-100) Insulin) metoprolol succinate 100 mg 100 mg PO DAILY #90 tabs 10/01/24 tablet,extended release 24 hr clobetasol 0.05 % topical cream 1 appl topical BID #30 grams 10/04/24 doxycycline hyclate 100 mg capsule 100 mg PO BID #20 caps 10/04/24 Allergies Allergy/AdvReac Type Severity Reaction Status Date / Time clonazepam Allergy Intermediate agitation Verified 10/15/24 13:56 shrimp [SHRIMP] Allergy Intermediate ANAPHYLAXIS Verified 10/15/24 13:56 lisinopril Allergy Mild Angioedema Verified 10/15/24 13:56 Review of Systems Constitutional: Constitutional: Denies chills, Denies fever(s) and Denies headache(s) Eyes: Eyes: Reports blurry vision, Denies decreased night vision, Denies diplopia, Denies irritation, Denies loss of vision, Reports eye pain, Reports photophobia, Denies spots in vision and Denies tunnel vision ENT: Denies headache(s) Cardiovascular: Cardiovascular: Denies chest pain and Denies dyspnea Respiratory: Respiratory: Denies cough and Denies dyspnea Musculoskeletal: Musculoskeletal: Denies back pain Neurologic: Denies headache(s) and Denies loss of vision PMFSH Past Medical History Medical History Obesity (BMI 30-39.9) Diabetic retinopathy Essential hypertension Obesity due to excess calories Insomnia Obesity, Class I, BMI 30-34.9 Pre-op evaluation Non-proliferative diabetic retinopathy, mild, both eyes Anxiety Asthma Overweight (BMI 25.0-29.9) Diabetic polyneuropathy associated with type 1 diabetes mellitus Diabetic nephropathy associated with type 1 diabetes mellitus Vitamin D deficiency Diabetes type 1, uncontrolled Diabetes mellitus type 1 Surgical History Hx of appendectomy History of surgery Family History Family History Father No problems noted. 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 Current occupational exposures/hazards: No Cognitive needs: No Hearing needs: No Vision needs: No Physical Exam Vital Signs: Vital Signs: Last Vital Signs Temp 97.8 F 10/15/24 16:32 Pulse 66 10/15/24 16:32 Resp 16 10/15/24 16:32 BP 132/92 H 10/15/24 16:32 Pulse Ox 98 10/15/24 16:32 O2 Del Method Room Air 10/15/24 16:32 BMI result Body Mass Index 30.2 Const: General: healthy appearing, comfortable, no acute distress, alert and awake Nutritional Appearance: well nourished Orientation/consciousness: patient oriented x3 HEENT: Head: Yes normocephalic and Yes atraumatic Eyes: Eyelids: Yes eyelids normal Conjunctivae: conjunctivae normal Sclerae: sclerae normal Corneas: corneas normal Pupils: Equal, round and reactive pupils present EOM: EOMs intact bilaterally Direct Ophthalmoscopy: photophobia Neck: Neck: Yes full ROM Resp: Effort & Inspection: normal respiratory effort, able to speak in complete sentences and not labored Skin: General skin exam: elasticity normal Neuro: General: patient oriented x3 Cranial nerves: Yes Equal, round and reactive pupils present and Yes Bilaterally intact EOM present Cognition (Neuro): normal cognition Course Course Course Narrative: This is a rapid medical exam performed by Rene Rendon NP: Additional HPI, ROS, PE not included below will be deferred to primary provider. Patient is a 29-year-old male with history of T1DM, HTN, retinal hemorrhage, diabetic retinopathy presenting with complaint of left eye pain and pressure for the past hour. REports history of similar symptoms in the past. Does not wear contacts. Reports nausea since eye pressure started. IOP left eye 71, right eye 21. Plan: visual acuity, fire extinguisher charger aware [phone] Dr. Youssef's office to see if patient can be seen there, per executive secretary social welfare, Dr. Youssef refusing to see patient Reevaluation(s) Reevaluation #1: Discussed with [facility], Dr Caroline Dong who will accept transfer of care to the emergency room. The patient did receive his drops to the left eye. The patient does not have an IV, he will be transferred by private car as I feel this will be the fast route for him to get to [facility] for an eye exam. His girlfriend is bedside who will be able to drive him. The patient understands that he is to go directly to [facility] Emergency Department. Time: 16:42 Medications Administered Discontinued Medications Generic Name Dose Route Start Last Admin Trade Name Freq PRN Reason Stop Dose Admin Apraclonidine HCl 1 drop 10/15/24 16:16 10/15/24 16:43 Apraclonidine Hcl 1 % Oph Beatriz 1 Each Droperette EYE-LEFT 10/15/24 16:17 1 drop ONCE ONE Administration Pilocarpine HCl 1 drop 10/15/24 16:16 10/15/24 16:43 Pilocarpine Hcl 1 % Oph Beatriz 15 Ml Drpbtl EYE-LEFT 10/15/24 16:17 1 drop ONCE ONE Administration Timolol Maleate 1 drop 10/15/24 16:15 10/15/24 16:43 Timolol Maleate 0.5 % Oph Beatriz 5 Ml Drbtl EYE-LEFT 10/15/24 16:16 1 drop ONCE ONE Administration Medical Decision Making Medical Decision Making MDM Narrative: 29-year-old male with past medical history as documented above presents for evaluation of left eye pain. He was evaluated by triage provider who found his intra-ocular pressure on the left eye to be 71 mmHg. The intra-ocular pressure on the right eye was 21 mmHg. When I examined the patient, I repeated these and found the results to be identical. I ordered timolol, pilocarpine, and apralonidine. His visual acuity is 20/25 OD as well as OS. Apparntly, the patient has been discharged from the practice of our ophthalmology office, Dr Youssef due to missed appointments and the office is refusing to see this patient. I will call [facility] Differential Diagnosis Differential Diagnoses: The differential diagnosis associated with the presentation includes Acute angle closure glaucoma Diabetic retinopathy Elevated intra-ocular pressure Vitreous hemorrhage Discharge Plan Discharge Clinical Impression: Elevated IOP Patient Disposition: [facility] Transfer Details: [facility] emergency department Instructions: Glaucoma (ED) Additional Instructions: The intra-ocular pressure in your left eye is 71 mmHg The right eye is 20 mmHg You received 3 different drops, timolol, apraclonidine, pilocarpine Your visual acuity was 20/25 in each eye You were accepted in transfer to [facility] Emergency Department The accepting physician is Dr. Vika Dong You can not drive until cleared by Ophthalmology Go directly to [facility] Emergency Department and tell them that you were accepted in transfer by private car Prescriptions: No Action (DME) lancets [FreeStyle Lancets] 28 gauge misc See Rx Instructions .ROUTE .MEDSUPPLY Qty: 300 11RF Rx Instructions: six times a day (DME) FreeStyle Shelli 2 Sensor Kit See Rx Instructions .ROUTE .MEDSUPPLY Qty: 2 11RF Rx Instructions: Every 14 days (DME) pen needle, diabetic [BD Yi 2nd Gen Pen Needle] 32 gauge x 5/32 needle See Rx Instructions .MEDSUPPLY Qty: 150 5RF Rx Instructions: 5 times a day Lantus Solostar U-100 Insulin 100 unit/mL (3 mL) insulin pen 18 unit subcut QAM 30 Days Qty: 5.4 11RF (DME) lancets [TRUEplus Lancets] 33 gauge misc See Rx Instructions .ROUTE .MEDSUPPLY Qty: 200 11RF Rx Instructions: 6 times a day insulin lispro [Humalog KwikPen Insulin] 100 unit/mL insulin pen 20 unit subcut .5 times a day 30 Days Qty: 60 11RF metoprolol succinate 100 mg tablet extended release 24 hr 100 mg PO DAILY Qty: 90 1RF ibuprofen 600 mg tablet 600 mg PO Q6H PRN (Reason: pain) Qty: 30 0RF mupirocin 2 % ointment 1 appl topical BID 7 Days Qty: 15 0RF cephalexin 500 mg capsule 500 mg PO QID 7 Days Qty: 28 0RF clobetasol 0.05 % cream 1 appl topical BID Qty: 30 0RF doxycycline hyclate 100 mg capsule 100 mg PO BID Qty: 20 0RF (DME) blood pressure test kit-medium Kit See Rx Instructions miscellaneous .MEDSUPPLY Qty: 1 0RF Rx Instructions: As directed albuterol sulfate [Ventolin HFA] 90 mcg/actuation HFA aerosol inhaler 1 inh inhalation QID PRN (Reason: shortness of breath or wheezing) Qty: 8.5 1RF (DME) FreeStyle Shelli 2 [place] Misc See Rx Instructions .ROUTE .MEDSUPPLY Qty: 1 0RF Rx Instructions: As directed clotrimazole 1 % cream 1 appl topical BID 10 Days Qty: 15 0RF furosemide 20 mg tablet 20 mg PO Q OTHER DAY Qty: 5 0RF amoxicillin 500 mg capsule 500 mg PO BID 7 Days Qty: 14 0RF Print Language: [place]ar[place]uan
[2024-10-15 16:32] VITALS: BP 132/92; PULSE 66; RESP 16; TEMP 36.6; O2SAT 98
[2024-10-15] MEDS: timoloL maleate 0.5 % Oph Sol 5 ML DRBTL 1 DROP EYE-LEFT (16:43)
[2024-10-15] MEDS: Apraclonidine HCl 1 % Oph Sol 1 EACH DROPERETTE 1 DROP EYE-LEFT (16:43)
[2024-10-15] MEDS: PILOCARPINE HCL 1% 1 DROP EYE-LEFT (16:43)
--- OUTSIDE RECORDS SUMMARY | 2024-10-15 16:46 | XMS_ITS | Clinical Summary ---
Author Organization [employer] Address [address] [place] [address] [address] [place] [address] Care Team Providers Care Developer Programmer Analyst Name Role Phone Unavailable Primary Care Provider Unavailabl e Social History Tobacco Use Types Packs/Day Years Used Date Smoking Tobacco: Never Assessed Sex and Gender Information Value Date Recorded Sex Assigned at Male 06/25/2022 10:29 AM EDT Legal Sex Male 10:29 AM EDT Gender Identity Male 06/25/2022 10:29 AM EDT Sexual Orientation Straight 06/25/2022 10 :29 AM EDT Plan of Treatment Health Maintenance Due Date Last Done Comments Depression Screening 1993 Alcohol/Substance Use Screening 2005 Tobacco Screening 2005 Family Planning (PISQ) 2008 DTaP/Tdap/Td Vaccines (1 - Tdap) 2012 Hepatitis B Vaccines (1 of 3 - 19+ 3-dose series) 2012 COVID-19 Vaccine ( - 2023-2 5 season) 2024 Influenza Vaccine (#1) 2024 Zoster Vaccines (1 of 2) 2043 RSV Patients and Pa tients Aged 60 years or older (1 - 1-dose 75+ series) 2068 HIB Vaccines Aged Out No longer eligi ble based on patient's age to complete this topic HPV Vaccines Aged Out No longer eligi ble based on patient's age to complete this topic Hepatitis A Vaccines Aged Out No long er eligible based on patient's age to complete this topic IPV Vaccines Aged Out No longer eligi ble based on patient's age to complete this topic Meningococcal Vaccine Aged Out No larry adrián eligible based on patient's age to complete this topic Pneumococcal Vaccine: Pediat rics (0 to 5 Years) and At-Risk Patients (6 to 49) Years) Aged Out No longer eligible b ased on patient's age to complete this topic RSV under 20 months Aged Out No longe r eligible based on patient's age to complete this topic Rotavirus Vaccines Aged Out No longer eligible based on patient's age to complete this topic
--- OUTSIDE RECORDS SUMMARY | 2024-10-15 16:46 | XMS_ITS | Encounter Summary ---
Author Organization [facility] Address [address] [place] [address] Care Team Providers Care Credit Review Manager Name Role Phone Unavailable Primary Care Provider Unavailabl e Encounter Details Date Type Department Care Team (Latest Contact Info) Description 03/26/2019 Abstract [facility] CONVERSIONS Dental, Provider, DDS Social History Tobacco [...]
[2024-10-15 17:07] VITALS: BP 146/97; PULSE 75; RESP 18; TEMP 36.5; O2SAT 97
--- NOTE | 2024-10-15 17:11 | PC.NURSE ---
attempted to call report to [facility], no answer after 5 minute of ringing
== END 2024-10-15 17:26 | disposition short-term general hospital (02) ==
PROVIDERS: Emergency Provider Internal Medicine; PCP Internal Medicine
DX: H40.052 Ocular hypertension, left eye (principal); H57.12 Ocular pain, left eye; E10.9 Type 1 diabetes mellitus without complications; H53.8 Other visual disturbances; Z79.4 Long term (current) use of insulin; Z79.899 Other long term (current) drug therapy
CPT/HCPCS: 99285

== ENCOUNTER 2024-11-10 07:30 | Outpatient (AMB) | payer OTHER, SELFPAY ==
--- NOTE | 2024-11-10 07:41 | A.OFFPC_ITS ---
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 Rotary Lithographic Press Operator Language: Clerical Transcriber Name: Tiffani Arzate MD Information Interpreted: non-clinical & clinical Accompanied by: Self / Same As Patient Allergies clonazepam Allergy (Intermediate, Verified 11/10/24 07:52) agitation shrimp [SHRIMP] Allergy (Intermediate, Verified 11/10/24 07:52) ANAPHYLAXIS lisinopril Allergy (Mild, Verified 11/10/24 07:52) Angioedema Medication List - Last Reconciled 11/10/24 by Tiffani Arzate MD albuterol sulfate 90 mcg/actuation (Ventolin HFA) 1 inh inhalation QID PRN blood pressure test kit-medium As directed clobetasol 0.05% 1 appl topical BID flash glucose scanning reader (FreeStyle Shelli 2 [place]) As directed flash glucose sensor (FreeStyle Shelli 2 Sensor kit) Every 14 days insulin lispro (Humalog KwikPen (U-100) Insulin) 20 units (0.2 mL) subcut .5 times a day 30 days lancets (FreeStyle Lancets) six times a day lancets (TRUEplus Lancets) 6 times a day Lantus Solostar U-100 Insulin (insulin glargine) 18 units (0.18 mL) subcut QAM 30 days NS metoprolol succinate ER 100 mg PO DAILY pen needle, diabetic (BD Yi 2nd Gen Pen Needle) 5 times a day Tobacco use date assessed: 11/10/24 Dental Screening Dental Screen Date: 11/10/24 Did you have a dental visit in the last 12 months?: No Did you have a dental problem in the last 6 months where you did not have access to dental care?: No Was dental information given to patient?: Patient has dentist HPI HPI Comments History of Present Illness Details The patient is a 29-year-old male presenting for an annual physical examination. He has Type 1 Diabetes Mellitus, hypertension, and eczema. His diabetes management includes Humalog multiple injections and Lantus, yet his A1c remains elevated at 8.7, prompting consideration of endocrinology follow-up. He uses Freestyle Shelli 2 for glucose monitoring but is interested in upgrading to Freestyle Shelli 3. His hypertensive episode was characterized by severe headaches, leading to an emergency department visit. Metoprolol is part of his current antihypertensive regimen. Eczema affects various areas, treated intermittently with Clovetasol and raising considerations for psoriasis. He has a documented reaction to Lisinopril, causing angioedema, and he reacts to shrimp as well. Past surgical history includes appendectomy in 2020 and a clavicle fracture at age 13. Proteinuria and hyperlipidemia require further assessment. Tetanus immunization is overdue, and he consented to receive it today. His mother has hypertension and arthritis. Depression was screened at minimal levels using the PHQ-9 score of 3. - Tetanus vaccination to be administered today. - Monitoring of A1c levels for diabetes management. - Cholesterol screening revealed hyperli pidemia. - Proteinuria requires nephrology referr al. - Dermatology referral for persistent ec zema and possible psoriasis. - Depression screening resulted in a PHQ -9 score of 3, indicating minimal depression. [facility] Medical History (Updated 11/10/24 @ 08:09 by Tiffani Arzate MD) Type 1 diabetes MDD (major depressive disorder), recurrent episode, moderate Obesity (BMI 30-39.9) Diabetic retinopathy Essential hypertension Obesity due to excess calories Insomnia Obesity, Class I, BMI 30-34.9 Pre-op evaluation Non-proliferative diabetic retinopathy, mild, both eyes Anxiety Asthma Overweight (BMI 25.0-29.9) Diabetic polyneuropathy associated with type 1 diabetes mellitus Diabetic nephropathy associated with type 1 diabetes mellitus Vitamin D deficiency Diabetes type 1, uncontrolled Diabetes mellitus type 1 Surgical History Hx of appendectomy History of surgery Family History Father No problems noted. 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 1. Little interest or pleasure in doing things: several days 2. Feeling down, depressed, or hopeless: not at all 3. Trouble falling or staying asleep, or sleeping too much: not at all 4. Feeling tired or having little energy: several days 5. Poor appetite or overeating: several days 6. Feeling bad about yourself - or that you are a failure or have let yourself or your family down: not at all 7. Trouble concentrating on things, such as reading the newspaper or watching television: not at all 8. Moving or speaking so slowly that other people could have noticed. Or the opposite - being so fidgety or restless that you have been moving around a lot more than usual: not at all 9. Thoughts that you would be better off or of hurting yourself in some way: not at all Total score: 3 Depression Screening Interpretation: Positive Depression Screening Follow-up: Existing condition and Follow-up Visit Requested Depression Screening Done: Yes 44014 - PHQ-9 Billing: Yes Source: Developed by Drs. Giorgi White, Janette Wheatley, Steve Ortega and colleagues, with an educational aldair from [employer]. Thrive Questionnaire Date Thrive assessed: 11/10/24 I am a: Patient What is your living situation today?: I have a steady place to live Within the past 12 months, did the food you bought not last and you didn't have the money to get more?: Never true Within the past 12 months, did you worry whether your food would run out before you got money to buy more?: Never true Do you have trouble paying for medicines?: No Do you have trouble getting transportation to medical appointments?: No Do you have trouble paying your heating and electricity bill?: No Do you have trouble taking care of your child, family member or friend?: No Do you have trouble with day-to-day activities such as bathing, preparing meals, shopping, managing finances, etc.?: No Are you currently unemployed and looking for a job?: No Are you interested in more education?: No Please select the resources that you would like help with: None Currently or been in a relationship where the following occur: I choose not to answer THRIVE Score: 0 AUDIT C Alcohol Use Questionnaire (AUDIT-C) 1. How often do you have a drink containing alcohol?: Never Total Score: 0 Score Reviewed/Action Taken: No JOSE ANTONIO-7 AMB Questionnaire JOSE ANTONIO-7 Date JOSE ANTONIO - 7 assessed: 11/10/24 Feeling nervous, anxious, or on edge: 0 = Not at all Not being able to stop or control worryin = Not at all Worrying too much about different things: 0 = Not at all Trouble relaxin = Not at all Being so restless that it is hard to sit still: 0 = Not at all Becoming easily annoyed or irritable: 0 = Not at all Feeling afraid as if something awful might happen: 0 = Not at all Total JOSE ANTONIO-7 score (0-4 normal; 5-9 mild; 10-14 moderate; 15-21 severe): 0 Source: Developed by Drs. Giorgi White, Janette Wheatley, Steve Ortega and colleagues, with an educational aldair from [employer]. JOSE ANTONIO-7 Assessment Billing JOSE ANTONIO-7 Assessment Tool: JOSE ANTONIO-7 Assessment 30198 Review of Systems Const All systems reviewed & are unremarkable except as noted in HPI and below Card Denies chest pain at rest, Denies chest pain with activity, Denies edema, Denies irregular heart rhythm, Denies claudication, Denies dyspnea, Denies dyspnea on exertion, Denies orthopnea, Denies paroxysmal nocturnal dyspnea and Denies slow heart rate Resp Denies cough, Denies dyspnea and Denies dyspnea on exertion GI Denies abdominal pain, Denies change in bowel habits, Denies excessive flatus, Denies nausea and Denies vomiting Denies urinary hesitancy, Denies urinary incontinence and Denies urinary urgency Musc Denies atrophy, Denies deformity and Denies limited range of motion Skin/Breast Denies bleeding lesions, Denies changing lesions and Denies rash Physical exam (Primary Care) Vital Signs: Last Vital Signs BP 136/80 11/10/24 07:44 BMI result Body Mass Index 31.7 BMI Assessment/Plan discussion: High BMI High, discussed plan: lifestyle, weight reduction, dietary and physical activity Tobacco/Smoking Status: Tobacco use Status Tobacco use date assessed 11/10/24 11/10/24 07:49 Patient Tobacco Use Status Never used Tobacco 11/10/24 07:41 Tobacco use type 08/01/22 14:50 e-Cigarette/Vaping Use Never Used 11/10/24 07:41 PHQ-9: PHQ-9 Score PHQ-9: Total score 3 11/10/24 08:12 Depression Screening Interpretation: Positive Depression Screening Follow-up: Existing condition and Follow-up Visit Requested Thrive Assessment: Date of Thrive Assessment Date Thrive assessed 11/10/24 11/10/24 07:41 Currently or been in a relationship where the following occur: I choose not to answer HENMT Head: Yes normal to inspection, Yes normocephalic and Yes atraumatic Ears: external ears normal Eyes General: appearance normal, both eyes and all related structures Eyelids: Yes eyelids normal Conjunctivae: conjunctivae normal Neck Neck: Yes normal visual inspection and Yes supple Resp Effort & Inspection: normal respiratory effort Auscultation: clear to auscultation bilaterally Cardio Jugular venous distension: no JVD Rate: regular rate Rhythm: regular rhythm Heart sounds: S1 normal heart sound present and S2 normal heart sound present GI Inspection: Yes normal to inspection Palpation (GI): Soft to palpation and nontender Auscultation: normal bowel sounds Skin General skin exam: no rashes or lesions noted Neuro General: no focal motor deficits Extrem General: Yes full ROM Psych Appearance: grossly normal Results AMB Hemoglobin A1c AMB Hemoglobin A1c 8.7 % Last Edit by SAM Bernal on 11/10/24 07:5 3 Immunizations Boostrix Tdap 2.5 Lf unit-8 mcg-5 Lf/0.5 mL intramuscular syringe Performing Provider: Tiffani Arzate MD [facility] Administered by: SAM Bernal on 11/10/24 08:13 Dose Route Admin Location Dispensed Lot Number Expiration Date [facility] [employer] Apprentice 0.5 mL IM Left Deltoid 0.5 mL [id number] 12/12/26 87825-760-06 [employer] VIS Given Date VIS Provided VIS Publication Date 11/10/24 Single Vaccine 21 Eligibility Eligibility Date Funding Source Not [facility] Eligible 11/10/24 Private Results Reviewed Results Reviewed: Laboratory Last Values Hgb A1c (Clinic) 8.7 % (4.0-6.0) H 11/10/24 07:50 Coding Level of Care Code Est Pt Level 3 (74500) Est Pt Prev Care 18-39y(91522) Diagnoses Physical exam Z00.00 Eczema L30.9 Uncontrolled type 1 diabetes mellitus with hyperglycemia E10.65 Glycemic state: with hyperglycemia Proteinuria R80.9 Additional Codes JOSE ANTONIO-7 Assessment Billing - JOSE ANTONIO-7 Assessment Tool: JOSE ANTONIO-7 Assessment 85508 ([id number]) PHQ-9 - 89128 - PHQ-9 Billing: Yes ([id number]) Time Spent (min) 38 Assessment & Plan Assessment & Plan (1) Physical exam: Code(s): Z00.00 - Encounter for general adult medical examination without abnormal findings Category: Medical (2) Eczema: Code(s): L30.9 - Dermatitis, unspecified Category: Medical (3) Diabetes type 1, uncontrolled: Code(s): E10.65 - Type 1 diabetes mellitus with hyperglycemia Category: Medical Qualifiers: Glycemic state: with hyperglycemia Qualified Code(s): E10.65 - Type 1 diabetes mellitus with hyperglycemia (4) Proteinuria: Code(s): R80.9 - Proteinuria, unspecified Category: Medical Plan I will manage the patient's Type 1 Diabetes with regular follow-ups, ensuring his glucose levels improve and maintaining appointments with endocrinology for potential monitoring system upgrades. His hypertension will be controlled with Metoprolol, and his eczema with Clovetasol requiring a dermatology consult. Patient will receive a tetanus shot today. I intend to arrange referrals to nephrology due to proteinuria indicative of possible renal issues, and I will continue cholesterol management while monitoring his mental health for signs of depression. Patient was informed and verbally consented to the use of an ambient scribe for clinic note documentation during this visit. Today, I discussed with the patient the suboptimal control of his Type 1 Diabetes, explaining the need for ongoing monitoring and potential adjustments in his insulin regimen. We reviewed the benefits of Freestyle Shelli 3 and confirmed the necessity of obtaining endocrinology input. I emphasized the importance of blood pressure management and considered his recent emergency visit due to elevated pressures. I also informed him of the risks associated with poorly managed eczema and possible psoriasis, thus recommending dermatology evaluation. Additionally, I consented to his tetanus vaccination, updating his immunization record. I advised follow-up with nephrology regarding proteinuria as a preventative measure against potential renal complications. Finally, we discussed the significance of adhering to medication regimens and continued lifestyle adjustments, with attention to mental health given the minimal depression score. Orders: Orders AMB Hemoglobin A1c Today E10.21 - Type 1 diabetes mellitus with diabetic nep hropathy TDaP Immunization Today Z23 - Encounter for immunization Lipid Panel Today E78.5 - Hyperlipidemia, unspecified Microalbumin, Random (w Creat) Today R80.9 - Proteinuria, unspecified Referrals Endocrinology Referral E10.65 - Type 1 diabetes mellitus with hyperglycemia Nephrology Referral R80.9 - Proteinuria, unspecified Dermatology Referral L30.9 - Dermatitis, unspecified Medications: Changed From clobetasol 0.05% 1 appl topical BID 30 grams 0RF To clobetasol 0.05% 1 appl topical BID 30 grams 1RF 2 weeks Patient Instructions: - Start today with receiving the tetanus vaccination. - Adhere to your current diabetes management plan and discuss Migdaliayle Shelli 3 with endocrinology. - Take Metoprolol as prescribed for blood pressure management. - Apply Clovetasol as directed for eczema. - Attend referred consultations with dermatology and nephrology. - Monitor blood sugar and blood pressure levels regularly. - Maintain a healthy diet and lifestyle. - Return for follow-up or sooner if symptoms worsen or new issues arise.
[2024-11-10 07:44] VITALS: BP 136/80; BMI 31.7
== END 2024-11-10 08:09 | disposition home or self-care (01) ==
LOC: HO.HMCH 07:30
PROVIDERS: PCP Internal Medicine; Visit Provider Internal Medicine
DX: Z00.00 Encounter for general adult medical examination without abnormal findings (principal); L30.9 Dermatitis, unspecified; E10.65 Type 1 diabetes mellitus with hyperglycemia; R80.9 Proteinuria, unspecified; E10.21 Type 1 diabetes mellitus with diabetic nephropathy; Z23 Encounter for immunization

== ENCOUNTER → 2024-11-10 07:30 | Outpatient (BNVA) | payer OTHER, SELFPAY | PROVIDERS: PCP Internal Medicine; Visit Provider Internal Medicine | DX: Z00.01 Encounter for general adult medical examination with abnormal findings (principal); Z23 Encounter for immunization; L30.9 Dermatitis, unspecified; E10.65 Type 1 diabetes mellitus with hyperglycemia; R80.9 Proteinuria, unspecified | CPT/HCPCS: 83036; 90471; 90715; 96127; 99212; 99395 ==

== ENCOUNTER 2024-11-19 10:43 | Outpatient (AMB) | payer OTHER, SELFPAY ==
--- NOTE | 2024-11-19 10:47 | HO.NEPHOV ---
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 He has type 1 diabetes and had not been taking care of himself with hemoglobin A1c running very high in the past. He currently has diabetic nephropathy, retinopathy as well as neuropathy. He has history of drug use in the past. He does not have any HIV or hepatitis. It has no family history of any ESRD or renal transplantation. He denies coronary artery disease, congestive heart failure, CVA, PAD or carotid disease. He denies taking excessive nonsteroidal anti-inflammatories. He does not have any nausea, vomiting, diarrhea, chest pain, shortness of breath, paroxysmal nocturnal dyspnea, orthopnea or urinary symptoms. He claims to be compliant with his medications now. He is on losartan. He has no history of malignancies, orthostatic drop in blood pressures or any other systemic symptoms. He has significant proteinuria with a recent serum creatinine of 1.12. [facility] Medical History (Updated 11/19/24 @ 11:18 by Raymundo Montenegro MD) Diabetic nephropathy associated with type 1 diabetes mellitus Type 1 diabetes MDD (major depressive disorder), recurrent episode, moderate Obesity (BMI 30-39.9) Diabetic retinopathy Essential hypertension Obesity due to excess calories Insomnia Obesity, Class I, BMI 30-34.9 Pre-op evaluation Non-proliferative diabetic retinopathy, mild, both eyes Anxiety Asthma Overweight (BMI 25.0-29.9) Diabetic polyneuropathy associated with type 1 diabetes mellitus Vitamin D deficiency Diabetes type 1, uncontrolled Diabetes mellitus type 1 Surgical History Hx of appendectomy History of surgery Family History Father No problems noted. 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 Current occupational exposures/hazards: No Cognitive needs: No Hearing needs: No Vision needs: No Review of Systems Const All systems reviewed & are unremarkable except as noted in HPI and below Physical Exam Vital Signs: Last Vital Signs Pulse 75 11/19/24 10:49 BP 132/90 H 11/19/24 10:49 Pulse Ox 95 11/19/24 10:49 Oxygen Delivery Method Room Air 11/19/24 10:49 BMI result Body Mass Index 31.5 Const General: comfortable and no acute distress Orientation/consciousness: patient oriented x3 HEENT Head: Yes normocephalic Mouth: Normal oral and palatal mucosa present Neck Neck: Yes supple Resp Auscultation: clear to auscultation bilaterally Cardio Jugular venous distension: no JVD Rate: regular rate GI Palpation (GI): Soft to palpation Auscultation: normal bowel sounds General: Yes no CVA tenderness Back/Spine/Pelvis Back: no CVA tenderness Skin General skin exam: no rashes or lesions noted Neuro General: patient oriented x3 and moves all extremities Extrem General: Yes no pedal edema Results Reviewed Nephrology Results: Hgb 14.2 g/dl (14.0-18.0) 10/04/24 WBC 6.3 X10*3/uL (4.8-10.8) 10/04/24 Plt Count 224 X10*3/uL (160-400) 10/04/24 Sodium 140 mmol/L (135-145) 10/04/24 Potassium 3.7 mmol/L (3.3-5.1) 10/04/24 Chloride 103 mmol/L (96-108) 10/04/24 Carbon Dioxide 28 mmol/L (22-29) 10/04/24 BUN 26 mg/dL (9-16) H 10/04/24 Creatinine 1.18 mg/dL (0.5-1.4) 10/04/24 Calcium 9.4 mg/dL (8.4-10.2) 10/04/24 Urine Protein 300 (3+) mg/dL (Neg-Trace) H 01/22/24 Assessment & Plan Assessment & Plan (1) Diabetic nephropathy associated with type 1 diabetes mellitus: Code(s): E10.21 - Type 1 diabetes mellitus with diabetic nephropathy Category: Medical (2) CKD stage 3 due to type 1 diabetes mellitus: Code(s): E10.22 - Type 1 diabetes mellitus with diabetic chronic kidney disease; N18.30 - Chronic kidney disease, stage 3 unspecified Category: Medical Plan Riley has diabetic nephropathy from diabetes mellitus. He has retinopathy as well as neuropathy. He is on angiotensin receptor katey. I have ordered quantification of urine protein. I plan to increase and maximize his ARB if his hemodynamics and serum potassium permits. He cannot have her SGLT2 inhibitor given he is a type 1 diabetic. There is no indication for any renal biopsy now. His A1c needs to be well controlled and should avoid nonsteroidal anti-inflammatories. He should keep up with good hydration. I explained in detail about his renal prognosis and measures to be taken for continued management. I answered all his questions and follow-up has been given Orders: Orders Protein, 24 Hr Urine Group 3 Weeks E10.21 - Type 1 diabetes mellitus with diabetic nephropathy, E10.22 - Type 1 diabetes mellitus with diabetic chronic kidney disease, N18.30 - Chronic kidney disease, stage 3 unspecified Electrolytes 3 Weeks E10.21 - Type 1 diabetes mellitus with diabetic nephropathy, E10.22 - Type 1 diabetes mellitus with diabetic chronic kidney disease, N18.30 - Chronic kidney disease, stage 3 unspecified Blood Urea Nitrogen 3 Weeks E10.21 - Type 1 diabetes mellitus with diabetic nephropathy, E10.22 - Type 1 diabetes mellitus with diabetic chronic kidney disease, N18.30 - Chronic kidney disease, stage 3 unspecified Creatinine 3 Weeks E10.21 - Type 1 diabetes mellitus with diabetic nephropathy, E10.22 - Type 1 diabetes mellitus with diabetic chronic kidney disease, N18.30 - Chronic kidney disease, stage 3 unspecified Medications: New losartan 25 mg PO DAILY 30 tabs 3RF Coding Level of Care Code New Pt Level 4 (71462) Diagnoses Diabetic nephropathy associated with type 1 diabetes mellitus E10.21 CKD stage 3 due to type 1 diabetes mellitus E10.22; N18.30
[2024-11-19 10:49] VITALS: BP 132/90; PULSE 75; O2SAT 95; BMI 31.5
== END 2024-11-19 11:21 | disposition home or self-care (01) ==
LOC: HO.HKAS 10:44
PROVIDERS: PCP Internal Medicine; Referring Provider Internal Medicine; Visit Provider Internal Medicine Nephrology
DX: E10.21 Type 1 diabetes mellitus with diabetic nephropathy (principal); E10.22 Type 1 diabetes mellitus with diabetic chronic kidney disease; N18.30 Chronic kidney disease, stage 3 unspecified
CPT/HCPCS: 99204

== ENCOUNTER → 2024-11-19 10:43 | Outpatient (BNVA) | payer OTHER, SELFPAY | PROVIDERS: PCP Internal Medicine; Referring Provider Internal Medicine; Visit Provider Internal Medicine Nephrology | DX: E10.22 Type 1 diabetes mellitus with diabetic chronic kidney disease (principal); N18.30 Chronic kidney disease, stage 3 unspecified; E10.21 Type 1 diabetes mellitus with diabetic nephropathy | CPT/HCPCS: 99202 ==

== ENCOUNTER 2024-12-16 14:26 | Outpatient (AMB) | payer OTHER, SELFPAY ==
--- NOTE | 2024-12-16 11:30 | A.OFFVIS_ITS ---
Vital Signs 12/16/24 14:29 Height 5 ft 11 in Weight 229 lb 4.492 oz BMI 32.0 BP 134/88 Blood Pressure Location Rt brachial Position Sitting Pulse 90 Pulse Source Pulse Oximeter Pulse Oximetry (%) 98 Oxygen Delivery Method Room Air Intake Visit Reasons: Type 1 diabetes mellitus with hyperglycemia Intake Note: Patient presents today to re-establish treatment for Type 1 Diabetes Mellitus with Hyperglycemia & CKD Stage 3: Last Diabetic eye exam was on: 10/16/2024, [facility] Last Podiatry exam was on: Patient does not see a Roller [place] Leaf Most recent HbA1c: 8.7%, 11/10/2024 Random Glucose- 185 mg/dL, Today Coil Maker Required: No Accompanied by: Self / Same As Patient Allergies clonazepam Allergy (Intermediate, Verified 12/16/24 14:30) agitation shrimp [SHRIMP] Allergy (Intermediate, Verified 12/16/24 14:30) ANAPHYLAXIS lisinopril Allergy (Mild, Verified 12/16/24 14:30) Angioedema Medication List - Last Reconciled 12/16/24 by Yany Anderson NP acetone (urine) test (Ketone Urine Test strips) As directed tid prn glucose ovr 250, nausea and vomiting albuterol sulfate 90 mcg/actuation (Ventolin HFA) 1 inh inhalation QID PRN blood pressure test kit-medium As directed blood-glucose sensor (FreeStyle Shelli 2 Plus Sensor device) As directed every 14 days clobetasol 0.05% 1 appl topical BID 2 weeks flash glucose scanning reader (FreeStyle Shelli 2 Fountain) As directed flash glucose sensor (FreeStyle Shelli 2 Sensor kit) Every 14 days insulin degludec (Tresiba FlexTouch U-100 insulin) 18 units (0.18 mL) subcut DAILY 30 days insulin lispro (Humalog KwikPen (U-100) Insulin) 10 - 12 units subcut .5 times a day lancets (FreeStyle Lancets) six times a day lancets (TRUEplus Lancets) 6 times a day Lantus Solostar U-100 Insulin (insulin glargine) 18 units (0.18 mL) subcut QAM 30 days NS losartan 25 mg PO DAILY metoprolol succinate ER 100 mg PO DAILY pen needle, diabetic (BD Yi 2nd Gen Pen Needle) 5 times a day HPI Comments Details: [age] YO male who is seen in consultation for T1DM at the request of PCP. He was previously seen in Endocrine Clinic at [facility] last seen by Suzanne Henderson 09/04/2021. Most recent A1c 11/10/24 8.7% up from 7.7%. He is potentially interested in a pump He has had multiple episodes of DKA requiring hospitalizations in the past. Last hospital admission He has been on a tandem insulin pump in the past Initially diagnosed with T1DM age 9 Had polyuria, polydypsia Was initially started on treatment with insulin Current regimen; Lantus 18 units Humalog 10-12 units tid Reports low sugars: has some lows after lunch and at 1-2 am Treats lows with juice. [Checks] sugar after to ensure it is rising. [Treats] according to rule of 15's. Most recent A1C 8.7% on 11/10/2024 Family history of DM. Has eyes checked yearly, last eye exam 10/16/24, [denies] retinopathy. denies neuropathy, last foot exam [], sees podiatry. Has nephropathy, on ARB. He is followed by Dr. Montenegro on a regular basis. 10/04/2024 eGFR>60 has had elevated protein urine 300+ no recent lipid profile not on statin Denies CAD. Diet: trys to balance Weight: stable NO recent diabetes education. [facility] Medical History Diabetic nephropathy associated with type 1 diabetes mellitus Type 1 diabetes MDD (major depressive disorder), recurrent episode, moderate Obesity (BMI 30-39.9) Diabetic retinopathy Essential hypertension Obesity due to excess calories Insomnia Obesity, Class I, BMI 30-34.9 Pre-op evaluation Non-proliferative diabetic retinopathy, mild, both eyes Anxiety Asthma Overweight (BMI 25.0-29.9) Diabetic polyneuropathy associated with type 1 diabetes mellitus Vitamin D deficiency Diabetes type 1, uncontrolled Diabetes mellitus type 1 Surgical History Hx of appendectomy History of surgery Family History Father No problems noted. 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 Absence of acromegalic features. Neck exam reveals nl size thyroid about 15 gms. No thyroid nodules palpable. No carotid bruits present. Lungs CTA. Heart S1 S2, Reg R/R. No M/R/ G. Skin exam reveals absence of vitiligo or acanthosis nigricans. Abdominal exam reveals Soft NT/ND with NA BS. No organomegaly present. Const Other: Absence of Cushingoid features. Absence of acromegalic features. Neck exam reveals nl size thyroid about 15 gms. No thyroid nodules palpable. Heart S1 S2, Reg R/R. No M/R G. Skin exam reveals absence of vitiligo or acanthosis nigricans.no edema Visual exam of foot performed. No ulcerations or open lesions. No inter digit maceration or fissuring. No onychomycosis, no callouses. Sensation intact to monofilament exam. Vibratory sensation is normal with 128 Hz tuning fork. pulse positive distally Neck Other: . Extrem Other: Visual exam of foot performed. No ulcerations or open lesions. No onchomycosis, no callouses.Pulses 2 + distally Sensation intact to monofilament exam. Vibratory sensation sensed is intact with 128 Hz tuning fork Results Reviewed Results Reviewed: Laboratory Last Values Glucose (Clinic) 185 mg/dL (60-115) H 12/16/24 14:35 Assessment & Plan Assessment & Plan (1) Diabetes type 1, uncontrolled: Code(s): E10.65 - Type 1 diabetes mellitus with hyperglycemia Category: Medical Qualifiers: Glycemic state: with hyperglycemia Qualified Code(s): E10.65 - Type 1 diabetes mellitus with hyperglycemia Plan: 29-year-old type 1 diabetic on MDI. We will confirm diagnosis of type 1 with labs. Recommend changing from Lantus to degludec to smooth out his numbers. He is not at his target A1C. The patient had an opportunity to ask questions regarding treatment plan. The p atient expressed understanding and agreement with the above treatment plan. The patient is aware they should contact our office by phone for worsening glucose readings or for any low blood sugars which may warrant a change in diabetes medication. Compliance is encouraged with medications and any followup testing/consults which may have been ordered. He will meet with Ludy JONES to discuss possible pump Recommend that he switch over to freestyle Shelli 2+ which would be compatible with pump. Orders: Orders Glutamic acid decarboxylase Ab 12/16/24 E10.65 - Type 1 diabetes mellitus with hyperglycemia Islet Cell Antibody Scrn/Titer 12/16/24 E10.65 - Type 1 diabetes mellitus with hyperglycemia C Peptide 12/16/24 E10.65 - Type 1 diabetes mellitus with hyperglycemia Lipid Panel 12/16/24 E10.65 - Type 1 diabetes mellitus with hyperglycemia Basic Metabolic Panel 12/16/24 E10.65 - Type 1 diabetes mellitus with hyperglycemia Medications: New insulin degludec (Tresiba FlexTouch U-100 insulin) 18 units (0.18 mL) subcut DAILY 5.4 mL 11RF 30 days insulin lispro (Humalog KwikPen (U-100) Insulin) 10-12 units tid before meals subcutaneously use as directed; 15 mL 3RF 30 days acetone (urine) test (Ketone Urine Test strips) As directed tid prn glucose ovr 250, nausea and vomiting 25 ea 1RF E10.65 - Type 1 diabetes mellitus with hyperglycemia blood-glucose sensor (FreeStyle Shelli 2 Plus Sensor device) As directed every 14 days 2 ea 11RF On Hold Lantus Solostar U-100 Insulin (insulin glargine) Hold Comment: Doctor's Order 18 units (0.18 mL) subcut QAM 30 days 5.4 mL 11RF NS E10.65 - Type 1 diabetes mellitus with hyperglycemia Patient Instructions: The patient was counseled to achieve a target A1C of 7% (154 avg). Fasting blood sugars should be 90-130 in the morning and less than 180 two hours after meals. Reviewed the relationship between poor diabetic control and the development of complications. Coding Level of Care Code New Pt Level 4 (93536) Complex EM visit Add On G2211 Diagnoses Uncontrolled type 1 diabetes mellitus with hyperglycemia E10.65 Glycemic state: with hyperglycemia Time Spent (min) 30 Comment Time spent reviewing labs/provider notes, face to face, chart doc
[2024-12-16 14:29] VITALS: BP 134/88; PULSE 90; O2SAT 98; BMI 32.0
[2024-12-16 14:41] LABS: Glucose, Whole Blood 185 mg/dL (60-115)
--- OUTSIDE RECORDS SUMMARY | 2024-12-16 17:20 | XMS_ITS | Clinical Summary ---
Author Organization [employer] Address [address] [place] [address] [address] [place] [address] Care Team Providers Care Legal Receptionist Name Role Phone Unavailable Primary Care Provider [...]
--- OUTSIDE RECORDS SUMMARY | 2024-12-16 17:20 | XMS_ITS | Encounter Summary ---
Author Organization [facility] [facility] Address [address] [place] [address] Care Team Providers Care Washroom Attendant Name Role Phone Unavailable Primary Care Provider Unavailabl e Encounter Details Date Type Department Care Team (Latest Contact Info) Description 03/26/2019 Abstract [facility] CONVERSIONS Dental, Provider, DDS Social History Tobacco [...]
== END 2024-12-16 15:17 | disposition home or self-care (01) ==
LOC: HO.ENCR 14:27
PROVIDERS: PCP Internal Medicine; Visit Provider Nurse Practitioner Adult Health
DX: E10.65 Type 1 diabetes mellitus with hyperglycemia (principal)
CPT/HCPCS: 99204; G2211

== ENCOUNTER → 2024-12-16 14:26 | Outpatient (BNVA) | payer OTHER, SELFPAY | PROVIDERS: PCP Internal Medicine; Visit Provider Nurse Practitioner Adult Health | DX: E10.65 Type 1 diabetes mellitus with hyperglycemia (principal) | CPT/HCPCS: 82947; 99202 ==

== ENCOUNTER 2024-12-28 15:01 | Outpatient (AMB) | payer OTHER, SELFPAY ==
--- NOTE | 2024-12-28 15:48 | A.OFFVIS_ITS ---
Intake Intake Visit Reasons: Type 1 diabetes mellitus with hyperglycemia Auto Radio Mechanic Required: No Accompanied by: Self / Same As Patient Allergies clonazepam Allergy (Intermediate, Verified 12/16/24 14:30) agitation shrimp [SHRIMP] Allergy (Intermediate, Verified 12/16/24 14:30) ANAPHYLAXIS lisinopril Allergy (Mild, Verified 12/16/24 14:30) Angioedema HPI Comprehensive Diabetes Asmnt Most Recent Diabetes Results: Microalb/Creat Ratio 376.2 ug/mg cr 11/13/19 Cholesterol 202 MG/DL 11/13/19 HDL Cholesterol 50 MG/DL 11/13/19 Triglycerides 101 MG/DL 11/13/19 Creatinine 1.18 mg/dL (0.5-1.4) 10/04/24 Blood Urea Nitrogen 26 mg/dL (9-16) H 10/04/24 Sodium 140 mmol/L (135-145) 10/04/24 Potassium 3.7 mmol/L (3.3-5.1) 10/04/24 Chloride 103 mmol/L (96-108) 10/04/24 Carbon Dioxide 28 mmol/L (22-29) 10/04/24 Calcium 9.4 mg/dL (8.4-10.2) 10/04/24 AST 24 U/L (5-37) 10/04/24 ALT 19 U/L (0-40) 10/04/24 Total Protein 7.6 g/dL (6.5-8.0) 10/04/24 Albumin 3.7 g/dL (3.5-5.0) 10/04/24 [facility] Medical History Diabetic nephropathy associated with type 1 diabetes mellitus Type 1 diabetes MDD (major depressive disorder), recurrent episode, moderate Obesity (BMI 30-39.9) Diabetic retinopathy Essential hypertension Obesity due to excess calories Insomnia Obesity, Class I, BMI 30-34.9 Pre-op evaluation Non-proliferative diabetic retinopathy, mild, both eyes Anxiety Asthma Overweight (BMI 25.0-29.9) Diabetic polyneuropathy associated with type 1 diabetes mellitus Vitamin D deficiency Diabetes type 1, uncontrolled Diabetes mellitus type 1 Surgical History Hx of appendectomy History of surgery Family History Father No problems noted. 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 checks BG freestyle Shelli 2 plus Downloaded meter today? yes Patient? reports glycemic control as: fair Most recent Hgb A1C: 8.7% Frequency of low Bx weekly Low BG treatment: Juice Frequency of high BG: Daily Does patient check Ketones? Just received new prescription for ketone strips Has pt been on a pump in the past? Yes, T slim Reviewed insulin pump basics today with Patient. Explained pros and cons of insulin pumps. Showed pt various pumps, infusion sets, and cgms currently available. Reviewed need to wear pump 24/7 and need to change infusion set every 3 days. Also stressed importance of frequent BG checks, 4x daily minimum or use pump that is integrated with CGM.? TDD:48 I:CHO 1:9 CF:1:30 Patient is considered T slim or Omnipod 5, has upcoming appointment with endocrine MILLING MACHINE OPERATOR on 01/06/2025 Patient demonstrated motivation for continued insulin pump education and understands the need to complete education prior to starting insulin pump for best outcome. Will follow up for continued education. Next visit will include review of Advanced Carb Counting. Portions of this note were created using voice recognition software, please excuse any words or phrases that may have been misinterpreted. Coding Level of Care Code Est Pt Level 1 (61737) Diagnoses Uncontrolled type 1 diabetes mellitus with hyperglycemia E10.65 Glycemic state: with hyperglycemia
--- OUTSIDE RECORDS SUMMARY | 2024-12-28 16:37 | XMS_ITS | Clinical Summary ---
Author Organization [employer] Address [address] [place] [address] [address] [place] [address] Care Team Providers Care Combination Operator Name Role Phone Unavailable Primary Care Provider [...]
--- OUTSIDE RECORDS SUMMARY | 2024-12-28 16:37 | XMS_ITS | Encounter Summary ---
Author Organization [employer] [facility] Address [address] [place] [address] Care Team Providers Care Work Over Rig Operator Name Role Phone Unavailable Primary Care Provider Unavailabl e Encounter Details Date Type Department Care Team (Latest Contact Info) Description 03/26/[address] [facility] CONVERSIONS Dental, Provider, DDS Social History Tobacco [...]
== END 2024-12-28 15:50 | disposition home or self-care (01) ==
LOC: HO.ENCR 15:02
PROVIDERS: PCP Internal Medicine; Visit Provider Registered Nurse Diabetes Educator
DX: E10.65 Type 1 diabetes mellitus with hyperglycemia (principal)

== ENCOUNTER → 2024-12-28 15:01 | Outpatient (BNVA) | payer OTHER, SELFPAY | PROVIDERS: PCP Internal Medicine; Visit Provider Registered Nurse Diabetes Educator | DX: E10.65 Type 1 diabetes mellitus with hyperglycemia (principal) | CPT/HCPCS: 99211 ==

== ENCOUNTER 2025-01-14 15:02 | Outpatient (AMB) | payer OTHER, SELFPAY ==
--- NOTE | 2025-01-14 12:30 | MHC.OFFVIS ---
Vital Signs 01/14/25 15:08 Height 5 ft 11 in Weight 230 lb 2.601 oz BMI 32.1 BP 100/66 Blood Pressure Location Rt brachial Position Sitting Pulse 89 Pulse Source Pulse Oximeter Pulse Oximetry (%) 98 Oxygen Delivery Method Room Air Intake Visit Reasons: Type 1 diabetes mellitus with hyperglycemia Intake Note: Patient presents today for a follow-up on Type 1 Diabetes Mellitus, Hyperglycemia & CKD Stage 3: Last Diabetic eye exam was on: 10/16/2024, [facility] Last Podiatry exam was on: Patient does not see a Granite Countertop Installer Most recent HbA1c: 8.7%, 11/10/2024 Random Glucose- 310 mg/dL, Today Wine Steward/Stewardess Required: No Accompanied by: Self / Same As Patient Allergies clonazepam Allergy (Intermediate, Verified 01/14/25 15:08) agitation shrimp [SHRIMP] Allergy (Intermediate, Verified 01/14/25 15:08) ANAPHYLAXIS lisinopril Allergy (Mild, Verified 01/14/25 15:08) Angioedema HPI Comments Details: [age] YO male who is seen in f/u for type 1 diabetes. He was previously seen in Endocrine Clinic at [facility] last seen by Suzanne Henderson 09/04/2021. Most recent A1c 11/10/24 8.7% up from 7.7%. He is potentially interested in a pump. Lantus has recently been changed to Treiba. Has not yet switched over has he still had remaining Lantus. He has had multiple episodes of DKA requiring hospitalizations in the past. Last hospital admission He has been on a tandem insulin pump in the past Initially diagnosed with T1DM age 9 Had polyuria, polydypsia Was initially started on treatment with insulin Current regimen; Tresiba 18 units Humalog 10-12 units tid Freestyle johnathan sensor 2: [ 245] 14 day glucose sensor report reviewed Glucose Management indicator 9.2 % TIme in ranges: 47 % very high (above 250) 23 % high (181-250) 28 % in range (70-180] Two % low (69-55) 0 % very low (below 54) Interpretation of CGMS; continues to have ups and down sensor Reports low sugars: has some lows after lunch and at 1-2 am Treats lows with juice. [Checks] sugar after to ensure it is rising. [Treats] according to rule of 15's. Most recent A1C 8.7% on 11/10/2024 Family history of DM. Has eyes checked yearly, last eye exam 10/16/24, [denies] retinopathy. denies neuropathy, last foot exam today, sees podiatry. Has nephropathy, on ARB. He is followed by Dr. Montenegro on a regular basis. 10/04/2024 eGFR>60 has had elevated protein urine 300+ Last seen in October 2024. no recent lipid profile not on statin Denies CAD. Diet: trys to balance Weight: stable NO recent diabetes education. [facility] Medical History Diabetic nephropathy associated with type 1 diabetes mellitus Type 1 diabetes MDD (major depressive disorder), recurrent episode, moderate Obesity (BMI 30-39.9) Diabetic retinopathy Essential hypertension Obesity due to excess calories Insomnia Obesity, Class I, BMI 30-34.9 Pre-op evaluation Non-proliferative diabetic retinopathy, mild, both eyes Anxiety Asthma Overweight (BMI 25.0-29.9) Diabetic polyneuropathy associated with type 1 diabetes mellitus Vitamin D deficiency Diabetes type 1, uncontrolled Diabetes mellitus type 1 Surgical History Hx of appendectomy History of surgery Family History Father No problems noted. 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 Absence of acromegalic features. Neck exam reveals nl size thyroid about 15 gms. No thyroid nodules palpable. Heart S1 S2, Reg R/R. No M/R G. Skin exam reveals absence of vitiligo or acanthosis nigricans. Results Reviewed Results Reviewed: Laboratory Last Values Glucose (Clinic) 310 mg/dL (60-115) H 01/14/25 15:13 Assessment & Plan Assessment & Plan (1) Diabetes type 1, uncontrolled: Code(s): E10.65 - Type 1 diabetes mellitus with hyperglycemia Category: Medical Qualifiers: Glycemic state: with hyperglycemia Qualified Code(s): E10.65 - Type 1 diabetes mellitus with hyperglycemia Plan: 29-year-old type 1 diabetic with fair control on MDI. He will be switching over to Tresiba. Until then he will split his Lantus dose 8 in the morning 10 in the evening and continue with same Humalog. He has an appointment set up with the Ludy Bass CDE and Fiorella Go RD for pre pump training. 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 HE WILL LOOK AT SOME OF THE TRAINING VIDEOS FOR OMNIPOD. He will be seen back by a provider 1-2 weeks after he starts on a pump. Coding Level of Care Code Est Pt Level 4 (62371) Complex EM visit Add On G2211 Diagnoses Uncontrolled type 1 diabetes mellitus with hyperglycemia E10.65 Glycemic state: with hyperglycemia Time Spent (min) 30 Comment Time spent reviewing labs/provider notes, face to face, chart doc
--- OUTSIDE RECORDS SUMMARY | 2025-01-14 15:07 | XMS_ITS | Clinical Summary ---
Author Organization [employer] Address [address] [place] [address] [address] [place] [address] Care Team Providers Care Driveway Sealer Name Role Phone Unavailable Primary Care Provider [...] Date Last Done Comments Depression Screening 1993 Disability Screening 1993 Alcohol/Substance Use Screening 2005 Tobacco [...] patient's age to complete this topic Meningococcal B Vaccine Aged Out No l onger eligible based on patient's age to complete [...]
[2025-01-14 15:08] VITALS: BP 100/66; PULSE 89; O2SAT 98; BMI 32.1
[2025-01-14 15:17] LABS: Glucose, Whole Blood 310 mg/dL (60-115)
== END 2025-01-14 15:35 | disposition home or self-care (01) ==
LOC: HO.ENCR 15:03
PROVIDERS: PCP Internal Medicine; Visit Provider Nurse Practitioner Adult Health
DX: E10.65 Type 1 diabetes mellitus with hyperglycemia (principal)
CPT/HCPCS: 99214; G2211

== ENCOUNTER → 2025-01-14 15:02 | Outpatient (BNVA) | payer OTHER, SELFPAY | PROVIDERS: PCP Internal Medicine; Visit Provider Nurse Practitioner Adult Health | DX: E10.65 Type 1 diabetes mellitus with hyperglycemia (principal); Z79.4 Long term (current) use of insulin | CPT/HCPCS: 82947; 99212 ==

== ENCOUNTER 2025-03-02 15:02 | Outpatient (AMB) | payer OTHER, SELFPAY ==
--- NOTE | 2025-03-02 15:43 | A.OFFVIS_ITS ---
Intake Intake Visit Reasons: 60 min carb counting Allergies clonazepam Allergy (Intermediate, Verified 01/14/25 15:08) agitation shrimp (SHRIMP) Allergy (Intermediate, Verified 01/14/25 15:08) ANAPHYLAXIS lisinopril Allergy (Mild, Verified 01/14/25 15:08) Angioedema HPI Comprehensive Diabetes Asmnt Most Recent Diabetes Results: Microalb/Creat Ratio 376.2 ug/mg cr 11/13/19 Cholesterol 202 MG/DL Δ 11/13/19 HDL Cholesterol 50 MG/DL 11/13/19 Triglycerides 101 MG/DL Δ 11/13/19 Creatinine, (0.5-1.4) 1.18 mg/dL 10/04/24 BUN, (9-16) 26 mg/dL H 10/04/24 Sodium, (135-145) 140 mmol/L 10/04/24 Potassium, (3.3-5.1) 3.7 mmol/L 10/04/24 Chloride, (96-108) 103 mmol/L 10/04/24 Carbon Dioxide, (22-29) 28 mmol/L 10/04/24 Calcium, (8.4-10.2) 9.4 mg/dL 10/04/24 AST, (5-37) 24 U/L 10/04/24 ALT, (0-40) 19 U/L 10/04/24 Total Protein, (6.5-8.0) 7.6 g/dL 10/04/24 Albumin, (3.5-5.0) 3.7 g/dL 10/04/24 ON LICENSE OF [facility] Medical History Diabetic nephropathy associated with type 1 diabetes mellitus Type 1 diabetes MDD (major depressive disorder), recurrent episode, moderate Obesity (BMI 30-39.9) Diabetic retinopathy Essential hypertension Obesity due to excess calories Insomnia Obesity, Class I, BMI 30-34.9 Pre-op evaluation Non-proliferative diabetic retinopathy, mild, both eyes Anxiety Asthma Overweight (BMI 25.0-29.9) Diabetic polyneuropathy associated with type 1 diabetes mellitus Vitamin D deficiency Diabetes type 1, uncontrolled Diabetes mellitus type 1 Surgical History Hx of appendectomy History of surgery Family History Father No problems noted. 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 Reviewed the basic principles of carbohydrate counting.? Insulin to carb ratio, and insulin sensitivity factor calculated based on rule of 450 for insulin to carb ratio, and rule of 1500 for insulin sensitivity factor. Instructed patient on the importance of accurate calculation of the amount of carbs per meal for optimal glucose control Reviewed how to calculate mealtime bolus with insulin to carb ratio Reviewed how to calculate correction dose with insulin sensitivity factor Patient's TDD estimate 60 units Insulin to Carbohydrate ratio:1:9 Correction factor:1:30 Diet Recall: Breakfast:toast with eggs = 30 g Lunch: Small sub with fruit juice= 90 g Patient given healthy plate handout, for resource for carbohydrate counting Encourage patient to fill out food logs, estimating carbohydrates at meals, noting glucose number prior to meal, and how many units of insulin taken prior to meals Pt able to calculated needed insulin based on estimated carbohydrate content Boluscalc appt downloaded on Pt's cell phone Reviewed when and how to test the urine for ketones, prescription request sent to provider Instructed patient that there may need to be adjustment to insulin to carb ratio and sensitivity factor based on blood glucose trends. Portions of this note were created using voice recognition software, please excuse any words or phrases that may have been misinterpreted. Patient Instructions: DIABETES PROBLEMS HOMECARE INSTRUCTIONS? for High Blood Sugar and When to Test for Ketones Hyperglycemia is the technical term for high blood glucose (blood sugar). High blood sugar happens when the body has too little insulin or when the body can't use insulin properly. What causes hyperglycemia? A number of things can cause hyperglycemia: * If you have type 1, you may not have given yourself enough insulin. ? If you have type 2, your body may have enough insulin, but it is not as effective as it should be. * You ate more than planned or exercised less than planned. * You have stress from an illness, such as a cold or flu. * You have other stress, such as family conflicts or school or dating problems. How to lower your blood sugar level. ? Take medications as directed by physician. ? Drink extra water or noncaffeinated, nonsugared drinks to prevented hydration. ? Exercise if you are not sick However, if your blood sugar is above 250 mg/dl, check your urine for ketones. If you have ketones, do not exercise Exercising when ketones are present may make your blood sugar level go even higher. You'll need to work with your doctor to find the safest way for you to lower your blood sugar level. Regularly check blood sugar or urine for sugar and acetone during illness. Diabetic ketoacidosis (DKA) Is serious condition that can lead to diabetic coma (passing out for a long ti me) or even . When your cells don't get the glucose they need for energy, your body begins to burn fat for energy, which produces ketones. Ketones are chemicals that the body creates when it breaks down fat to use for energy. The body does this when it doesn?t have enough insulin to use glucose, the body?s normal source of energy. When ketones build up in the blood, they make it more acidic. They are a warning sign that your diabetes is out of control or that you are getting sick. Symptoms of Diabetic Ketoacidosis (DKA) ? DKA usually develops slowly. But when vomiting occurs, this life- threatening condition can develop in a few hours. Early symptoms include the following: ? Thirst or a very dry mouth ? Frequent urination ? High blood glucose (blood sugar) levels ? High levels of ketones in the urine ? Then, other symptoms appear: ? Constantly feeling tired ? Dry or flushed skin ? Nausea, vomiting, or abdominal pain ? (Vomiting can be caused by many illnesses, not just ketoacidosis. If vomiting continues for more than 2 hours, contact your health care provider.) ? Difficulty breathing ? Fruity odor on breath ? A hard time paying attention, or confusion When should you test for ketones? It is advisable to check for ketones under the following conditions when: Your blood glucose is higher than 250mg/dl. Feeling nauseated, throwing up, or have pains in your abdominal region. Have a cold or flu. Have general body fatigue. Feel thirsty or have a very dry mouth. Have flushed skin. Have a fruity breath or a hard time breathing. You feel perplexed or in fog. How to Test Urine for Ketones You can detect ketones with a simple urine test using a test strip, similar to a blood testing strip. Ask your health care provider when and how you should test for ketones. Many experts advise to check your urine for ketones when your blood glucose is more than 250 mg/dl. When you are ill (when you have a cold or the flu, for example), check for ketones every 4 to 6 hours. And check every 4 to 6 hours when your blood sugar is more than 250 mg/dl. Also, check for ketones when you have any symptoms of DKA. How to lower your blood sugar level. ? Take medications as directed by physician. ? Drink extra water or noncaffeinated, nonsugared drinks to prevented hydration. ? Exercise if you are not sick However, if your blood sugar is above 250 mg/dl, check your urine for ketones. If you have ketones, do not exercise Exercising when ketones are present may make your blood sugar level go even higher. You'll need to work with your doctor to find the safest way for you to lower your blood sugar level. Regularly check blood sugar or urine for sugar and acetone during illness Coding Level of Care Code Est Pt Level 1 (99688) Diagnoses Uncontrolled type 1 diabetes mellitus with hyperglycemia E10.65 Glycemic state: with hyperglycemia
--- OUTSIDE RECORDS SUMMARY | 2025-03-02 15:45 | XMS_ITS | Clinical Summary ---
Author Organization [employer] Address [address] [place] [address] [address] [place] [address] Care Team Providers Care Herbologist Name Role Phone Unavailable Primary Care Provider [...] 2023-2 5 season) 2024 Influenza Vaccine (#1) 2025 Zoster Vaccines (1 of 2) 2043 RSV [...] Years) and At-Risk Patients (6 to 49) Years Aged Out No longer eligible b ased on patient's age to complete this topic RSV under 20 months Aged Out No longe r eligible based on patient's age to complete this topic Rotavirus Vaccines Aged Out No longer eligible based on patient's age to complete this topic
== END 2025-03-02 15:48 | disposition home or self-care (01) ==
LOC: HO.ENCR 15:04
PROVIDERS: PCP Internal Medicine; Visit Provider Registered Nurse Diabetes Educator
DX: E10.65 Type 1 diabetes mellitus with hyperglycemia (principal)

== ENCOUNTER → 2025-03-02 15:02 | Outpatient (BNVA) | payer OTHER, SELFPAY | PROVIDERS: PCP Internal Medicine; Visit Provider Registered Nurse Diabetes Educator | DX: Z71.3 Dietary counseling and surveillance (principal); E10.65 Type 1 diabetes mellitus with hyperglycemia | CPT/HCPCS: 99211 ==

== ENCOUNTER 2025-03-16 14:41 | Outpatient (REF) | payer OTHER, SELFPAY ==
[2025-03-16 15:50] LABS: Cholesterol 273 mg/dL (<200); HDL Cholesterol 46 mg/dL (>40); Triglycerides 229 mg/dL (<150)
--- OUTSIDE RECORDS SUMMARY | 2025-03-16 15:51 | XMS_ITS | Clinical Summary ---
Author Organization [email or web address] Address [address] [place] [address] [address] [place] [address] Care Team Providers Care Weight Loss Consultant Name Role Phone Unavailable Primary Care Provider [...] Tobacco Screening 2005 Family Planning (PISQ) 2008 HPV Vaccines (1 - Male 3-dos e series) 2008 DTaP/Tdap/Td Vaccines (1 - Tdap) 2012 [...]
[2025-03-16 15:52] LABS: Anion Gap 10 (12-20); Blood Urea Nitrogen 16 mg/dL (9-16); Calcium 8.9 mg/dL (8.4-10.2); Carbon Dioxide 30 mmol/L (22-29); Chloride 103 mmol/L (96-108); Cholesterol 271 mg/dL (<200); Estimated Glomerular Filt Rate > 60; HDL Cholesterol 48 mg/dL (>40); Potassium 4.4 mmol/L (3.3-5.1); Sodium 139 mmol/L (135-145); Triglycerides 235 mg/dL (<150)
[2025-03-16 17:09] LABS: Microalbum/Creatinine Ratio Ur 1912.4 ug/mg cr (<30)
[2025-03-17 08:14] LABS: HBS Num1 0.94 mIU/mL (0-7.99); HBc Num1 0.04 S/CO (0.00-0.79); HBsAGNum1 0.36 S/CO (0.00-0.99); HIV Num 1 0.07 S/CO (0.00-0.99); Hepatitis A Antibody IgM 0.17 Index (0-0.79); Hepatitis B Surface Antigen Negative (Negative); ~HepC Num1 0.10 S/CO (0.00-0.79); ~Hepatitis A Antibody IgM Nonreactive (Nonreactive); ~Hepatitis B Surface Antibody NONREACTIVE (Nonreactive); ~Hepatitis C Antibody Nonreactive (Nonreactive)
[2025-03-17 08:23] LABS: Syphilis Screen Reactive (Nonreactive)
[2025-03-23 15:48] LABS: T.Pallidum Particle Agg Test Reactive (Nonreactive)
== END 2025-03-16 14:42 | disposition home or self-care (01) ==
LOC: HO.LAB 14:41
PROVIDERS: Internal Medicine Nephrology; Nurse Practitioner Adult Health; PCP Internal Medicine; Visit Provider Internal Medicine
DX: Z11.3 Encounter for screening for infections with a predominantly sexual mode of transmission (principal); Z11.4 Encounter for screening for human immunodeficiency virus [HIV]; R80.9 Proteinuria, unspecified; E78.5 Hyperlipidemia, unspecified; E11.21 Type 2 diabetes mellitus with diabetic nephropathy; E11.22 Type 2 diabetes mellitus with diabetic chronic kidney disease; N18.30 Chronic kidney disease, stage 3 unspecified; E11.65 Type 2 diabetes mellitus with hyperglycemia
CPT/HCPCS: 36415; 80048; 80061; 82043; 82570; 82947; 83036; 84681; 86341; 86592; 86704; 86706; 86709; 86780; 86803; 87340; 87389; 99212

== ENCOUNTER 2025-03-16 15:10 | Outpatient (AMB) | payer OTHER, SELFPAY ==
--- NOTE | 2025-03-16 15:12 | MHC.OFFVIS ---
Vital Signs 03/16/25 15:13 Height 5 ft 11 in Weight 231 lb 7.766 oz BMI 32.3 BP 120/80 Blood Pressure Location Rt brachial Position Sitting Pulse 67 Pulse Source Pulse Oximeter Pulse Oximetry (%) 97 Oxygen Delivery Method Room Air Intake Visit Reasons: T1DM Intake Note: Patient presents today for a follow-up on Type 1 Diabetes Mellitus, Hyperglycemia & CKD Stage 3: Last Diabetic eye exam was on: 10/16/2024, [facility] Last Podiatry exam was on: Patient does not see a De Icer Element Winder Most recent HbA1c: 9.9%, 03/16/2025 Random Glucose- 102 mg/dL, Today Quality Process Engineer Required: No Accompanied by: Self / Same As Patient Allergies clonazepam Allergy (Intermediate, Verified 03/16/25 15:21) agitation shrimp (SHRIMP) Allergy (Intermediate, Verified 03/16/25 15:21) ANAPHYLAXIS lisinopril Allergy (Mild, Verified 03/16/25 15:21) Angioedema Medication List - Last Reconciled 03/16/25 by Kelley Bruce MD acetone (urine) test (Ketone Urine Test strips) As directed tid prn glucose ovr 250, nausea and vomiting albuterol sulfate 90 mcg/actuation (Ventolin HFA) 1 inh inhalation QID PRN blood pressure test kit-medium As directed blood sugar diagnostic (FreeStyle Lite Strips) As directed blood-glucose sensor (FreeStyle Shelli 2 Plus Sensor device) As directed every 14 days clobetasol 0.05% 1 appl topical BID 2 weeks flash glucose scanning reader (FreeStyle Shelli 2 [place]) As directed flash glucose sensor (FreeStyle Shelli 2 Sensor kit) Every 14 days insulin degludec (Tresiba FlexTouch U-100 insulin) 18 units (0.18 mL) subcut DAILY 30 days insulin lispro (Humalog KwikPen (U-100) Insulin) 10-12 units tid before meals subcutaneously use as directed; 30 days lancets (FreeStyle Lancets) six times a day lancets (TRUEplus Lancets) 6 times a day losartan 25 mg PO DAILY metoprolol succinate ER 100 mg PO DAILY pen needle, diabetic 5 times a day HPI Comments Details: 29-year-old male who is seen in f/u for type 1 diabetes. History of DM Initially diagnosed with T1DM age 9 Had polyuria, polydypsia Was initially started on treatment with insulin He was previously seen in [facility] at [facility] last seen by Suzanne Henderson 09/04/2021. Then reestablished care with us November 2024. A1c 11/10/24 8.7% up from 7.7% back in 2022. He is interested in a pump. A1c POC 03/16/2025: 9.9%. Prior therapy Lantus has recently been changed to Treiba. Switch to Tresiba beginning of February 2025. He has been on a tandem insulin pump in the past Hospitalizations for DKA: He has had multiple episodes of DKA requiring hospitalizations in the past. Last hospital admission: 2023? Current regimen; Tresiba 16 units Humalog 7-12 units tid He is learning how to carb count with hvac journeyman. Has not quite got in the hold of it yet. Freestyle shelli sensor 2 plus: [ 245] 14 day glucose sensor report reviewed Glucose Management indicator 9.2 % Glucose variability 41.9% Within target range 26% High 26% Very high 45% Low 2% Very low 1% Interpretation: He is mostly above target range, sometimes noted to have hypoglycemia after hyperglycemia. He does not take his insulin 15 units before meals instead takes it while he is eating and sometimes even a little bit later. Treats lows with juice. [Checks] sugar after to ensure it is rising. [Treats] according to rule of 15's. Family history of DM. Has eyes checked yearly, last eye exam 10/16/24, [denies] retinopathy. denies neuropathy, last foot exam December 2024, sees podiatry. Has nephropathy, on losartan 25 mg. He is followed by Dr. Montenegro on a regular basis. 10/04/2024 eGFR>60 has had elevated protein urine 300+ Last seen in October 2024. no recent lipid profile not on statin Denies CAD. Diet: Learning how to carb count, seeing educator Weight: stable Last CDE appointment 03/02/2025, has followup 03/25/25 Physical exam General: sitting comfortably in no acute distress HEENT: normocephalic/atraumatic, Neck: supple, Cardiac: normal heart sounds Pulm: normal breath sounds B/L, no added breath sounds Abd: not distended, no tenderness Extremities: no edema, no signs of myxedema Neuro: AAO x3, Speech: normal, no facial droop, moving all 4 extremities Skin: no rash Foot exam: Last done December 2024 Laboratory Tests 06/11/23 10/04/24 11/10/24 13:54 02:20 07:50 Hgb 14.2 Hct 40.9 L Plt Count 224 Glucose (Clinic) Hgb A1c (Clinic) 7.7 H 8.7 H 01/14/25 15:13 Hgb Hct Plt Count Glucose (Clinic) 310 H Hgb A1c (Clinic) [facility] Medical History Diabetic nephropathy associated with type 1 diabetes mellitus Type 1 diabetes MDD (major depressive disorder), recurrent episode, moderate Obesity (BMI 30-39.9) Diabetic retinopathy Essential hypertension Obesity due to excess calories Insomnia Obesity, Class I, BMI 30-34.9 Pre-op evaluation Non-proliferative diabetic retinopathy, mild, both eyes Anxiety Asthma Overweight (BMI 25.0-29.9) Diabetic polyneuropathy associated with type 1 diabetes mellitus Vitamin D deficiency Diabetes type 1, uncontrolled Diabetes mellitus type 1 Surgical History Hx of appendectomy History of surgery Family History Father No problems noted. 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 Current occupational exposures/hazards: No Cognitive needs: No Hearing needs: No Vision needs: No Physical Exam Vital Signs: BMI result Body Mass Index 32.3 Office Procedures Glucose Monitoring Details Details: See HPI 68162 - Glucose monitoring, continuous-physician I&R Procedure code (CPT) selection complete Results AMB Hemoglobin A1c AMB Hemoglobin A1c 9.9 % Last Edit by SAM Recinos on 03/16/25 15:28 Assessment & Plan Assessment & Plan (1) Diabetes type 1, uncontrolled: Code(s): E10.65 - Type 1 diabetes mellitus with hyperglycemia Category: Medical Qualifiers: Glycemic state: with hyperglycemia Qualified Code(s): E10.65 - Type 1 diabetes mellitus with hyperglycemia Plan: 29-year-old male with type 1 diabetes mellitus without complications, coming in today for follow up. A1c 03/16/2025 POC today elevated at 9.9% previously from 8.3% in October 2024. He has a freestyle Shelli 2+ in preparation for going on a pump, he is currently seeing the hvac journeyman. He is learning how to carb count. Pump data reviewed and he has a lot of hyperglycemia, sometimes hypoglycemia following hyperglycemia. Educated him about importance of taking mealtime insulin 15 minutes before the meal. We will keep up titrating his insulin, for now I have modified him to follow the following scale. Plan: -Tresiba continue 16 units Humalog <100: 6 units 101 to 150: 8 units 151 to 200: 10 units 201 to 250: 12 units > 250: 12 units As he learns how to carb count, we will give him a carb ratio -labs done today -follow up with the educator -Baqsimi nasal spray prescribed -reviewed use of urine ketone strips in the case of blood sugars greater than 250 mg/dL with symptoms of nausea or vomiting Plan I spent 30 minutes in reviewing the record, seeing the patient and documenting in the medical record. Orders: Orders AMB Hemoglobin A1c Today E10.65 - Type 1 diabetes mellitus with hyperglycemia AMB Glucose Monitoring Today E10.65 - Type 1 diabetes mellitus with hyperglycemia Medications: New blood sugar diagnostic (FreeStyle Lite Strips) As directed to check blood sugars thrice a day in case of sensor failure, hyperglycemia or hypoglycemia 100 ea 2RF glucagon 3 mg/actuation (Baqsimi) 3 mg intranasal ONCE PRN 1 ea 1RF for passing out with hypoglycemia Changed From lancets (FreeStyle Lancets) six times a day 300 ea 11RF E10.9 - Type 1 diabetes mellitus without complications To lancets (FreeStyle Lancets) to check blood sugars three times a day , hyperglycemia, hypoglycemia 100 ea 3RF E10.9 - Type 1 diabetes mellitus without complications Discontinued lancets (TRUEplus Lancets) Discontinued Reason: Doctor's Order 6 times a day 200 ea 11RF E10.65 - Type 1 diabetes mellitus with hyperglycemia, E55.9 - Vitamin D deficiency, unspecified Patient Instructions: Tresiba continue 16 units Humalog <100: 6 units 101 to 150: 8 units 151 to 200: 10 units 201 to 250: 12 units > 250: 12 units No more juice No ice cream, no sodas Rule of 15 Treatment for Hypoglycemia (Low blood sugar) If your blood glucose is low (70 and below)*, follow the steps below to treat: Eat or drink something from the list below equal to 15 grams of carbohydrate (carb). Rest for 15 minutes Re-check your blood glucose. If it is still low, (below 70), repeat step 1 above. ? If your next meal is more than an hour away, you will need to eat one carbohydrate choice as a snack to keep your blood glucose from going low again. ?If you can't figure out why you have low blood glucose, call your healthcare provider, as your medicine may need to be adjusted. ?Always carry something with you to treat an insulin reaction. Use food from the list below. ? Foods equal to One Carbohydrate Choice (15 grams of carbohydrate): 3 Glucose ?tablets or 4 Dextrose tablets 4 ounces of fruit juice 5-6 ounces (about 1/2 can) of regular soda such as Coke or Pepsi ? 7-8 gummy or regular Life Savers ? 1 Tbsp. of sugar or jelly NOTE: If your blood sugar is less than 50, double the portion above for a total of 30 gm. ?Carbohydrate. ? Follow meal plan of 45-60 g of consistent carbohydrates at 3 meals each day and 15 g of carbohydrate at 1-2 snacks each day. Coding Level of Care Code Est Pt Level 4 (77973) Diagnoses Uncontrolled type 1 diabetes mellitus with hyperglycemia E10.65 Glycemic state: with hyperglycemia CPT Codes Details - CPT: 99344 - Glucose monitoring, continuous-physician I&R ([id number]) Time Spent (min) 30
[2025-03-16 15:13] VITALS: BP 120/80; PULSE 67; O2SAT 97; BMI 32.3
[2025-03-16 15:23] LABS: Glucose, Whole Blood 103 mg/dL (60-115)
== END 2025-03-16 15:54 | disposition home or self-care (01) ==
LOC: HO.ENCR 15:11
PROVIDERS: PCP Internal Medicine; Visit Provider Student in an Organized Health Care Education/Training Program
DX: E10.65 Type 1 diabetes mellitus with hyperglycemia (principal)
CPT/HCPCS: 95251; 99214

== ENCOUNTER 2025-04-20 15:34 | Outpatient (AMB) | payer OTHER, SELFPAY ==
--- NOTE | 2025-04-20 15:38 | A.OFFVIS_ITS ---
Intake Visit Reasons: azoospermia Intake Note: New Patient is present for Azoospermia Urology Rx: none Blood Thinners:none Imaging completed: none Strategic Sourcing Consultant Required: No Accompanied by: Self / Same As Patient Allergies clonazepam Allergy (Intermediate, Verified 04/20/25 15:39) agitation shrimp (SHRIMP) Allergy (Intermediate, Verified 04/20/25 15:39) ANAPHYLAXIS lisinopril Allergy (Mild, Verified 04/20/25 15:39) Angioedema HPI Comments Details: Riley is a pleasant male. 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 Erectile dysfunction - diabetic Poorly-controlled diabetic with ED Discussed diabetic contribution Can use PD 5s PFSH Medical History Diabetic nephropathy associated with type 1 diabetes mellitus Type 1 diabetes MDD (major depressive disorder), recurrent episode, moderate Obesity (BMI 30-39.9) Diabetic retinopathy Essential hypertension Obesity due to excess calories Insomnia Obesity, Class I, BMI 30-34.9 Pre-op evaluation Non-proliferative diabetic retinopathy, mild, both eyes Anxiety Asthma Overweight (BMI 25.0-29.9) Diabetic polyneuropathy associated with type 1 diabetes mellitus Vitamin D deficiency Diabetes type 1, uncontrolled Diabetes mellitus type 1 Surgical History Hx of appendectomy History of surgery Family History Father No problems noted. 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 Current occupational exposures/hazards: No Cognitive needs: No Hearing needs: No Vision needs: No Review of Systems Const Denies chills and Denies fever(s) Card Reports no additional complaints and Denies syncope Resp Denies cough GI Denies abdominal pain and Denies heartburn Reports as per HPI and Denies change in libido Neuro Denies syncope Psych Denies change in libido Endo Denies change in libido Physical Exam Const General: cooperative, healthy appearing, comfortable and no acute distress Orientation/consciousness: patient oriented x3 HEENT Face and sinus: Yes normal facial exam Mouth: moist mucous membranes Neck Neck: Yes normal visual inspection, Yes full ROM and Yes trachea midline Chest Chest palpation & inspection: normal inspection of the chest Resp Effort & Inspection: normal respiratory effort, able to speak in complete sentences and no respiratory distress GI Inspection: Yes normal to inspection Back/Spine/Pelvis Cervical Spine: normal cervical lordosis Thoracic/Lumbar Spine: thoracic and lumbar spine normal to inspection Skin General skin exam: no rashes or lesions noted Neuro General: patient oriented x3, gait normal, tone normal and moves all extremities Extrem General: Yes normal to inspection and Yes capillary refill normal Results AMB Urinalysis, Automated UA Leukoctes 0 Zach/uL Last Edit by KAREN Carrasco on 04/20/25 15:55 UA Nitrite Negative Last Edit by KAREN Carrasco on 04/20/25 15:55 UA Urobilinogen 3.5 mg/dL Last Edit by KAREN Carrasco on 04/20/25 15:5 5 UA Protein 1.0 mg/dL Last Edit by KAREN Carrasco on 04/20/25 15:55 UA pH 6.5 Last Edit by KAREN Carrasco on 04/20/25 15:55 UA Blood 10 Dominic/uL Last Edit by KAREN Carrasco on 04/20/25 15:55 UA Specific [place] 1.015 Last Edit by KAREN Carrasco on 04/20/25 15: 55 UA Ketone Negative Last Edit by KAREN Carrasco on 04/20/25 15:55 UA Bilirubin 0 mg/dL Last Edit by KAREN Carrasco on 04/20/25 15:55 UA Glucose 60 mg/dL Last Edit by KAREN Carrasco on 04/20/25 15:55 Results Reviewed Results Reviewed: Laboratory Last Values Urine pH (Auto) 6.5 04/20/25 15:54 Specific [place] (Auto) 1.015 04/20/25 15:54 Urine Protein (Auto) 1.0 mg/dL 04/20/25 15:54 Glucose (UA)(Auto) 60 mg/dL 04/20/25 15:54 Urine Ketones (Auto) Negative 04/20/25 15:54 Urine Blood (Auto) 10 Dominic/uL 04/20/25 15:54 Urine Nitrite (Auto) Negative 04/20/25 15:54 Urine Bilirubin (Auto) 0 mg/dL 04/20/25 15:54 Urine Urobilinogen (Auto) 3.5 mg/dL 04/20/25 15:54 Leukocyte Esterase (Auto) 0 Zach/uL 04/20/25 15:54 Assessment & Plan Assessment & Plan (1) Erectile dysfunction due to endocrine disease: Code(s): E34.9 - Endocrine disorder, unspecified; N52.1 - Erectile dysfunction due to diseases classified elsewhere Category: Medical Plan Repeat lab work today to check testosterone given diabetes status Prescription for tadalafil Orders: Orders AMB Urinalysis Automated 04/20/25 Z13.9 - Encounter for screening, unspecified Testosterone, Free/Total 04/20/25 E34.9 - Endocrine disorder, unspecified, N52.1 - Erectile dysfunction due to diseases classified elsewhere Lutenizing Hormone 04/20/25 E34.9 - Endocrine disorder, unspecified, N52.1 - Erectile dysfunction due to diseases classified elsewhere Follicle Stimulating Hormone 04/20/25 E34.9 - Endocrine disorder, unspecified, N52.1 - Erectile dysfunction due to diseases classified elsewhere Medications: New tadalafil 20 mg PO 1XD PRN 30 tabs 1RF sexual activity 30 days E34.9 - Endocrine disorder, unspecified, N52.1 - Erectile dysfunction due to diseases classified elsewhere tadalafil 10 mg PO ONCE 90 tabs 0RF sexual activity 90 days E34.9 - Endocrine disorder, unspecified, N52.1 - Erectile dysfunction due to diseases classified elsewhere Patient Instructions: This note is constructed using voice recognition software. While every effort has been made to ensure accuracy health and safety specialist errors may have been included. Imaging studies, laboratory and physical exam results were discussed and reviewed in detail. No major barriers to patient understanding were identified. An opportunity to ask questions regarding the treatment plan was provided. All questions were answered. The patient expressed understanding and agreement with the above treatment plan. The patient is aware they should contact our office by phone for worsening of their current condition or the appearance of new urologic symptoms. Compliance is encouraged with any medications and followup testing that is ordered. It is a privilege to participate in the urologic care of your patient. If you have any questions or concerns regarding treatment for the above conditions, or other urologic issues, please do not hesitate to contact me. The office telephone contact is [phone]. Sincerely, Dr Buzz Winn MD, [facility] - Urology Compassionate Specialist Care for the Genitourinary System Coding Level of Care Code New Pt Level 4 (03936) Diagnoses Erectile dysfunction due to endocrine disease E34.9; N52.1
--- OUTSIDE RECORDS SUMMARY | 2025-04-20 16:27 | XMS_ITS | Clinical Summary ---
Author Organization [employer] Address [address] [place] [address] [address] [place] [address] Care Team Providers Care Dye Lab Technician Name Role Phone Unavailable Primary Care Provider [...]
--- OUTSIDE RECORDS SUMMARY | 2025-04-20 16:27 | XMS_ITS | Encounter Summary ---
Author Organization [email or web address] [facility] Address [address] [place] [address] [address] [place] [address] Care Team Providers Care Threading Machine Feeder Automatic Name Role Phone Unavailable Primary Care Provider Unavailabl e Encounter Details Date Type Department Care Team (Latest Contact Info) Description 03/26/2019 Abstract [facility] CONVERSIONS Dental, Provider, DDS Social History [...]
== END 2025-04-20 16:21 | disposition home or self-care (01) ==
LOC: HO.HUSH 15:34
PROVIDERS: PCP Internal Medicine; Visit Provider Urology
DX: E34.9 Endocrine disorder, unspecified (principal); N52.1 Erectile dysfunction due to diseases classified elsewhere
CPT/HCPCS: 99204

== ENCOUNTER → 2025-04-20 15:34 | Outpatient (BNVA) | payer OTHER, SELFPAY | PROVIDERS: PCP Internal Medicine; Visit Provider Urology | DX: E11.9 Type 2 diabetes mellitus without complications (principal); N52.1 Erectile dysfunction due to diseases classified elsewhere; N46.8 Other male infertility | CPT/HCPCS: 81003; 99202 ==

== ENCOUNTER 2025-05-05 15:06 | Outpatient (AMB) | payer OTHER, SELFPAY ==
--- NOTE | 2025-05-05 15:07 | A.OFFVIS_ITS ---
Vital Signs 05/05/25 15:11 Height 5 ft 11 in Weight 237 lb BMI 33.1 Pulse 69 Pulse Source Pulse Oximeter Pulse Oximetry (%) 99 Intake Visit Reasons: [facility] [place] [facility] [place]/ Syphilis Allergies clonazepam Allergy (Intermediate, Verified 05/05/25 15:11) agitation shrimp (SHRIMP) Allergy (Intermediate, Verified 05/05/25 15:11) ANAPHYLAXIS lisinopril Allergy (Mild, Verified 05/05/25 15:11) Angioedema HPI Comments Details: History of Present Illness The patient is a 29-year-old male presenting with concern over syphilis positive testing. The diagnosis arose from routine laboratory testing, and the patient remains asymptomatic with respect to syphilis-associated symptoms such as skin lesions, lymphadenopathy, or rash. There is no history of syphilis per the patient's report, and the absence of prior RPR documentation supports this denial. Initial and confirmatory syphilis tests came back reactive, with an EIA screening test positive and an RPR titer of 1:2. Additional medical history includes long-standing diabetes mellitus and diabetic nephropathy, erectile dysfunction, stage 3 chronic kidney disease, venostasis dermatitis, and gastroesophageal reflux disease. The patient has a history of medication usage consistent with these conditions and a compliant treatment course, including two weeks of oral doxycycline for the low-titer syphilis. There are no social risk factors identified in the conversation such as smoking or alcohol use and no noted HIV risk exposure. The partner's syphilis status is negative, and the patient screens negative for other STDs and HIV. Review of Systems - General: Denies fatigue, weight change - Skin: Denies rash, lesions - Lymphatic: Denies lymphadenopathy - Musculoskeletal: Denies joint pain or swelling - Cardiovascular: Denies chest pain or palpitations - Respiratory: Denies cough, shortness of breath - Gastrointestinal: Denies abdominal pain Physical Exam - General- Pleasant male, vital signs stable - Head/Neck- Pharynx clear, no adenopathy - Respiratory- Lungs clear - Cardiovascular- Heart with regular rate and rhythm - Gastrointestinal- Abdomen soft and nontender - Musculoskeletal- Extremities nontender - Neurological- Nonfocal neuro exam - Dermatological- Skin clear Results - Labs: RPR titer 1:2 on 03/16, reactive T. pallidum particle agglutinins, reactive EIA initial screening test Plan Patient was informed and verbally consented to the use of an ambient scribe for clinic note documentation during this visit. 1. Syphilis, unspecified A53.9 Monitor RPR titers with planned re-evaluation in three months. No additional penicillin unless indicated by future test results. 2. Type 2 diabetes mellitus with other specified complication E11.69 HCC 18 Maintain diabetic management regimen and regular monitoring of glucose levels. 3. Erectile Dysfunction Continue current management if effective. 4. Chronic Kidney Disease, Stage 3 Follow renal protective care measures, monitor renal function routinely. 5. Type 1 diabetes mellitus with diabetic nephropathy E10.21 HCC 18 Manage diabetes to prevent further nephropathy progression. 6. Venostasis Dermatitis Treat symptomatically as needed. 7. Gastro-esophageal reflux disease without esophagitis K21.9 Continue proton pump inhibitors and necessary lifestyle changes. Discussion Notes During this visit, we discussed the implications of the positive syphilis serology. Despite reactive serology, the diagnosis may pertain to either an inactive or low-grade infection that has been addressed with doxycycline. We have decided against additional penicillin treatment and instead agreed upon a follow-up RPR titer in three months to further evaluate disease status. The patient expressed understanding of the reasoning and timing for re-evaluation an d acknowledged the lack of additional syphilis transmission risks. Importance of continued diabetic, renal, and other chronic condition management was emphasized. Medical Decision Making The primary concern was the syphilis serological findings, which suggest a low titer at 1:2. Given the completion of doxycycline therapy and no recurrent symptoms or risk factor exposure, the decision was made to forgo further immediate antimicrobial intervention. Instead, reassessing the RPR titer in three months is anticipated to confirm stability or resolution of infection. Other conditions including diabetes, erectile dysfunction, and chronic kidney disease were reviewed regarding current management, affirming the continuity of care strategies, as well as ensuring compliance with prescribed regimens and lifestyle adjustments. Patient Instructions - Take all medications as directed. - Retest for syphilis in three months. - Monitor blood sugar regularly. - Continue prescribed diet and exercise for diabetes and kidney health. - Call if you notice any new or concerning symptoms like a rash or lesions. - Follow up with your primary care physician as scheduled. [facility] Medical History Diabetic nephropathy associated with type 1 diabetes mellitus Type 1 diabetes MDD (major depressive disorder), recurrent episode, moderate Obesity (BMI 30-39.9) Diabetic retinopathy Essential hypertension Obesity due to excess calories Insomnia Obesity, Class I, BMI 30-34.9 Pre-op evaluation Non-proliferative diabetic retinopathy, mild, both eyes Anxiety Asthma Overweight (BMI 25.0-29.9) Diabetic polyneuropathy associated with type 1 diabetes mellitus Vitamin D deficiency Diabetes type 1, uncontrolled Diabetes mellitus type 1 Surgical History Hx of appendectomy History of surgery Family History Father No problems noted. 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
[2025-05-05 15:11] VITALS: PULSE 69; O2SAT 99; BMI 33.1
--- OUTSIDE RECORDS SUMMARY | 2025-05-05 18:14 | XMS_ITS | Encounter Summary ---
Author Organization [employer] Address [address] [place] [address] [address] [place] [address] Care Team Providers Care Wheelchair Driver Name Role Phone Unavailable Primary Care Provider Unavailabl e Encounter Details Date Type Department Care Team (Latest Contact Info) Description 03/26/2019 Abstract [facility] CONVERSIONS Dental, Provider, DDS Social History [...]
--- OUTSIDE RECORDS SUMMARY | 2025-05-05 18:14 | XMS_ITS | Clinical Summary ---
Author Organization [employer] Address [address] [place] [address] [address] [place] [address] Care Team Providers Care Airport Engineer Name Role Phone Unavailable Primary Care Provider [...] - 19+ 3-dose series) 2012 COVID-19 Vaccine (1 - 2023-2 5 season) 2025 Influenza Vaccine (#1) 2025 Zoster Vaccines (1 [...]
== END 2025-05-05 16:11 | disposition home or self-care (01) ==
LOC: HO.HID 15:06
PROVIDERS: PCP Internal Medicine; Visit Provider Internal Medicine
DX: A53.9 Syphilis, unspecified (principal)
CPT/HCPCS: 99203

== ENCOUNTER → 2025-05-05 15:06 | Outpatient (BNVA) | payer OTHER, SELFPAY | PROVIDERS: PCP Internal Medicine; Visit Provider Internal Medicine | DX: A53.9 Syphilis, unspecified (principal) | CPT/HCPCS: 99202 ==

== ENCOUNTER 2025-05-17 15:19 | Outpatient (REF) | payer OTHER, SELFPAY ==
[2025-05-18 08:33] LABS: Follicle Stimulating Hormone 1.1 mIU/mL (1.4-12.8)
[2025-05-18 13:27] LABS: HIV Num 1 0.07 S/CO (0.00-0.99)
[2025-05-22 21:03] LABS: Testosterone, Free 75.2 pg/mL (35.0-155.0)
== END 2025-05-17 15:20 | disposition home or self-care (01) ==
LOC: HO.LAB 15:19
PROVIDERS: Absent Provider Internal Medicine Nephrology; Referring Provider Urology; Visit Provider Internal Medicine
DX: E10.65 Type 1 diabetes mellitus with hyperglycemia (principal); N52.1 Erectile dysfunction due to diseases classified elsewhere; A53.9 Syphilis, unspecified; Z11.4 Encounter for screening for human immunodeficiency virus [HIV]
CPT/HCPCS: 36415; 83001; 83002; 84402; 84403; 87389; 99211

== ENCOUNTER 2025-05-17 15:36 | Outpatient (AMB) | payer OTHER, SELFPAY ==
--- NOTE | 2025-05-17 16:03 | MHC.AMDMED ---
Intake Intake Visit Reasons: 60 Mins Licsw Required: No Accompanied by: Self / Same As Patient Allergies clonazepam Allergy (Intermediate, Verified 05/05/25 15:11) agitation shrimp (SHRIMP) Allergy (Intermediate, Verified 05/05/25 15:11) ANAPHYLAXIS lisinopril Allergy (Mild, Verified 05/05/25 15:11) Angioedema HPI Comprehensive Diabetes Asmnt Most Recent Diabetes Results: Microalb/Creat Ratio, (<30) 1912.4 ug/mg cr H 03/16/25 Cholesterol, (<200) 271 mg/dL H 03/16/25 HDL Cholesterol, (>40) 48 mg/dL 03/16/25 Triglycerides, (<150) 235 mg/dL H 03/16/25 Creatinine, (0.5-1.4) 1.13 mg/dL 03/16/25 BUN, (9-16) 16 mg/dL 03/16/25 Sodium, (135-145) 139 mmol/L 03/16/25 Potassium, (3.3-5.1) 4.4 mmol/L 03/16/25 Chloride, (96-108) 103 mmol/L 03/16/25 Carbon Dioxide, (22-29) 30 mmol/L H 03/16/25 Calcium, (8.4-10.2) 8.9 mg/dL 03/16/25 [facility] Medical History Diabetic nephropathy associated with type 1 diabetes mellitus Type 1 diabetes MDD (major depressive disorder), recurrent episode, moderate Obesity (BMI 30-39.9) Diabetic retinopathy Essential hypertension Obesity due to excess calories Insomnia Obesity, Class I, BMI 30-34.9 Pre-op evaluation Non-proliferative diabetic retinopathy, mild, both eyes Anxiety Asthma Overweight (BMI 25.0-29.9) Diabetic polyneuropathy associated with type 1 diabetes mellitus Vitamin D deficiency Diabetes type 1, uncontrolled Diabetes mellitus type 1 Surgical History Hx of appendectomy History of surgery Family History Father No problems noted. 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 Patient's insulin to carb ratio 1:9 Sensitivity factor:1:30 Patient has episodes of hypoglycemia after corrections, at today's visit we changed sensitivity factor to 1:40 Patient reports he recently broke up with significant other, he did not practice carb counting as frequently as recommended. Reviewed with patient the importance of accurate carb assessment of meals in order to get optimal glucose control when using insulin pump. Patient agreed to continue to practice Patient will contact clinic when he receives Omnipod 5 starter kit and Omnipod 5 pods Patient able to insert sensor independently at home without issue.? Portions of this note were created using voice recognition software, please excuse any words or phrases that may have been misinterpreted. Patient instruction: CGM provides information on blood glucose control throughout the day, including hyperglycemia and hypoglycemia. ? Continue to monitor blood glucose as instructed. Follow nutrition guidelines provided. Report any discomfort promptly to health care provider. ?Stay well-hydrated. You can bathe ,shower, swim and exerce while wearing the glucose sensor. Do not submerge glucose sensor in water for more than 30 minutes. Remove sensor for MRI or CAT scan. Avoid Xray machine in airports - remove sensor or request wand Instrucciones para el paciente: CGM proporciona informaci?n sobre el control de la glucosa en derik a lo deepak del d?a, incluidas la hiperglucemia y la hipoglucemia. Contin?e controlando la glucosa en derik seg?n las instrucciones. Siga las pautas de nutrici?n proporcionadas. Informe cualquier molestia de inmediato al proveedor de atenci?n m?dica. Mantente amanda hidratado. Puede ba?arse, ducharse, nadar y hacer ejercicio mientras usa el sensor de glucosa. No sumerja el sensor de glucosa en agua ivan m?s de 30 minutos. Retire el sensor para yoshi resonancia magn?jocelyne o yoshi tomograf?a computarizada. Evite la m?quina de елена X en los aeropuertos: retire el sensor o solicite la varita Coding Level of Care Code Est Pt Level 1 (62905) Diagnoses Uncontrolled type 1 diabetes mellitus with hyperglycemia E10.65 Glycemic state: with hyperglycemia
== END 2025-05-17 16:09 | disposition home or self-care (01) ==
LOC: HO.ENCR 15:37
PROVIDERS: PCP Internal Medicine; Visit Provider Registered Nurse Diabetes Educator
DX: E10.65 Type 1 diabetes mellitus with hyperglycemia (principal)

== ENCOUNTER 2025-06-28 15:24 | Outpatient (AMB) | payer OTHER, SELFPAY ==
--- NOTE | 2025-06-28 16:35 | MHC.AMDMED ---
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 Required: No Accompanied by: Self / Same As Patient Allergies clonazepam Allergy (Intermediate, Verified 05/05/25 15:11) agitation shrimp (SHRIMP) Allergy (Intermediate, Verified 05/05/25 15:11) ANAPHYLAXIS lisinopril Allergy (Mild, Verified 05/05/25 15:11) Angioedema PFSH Medical History Diabetic nephropathy associated with type 1 diabetes mellitus Type 1 diabetes MDD (major depressive disorder), recurrent episode, moderate Obesity (BMI 30-39.9) Diabetic retinopathy Essential hypertension Obesity due to excess calories Insomnia Obesity, Class I, BMI 30-34.9 Pre-op evaluation Non-proliferative diabetic retinopathy, mild, both eyes Anxiety Asthma Overweight (BMI 25.0-29.9) Diabetic polyneuropathy associated with type 1 diabetes mellitus Vitamin D deficiency Diabetes type 1, uncontrolled Diabetes mellitus type 1 Surgical History Hx of appendectomy History of surgery Family History Father No problems noted. 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 [employer] user ID: [email or web address] Password: [email or web address] The following topics were reviewed today: -Pump therapy basic concepts: Basal/bolus, insulin to carb ratio, correction factor, insulin on board -Device settings: Bluetooth/mobile connection (if applicable), correct date and time, sound volume -CGM settings(if integrated system): CGM graft views and trend arrows, alerts and alarms, Start new sensor ??? High Alert: 240 mg/dL ??? Low Alert: 70 mg/dL ??? Insulin delivery settings Program insulin to carb ratio, correction factor, target blood glucose, suspend or resume insulin delivery, bolus limit and basal limit settings Instructed patient to only use room temperature insulin, how to load cartridge or fill pod, with insulin. Fill tubing and cannula (if applicable) Inserting infusion set or starting pod Troubleshooting after starting new pod or inserting new insulin set: Occlusion, adhesive tape sensitivity, redness Check BG 2 hours after site change Safety information: Importance of a backup plan, for manual injections, proper prescriptions and emergency supplies ketone strips, and rules for testing for ketones Patient was able to insert insulin set today without difficulty. Patient understands the basic concepts of pump therapy, how to give insulin for meals and snacks, how to troubleshoot for hyper and hypoglycemia. Setting verified by [facility] Basal rate(s) (units/hour) : 12 AM? to 12 AM? 0.9 units / hr Bolus setting Insulin Carbohydrate Ratio (s) 12 AM? to 12 AM? 1:8.8 Correction Factor / Sensitivity Factor 12 AM? to 12 AM? 1:38 Active Insulin Time:? 3 hours Target(s): 12 AM? to 12 AM? 120 mg/dL Target threshold: 12 AM? to 12 AM? 130 mg/dL Patient will follow up with [facility] as instructed Patient will contact [facility] with questions or concerns, patient given IT number to support in any technical issues related to insulin pump Portions of this note were created using voice recognition software, please excuse any words or phrases that may have been misinterpreted. Coding Level of Care Code Est Pt Level 1 (10600) Diagnoses Uncontrolled type 1 diabetes mellitus with hyperglycemia E10.65 Glycemic state: with hyperglycemia
--- OUTSIDE RECORDS SUMMARY | 2025-06-28 16:39 | XMS_ITS | Clinical Summary ---
Author Organization [employer] Address [address] [place] [address] [address] [place] [address] Care Team Providers Care Child Care Attendant School Name Role Phone Unavailable Primary Care Provider [...]
--- OUTSIDE RECORDS SUMMARY | 2025-06-28 16:39 | XMS_ITS | Encounter Summary ---
Author Organization [employer] Address [address] [place] [address] [address] [place] [address] Care Team Providers Care Feather Edger Name Role Phone Unavailable Primary Care Provider Unavailabl e Encounter Details Date Type Department Care Team (Latest Contact Info) Description 03/26/2019 Abstract [facility] CONVERSIONS Dental, Provider, DDS Social History Tobacco [...]
== END 2025-06-28 16:44 | disposition home or self-care (01) ==
LOC: HO.ENCR 15:25
PROVIDERS: PCP Internal Medicine; Visit Provider Registered Nurse Diabetes Educator
DX: E10.65 Type 1 diabetes mellitus with hyperglycemia (principal)

== ENCOUNTER → 2025-06-28 15:24 | Outpatient (BNVA) | payer OTHER, SELFPAY | PROVIDERS: PCP Internal Medicine; Visit Provider Registered Nurse Diabetes Educator | DX: Z46.81 Encounter for fitting and adjustment of insulin pump (principal); E10.65 Type 1 diabetes mellitus with hyperglycemia; Z79.4 Long term (current) use of insulin | CPT/HCPCS: 99211 ==

== ENCOUNTER 2025-07-14 16:13 | Outpatient (AMB) | payer OTHER, SELFPAY ==
--- NOTE | 2025-07-14 16:34 | A.OFFVIS_ITS ---
Intake Intake Visit Reasons: 60 Index Clerk Required: No Accompanied by: Self / Same As Patient Allergies clonazepam Allergy (Intermediate, Verified 05/05/25 15:11) agitation shrimp (SHRIMP) Allergy (Intermediate, Verified 05/05/25 15:11) ANAPHYLAXIS lisinopril Allergy (Mild, Verified 05/05/25 15:11) Angioedema [facility] Medical History Diabetic nephropathy associated with type 1 diabetes mellitus Type 1 diabetes MDD (major depressive disorder), recurrent episode, moderate Obesity (BMI 30-39.9) Diabetic retinopathy Essential hypertension Obesity due to excess calories Insomnia Obesity, Class I, BMI 30-34.9 Pre-op evaluation Non-proliferative diabetic retinopathy, mild, both eyes Anxiety Asthma Overweight (BMI 25.0-29.9) Diabetic polyneuropathy associated with type 1 diabetes mellitus Vitamin D deficiency Diabetes type 1, uncontrolled Diabetes mellitus type 1 Surgical History Hx of appendectomy History of surgery Family History Father No problems noted. 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 [employer]ip[employer] user ID: [email or web address] Password: [email or web address] The following topics were reviewed today: -Pump therapy basic concepts: Basal/bolus, insulin to carb ratio, correction factor, insulin on board -manual correction when experiencing hyperglycemia Patient is experiencing postprandial hyperglycemia, and even after corrections. Today's visit we discussed the importance of taking manual corrections when glucose is high through insulin pump and the importance bolusing 15 minutes before meals See adjustments to pump settings below Message sent to provider to send prescription for Humalog vials Patient will be leaving for [place] to visit his mother over the next several months. Patient reports he has arrange to have pump supplies and insulin picked up in sent to him. Troubleshooting after starting new pod or inserting new insulin set: Occlusion, adhesive tape sensitivity, redness Check BG 2 hours after site change Safety information: Importance of a backup plan written insulin plan given to patient, for manual injections, proper prescriptions and emergency supplies ketone strips, and rules for testing for ketones Patient was able to insert insulin set today without difficulty. Patient understands the basic concepts of pump therapy, how to give insulin for meals and snacks, how to troubleshoot for hyper and hypoglycemia. Setting verified by [facility] Basal rate(s) (units/hour) : 12 AM? to 12 AM? 0.9 units / hr Bolus setting Insulin Carbohydrate Ratio (s) 12 AM? to 12 AM? 1:8.8 New 12 AM? to 12 AM? 1:8 Correction Factor / Sensitivity Factor 12 AM? to 12 AM? 1:38 New 12 AM? to 12 AM? 1:34 Active Insulin Time:? 3 hours Target(s): 12 AM? to 12 AM? 120 mg/dL Target threshold: 12 AM? to 12 AM? 130 mg/dL Patient will follow up with [facility] as instructed Patient will contact [facility] with questions or concerns, patient given IT number to support in any technical issues related to insulin pump Coding Level of Care Code Est Pt Level 1 (54452) Diagnoses Uncontrolled type 1 diabetes mellitus with hyperglycemia E10.65 Glycemic state: with hyperglycemia
--- OUTSIDE RECORDS SUMMARY | 2025-07-15 04:44 | XMS_ITS | Clinical Summary ---
Author Organization [employer] Address [address] [place] [address] [address] [place] [address] Care Team Providers Care Sanitation Worker Hosing Machinery Name Role Phone Unavailable Primary Care Provider [...] 3-dose series) 2012 COVID-19 Vaccine ( - 2024-2 6 season) 2025 Influenza Vaccine (#1) 2025 Zoster [...]
--- OUTSIDE RECORDS SUMMARY | 2025-07-15 04:44 | XMS_ITS | Encounter Summary ---
Author Organization [employer] Address [address] [place] [address] [address] [place] [address] Care Team Providers Care Generation Technologist Name Role Phone Unavailable Primary Care Provider Unavailabl e Encounter Details Date Type Department Care Team (Latest Contact Info) Description 03/26/2019 Abstract [facility] CONVERSIONS Dental, Provider, DDS Social History [...]
== END 2025-07-14 16:40 | disposition home or self-care (01) ==
LOC: HO.ENCR 16:14
PROVIDERS: PCP Internal Medicine; Visit Provider Registered Nurse Diabetes Educator
DX: E10.65 Type 1 diabetes mellitus with hyperglycemia (principal)

== ENCOUNTER → 2025-07-14 16:13 | Outpatient (BNVA) | payer OTHER, SELFPAY | PROVIDERS: PCP Internal Medicine; Visit Provider Registered Nurse Diabetes Educator | DX: E10.65 Type 1 diabetes mellitus with hyperglycemia (principal) | CPT/HCPCS: 99211 ==